=== PATIENT | female | born 1935 | race Caucasian/White ===

== ENCOUNTER → 2018-02-25 17:12 | Outpatient (CLI) | payer MEDICARE, OTHER, SELFPAY ==
--- NOTE | 2018-02-25 17:15 | RAD_ITS ---
STUDY: X-RAY CHEST REASON FOR EXAM: Female, 82 years old. Cough TECHNIQUE: Frontal and lateral views of the chest COMPARISON: 08/03/2016 FINDINGS: The lungs are clear. There are no pleural effusions. There is no pneumothorax. The heart is normal in size. The visualized osseous structures are within normal limits. RAD/Chest PA and Lateral IMPRESSION: No acute thoracic pathology. Electronically Signed: Harinder Osborne, at 23:49 EDT Tel , Service support ,
== END ==
PROVIDERS: Family Provider Family Medicine Geriatric Medicine; PCP Family Medicine Geriatric Medicine; Visit Provider Family Medicine Geriatric Medicine
DX: R05 Cough (principal); J32.9 Chronic sinusitis, unspecified
CPT/HCPCS: 71046; 87633

== ENCOUNTER 2018-05-27 16:37 | Emergency (ER) | payer MEDICARE, OTHER, MEDICAID, SELFPAY ==
[2018-05-27 16:38] VITALS: BP 166/102; PULSE 87; RESP 16; TEMP 36.4; O2SAT 96; BMI 42.4
--- NOTE | 2018-05-27 16:45 | RAD_ITS ---
STUDY: X-RAY - RIGHT KNEE REASON FOR EXAM: Female, 82 years old. Injury and pain TECHNIQUE: Four view(s) of the knee were obtained. COMPARISON: August 01, 2016 FINDINGS: There is a prosthesis in the distal femur. There is a prosthesis in the tibial plateau. Normal medial femorotibial compartment. Normal lateral femorotibial compartment. There are surgical changes in the patella. There is no fullness above the patella. Vascular calcifications are present. RAD/Knee 4 or More Views IMPRESSION: No acute abnormalities are seen in the right knee. Hardware is again seen in the right knee and appears intact. An old fracture is again seen in the distal femur, described on the femur study. Electronically Signed: Orquidea Birch MD at 17:53 EDT Tel Direct: [phone], Service support ,
--- NOTE | 2018-05-27 16:51 | ED.VISSUMM ---
- ER Visit Summary Date of Service: 05/27/18 Chief Complaint: Right leg injury History of Present Illness: The patient is a 82 F presents to the emergency department with right leg injury. The patient was in her normal state of health. She was being pushed in a wheelchair. She ended up getting her right foot caught behind her in the wheelchair Going. She ended up twisting her knee. She did have prior knee replacement with periprosthetic fracture and is worried she may have injured the hardware. She did not fall. She has not tried to bear weight on it since. Physical Examination: Vital signs reviewed General: Well-nourished, well-developed Head: Normocephalic, atraumatic Eyes: Pupils equal and reactive, extraocular muscles intact Neck, supple, no lymphadenopathy Heart: Regular rate and rhythm Respiratory: No distress, clear bilaterally Abdomen: Soft, nontender, nondistended, no peritoneal signs Back: Nontender Extremities: Mild tenderness over the distal femur without diffuse edema. Extension is preserved. No crepitus. No skin disruption. Normal pulses. Skin: Normal color no rash Neuro: Alert and oriented, no focal or lateralizing deficits Test Results: [] Emergency Department Course and Treatment: [The patient's extension is preserved. I did obtain plain films of her femur and knee. The hardware is intact. There is old fracture with callus formation. There is no evidence of new injury. This time, due to the patient is safe for outpatient therapy. She will continue Tylenol and ice. She will be discharged home. Treatment Plan: [] Disposition: [] Impression: 1. Right knee sprain This note was generated with [employer] dictation software. It may contain incorrect words, spelling, and punctuation that were not noted in review of the chart prior to signing ED Disposition - Plan for ED Patient: Disposition: Home or Assisted Living Chief Complaint: Lower Extremity Injury Instructions: ED Sprain Knee Referrals: Jeffrey Zhou Chi, MD [Primary Care Provider] -
--- NOTE | 2018-05-27 17:00 | RAD_ITS ---
STUDY: X-RAY - RIGHT FEMUR REASON FOR STUDY: Female, 82 years old. Injury and pain TECHNIQUE: Frontal and lateral views of the femur were obtained. COMPARISON: August 03, 2016 FINDINGS: Bones: There are no acute osseous abnormalities. There is an old fracture in the distal shaft of the right femur. An intramedullary tara extends through the right femur. Joints: Arthroplasty changes are again seen in the right knee. Soft tissues: Vascular calcifications are present. RAD/Femur Min 2 Views IMPRESSION: No acute abnormalities are seen in the right upper leg. Electronically Signed: Orquidea Birch MD at 17:55 EDT Tel Direct: [phone], Service support ,
[2018-05-27] MEDS: HYDROcodone Bitartrate/Apap 5/325 Tablet PO (17:21)
[2018-05-27 18:35] VITALS: BP 138/64; PULSE 51; RESP 18
== END 2018-05-27 18:35 | disposition home or self-care (01) ==
PROVIDERS: Emergency Provider Emergency Medicine; Family Provider Family Medicine Geriatric Medicine; PCP Family Medicine Geriatric Medicine
DX: S83.91XA Sprain of unspecified site of right knee, initial encounter (principal); E66.9 Obesity, unspecified; K21.9 Gastro-esophageal reflux disease without esophagitis; I10 Essential (primary) hypertension; E78.00 Pure hypercholesterolemia, unspecified; Z79.02 Long term (current) use of antithrombotics/antiplatelets; Z79.899 Other long term (current) drug therapy; X50.1XXA Overexertion from prolonged static or awkward postures, initial encounter; Y93.I9 Activity, other involving external motion; Y92.89 Other specified places as the place of occurrence of the external cause; Y99.8 Other external cause status
CPT/HCPCS: 73552; 73564; 99284

== ENCOUNTER → 2018-06-28 10:04 | Outpatient (CLI) | payer MEDICARE, OTHER, MEDICAID, SELFPAY ==
[2018-06-28 16:27] LABS: Absolute Lymphocyte Count 3.73 X10^3/ul (0.83-4.51); Absolute Neutrophil Count 4.2 X10^3/uL (2.0-7.7); Basophil# 0.03 X10^3/uL; Basophil% 0.3 % (0-1); Eosinophil# 0.27 X10^3/uL; Eosinophils% 2.9 % (0-5); Hematocrit 42.4 % (37-47); Hemoglobin 13.7 g/dl (12.0-15.0); Lymphocyte # 3.73 X10^3/ul (4.0); Lymphocyte % 40.6 % (19-41); Mean Corp Hgb Conc 32.3 g/gl (32-36); Mean Corpuscular Hgb 32.4 pg (27.0-32.0); Mean Corpuscular Volume 100.2 fL (81-99); Mean Platelet Vol. 9.7 fl (6.2-12.0); Monocyte# 0.95 X10^3/uL; Monocyte% 10.3 % (0-10); Neutrophil % 45.8 % (47-70); Platelet Count 240 K/mm3 (150-450); RBC Distribution Width CV 12.6 % (11.6-14.6); RBC Distribution Width SD 45.9 fl (35.1-43.9); Red Blood Count 4.23 M/mm3 (4.2-5.4); White Blood Count 9.2 K/mm3 (4.4-11.0)
[2018-06-28 16:35] LABS: POSITIVE COUNT NO; POSITIVE DIFFERENTIAL NO; POSITIVE MORPHOLOGY NO
[2018-06-28 17:08] LABS: ALB/GLOB Ratio 0.7 RATIO (0.9-2.4); AST(SGOT) 19 U/L (15-37); Alanine Aminotransfer ALT/SGPT 15 U/L (13-56); Albumin, Serum 3.2 g/dL (3.2-5.0); Alkaline Phosphatase 79 U/L (45-117); Anion Gap 7 (5-15); BUN 16 mg/dL (7-18); BUN/Creat Ratio 15.5 RATIO (10-20); Calcium,Total 8.9 mg/dL (8.5-10.1); Chloride 106 mmol/L (98-107); Creatinine, Serum 1.03 mg/dL (0.55-1.02); EST Glomerular Filtration Rate 55 mL/min (>60); Est Glom Filt Rate - Afr Amer 66 mL/min (>60); Globulin 4.6 g/dL (2.2-4.2); Glucose 113 mg/dL (74-106); Potassium 4.2 mmol/L (3.5-5.1); Protein, Total 7.8 g/dL (6.4-8.2); Sodium Level 140 mmol/L (136-145); Thyroid Stim Hormone (TSH) 0.71 uIU/mL (0.358-3.74); Uric Acid 2.9 mg/dL (2.6-6.0)
== END ==
PROVIDERS: Family Provider Family Medicine Geriatric Medicine; PCP Family Medicine Geriatric Medicine; Visit Provider Family Medicine Geriatric Medicine
DX: E11.9 Type 2 diabetes mellitus without complications (principal); E55.9 Vitamin D deficiency, unspecified; I10 Essential (primary) hypertension; M10.9 Gout, unspecified
CPT/HCPCS: 36415; 80053; 82306; 84443; 84550; 85025

== ENCOUNTER → 2018-09-06 14:25 | Outpatient (CLI) | payer MEDICARE, OTHER, MEDICAID, SELFPAY ==
--- NOTE | 2018-09-06 14:29 | RAD_ITS ---
STUDY: X-RAY CHEST REASON FOR EXAM: Female, 82 years old. Shortness of breath TECHNIQUE: Frontal and lateral views of the chest. COMPARISON: February 25, 2018 FINDINGS: The lungs are clear and expanded. There is no demonstrated pleural abnormality. Normal size heart. Normal mediastinum and mandeep. Normal visualized pulmonary arteries. Normal visualized aortic arch and descending thoracic aorta. There are diffuse degenerative changes of the visualized thoracic spine. Normal visualized ribs, clavicles, and shoulders. Lumbar vertebroplasty. Cholecystectomy clips. RAD/Chest PA and Lateral IMPRESSION: No acute pulmonary findings. Electronically Signed: Tyrone Ware MD at 5:06 EDT Tel , Service support ,
[2018-09-06 16:31] LABS: Absolute Lymphocyte Count 4.54 X10^3/ul (0.83-4.51); Absolute Neutrophil Count 4.1 X10^3/uL (2.0-7.7); Basophil# 0.04 X10^3/uL; Basophil% 0.4 % (0-1); Eosinophil# 0.18 X10^3/uL; Eosinophils% 1.8 % (0-5); Hematocrit 36.7 % (37-47); Hemoglobin 11.9 g/dl (12.0-15.0); Lymphocyte # 4.54 X10^3/ul (4.0); Lymphocyte % 46.5 % (19-41); Mean Corp Hgb Conc 32.4 g/gl (32-36); Mean Corpuscular Hgb 32.6 pg (27.0-32.0); Mean Corpuscular Volume 100.5 fL (81-99); Mean Platelet Vol. 10.4 fl (6.2-12.0); Monocyte# 0.93 X10^3/uL; Monocyte% 9.5 % (0-10); Neutrophil # 4.06 X10^3/uL (2.7-7.7); Neutrophil % 41.6 % (47-70); Platelet Count 265 K/mm3 (150-450); RBC Distribution Width CV 12.5 % (11.6-14.6); RBC Distribution Width SD 44.4 fl (35.1-43.9); Red Blood Count 3.65 M/mm3 (4.2-5.4); White Blood Count 9.8 K/mm3 (4.4-11.0)
[2018-09-06 16:40] LABS: Anion Gap 9 (5-15); BUN 18 mg/dL (7-18); BUN/Creat Ratio 15.7 RATIO (10-20); Calcium,Total 9.1 mg/dL (8.5-10.1); Chloride 105 mmol/L (98-107); Creatinine, Serum 1.15 mg/dL (0.55-1.02); EST Glomerular Filtration Rate 48 mL/min (>60); Est Glom Filt Rate - Afr Amer 58 mL/min (>60); Glucose 131 mg/dL (74-106); Potassium 3.8 mmol/L (3.5-5.1); Sodium Level 139 mmol/L (136-145)
[2018-09-06 16:47] LABS: BNP,B-Type NATRIURETIC PEPTIDE 273.7 pg/mL (0-100)
[2018-09-06 17:11] LABS: POSITIVE COUNT NO; POSITIVE DIFFERENTIAL NO; POSITIVE MORPHOLOGY NO
== END ==
PROVIDERS: Family Provider Family Medicine Geriatric Medicine; PCP Family Medicine Geriatric Medicine; Referring Provider Family Medicine Geriatric Medicine; Visit Provider Family Medicine Geriatric Medicine
DX: R06.89 Other abnormalities of breathing (principal); R06.09 Other forms of dyspnea; N39.0 Urinary tract infection, site not specified
CPT/HCPCS: 36415; 71046; 80048; 83880; 85025; 87086; 87088

== ENCOUNTER → 2018-09-10 12:39 | Outpatient (CLI) | payer MEDICARE, OTHER, MEDICAID, SELFPAY ==
--- NOTE | 2018-09-10 12:41 | ECHOD_ITS ---
Reason For Study: Acute CHF Procedure This was a 2D Doppler, Color Flow transthoracic echocardiogram. The study was technically difficult. Did not use Definity due to increased PAP. Exam performed in department. Left Ventricle Mildly dilated left ventricle. Based upon the 2D echocardiographic images obtained there appears to be mild left ventricular enlargement with global left ventricular systolic dysfunction. The estimated ejection fraction is 20 %. There is evidence of diastolic dysfunction. Right Ventricle Based upon the 2D echocardiographic images obtained there appears to be grossly normal right ventricular size and systolic function. Atria Normal left atrium. Normal right atrium. No doppler evidence for ASD. Mitral Valve There is no mitral annular calcification. Normal mitral valve. Moderate (2+) mitral valve insufficiency. Tricuspid Valve Normal tricuspid valve. Moderate (2+) tricuspid valve insufficiency. Right ventricular systolic pressure estimated to be 71 mmHg. Aortic Valve Trisinus/trileaflet aortic valve. Mild diffuse aortic valve calcification. Pulmonic Valve The pulmonic valve is not well visualized. Great Vessels Normal sized aortic root. Pericardium/Pleural No pericardial effusion. MMode/2D Measurements & Calculations LVIDd: 5.6 cm IVSd: 0.95 cm Ao root diam: 2.8 cm LVIDs: 4.8 cm LVPWd: 0.78 cm RVDd: 4.2 cm FS: 14.3 % LAV(MOD-bp): 55.7 ml LA A4 area: 18.9 cm2 RA A4 area: 18.9 cm2 LAV(MOD-bp) Indexed: 25.2 ml/m2 LAV(MOD-sp2): 61.0 ml LAV(MOD-sp4): 47.9 ml Doppler Measurements & Calculations MV E max aurelio: 104.2 cm/sec Lat Peak E' Aurelio: 5.0 cm/sec Med Peak E' Aurelio: 4.2 cm/sec MV A max aurelio: 44.9 cm/sec E/E' lat: 21.0 E/E' med: 24.8 MV E/A: 2.3 Ao V2 max: 153.0 cm/sec LV V1 max: 101.2 cm/sec PA V2 max: 84.0 cm/sec Ao max P.4 mmHg LV V1 max P.2 mmHg Ao V2 mean: 108.2 cm/sec Ao mean P.2 mmHg Ao V2 VTI: 28.2 cm TR max aurelio: 397.9 cm/sec TR max P.4 mmHg Interpretation Summary The study was technically difficult. Based upon the 2D echocardiographic images obtained there appears to be mild left ventricular enlargement with global left ventricular systolic dysfunction. The estimated ejection fraction is 20 %. Based upon the 2D echocardiographic images obtained there appears to be grossly normal right ventricular size and systolic function. Moderate (2+) mitral valve insufficiency. Moderate (2+) tricuspid valve insufficiency. Mild diffuse aortic valve calcification. Right ventricular systolic pressure estimated to be 71 mmHg. There is evidence of diastolic dysfunction. Ordering Physician: Jeffrey Zhou Chi Referring Physician: Jeffrey Zhou Chi Performed By: Hortencia Alvarado, ROMIE, RVT
== END ==
PROVIDERS: Family Provider Family Medicine Geriatric Medicine; PCP Family Medicine Geriatric Medicine; Referring Provider Family Medicine Geriatric Medicine; Visit Provider Family Medicine Geriatric Medicine
DX: R06.02 Shortness of breath (principal); I50.9 Heart failure, unspecified
CPT/HCPCS: 93306

== ENCOUNTER → 2018-09-13 16:56 | Outpatient (CLI) | payer MEDICARE, OTHER, MEDICAID, SELFPAY ==
[2018-09-13 18:30] LABS: Anion Gap 8 (5-15); BUN 15 mg/dL (7-18); BUN/Creat Ratio 14.6 RATIO (10-20); Calcium,Total 9.4 mg/dL (8.5-10.1); Chloride 101 mmol/L (98-107); Creatinine, Serum 1.03 mg/dL (0.55-1.02); EST Glomerular Filtration Rate 55 mL/min (>60); Est Glom Filt Rate - Afr Amer 66 mL/min (>60); Glucose 112 mg/dL (74-106); Potassium 3.8 mmol/L (3.5-5.1); Sodium Level 138 mmol/L (136-145)
== END ==
PROVIDERS: Family Provider Family Medicine Geriatric Medicine; PCP Family Medicine Geriatric Medicine; Referring Provider Family Medicine Geriatric Medicine; Visit Provider Family Medicine Geriatric Medicine
DX: I10 Essential (primary) hypertension (principal)
CPT/HCPCS: 36415; 80048

== ENCOUNTER → 2018-09-27 16:47 | Outpatient (CLI) | payer MEDICARE, OTHER, MEDICAID, SELFPAY ==
[2018-09-27 17:34] LABS: Anion Gap 9 (5-15); BUN 22 mg/dL (7-18); BUN/Creat Ratio 19.8 RATIO (10-20); Calcium,Total 9.1 mg/dL (8.5-10.1); Chloride 103 mmol/L (98-107); Creatinine, Serum 1.11 mg/dL (0.55-1.02); EST Glomerular Filtration Rate 50 mL/min (>60); Est Glom Filt Rate - Afr Amer 61 mL/min (>60); Glucose 112 mg/dL (74-106); Potassium 4.2 mmol/L (3.5-5.1); Sodium Level 135 mmol/L (136-145)
[2018-09-27 17:40] LABS: Absolute Lymphocyte Count 2.03 X10^3/ul (0.83-4.51); Absolute Neutrophil Count 1.9 X10^3/uL (2.0-7.7); Basophil# 0.02 X10^3/uL; Basophil% 0.4 % (0-1); Differential Indicated SCAN CRITERIA MET; Eosinophil# 0.11 X10^3/uL; Eosinophils% 2.3 % (0-5); Hematocrit 40.8 % (37-47); Hemoglobin 13.1 g/dl (12.0-15.0); Lymphocyte # 2.03 X10^3/ul (4.0); Lymphocyte % 42.6 % (19-41); Mean Corp Hgb Conc 32.1 g/gl (32-36); Mean Corpuscular Hgb 32.3 pg (27.0-32.0); Mean Corpuscular Volume 100.5 fL (81-99); Mean Platelet Vol. 9.8 fl (6.2-12.0); Monocyte# 0.67 X10^3/uL; Monocyte% 14.1 % (0-10); Neutrophil # 1.92 X10^3/uL (2.7-7.7); Neutrophil % 40.4 % (47-70); POSITIVE COUNT NO; POSITIVE DIFFERENTIAL NO; POSITIVE MORPHOLOGY YES; Platelet Count 204 K/mm3 (150-450); RBC Distribution Width CV 13.1 % (11.6-14.6); RBC Distribution Width SD 47.8 fl (35.1-43.9); Red Blood Count 4.06 M/mm3 (4.2-5.4); White Blood Count 4.8 K/mm3 (4.4-11.0)
== END ==
PROVIDERS: Family Provider Family Medicine Geriatric Medicine; PCP Family Medicine Geriatric Medicine; Visit Provider Family Medicine Geriatric Medicine
DX: I50.9 Heart failure, unspecified (principal)
CPT/HCPCS: 36415; 80048; 85025

== ENCOUNTER → 2018-10-11 16:19 | Outpatient (CLI) | payer MEDICARE, OTHER, MEDICAID, SELFPAY ==
[2018-10-11 17:36] LABS: Anion Gap 7 (5-15); BUN 15 mg/dL (7-18); BUN/Creat Ratio 16.4 RATIO (10-20); Chloride 108 mmol/L (98-107); Creatinine, Serum 0.92 mg/dL (0.55-1.02); EST Glomerular Filtration Rate 63 mL/min (>60); Est Glom Filt Rate - Afr Amer 76 mL/min (>60); Glucose 119 mg/dL (74-106); Potassium 4.3 mmol/L (3.5-5.1); Sodium Level 138 mmol/L (136-145)
[2018-10-11 18:36] LABS: Absolute Lymphocyte Count 3.41 X10^3/ul (0.83-4.51); Absolute Neutrophil Count 3.5 X10^3/uL (2.0-7.7); Basophil# 0.06 X10^3/uL; Basophil% 0.8 % (0-1); Eosinophil# 0.16 X10^3/uL; Hematocrit 41.4 % (37-47); Hemoglobin 13.5 g/dl (12.0-15.0); Lymphocyte # 3.41 X10^3/ul (4.0); Lymphocyte % 43.1 % (19-41); Mean Corp Hgb Conc 32.6 g/gl (32-36); Mean Corpuscular Hgb 32.2 pg (27.0-32.0); Mean Corpuscular Volume 98.8 fL (81-99); Mean Platelet Vol. 11.1 fl (6.2-12.0); Monocyte# 0.78 X10^3/uL; Monocyte% 9.8 % (0-10); Neutrophil % 44.2 % (47-70); Platelet Count 202 K/mm3 (150-450); RBC Distribution Width CV 13.2 % (11.6-14.6); RBC Distribution Width SD 47.9 fl (35.1-43.9); Red Blood Count 4.19 M/mm3 (4.2-5.4); White Blood Count 7.9 K/mm3 (4.4-11.0)
[2018-10-11 18:40] LABS: Differential Indicated SCAN CRITERIA MET; POSITIVE COUNT NO; POSITIVE DIFFERENTIAL NO; POSITIVE MORPHOLOGY YES
[2018-10-11 22:14] LABS: Differential Comment SCANNED
== END ==
PROVIDERS: Family Provider Family Medicine Geriatric Medicine; PCP Family Medicine Geriatric Medicine; Visit Provider Family Medicine Geriatric Medicine
DX: I50.9 Heart failure, unspecified (principal)
CPT/HCPCS: 36415; 80048; 85025

== ENCOUNTER → 2018-12-27 14:56 | Outpatient (CLI) | payer MEDICARE, OTHER, MEDICAID, SELFPAY ==
[2018-12-27 16:22] LABS: Vitamin D,25 Hydroxy 26.5 ng/mL (29.95-100.01)
[2018-12-27 16:26] LABS: ALB/GLOB Ratio 0.7 RATIO (0.9-2.4); AST(SGOT) 15 U/L (15-37); Alanine Aminotransfer ALT/SGPT 20 U/L (13-56); Albumin, Serum 3.2 g/dL (3.2-5.0); Alkaline Phosphatase 77 U/L (45-117); Anion Gap 10 (5-15); BUN 25 mg/dL (7-18); BUN/Creat Ratio 22.1 RATIO (10-20); Calcium,Total 9.2 mg/dL (8.5-10.1); Chloride 108 mmol/L (98-107); Creatinine, Serum 1.13 mg/dL (0.55-1.02); EST Glomerular Filtration Rate 49 mL/min (>60); Est Glom Filt Rate - Afr Amer 59 mL/min (>60); Globulin 4.3 g/dL (2.2-4.2); Glucose 129 mg/dL (74-106); Potassium 3.9 mmol/L (3.5-5.1); Protein, Total 7.5 g/dL (6.4-8.2); Sodium Level 143 mmol/L (136-145); Thyroid Stim Hormone (TSH) 0.87 uIU/mL (0.358-3.74); Uric Acid 3.2 mg/dL (2.6-6.0)
[2018-12-27 16:32] LABS: Absolute Lymphocyte Count 3.41 X10^3/ul (0.83-4.51); Absolute Neutrophil Count 2.4 X10^3/uL (2.0-7.7); Basophil# 0.03 X10^3/uL; Basophil% 0.5 % (0-1); Eosinophil# 0.18 X10^3/uL; Eosinophils% 2.8 % (0-5); Hemoglobin 13.6 g/dl (12.0-15.0); Lymphocyte # 3.41 X10^3/ul (4.0); Lymphocyte % 52.8 % (19-41); Mean Corp Hgb Conc 31.6 g/gl (32-36); Mean Corpuscular Hgb 31.3 pg (27.0-32.0); Mean Corpuscular Volume 99.1 fL (81-99); Mean Platelet Vol. 10.3 fl (6.2-12.0); Monocyte# 0.47 X10^3/uL; Monocyte% 7.3 % (0-10); Neutrophil # 2.36 X10^3/uL (2.7-7.7); Neutrophil % 36.4 % (47-70); Platelet Count 248 K/mm3 (150-450); RBC Distribution Width CV 13.7 % (11.6-14.6); RBC Distribution Width SD 49.3 fl (35.1-43.9); Red Blood Count 4.34 M/mm3 (4.2-5.4); White Blood Count 6.5 K/mm3 (4.4-11.0)
[2018-12-27 16:33] LABS: POSITIVE COUNT NO; POSITIVE DIFFERENTIAL NO; POSITIVE MORPHOLOGY NO
== END ==
PROVIDERS: Family Provider Family Medicine Geriatric Medicine; PCP Family Medicine Geriatric Medicine; Visit Provider Family Medicine Geriatric Medicine
DX: E11.9 Type 2 diabetes mellitus without complications (principal); E55.9 Vitamin D deficiency, unspecified; I10 Essential (primary) hypertension; M10.9 Gout, unspecified
CPT/HCPCS: 36415; 80053; 82306; 84443; 84550; 85025

== ENCOUNTER 2019-05-31 16:02 | Emergency (ER) | payer MEDICARE, OTHER, MEDICAID, SELFPAY ==
[2019-05-31 16:03] VITALS: BP 107/67; PULSE 79; RESP 18; TEMP 36.6; O2SAT 96; BMI 45.8
[2019-05-31 16:07] VITALS: O2SAT 96
--- NOTE | 2019-05-31 16:28 | RAD_ITS ---
STUDY: X-RAY - RIGHT SHOULDER REASON FOR EXAM: Female, 83 years old. Pain after fall. TECHNIQUE: 4 view(s) of the shoulder. COMPARISON: None. FINDINGS: There is mild degenerative arthrosis of the glenohumeral articulation. There is degenerative arthrosis of the acromioclavicular joint without inferior osseous spur formation. Normal acromion. There is no acute fracture, dislocation or destructive osseous pathology. There is demineralization of the humerus and visualized osseous structures. The soft tissue structures are unremarkable. Normal visualized pulmonary apex. RAD/Shoulder min 2 Views IMPRESSION: Osteopenia mild degenerative changes right shoulder. There is no acute fracture or dislocation. Electronically Signed: Davian Mendoza DO at 16:50 EDT Tel [phone], Service support ,
--- NOTE | 2019-05-31 16:30 | RAD_ITS ---
STUDY: X-RAY - RIGHT KNEE REASON FOR EXAM: Female, 83 years old. Right knee pain after fall. TECHNIQUE: 4 view(s) of the knee. COMPARISON: Right knee, May 27, 2018. FINDINGS: There is a total knee replacement. The prosthetic components are intact and articulate normally with each other. There is no evidence of loosening from the underlying bone. There is no evidence of acute osseous fracture or destructive osseous pathology. There is slight irregularity of the distal femoral shaft suggesting old healed fracture. This appears stable. There are atherosclerotic calcifications. RAD/Knee 4 or More Views IMPRESSION: Stable right artificial knee without acute abnormality or interval change. Electronically Signed: Davian Mendoza DO at 16:51 EDT Tel [phone], Service support ,
--- NOTE | 2019-05-31 16:32 | ED.VISSUMM ---
- ER Visit Summary Date of Service: 05/31/19 Chief Complaint: Fall History of Present Illness: The patient is a 83 F who presents with right knee pain and right shoulder pain that began after a fall today. Patient states she was walking and then sat down. Patient attempted to stand up and fell to the right. Patient hit her right shoulder on a wall and then fell to the ground and hit her right knee. Patient has had a right total knee replacement and a fracture of her distal femur in the past. Patient and family are concerned over possible fracture of her knee or distal femur. Patient denies any head injury or loss of consciousness. Patient denies any paresthesias or weakness. Patient states her pain is worse with any movement. Patient denies any other injuries. Physical Examination: Vital signs are stable. Patient is afebrile. Patient is in no acute distress. [place]ucosa is pink and moist. Neck is supple. Trachea is midline. There is no JVD noted. Heart was regular rate and rhythm. Lungs are clear and equal bilaterally. Abdomen is soft. Bowel sounds are normal. There is no tenderness. There is no guarding noted. Musculoskeletal exam reveals tenderness over the right shoulder and right knee. Range of motion was limited in all motions of the right shoulder and right knee. There is no obvious deformity noted. Sensation was intact to light touch bilaterally in the upper and lower extremities. Strength is 5/5 bilaterally upper and lower extremities. Radial and pedal pulses are equal bilaterally. Test Results: X-rays of the right shoulder were obtained. There is no acute fracture or dislocation. X-rays of the right knee were obtained. There is no acute fracture. The prosthesis and screws are intact. Emergency Department Course and Treatment: Patient was given 2 doses of [place] here. Patient was able to ambulate here in the emergency department with a walker. Patient will be discharged home. Patient was given a prescription for a short course of [place]. Patient was instructed to follow-up with her primary care physician in 5 to 7 days. Patient understood and was agreeable with the plan. All questions were answered. Disposition: Discharge home Impression: 1. Right knee contusion 2. Right shoulder contusion This note was generated with [employer] software. It may contain incorrect words, spelling, and punctuation that were not noted in review of the chart prior to signing ED Disposition - Plan for ED Patient: Disposition: Home or Assisted Living Diagnosis: Contusion of right knee, initial encounter, Contusion of right shoulder, initial encounter Instructions: FALL, Mechanical, CONTUSION, Soft Tissue Prescriptions: Hydrocodone Bitart/Apap 5-325 [[place] 5MG-325MG] 1 tab PO Q6H PRN PRN 3 Days #10 tab PRN Reason: Pain Prescription Printed Referrals: Jeffrey Zhou Chi, MD [Primary Care Provider] - 5-7 Days
[2019-05-31] MEDS: HYDROcodone Bitartrate/Apap 5/325 Tablet PO ×2 (16:49→19:18)
[2019-05-31 18:11] VITALS: BP 128/73; PULSE 67; O2SAT 97
--- NOTE | 2019-05-31 18:50 | ED.RN ---
RN CALLED FOR EKG, PULLED OLD EKGS FOR
[2019-05-31 19:27] VITALS: BP 116/78; PULSE 76; RESP 16; O2SAT 97
== END 2019-05-31 19:27 | disposition home or self-care (01) ==
PROVIDERS: Emergency Provider Emergency Medicine; Family Provider Family Medicine Geriatric Medicine; PCP Family Medicine Geriatric Medicine
DX: S80.01XA Contusion of right knee, initial encounter (principal); S40.011A Contusion of right shoulder, initial encounter; E66.9 Obesity, unspecified; I50.9 Heart failure, unspecified; Z96.651 Presence of right artificial knee joint; Z79.899 Other long term (current) drug therapy; W18.30XA Fall on same level, unspecified, initial encounter; Y93.89 Activity, other specified; Y92.009 Unspecified place in unspecified non-institutional (private) residence as the place of occurrence of the external cause; Y99.8 Other external cause status
CPT/HCPCS: 73030; 73564; 99285

== ENCOUNTER → 2019-06-30 13:45 | Outpatient (CLI) | payer MEDICARE, OTHER, MEDICAID, SELFPAY ==
[2019-05-31 16:03] VITALS: BMI 45.8
[2019-06-30 17:00] LABS: Absolute Lymphocyte Count 3.65 X10^3/uL (0.83-4.51); Absolute Neutrophil Count 3.9 X10^3/uL (2.0-7.7); Basophil# 0.05 X10^3/uL; Basophil% 0.6 % (0-1); Eosinophil# 0.22 X10^3/uL; Eosinophils% 2.6 % (0-5); Hematocrit 39.6 % (37-47); Hemoglobin 12.3 g/dL (12.0-15.0); Lymphocyte # 3.65 X10^3/ul (4.0); Lymphocyte % 42.7 % (19-41); Mean Corp Hgb Conc 31.1 g/dL (32-36); Mean Corpuscular Hgb 31.1 pg (27.0-32.0); Mean Corpuscular Volume 100.3 fL (81-99); Mean Platelet Vol. 11.1 fl (6.2-12.0); Monocyte# 0.72 X10^3/uL; Monocyte% 8.4 % (0-10); NRBC Flagged by Analyzer 0 % (0-5); Neutrophil # 3.89 X10^3/uL (2.7-7.7); Neutrophil % 45.5 % (47-70); Platelet Count 244 K/mm3 (150-450); RBC Distribution Width CV 12.4 % (11.6-14.6); RBC Distribution Width SD 45.9 fl (35.1-43.9); Red Blood Count 3.95 M/mm3 (4.2-5.4); White Blood Count 8.6 K/mm3 (4.4-11.0)
[2019-06-30 17:52] LABS: Vitamin D,25 Hydroxy 20.6 ng/mL (29.95-100.01)
[2019-06-30 17:58] LABS: ALB/GLOB Ratio 0.7 RATIO (0.9-2.4); AST(SGOT) 20 U/L (15-37); Alanine Aminotransfer ALT/SGPT 19 U/L (13-56); Albumin, Serum 3.2 g/dL (3.2-5.0); Alkaline Phosphatase 93 U/L (45-117); Anion Gap 8 (5-15); BUN 18 mg/dL (7-18); BUN/Creat Ratio 15.8 RATIO (10-20); Chloride 108 mmol/L (98-107); Creatinine, Serum 1.14 mg/dL (0.55-1.02); EST Glomerular Filtration Rate 49 mL/min (>60); Est Glom Filt Rate - Afr Amer 59 mL/min (>60); Globulin 4.3 g/dL (2.2-4.2); Glucose 129 mg/dL (74-106); Potassium 3.9 mmol/L (3.5-5.1); Protein, Total 7.5 g/dL (6.4-8.2); Sodium Level 142 mmol/L (136-145); Thyroid Stim Hormone (TSH) 0.79 uIU/mL (0.358-3.74); Uric Acid 3.3 mg/dL (2.6-6.0)
== END ==
PROVIDERS: Family Provider Family Medicine Geriatric Medicine; PCP Family Medicine Geriatric Medicine; Visit Provider Family Medicine Geriatric Medicine
DX: E11.9 Type 2 diabetes mellitus without complications (principal); M10.9 Gout, unspecified; E55.9 Vitamin D deficiency, unspecified
CPT/HCPCS: 36415; 80053; 82306; 84443; 84550; 85025

== ENCOUNTER → 2019-12-28 15:05 | Outpatient (CLI) | payer MEDICARE, OTHER, MEDICAID, SELFPAY ==
[2019-12-28 17:28] LABS: Absolute Lymphocyte Count 3.03 X10^3/uL (0.83-4.51); Absolute Neutrophil Count 2.2 X10^3/uL (2.0-7.7); Basophil# 0.04 X10^3/uL; Basophil% 0.7 % (0-1); Eosinophil# 0.24 X10^3/uL; Eosinophils% 3.9 % (0-5); Hematocrit 37.6 % (37-47); Hemoglobin 11.9 g/dL (12.0-15.0); Lymphocyte # 3.03 X10^3/ul (4.0); Lymphocyte % 49.8 % (19-41); Mean Corp Hgb Conc 31.6 g/dL (32-36); Mean Corpuscular Volume 97.9 fL (81-99); Mean Platelet Vol. 10.4 fl (6.2-12.0); Monocyte# 0.53 X10^3/uL; Monocyte% 8.7 % (0-10); NRBC Flagged by Analyzer 0 % (0-5); Neutrophil # 2.24 X10^3/uL (2.7-7.7); Neutrophil % 36.7 % (47-70); Platelet Count 239 K/mm3 (150-450); RBC Distribution Width SD 46.4 fl (35.1-43.9); Red Blood Count 3.84 M/mm3 (4.2-5.4); White Blood Count 6.1 K/mm3 (4.4-11.0)
[2019-12-28 18:05] LABS: ALB/GLOB Ratio 0.8 RATIO (0.9-2.4); AST(SGOT) 14 U/L (15-37); Alanine Aminotransfer ALT/SGPT 16 U/L (13-56); Albumin, Serum 3.3 g/dL (3.2-5.0); Alkaline Phosphatase 79 U/L (45-117); Anion Gap 5 (5-15); BUN 30 mg/dL (7-18); Chloride 107 mmol/L (98-107); EST Glomerular Filtration Rate 46 mL/min (>60); Est Glom Filt Rate - Afr Amer 55 mL/min (>60); Globulin 3.9 g/dL (2.2-4.2); Glucose 132 mg/dL (74-106); Potassium 3.9 mmol/L (3.5-5.1); Protein, Total 7.2 g/dL (6.4-8.2); Sodium Level 138 mmol/L (136-145); Thyroid Stim Hormone (TSH) 0.84 uIU/mL (0.358-3.74); Uric Acid 2.6 mg/dL (2.6-6.0)
[2019-12-28 18:13] LABS: Vitamin D,25 Hydroxy 24.2 ng/mL (29.95-100.01)
== END ==
PROVIDERS: PCP Family Medicine Geriatric Medicine; Visit Provider Family Medicine Geriatric Medicine
DX: E55.9 Vitamin D deficiency, unspecified (principal); I10 Essential (primary) hypertension; M10.9 Gout, unspecified
CPT/HCPCS: 36415; 80053; 82306; 84443; 84550; 85025

== ENCOUNTER → 2021-01-02 13:07 | Outpatient (CLI) | payer MEDICARE, OTHER, MEDICAID, SELFPAY ==
--- NOTE | 2021-01-02 14:24 | RAD_ITS ---
STUDY: X-RAY - RIGHT ANKLE REASON FOR EXAM: Female, 85 years old. RIGHT FOOT AND ANKLE PAIN. NO KNOWN RECENT INJURY. TECHNIQUE: 3 view(s) of the ankle. COMPARISON: None. FINDINGS: Normal visualized distal tibia and fibula. Normal medial and lateral malleoli. Normal tibiotalar articulation and ankle mortise. Plantar spur. The visualized subtalar, talonavicular, calcaneocuboid and tarsal articulations are normal. Vascular calcification. RAD/Ankle min 3 Views IMPRESSION: Plantar spur. Electronically Signed: Tomas Marquez MD at 15:20 EST , Service support ,
--- NOTE | 2021-01-02 14:40 | RAD_ITS ---
STUDY: X-RAY - RIGHT FOOT CLINICAL: Female, 85 years old. RIGHT FOOT AND ANKLE PAIN. NO KNOWN RECENT INJURY. TECHNIQUE: 3 view(s) of the foot. COMPARISON: None. FINDINGS: There is a plantar calcaneal spur. Normal visualized subtalar, talonavicular, calcaneocuboid, tarsal and tarsometatarsal articulations. Normal metatarsi. There is degenerative arthrosis of the metatarsophalangeal joint of the hallux . Normal tibial and fibular sesamoid bones. Normal interphalangeal joint of the great toe. Normal phalanges of the great toe. Normal second through fifth metatarsophalangeal joints. Normal interphalangeal joints and phalanges of the lesser toes. Vascular calcification. RAD/Foot min 3 Views IMPRESSION: Plantar spur. Atherosclerotic calcification. Electronically Signed: Tomas Marquez MD at 15:21 EST , Service support ,
[2021-01-02 17:22] LABS: Absolute Lymphocyte Count 3.02 X10^3/uL (0.83-4.51); Absolute Neutrophil Count 2.4 X10^3/uL (2.0-7.7); Basophil# 0.04 X10^3/uL; Basophil% 0.6 % (0-1); Eosinophil# 0.27 X10^3/uL; Eosinophils% 4.4 % (0-5); Hematocrit 39.4 % (37-47); Hemoglobin 11.9 g/dL (12.0-15.0); Lymphocyte # 3.02 X10^3/ul (4.0); Lymphocyte % 48.7 % (19-41); Mean Corp Hgb Conc 30.2 g/dL (32-36); Mean Corpuscular Hgb 30.3 pg (27.0-32.0); Mean Corpuscular Volume 100.3 fL (81-99); Mean Platelet Vol. 10.2 fl (6.2-12.0); Monocyte# 0.48 X10^3/uL; Monocyte% 7.7 % (0-10); NRBC Flagged by Analyzer 0 % (0-5); Neutrophil # 2.37 X10^3/uL (2.7-7.7); Neutrophil % 38.3 % (47-70); Platelet Count 267 K/mm3 (150-450); RBC Distribution Width CV 12.7 % (11.6-14.6); RBC Distribution Width SD 46.8 fl (35.1-43.9); Red Blood Count 3.93 M/mm3 (4.2-5.4); White Blood Count 6.2 K/mm3 (4.4-11.0)
[2021-01-02 17:33] LABS: Vitamin D,25 Hydroxy 31.5 ng/mL
[2021-01-02 17:54] LABS: ALB/GLOB Ratio 0.7 RATIO (0.9-2.4); AST(SGOT) 15 U/L (15-37); Alanine Aminotransfer ALT/SGPT 14 U/L (13-56); Alkaline Phosphatase 80 U/L (45-117); Anion Gap 9 (5-15); BUN 27 mg/dL (7-18); BUN/Creat Ratio 22.9 RATIO (10-20); Calcium,Total 9.1 mg/dL (8.5-10.1); Chloride 106 mmol/L (98-107); Creatinine, Serum 1.18 mg/dL (0.55-1.02); EST Glomerular Filtration Rate 47 mL/min (>60); Est Glom Filt Rate - Afr Amer 56 mL/min (>60); Globulin 4.6 g/dL (2.2-4.2); Glucose 155 mg/dL (74-106); Potassium 3.6 mmol/L (3.5-5.1); Protein, Total 7.6 g/dL (6.4-8.2); Sodium Level 140 mmol/L (136-145); Thyroid Stim Hormone (TSH) 1.27 uIU/mL (0.358-3.74); Uric Acid 2.6 mg/dL (2.6-6.0)
== END ==
PROVIDERS: PCP Family Medicine Geriatric Medicine; Referring Provider Family Medicine Geriatric Medicine; Visit Provider Family Medicine Geriatric Medicine
DX: E11.9 Type 2 diabetes mellitus without complications (principal); E55.9 Vitamin D deficiency, unspecified; I10 Essential (primary) hypertension; M10.9 Gout, unspecified; M79.673 Pain in unspecified foot
CPT/HCPCS: 36415; 73610; 73630; 80053; 82306; 84443; 84550; 85025

== ENCOUNTER → 2021-03-13 16:49 | Outpatient (CLI) | payer MEDICARE, OTHER, MEDICAID, SELFPAY ==
[2021-03-13 17:19] LABS: Absolute Lymphocyte Count 3.37 X10^3/uL (0.83-4.51); Absolute Neutrophil Count 3.9 X10^3/uL (2.0-7.7); Basophil# 0.06 X10^3/uL; Basophil% 0.7 % (0-1); Eosinophil# 0.25 X10^3/uL; Hematocrit 42.2 % (37-47); Hemoglobin 13.6 g/dL (12.0-15.0); Lymphocyte # 3.37 X10^3/ul (0.83-4.51); Lymphocyte % 40.3 % (19-41); Mean Corp Hgb Conc 32.2 g/dL (32-36); Mean Corpuscular Hgb 31.9 pg (27.0-32.0); Mean Corpuscular Volume 98.8 fL (81-99); Mean Platelet Vol. 9.5 fl (6.2-12.0); Monocyte% 9.6 % (0-10); NRBC Flagged by Analyzer 0 % (0-5); Neutrophil # 3.87 X10^3/uL (2.7-7.7); Neutrophil % 46.2 % (47-70); Platelet Count 259 K/mm3 (150-450); RBC Distribution Width CV 13.4 % (11.6-14.6); RBC Distribution Width SD 48.5 fl (35.1-43.9); Red Blood Count 4.27 M/mm3 (4.2-5.4); White Blood Count 8.4 K/mm3 (4.4-11.0)
[2021-03-13 18:18] LABS: ALB/GLOB Ratio 0.6 RATIO (0.9-2.4); AST(SGOT) 41 U/L (15-37); Alanine Aminotransfer ALT/SGPT 15 U/L (13-56); Alkaline Phosphatase 79 U/L (45-117); Anion Gap 4 (5-15); BUN 23 mg/dL (7-18); BUN/Creat Ratio 18.7 RATIO (10-20); Chloride 105 mmol/L (98-107); Creatinine, Serum 1.23 mg/dL (0.55-1.02); EST Glomerular Filtration Rate 44 mL/min (>60); Est Glom Filt Rate - Afr Amer 54 mL/min (>60); Globulin 5.1 g/dL (2.2-4.2); Glucose 114 mg/dL (74-106); Potassium 4.3 mmol/L (3.5-5.1); Protein, Total 8.1 g/dL (6.4-8.2); Sodium Level 139 mmol/L (136-145); Thyroid Stim Hormone (TSH) 0.93 uIU/mL (0.358-3.74)
== END ==
PROVIDERS: PCP Family Medicine Geriatric Medicine; Visit Provider Family Medicine Geriatric Medicine
DX: N39.0 Urinary tract infection, site not specified (principal); R53.83 Other fatigue
CPT/HCPCS: 36415; 80053; 84443; 85025; 87086; 87088

== ENCOUNTER 2021-05-13 15:00 | Outpatient (RCR) | payer MEDICARE, OTHER, MEDICAID, SELFPAY ==
--- NOTE | 2021-04-17 16:03 | HP.PTEVAL ---
Patient's Visit Information RAFA BARRON is a 85 year old F referred to Physical Therapy by Dr. Jeffrey Zhou MD with a diagnosis of Bilateral Lower Extremity Weakness. Date of Evaluation: 04/12/21 Physical Therapist: Gokul Novoa DPT - Visit Plan Frequency: 2x /Week Duration: 4-6 Weeks Plan: The pt. is currently independent with trying to walk more each day, as well as doing marches in sitting. Have the pt. increase her B LE strength and increase her walking endurance while at the clinic. Start the pt. on a recumbent bike to increase her LE ROM and endurance. Have the pt. fill out a LEFS at the 2nd visit. - Subjective The pt. comes to PT today for concerns of weakness in both lower extremities. The pt. reports that when she stands up and walks, occasionally her R knee will buckle and give out on her. She states that her R leg feels weaker than the L and could be due to a femur fracture about four years ago on her R side. The pt. states that she was immobile for a year after her fracture and resided at [facility] for a year and her lower extremity strength has been progressively decreasing since then. She is currently living with her daughter and son-in-law and has been living there for 11 years now and who help her around the house when they can. She goes to [place] every Thursday and from 8AM-2PM to get bathed and spend the day with other people. The pt. is unable to bathe herself while at home because the shower is too small for her. At home, she is sleeping in her bed and can transfer herself, but uses a bed rail to help her get in/out of bed. Her upper extremity is strong enough for her to push off the bed rail and off of her chair to get up she states. She has a ramp that leads up to her mobile home, so she does not have to ascend/descend stairs. She can also transfer herself into a van, but needs help moving her legs into the van. To get around the house, the pt. ambulates with a standard walker and uses a rollator/wheelchair to ambulate within the community. She reports she gets up about 5-6 times a day, but this is the only exercise or physical activity she does on the daily. The pt. likes to read books, watch TV, and do crossword puzzles. The pt. denies any pain, N/T, SOB, chest tightness, frequent headaches, changes in mentation, changes in vision/hearing, and incontinence. - Objective Posture: forward head, rounded shoulders, minimal increase in thoracic kyphosis in both sitting and standing. MMT: Hip flexion bilat 3/5, knee extension bilat 3/5, knee flexion R 3+/5, L 4/5, dorsiflexion bilat 3/5, eversion bilat 3+/5, inversion bilat 3+/5, elbow extension bilat 5/5, elbow flexion bilat 4+/5. Gait: decreased hip flexion in swing phase, decreased knee flexion in loading response, decreased step length. Pt. was able to ambulate about 50 feet before needing to sit down and reported SOB. The pt. was able to transfer from her wheelchair to the plinth with no assistance, but took about 4-5 tries to come to standing, using both upper extremities. She was a max assist for her legs when transferring from sitting to lying down. The pt. was a moderate assist when coming up from the plinth to sitting. The pt. also relies on her bilateral upper extremity strength to push up from the bed into sitting. While ambulating the patient was a contact guard assist with a wheelchair following in case she lost her balance or became SOB. - Goals Goal 1:: LTG: The pt. will be compliant and independent with her HEP. Goal Time Frame: 4-6 Weeks Goal 2:: LTG: The pt. will report having a decrease in the number of occurrences that her R leg gives out on her on a daily basis. Goal Time Frame: 4-6 Weeks Goal 3:: LTG: The pts. B knee and B hip strength will improve to a 4/5 so the pt. does not feel weakness with ambulation and while standing up from her chair. Goal 4:: LTG: The pts. B single leg stance time will increase 3-5 seconds to improve her gait stability. - Rehabilitation Potential Physical Therapy Diagnosis: The pt. is an 85 yo female who presents to the clinic in a wheelchair with bilateral lower extremity weakness. The pt. presents with decreased lower extremity strength, decreased endurance, impaired balance, and decreased lower extremity ROM. She is needing physical therapy to address her limitations and impairments, so the patient can tolerate transfers and physical activity easier. Rehabilitation Potential: Good - Anticipated Interventions Patient/Client Instruction: Educate patient on: Condition, Plan of Care For the Purpose of:: To decrease pain, To increase ROM, To improve muscle performance and motor function, To improve ability to perform ADL's, To increase tolerance to activity/condition/position, To improve performance and independence with ADL's, To decrease level of supervision to perform tasks, To improve ability of physical actions for home/community/work/leisure, To improve gait and locomotor functions, To decrease soft tissue restriction, To increase flexibility/ROM, To improve endurance, To improve balance, To improve safety with gait, To assume or resume ADL's, To improve health and function, To foster healthy habits, To improve self management, To improve tolerance to ADL's Therapeutic Exercise to Include: Strength training, Endurance training, Balance training, Coordination, Postural training, Flexibilty training, Gait and locomotor training, Passive ROM, Active ROM For the Purpose of:: To decrease pain, To increase ROM, To improve muscle performance and motor function, To improve ability to perform ADL's, To increase tolerance to activity/condition/position, To improve performance and independence with ADL's, To decrease level of supervision to perform tasks, To improve ability of physical actions for home/community/work/leisure, To improve gait and locomotor functions, To increase flexibility/ROM, To improve endurance, To improve balance, To improve safety with gait, To reduce risk of recurrence, To improve health and function, To improve tolerance to ADL's Manual Therapy Techniques to Include: Mobilization, Passive ROM, Soft tissue mobilization For the Purpose of:: To decrease pain, To increase ROM, To improve nutrient delivery to tissue, To increase oxygenation perfusion, To improve muscle performance and motor function, To improve ability to perform ADL's, To increase tolerance to activity/condition/position, To improve performance and independence with ADL's, To increase flexibility/ROM, To improve tolerance to ADL's TENS: Yes Cryotherapy (ice pack, ice massage): Yes Thermo therapy (hot pack): Yes Ultrasound (thermal/non thermal): Yes For the Purpose of:: To decrease pain, To decrease swelling/inflammation, To increase ROM, To improve muscle performance and motor function, To increase tolerance to activity/condition/position, To increase flexibility/ROM Thank you for the opportunity to evaluate your patient. For Medicare and Medicare HMO plans, please review the plan of care and approve it. It will need to be FAXED BACK to us at [phone] for Medicare purposes. For Medicare only, by signing this I certify the plan of care. Please let me know if there are questions or concerns regarding this plan of care. Physician Signature: Date:
== END 2021-05-13 19:00 | disposition home or self-care (01) ==
LOC: PT 15:00
PROVIDERS: PCP Family Medicine Geriatric Medicine; Referring Provider Family Medicine Geriatric Medicine; Visit Provider Family Medicine Geriatric Medicine
DX: R53.1 Weakness (principal)
CPT/HCPCS: 97110; 97161

== ENCOUNTER → 2021-05-16 | Outpatient (CLI) | payer MEDICARE, OTHER, MEDICAID, SELFPAY | END | disposition home or self-care (01) | LOC: LABSPEC 14:41 | PROVIDERS: PCP Family Medicine Geriatric Medicine; Visit Provider Family Medicine Geriatric Medicine | DX: N39.0 Urinary tract infection, site not specified (principal) | CPT/HCPCS: 87077; 87086; 87088; 87186 ==

== ENCOUNTER → 2021-07-10 13:15 | Outpatient (CLI) | payer MEDICARE, OTHER, MEDICAID, SELFPAY ==
[2021-07-10 17:18] LABS: Absolute Lymphocyte Count 3.22 X10^3/uL (0.83-4.51); Absolute Neutrophil Count 2.8 X10^3/uL (2.0-7.7); Basophil# 0.06 X10^3/uL; Basophil% 0.9 % (0-1); Eosinophil# 0.26 X10^3/uL; Eosinophils% 3.8 % (0-5); Hematocrit 42.2 % (37-47); Hemoglobin 13.2 g/dL (12.0-15.0); Lymphocyte # 3.22 X10^3/ul (0.83-4.51); Lymphocyte % 46.5 % (19-41); Mean Corp Hgb Conc 31.3 g/dL (32-36); Mean Corpuscular Hgb 31.7 pg (27.0-32.0); Mean Corpuscular Volume 101.2 fL (81-99); Mean Platelet Vol. 11.1 fl (6.2-12.0); Monocyte# 0.61 X10^3/uL; Monocyte% 8.8 % (0-10); NRBC Flagged by Analyzer 0 % (0-5); Neutrophil # 2.76 X10^3/uL (2.7-7.7); Neutrophil % 39.7 % (47-70); Platelet Count 244 K/mm3 (150-450); RBC Distribution Width CV 12.3 % (11.6-14.6); RBC Distribution Width SD 45.9 fl (35.1-43.9); Red Blood Count 4.17 M/mm3 (4.2-5.4); White Blood Count 6.9 K/mm3 (4.4-11.0)
[2021-07-10 17:32] LABS: Vitamin D,25 Hydroxy 30.3 ng/mL
[2021-07-10 17:38] LABS: ALB/GLOB Ratio 0.7 RATIO (0.9-2.4); AST(SGOT) 22 U/L (15-37); Alanine Aminotransfer ALT/SGPT 20 U/L (13-56); Albumin, Serum 3.3 g/dL (3.2-5.0); Alkaline Phosphatase 78 U/L (45-117); Anion Gap 7 (5-15); BUN 25 mg/dL (7-18); BUN/Creat Ratio 18.1 RATIO (10-20); Calcium,Total 9.1 mg/dL (8.5-10.1); Chloride 104 mmol/L (98-107); Creatinine, Serum 1.38 mg/dL (0.55-1.02); EST Glomerular Filtration Rate 39 mL/min (>60); Est Glom Filt Rate - Afr Amer 47 mL/min (>60); Globulin 4.8 g/dL (2.2-4.2); Glucose 156 mg/dL (74-106); Protein, Total 8.1 g/dL (6.4-8.2); Sodium Level 138 mmol/L (136-145); Thyroid Stim Hormone (TSH) 1.15 uIU/mL (0.358-3.74); Uric Acid 3.2 mg/dL (2.6-6.0)
== END ==
PROVIDERS: PCP Family Medicine Geriatric Medicine; Visit Provider Family Medicine Geriatric Medicine
DX: E11.9 Type 2 diabetes mellitus without complications (principal); E55.9 Vitamin D deficiency, unspecified; I10 Essential (primary) hypertension; M10.9 Gout, unspecified
CPT/HCPCS: 36415; 80053; 82306; 84443; 84550; 85025

== ENCOUNTER → 2021-07-17 15:23 | Outpatient (CLI) | payer MEDICARE, OTHER, MEDICAID, SELFPAY ==
--- NOTE | 2021-07-17 15:35 | RAD_ITS ---
STUDY: X-RAY - LUMBAR SPINE REASON FOR EXAM: Female, 85 years old. LOW BCK PAIN TECHNIQUE: 3 view(s) of the lumbar spine were obtained. COMPARISON: None FINDINGS: Normal lumbar lordosis. There is no substantial scoliosis. There is a normal alignment of the vertebrae. Chronic mild wedge compression fracture of L1 treated with vertebroplasty. Focal disc space narrowing and osteophyte formation at L5/S1 consistent with degenerative disc disease. Facet hypertrophy consistent with degenerative disc disease. The soft tissue structures are unremarkable. RAD/Lumbar Spine 2 or 3 Views IMPRESSION: 1. Chronic mild wedge compression fracture of L1 treated with vertebroplasty. 2. Mild degenerative disc disease as described above. Electronically Signed: Gab Ruelas MD at 16:01 EDT Tel , Service support ,
== END ==
PROVIDERS: PCP Family Medicine Geriatric Medicine; Referring Provider Family Medicine Geriatric Medicine; Visit Provider Family Medicine Geriatric Medicine
DX: N39.0 Urinary tract infection, site not specified (principal); M54.5 Low back pain
CPT/HCPCS: 72100; 87086; 87088

== ENCOUNTER → 2021-08-22 | Outpatient (CLI) | payer MEDICARE, OTHER, MEDICAID, SELFPAY | END | disposition home or self-care (01) | LOC: LABSPEC 15:37 | PROVIDERS: PCP Family Medicine Geriatric Medicine; Visit Provider Family Medicine Geriatric Medicine | DX: N39.0 Urinary tract infection, site not specified (principal) | CPT/HCPCS: 87077; 87086; 87088; 87186 ==

== ENCOUNTER → 2021-10-11 14:08 | Outpatient (CLI) | payer MEDICARE, OTHER, MEDICAID, SELFPAY ==
--- NOTE | 2021-10-11 14:14 | US_ITS ---
STUDY: RENAL ULTRASOUND - COMPLETE REASON FOR EXAM: Female, 85 years old. CHRONIC KIDNEY DISEASE TECHNIQUE: Ultrasound evaluation of the kidneys was performed with real-time and static monroe-scale imaging. COMPARISON: None. FINDINGS: RIGHT KIDNEY: Normal location of the right kidney, which is normal in size. The right kidney measures 10.6 x 5.1 cm. There is a normal cortex of the right kidney. The renal cortex measures 1 cm. There is no right renal mass or cyst. There are no right renal calculi. There is no right hydronephrosis. DISTAL RIGHT URETER: There is non-visualization of the distal right ureter. There is no demonstrated right ureterovesical junction calculus. There is no demonstrated right ureteral jet. LEFT KIDNEY: Normal location of the left kidney, which is normal in size. The left kidney measures 10.4 x 5.5 cm. There is a normal cortex of the left kidney. The renal cortex measures 1.2 cm. There is no left renal mass or cyst. There are no left renal calculi. There is no left hydronephrosis. DISTAL LEFT URETER: There is non-visualization of the distal left ureter. There is no demonstrated left ureterovesical junction calculus. There is a visualized left ureteral jet. AORTA: There is obscuration of the abdominal aorta by overlying bowel gas I.V.C.: The IVC is obscured. BLADDER: The IVC is obscured. US/Kidney and Bladder IMPRESSION: Normal ultrasound of the kidneys . Electronically Signed: Silver Izquierdo MD at 17:38 EST , Service support ,
== END ==
PROVIDERS: PCP Family Medicine Geriatric Medicine; Referring Provider Internal Medicine Nephrology; Visit Provider Internal Medicine Nephrology
DX: N18.32 Chronic kidney disease, stage 3b (principal)
CPT/HCPCS: 76770

== ENCOUNTER 2021-12-05 16:49 | Outpatient (CLI) | payer MEDICARE, OTHER, MEDICAID, SELFPAY ==
--- NOTE | 2021-12-05 17:08 | RAD_ITS ---
EXAM: XR Chest, 2 Views CLINICAL INDICATION: 86 years old, Female; SOB TECHNIQUE: Frontal and lateral views of the chest. This report was created using [employer] report generation technology. COMPARISON: Chest x-ray dated 09/06/2018. FINDINGS: Lungs and pleural spaces: Infiltrate or atelectasis in the lung bases. Emphysema. No pneumothorax. No effusion. Heart: Unremarkable. Cardiac silhouette not enlarged. Mediastinum: Central airways and mediastinal contour are unremarkable. Bones/joints: Unremarkable. Soft tissues: Unremarkable. Vasculature: Calcified aorta. RAD/Chest PA and Lateral IMPRESSION: 1. Infiltrate or atelectasis in the lung bases. 2. Emphysema. Electronically Signed: Yoan Childers MD at 23:48 EST Tel , Service support ,
== END 2021-12-05 23:59 | disposition short-term general hospital (02) ==
LOC: RAD 16:53
PROVIDERS: PCP Family Medicine Geriatric Medicine; Visit Provider Family Medicine Geriatric Medicine
DX: R06.02 Shortness of breath (principal)
CPT/HCPCS: 71046

== ENCOUNTER 2021-12-24 14:25 | Outpatient (CLI) | payer MEDICARE, OTHER, MEDICAID, SELFPAY ==
[2021-12-24 15:06] LABS: Hematocrit 40.9 % (37-47); Hemoglobin 13.3 g/dL (12.0-15.0); Mean Corp Hgb Conc 32.5 g/dL (32-36); Mean Corpuscular Hgb 32.5 pg (27.0-32.0); Mean Platelet Vol. 10.3 fl (6.2-12.0); Platelet Count 231 K/mm3 (150-450); RBC Distribution Width CV 12.9 % (11.6-14.6); RBC Distribution Width SD 47.4 fl (35.1-43.9); Red Blood Count 4.09 M/mm3 (4.2-5.4); White Blood Count 10.4 K/mm3 (4.4-11.0)
[2021-12-24 15:35] LABS: BUN 32 mg/dL (7-18); Calcium,Total 9.3 mg/dL (8.5-10.1); Chloride 106 mmol/L (98-107); Creatinine, Serum 1.23 mg/dL (0.55-1.02); EST Glomerular Filtration Rate 44 mL/min (>60); Est Glom Filt Rate - Afr Amer 54 mL/min (>60); Glucose 149 mg/dL (74-106); Potassium 4.4 mmol/L (3.5-5.1); Sodium Level 137 mmol/L (136-145)
== END 2021-12-24 23:59 | disposition home or self-care (01) ==
LOC: LAB 14:28
PROVIDERS: PCP Family Medicine Geriatric Medicine; Visit Provider Internal Medicine Nephrology
DX: N18.32 Chronic kidney disease, stage 3b (principal)
CPT/HCPCS: 36415; 80069; 85027

== ENCOUNTER 2022-02-12 15:40 | Outpatient (CLI) | payer MEDICARE, OTHER, MEDICAID, SELFPAY | END 2022-02-12 23:59 | disposition home or self-care (01) | LOC: LABSPEC 15:43 | PROVIDERS: PCP Family Medicine Geriatric Medicine; Visit Provider Family Medicine Geriatric Medicine | DX: N39.0 Urinary tract infection, site not specified (principal) | CPT/HCPCS: 87086; 87088; 87186 ==

== ENCOUNTER 2022-03-11 14:18 | Observation (INO) | payer MEDICARE, OTHER, MEDICAID, SELFPAY ==
[2022-03-11 14:18] VITALS: BP 138/99; PULSE 87; RESP 18; TEMP 36.7; O2SAT 98; BMI 47.7
--- NOTE | 2022-03-11 14:30 | RAD_ITS ---
EXAM: XR LEFT KNEE, 1 OR 2 VIEWS CLINICAL INDICATION: Fall injury. TECHNIQUE: Frontal and/or lateral views of the left knee. This report was created using [employer] report generation technology. COMPARISON: 12/25/2015. FINDINGS: BONES/JOINTS: Intact metallic knee arthroplasty. Postop deformity of the patella. No acute fracture. No subluxation. Normal alignment. No sclerotic or destructive changes observed. SOFT TISSUES: Unremarkable. No soft tissue swelling or gas. No radiopaque foreign body. VASCULATURE: Vascular calcifications along the distal SFA, popliteal artery and left popliteal bifurcation. RAD/Knee 1 or 2 Views IMPRESSION: 1. No acute fracture or dislocation of the left knee and the left metallic knee arthroplasty. 2. No significant interval change when compared to 12/25/2015. Electronically Signed: Raymon Lopez MD at 15:42 EDT ,
--- NOTE | 2022-03-11 14:30 | EDS_ITS ---
HPI HPI - Fall History of Present Illness Chief Complaint: Fall Detail of Chief Complaint: Fall with injury to both knees Informant: patient Narrative Narrative: Patient presents to the emergency department after sustaining a fall at approximately 1:50 PM. Patient states that she was getting into a van when her knees gave out and she fell backwards onto her bottom with the knees twisting underneath of her. Patient was unable to bear weight afterwards. Patient states that the aide that was helping her into the van had to help ease her onto her buttocks as she was falling. Patient did not strike her head. Patient denies any neck pain. She denies any chest pain or abdominal pain. She denies recent illness. Patient is on Xarelto for history of PE and DVT. Patient also has had bilateral knee replacements in 2001. [facility] Medical History (Updated 03/11/22 @ 15:[address] Jeevan Han, ) CHF (congestive heart failure) Depression High cholesterol HTN (hypertension) Hx of deep venous thrombosis Hx of pulmonary embolus Hypothyroid Home Medications escitalopram oxalate 20 mg PO DAILY 10/06/17 [History Last Taken Unknown] febuxostat [Uloric] 40 mg PO DAILY 10/06/17 [History Last Taken Unknown] furosemide 20 mg PO DAILY 10/06/17 [History Last Taken Unknown] isosorbide mononitrate 50 mg PO DAILY 10/06/17 [History Last Taken Unknown] levothyroxine 75 mcg PO DAILY 10/06/17 [History Last Taken Unknown] metoprolol succinate 50 mg PO DAILY 10/06/17 [History Last Taken Unknown] rivaroxaban [Xarelto] 20 mg PO DAILY 10/06/17 [History Last Taken Unknown] rosuvastatin 10 mg PO DAILY 10/06/17 [History Last Taken Unknown] trazodone 150 mg PO QHS 10/06/17 [History Last Taken Unknown] Allergy/AdvReac Type Severity Reaction Status Date / Time celecoxib [From Celebrex] Allergy Hives Verified 03/11/22 14:20 NSAIDS (Non-Steroidal Allergy Rash Verified 03/11/22 14:20 Anti-Inflamma strawberry [[place]] Allergy Hives Verified 03/11/22 14:20 Sulfa (Sulfonamide Allergy Hives Verified 03/11/22 14:20 Antibiotics) tomato [Tomato] Allergy Hives Verified 03/11/22 14:20 Social History Smoking Status: Never smoker ROS ROS ED Constitutional Constitutional ED: Reports systems reviewed and no addt'l complaints, except as documented; Denies body ache(s), change in weight or chills Eyes Eyes: Denies acute decrease in peripheral vision, change in vision, double vision or loss of vision ENT ENT ED: Reports none; Denies ear pain, lip swelling, loss taste/smell, neck pain, otalgia or sore throat Cardiovascular Cardiovascular: Reports none; Denies abdominal pain, chest pain with activity, leg edema, lightheadedness, palpitations, rapid heart rate or syncope Respiratory/Chest Respiratory/Chest: Reports none; Denies change in mental status, dry cough, dyspnea, hemoptysis, shortness of breath at rest or shortness of breath with exertion Gastrointestinal Gastrointestinal: Reports none; Denies abdominal pain, change in stool character, diarrhea, hematemesis, hematochezia, melena, rectal bleeding or vomiting Genitourinary Genitourinary ED: Reports none; Denies abdominal discomfort, anuria, dysuria, genital pain or polyuria Musculoskeletal Musculoskeletal: Reports none and other Details: Bilateral knee pain/injury ; Denies arthralgias, back pain, difficulty walking, extremity pain, muscle weakness or myalgias Integumentary Reports none; Denies abscess or rash Neurologic Neurologic: Reports none; Denies abnormal gait, confusion, focal weakness, frequent falls, headache(s), loss of vision, numbness, paresthesias, radicular pain, vertigo or weakness Psychiatric Psychiatric: Reports systems reviewed and no addt'l complaints, except as documented and none; Denies behavioral changes, confusion, difficulty concentrating, hallucinations, suicidal ideation, tactile hallucinations or visual hallucinations Endocrine Endocrinology: Denies none, cold intolerance, excessive sweating, fatigue or heat intolerance Hematologic/Lymphatic Hematologic/Lymphatic: Reports none; Denies anemia, easy bleeding or easy bruising Allergic/Immunologic Allergic/Immunologic ED: Denies as per HPI, none, lip swelling, mouth swelling, throat swelling, tongue swelling or hives EXAM Physical Exam Const Vital Signs: 03/11/22 14:18 03/11/22 15:52 Temperature 98.1 F Temperature Source Oral Pulse Rate 87 Respiratory Rate 18 Respiratory Effort Normal Non-Labored Respiratory Depth Normal Respiratory Pattern Normal Blood Pressure 138/99 H Blood Pressure Mean 112 Pulse Ox 98 Oxygen Delivery Method Room Air Room Air Positive well nourished and well developed General Appearance ED: well developed and NAD HEENT Reports TM's clear and moist mucous membranes normocephalic and atraumatic; Negative for trauma or tenderness Tympanic Membrane ED: Yes TM's clear Eyes PERRL and EOMs intact bilaterally General Eye ED: Negative for pale conjunctiva or scleral icterus Neck no lymphadenopathy, supple and no JVD General: Negative for tenderness Chest Wall inspection of chest normal and palpation of chest normal Chest: Negative for tenderness Resp normal respiratory effort and clear to auscultation bilaterally Effort and Inspection: Negative for respiratory distress or pain with movement Auscultation: Negative for rhonchi, wheezes or diminished lung sounds Cardio regular rate, regular rhythm, S1 normal heart sound, S2 normal heart sound and no murmurs Peripheral Pulses: pulses 2+ throughout GI normal to inspection, nondistended, normoactive bowel sounds, soft to palpation, non-tender, non-distended and no masses Back/Spine no CVA tenderness and no thoracic nor lumbar tenderness Extremity Extremity Narrative: Patient noted to be status post bilateral total knee replacements with well-healed scars. Patient has pain with flexion extension of the knees bilaterally. I do not appreciate any significant ecchymosis or bruising. She is neurovascular intact distally. Ligamentous exam difficult secondary to patient's body habitus and she does not tolerate well. General Extremety ED: Negative for edema General Extremity: Negative for edema Neuro oriented x3, CN's II-XII intact bilaterally, no sensory deficits noted and gait normal Sensorium / Orientation: awake, alert, oriented to person, oriented to place and oriented to time Motor Exam: strength 5/5 throughout and strength abnormal Psych mental status grossly normal Skin no rashes or lesions noted and no wounds MDM MDM MDM Narrative Medical decision making narrative: Patient had basic labs which were unremarkable. Patient required significant assistance to even move her legs due to pain in her legs and normally she walks with a walker. She not can be able to ambulate or go home at this time. Case was discussed with hospitalist will evaluate patient for possible placement. I suspect likely knee strains or sprains. I cannot rule out internal derangement. Lab Data Attestation: I reviewed the patient's lab results. Labs: Laboratory Results - last 24 hr 03/11/22 03/11/22 15:40 15:40 WBC 9.0 RBC 3.94 L Hgb 12.8 Hct 39.6 MCV 100.5 H MCH 32.5 H MCHC 32.3 RDW Std Deviation 46.3 H RDW Coeff of Mey 12.4 Plt Count 284 MPV 9.4 Immature Gran % (Auto) 0.300 Neut % (Auto) 49.1 Lymph % (Auto) 37.8 [place] % (Auto) 9.7 Eos % (Auto) 2.4 Baso % (Auto) 0.7 Absolute Neuts (auto) 4.4 Absolute Lymphs (auto) 3.40 Nucleated RBC % 0 Sodium 136 Potassium 4.4 Chloride 103 Carbon Dioxide 29.0 Anion Gap 4 L BUN 19 H Creatinine 1.19 H Estim Creat Clear Calc 30.39 Est GFR (MDRD) Af Amer 56 L Est GFR (MDRD) Non-Af 46 L BUN/Creatinine Ratio 16.0 Glucose 133 H Calcium 9.3 Radiography Diagnostic Testing: Clinical Impression(s) from Imaging Studies Knee X-Ray 03/11/22 14:30 IMPRESSION: 1. No acute fracture or dislocation of the left knee and the left metallic knee arthroplasty. 2. No significant interval change when compared to 12/25/2015. Electronically Signed: Raymon Lopez MD at 15:42 EDT , Knee X-Ray 03/11/22 14:50 IMPRESSION: 1. No acute fracture or dislocation of the right knee, the right metallic knee arthroplasty, the intramedullary tara with transfixing screws in the old fracture of the distal femur. 2. No interval change when compared to 05/31/2019. Electronically Signed: Raymon Lopez MD at 15:41 EDT , 2 view x-rays of right and left knees obtained interpreted by myself as no acute fractures or dislocations. No periprosthetic fractures noted. Radiology in agreement. Discharge Plan Triage Chief Complaint: Fall ED Provider: Jeevan Han Dx/Rx/DC Orders Clinical Impression: Knee sprain, bilateral, Inability to walk Prescriptions: No Action metoprolol succinate 50 MG Tab.Er.24h 50 mg PO DAILY RF: 0 levothyroxine 75 MCG tablet 75 mcg PO DAILY RF: 0 isosorbide mononitrate 60 MG tablet 50 mg PO DAILY RF: 0 trazodone 150 MG tablet 150 mg PO QHS RF: 0 furosemide 20 MG tablet 20 mg PO DAILY RF: 0 escitalopram oxalate 20 MG tablet 20 mg PO DAILY RF: 0 rosuvastatin 10 MG tablet 10 mg PO DAILY RF: 0 febuxostat [Uloric] 40 MG tablet 40 mg PO DAILY RF: 0 rivaroxaban [Xarelto] 20 MG tablet 20 mg PO DAILY RF: 0 Primary Care Provider: Jeffrey Zhou Chi Referrals: Jeffrey Zhou Chi, MD [Primary Care Provider] - Disposition Disposition: Acute Care Hospital [facility] [facility]
--- NOTE | 2022-03-11 14:50 | RAD_ITS ---
EXAM: XR RIGHT KNEE, 1 OR 2 VIEWS CLINICAL INDICATION: FALL TECHNIQUE: Frontal and/or lateral views of the right knee. This report was created using [employer] report generation technology. COMPARISON: 05/31/2019. FINDINGS: BONES/JOINTS: Right metallic knee arthroplasty is intact. Old fracture deformity of the distal femoral shaft with an intramedullary tara are unchanged. No sclerotic or destructive changes observed. SOFT TISSUES: Unremarkable. No soft tissue swelling or gas. No radiopaque foreign body. VASCULATURE: Vascular calcifications along the distal SFA and right distal popliteal artery are unchanged. RAD/Knee 1 or 2 Views IMPRESSION: 1. No acute fracture or dislocation of the right knee, the right metallic knee arthroplasty, the intramedullary tara with transfixing screws in the old fracture of the distal femur. 2. No interval change when compared to 05/31/2019. Electronically Signed: Raymon Lopez MD at 15:41 EDT ,
[2022-03-11 15:45] LABS: Absolute Neutrophil Count 4.4 X10^3/uL (2.0-7.7); Basophil# 0.06 X10^3/uL; Basophil% 0.7 % (0-1); Eosinophil# 0.22 X10^3/uL; Eosinophils% 2.4 % (0-5); Hematocrit 39.6 % (37-47); Hemoglobin 12.8 g/dL (12.0-15.0); Lymphocyte % 37.8 % (19-41); Mean Corp Hgb Conc 32.3 g/dL (32-36); Mean Corpuscular Hgb 32.5 pg (27.0-32.0); Mean Corpuscular Volume 100.5 fL (81-99); Mean Platelet Vol. 9.4 fl (6.2-12.0); Monocyte# 0.87 X10^3/uL; Monocyte% 9.7 % (0-10); NRBC Flagged by Analyzer 0 % (0-5); Neutrophil # 4.42 X10^3/uL (2.7-7.7); Neutrophil % 49.1 % (47-70); Platelet Count 284 K/mm3 (150-450); RBC Distribution Width CV 12.4 % (11.6-14.6); RBC Distribution Width SD 46.3 fl (35.1-43.9); Red Blood Count 3.94 M/mm3 (4.2-5.4)
[2022-03-11 15:57] LABS: Anion Gap 4 (5-15); BUN 19 mg/dL (7-18); Calcium,Total 9.3 mg/dL (8.5-10.1); Chloride 103 mmol/L (98-107); Creatinine, Serum 1.19 mg/dL (0.55-1.02); EST Glomerular Filtration Rate 46 mL/min (>60); Est Glom Filt Rate - Afr Amer 56 mL/min (>60); Estimated Creatinine Clearance 30.39 ml/min; Glucose 133 mg/dL (74-106); Potassium 4.4 mmol/L (3.5-5.1); Sodium Level 136 mmol/L (136-145)
--- NOTE | 2022-03-11 16:01 | ED.RN ---
NO IV REQUIRED PER HOSPITALIST, PT DIFFICULT IV START.
--- NOTE | 2022-03-11 16:28 | PCM.HP.STD ---
HPI - General General Date of Admission: 03/11/22 Date of Service: 03/11/22 Chief Complaint: Debility HPI Narrative RAFA BARRON, is a 86 F who presents to the emergency room at [facility] after she was lowered to the ground when her leg did not hold her weight. Patient was getting into a bus to go home from adult daycare when the incident happened. Patient lives with her daughter and son-in-law. Work-up in the emergency room included knee x-rays which showed no evidence of acute fracture, patient has prosthesis in both knees-she states she had the surgery done over 10 years ago. Patient's labs were remarkable for creatinine of 1.19-patient states she sees a [employer] administrator on an ongoing basis for chronic kidney disease. Patient's glucose was 133. Patient will be placed in observation status on MedSurg 3, she has agreed to go into an extended care facility for short-term rehab services if needed, she will be seen by PT and OT tomorrow. Patient would prefer to try to go to transitional care unit-I inquired and there is a bed open in the unit. [facility] Medical History (Updated 03/11/22 @ 15:[address] Jeevan Han, ) CHF (congestive heart failure) Depression High cholesterol HTN (hypertension) Hx of deep venous thrombosis Hx of pulmonary embolus Hypothyroid Home Medications febuxostat [Uloric] 40 mg PO DAILY 10/06/17 [History Last Taken 03/10/22] isosorbide mononitrate 60 mg PO DAILY 10/06/17 [History Last Taken 03/11/22] levothyroxine 75 mcg PO DAILY 10/06/17 [History Last Taken 03/11/22] metoprolol succinate 50 mg PO DAILY 10/06/17 [History Last Taken 03/11/22] rivaroxaban [Xarelto] 20 mg PO DAILY 10/06/17 [History Last Taken 03/10/22] rosuvastatin 10 mg PO DAILY 10/06/17 [History Last Taken 03/10/22] doxepin 25 mg PO DAILY 03/11/22 [History Last Taken 03/11/22] ipratropium bromide 1 spray INTRANASAL BID 03/11/22 [History Last Taken 03/11/22] levocetirizine 5 mg PO DAILY 03/11/22 [History Last Taken 03/11/22] mirtazapine 15 mg PO QHS 03/11/22 [History Last Taken 03/10/22] sacubitril-valsartan [Entresto] 1 tab PO BID 03/11/22 [History Last Taken 03/11/22] Allergy/AdvReac Type Severity Reaction Status Date / Time celecoxib [From Celebrex] Allergy Hives Verified 03/11/22 14:20 NSAIDS (Non-Steroidal Allergy Rash Verified 03/11/22 14:20 Anti-Inflamma strawberry [[place]] Allergy Hives Verified 03/11/22 14:20 Sulfa (Sulfonamide Allergy Hives Verified 03/11/22 14:20 Antibiotics) tomato [Tomato] Allergy Hives Verified 03/11/22 14:20 Social History Smoking Status: Never smoker ROS Constitutional Constitutional: Denies anorexia, change in weight, chills, fatigue, fever(s), night sweats or weakness Eyes Eyes: Denies blurry vision, change in vision, discharge from eye(s) or eye pain Cardiovascular Cardiovascular: Denies chest pain, claudication, dyspnea on exertion, edema, lightheadedness or palpitations Respiratory/Chest Respiratory/Chest: Reports other Details: Patient has a history of obstructive sleep apnea but does not use BiPAP. ; Denies cough, hemoptysis, shortness of breath at rest or shortness of breath with exertion Gastrointestinal Gastrointestinal: Denies abdominal pain, constipation, diarrhea, hematemesis, hematochezia, melena, nausea or vomiting Genitourinary Genitourinary: Denies dysuria, hematuria, urinary frequency, urinary hesitancy, urinary incontinence or urinary urgency Musculoskeletal Musculoskeletal: Denies back pain, joint pain, joint stiffness, joint swelling, myalgias or neck pain Neurologic Neurologic: Denies abnormal gait, abnormal speech, dizziness, focal weakness, headache(s), loss of vision, numbness, other visual disturbances, paresthesias, syncope or tingling Psychiatric Psychiatric: Denies anxiety, cognitive impairment, depression, irritability, mood swings or suicidal ideation Endocrine Endocrinology: Denies change in body appearance, cold intolerance, excessive sweating, heat intolerance, polydipsia or polyuria Hematologic/Lymphatic Hematologic/Lymphatic: Denies none, anemia, easy bleeding, easy bruising or lymphadenopathy Allergic/Immunologic Allergic/Immunologic: Denies rhinitis, urticaria, eczemia or asthma Vital Signs Vital Signs Vital Signs: 03/11/22 14:18 03/11/22 15:52 Temperature 98.1 F Temperature Source Oral Pulse Rate 87 Respiratory Rate 18 Respiratory Effort Normal Non-Labored Respiratory Depth Normal Respiratory Pattern Normal Blood Pressure 138/99 H Blood Pressure Mean 112 Pulse Ox 98 Oxygen Delivery Method Room Air Room Air Weight Weight: 126.1 kg Body Mass Index (BMI) 47.7 Physical Exam Const alert, oriented x3 and no apparent distress Constitutional Narrative: Patient appears her stated age Patient is morbidly obese General Appearance: cooperative, well kempt and well developed Orientation / Consciousness: awake, oriented to person, oriented to place and oriented to time HEENT normocephalic, head/scalp atraumatic, hearing grossly normal bilaterally and moist oral mucous membranes Eyes PERRL, EOMs intact bilaterally and conjunctivae normal Neck nuchal rigidity, supple, no JVD, thyroid normal and no carotid bruits General: trachea midline Resp normal respiratory effort, no retractions, no use of accessory muscles and clear to auscultation bilaterally Auscultation: Negative for rales, rhonchi or wheezes Cardio regular rate, regular rhythm, S1 normal heart sound, S2 normal heart sound, no murmurs, no rub and no gallops GI normal to inspection, nondistended, normoactive bowel sounds, soft to palpation, non-tender and non-distended GI Narrative: Patient is morbidly obese Extremity normal to inspection and no clubbing, cyanosis or edema Skin no rashes or lesions noted General Skin Exam: no breakdown Neuro oriented x3, CN's II-XII intact bilaterally, no focal motor deficits and no sensory deficits noted Sensorium / Orientation: awake and alert Speech: speech normal Psych affect normal Results Lab / Micro Data Result Diagrams: 03/11/22 15:40 03/11/22 15:40 Labs: Laboratory Results - last 24 hr 03/11/22 15:40: WBC 9.0, RBC 3.94 L, Hgb 12.8, Hct 39.6, MCV 100.5 H, MCH 32.5 H, MCHC 32.3, RDW Std Deviation 46.3 H, RDW Coeff of Mey 12.4, Plt Count 284, MPV 9.4, Immature Gran % (Auto) 0.300, Neut % (Auto) 49.1, Lymph % (Auto) 37.8, [place] % (Auto) 9.7, Eos % (Auto) 2.4, Baso % (Auto) 0.7, Absolute Neuts (auto) 4.4, Absolute Lymphs (auto) 3.40, Nucleated RBC % 0 03/11/22 15:40: Sodium 136, Potassium 4.4, Chloride 103, Carbon Dioxide 29.0, Anion Gap 4 L, BUN 19 H, Creatinine 1.19 H, Estim Creat Clear Calc 30.39, Est GFR (MDRD) Af Amer 56 L, Est GFR (MDRD) Non-Af 46 L, BUN/Creatinine Ratio 16.0, Glucose 133 H, Calcium 9.3 Radiology Impression Knee X-Ray 03/11/22 14:30 IMPRESSION: 1. No acute fracture or dislocation of the left knee and the left metallic knee arthroplasty. 2. No significant interval change when compared to 12/25/2015. Electronically Signed: Raymon Lopez MD at 15:42 EDT , Knee X-Ray 03/11/22 14:50 IMPRESSION: 1. No acute fracture or dislocation of the right knee, the right metallic knee arthroplasty, the intramedullary tara with transfixing screws in the old fracture of the distal femur. 2. No interval change when compared to 05/31/2019. Electronically Signed: Raymon Lopez MD at 15:41 EDT , Assessment & Plan Assessment/Plan (1) HTN (hypertension): QUALIFIERS: Hypertension type: essential hypertension Qualified Code(s): I10 - Essential (primary) hypertension PLAN: 1. Generalized debility-secondary to advanced age and multiple medical problems including chronic systolic congestive heart failure, morbid obesity, and stage IIIa chronic kidney disease-patient will be placed in observation status on MedSur 3, she will be seen by PT and OT, she will need short-term placement in a retirement facility-again the patient prefers TCU if possible. Patient has been to [facility] many times, that would be a secondary choice. #2 stage III a chronic kidney disease-etiology unclear, patient follows up with nephrology as an outpatient #3 chronic systolic congestive heart failure-this appears stable at this time, patient's last echocardiogram in 2018 and this medical record here at the hospital shows an EF of 20%. Patient does not follow-up with a ophthalmic dispenser, she sees Dr. Zhou has a primary care doctor. Patient will remain on her current medications. #4 pulmonary hypertension-again patient will currently remain on her home medications #5 morbid obesity-complicates care, recovery, and prognosis #6 chronic use of anticoagulant-patient is chronically on Xarelto, she has had several VTE's in the past, Xarelto will be continued #7 essential hypertension-patient will remain on her home medications #8 hyperlipidemia-patient is currently on a statin #9 hypothyroidism-patient is on Synthroid currently Charges/Coding Visit Charges OBSV E&M: 77609 Initial observation care L3
[2022-03-11 17:15] VITALS: BP 138/99; PULSE 87; RESP 18; TEMP 36.7; O2SAT 98
[2022-03-11 17:28] VITALS: BMI 46.4
[2022-03-11 17:30] VITALS: BP 119/63; PULSE 86; RESP 16; TEMP 36.4; O2SAT 100
[2022-03-11] MEDS: HYDROcodone Bitartrate/Apap 5/325 Tablet PO (18:31)
[2022-03-11 22:08] VITALS: BP 125/57; PULSE 83; RESP 18; TEMP 36.7; O2SAT 95
[2022-03-11] MEDS: SACUBITRIL/VALSARTAN 97-103 MG TABLET 1 EACH PO (22:38)
[2022-03-11] MEDS: Doxepin Hcl 25 MG Capsule PO (22:38)
[2022-03-11] MEDS: Mirtazapine 15 MG Tablet PO (22:38)
[2022-03-11] MEDS: Temazepam 15 MG Capsule PO (22:41)
[2022-03-11] MEDS: Nystatin Powder 15gm Bottle 1 APPLIC TOPICAL (22:41)
[2022-03-12 05:18] VITALS: BP 104/47; PULSE 89; RESP 16; TEMP 36.4; O2SAT 94
[2022-03-12] MEDS: Acetaminophen 325 MG Tablet 650 MG PO (05:23)
[2022-03-12] MEDS: Levothyroxine 75 MCG Tablet PO (05:24)
--- NOTE | 2022-03-12 07:26 | PN.HOSP_ITS ---
Objective Data Objective Data Vital Signs: Vital Signs Temp Pulse Resp BP Pulse Ox 97.5 F L 89 16 104/47 L 94 03/12/22 05:18 03/12/22 05:18 03/12/22 05:18 03/12/22 05:18 03/12/22 05:18 Oxygen Delivery Method Room Air Weight: 122.787 kg Body Mass Index (BMI) 46.4 Intake & Output: Intake and Output for Last 24 Hours 03/10/22 03/11/22 03/12/22 23:59 23:59 23:59 Intake Total 300 / 300 Output Total 400 / 400 400 / 400 Balance -100 / -100 -400 / -400 Lab / Micro Data Result Diagrams: 03/11/22 15:40 03/11/22 15:40 Labs: Laboratory Results - last 24 hr 03/11/22 15:40: WBC 9.0, RBC 3.94 L, Hgb 12.8, Hct 39.6, MCV 100.5 H, MCH 32.5 H , MCHC 32.3, RDW Std Deviation 46.3 H, RDW Coeff of Mey 12.4, Plt Count 284, MPV 9.4, Immature Gran % (Auto) 0.300, Neut % (Auto) 49.1, Lymph % (Auto) 37.8, [place] % (Auto) 9.7, Eos % (Auto) 2.4, Baso % (Auto) 0.7, Absolute Neuts (auto) 4.4, Absolute Lymphs (auto) 3.40, Nucleated RBC % 0 03/11/22 15:40: Sodium 136, Potassium 4.4, Chloride 103, Carbon Dioxide 29.0, Anion Gap 4 L, BUN 19 H, Creatinine 1.19 H, Estim Creat Clear Calc 30.39, Est GFR (MDRD) Af Amer 56 L, Est GFR (MDRD) Non-Af 46 L, BUN/Creatinine Ratio 16.0, Glucose 133 H, Calcium 9.3 Radiography Diagnostic Testing: Radiology Impression Knee X-Ray 03/11/22 14:30 IMPRESSION: 1. No acute fracture or dislocation of the left knee and the left metallic knee arthroplasty. 2. No significant interval change when compared to 12/25/2015. Electronically Signed: Raymon Lopez MD at 15:42 EDT , Knee X-Ray 03/11/22 14:50 IMPRESSION: 1. No acute fracture or dislocation of the right knee, the right metallic knee arthroplasty, the intramedullary tara with transfixing screws in the old fracture of the distal femur. 2. No interval change when compared to 05/31/2019. Electronically Signed: Raymon Lopez MD at 15:41 EDT , Assessment & Plan Assessment/Plan (1) HTN (hypertension): QUALIFIERS: Hypertension type: essential hypertension Qualified Code(s): I10 - Essential (primary) hypertension PLAN: 1. Generalized debility-secondary to advanced age and multiple medical problems including chronic systolic congestive heart failure, morbid obesity, and stage IIIa chronic kidney disease-patient will be placed in observation status on [facility] 3, she will be seen by PT and OT, she will need short-term placement in a senior living facility-again the patient prefers TCU if possible. [facility], that would be a secondary choice. #2 stage III a chronic kidney disease-etiology unclear, patient follows up with nephrology as an outpatient #3 chronic systolic congestive heart failure-this appears stable at this time, patient's last echocardiogram in 2018 and this medical record here at the hospital shows an EF of 20%. Patient does not follow-up with a funeral location manager, she sees Dr. Zhou has a primary care doctor. Patient will remain on her current medications. #4 pulmonary hypertension-again patient will currently remain on her home medications #5 morbid obesity-complicates care, recovery, and prognosis #6 chronic use of anticoagulant-patient is chronically on Xarelto, she has had several VTE's in the past, Xarelto will be continued #7 essential hypertension-patient will remain on her home medications #8 hyperlipidemia-patient is currently on a statin #9 hypothyroidism-patient is on Synthroid currently
--- NOTE | 2022-03-12 07:26 | PCM.PN.HOSP ---
Subjective Subjective Patient is an 86-year-old lady who was brought to the ED after she fell getting senior van resulting in bilateral knee pain imaging studies obtained on admission was unremarkable admitted to regular nursing floor with consultation placed to case management to assist with disposition Objective Data Objective Data Vital Signs: Vital Signs Temp Pulse Resp BP Pulse Ox 97.5 F L 89 16 104/47 L 94 03/12/22 05:18 03/12/22 05:18 03/12/22 05:18 03/12/22 05:18 03/12/22 05:18 Oxygen Delivery Method Room Air Weight: 122.787 kg Body Mass Index (BMI) 46.4 Intake & Output: Intake and Output for Last 24 Hours 03/10/22 03/11/22 03/12/22 23:59 23:59 23:59 Intake Total 300 / 300 Output Total 400 / 400 400 / 400 Balance -100 / -100 -400 / -400 Lab / Micro Data Result Diagrams: 03/11/22 15:40 03/11/22 15:40 Labs: Laboratory Results - last 24 hr 03/11/22 15:40: WBC 9.0, RBC 3.94 L, Hgb 12.8, Hct 39.6, MCV 100.5 H, MCH 32.5 H, MCHC 32.3, RDW Std Deviation 46.3 H, RDW Coeff of Mey 12.4, Plt Count 284, MPV 9.4, Immature Gran % (Auto) 0.300, Neut % (Auto) 49.1, Lymph % (Auto) 37.8, [place] % (Auto) 9.7, Eos % (Auto) 2.4, Baso % (Auto) 0.7, Absolute Neuts (auto) 4.4, Absolute Lymphs (auto) 3.40, Nucleated RBC % 0 03/11/22 15:40: Sodium 136, Potassium 4.4, Chloride 103, Carbon Dioxide 29.0, Anion Gap 4 L, BUN 19 H, Creatinine 1.19 H, Estim Creat Clear Calc 30.39, Est GFR (MDRD) Af Amer 56 L, Est GFR (MDRD) Non-Af 46 L, BUN/Creatinine Ratio 16.0, Glucose 133 H, Calcium 9.3 Radiography Diagnostic Testing: Radiology Impression Knee X-Ray 03/11/22 14:30 IMPRESSION: 1. No acute fracture or dislocation of the left knee and the left metallic knee arthroplasty. 2. No significant interval change when compared to 12/25/2015. Electronically Signed: Raymon Lopez MD at 15:42 EDT , Knee X-Ray 03/11/22 14:50 IMPRESSION: 1. No acute fracture or dislocation of the right knee, the right metallic knee arthroplasty, the intramedullary tara with transfixing screws in the old fracture of the distal femur. 2. No interval change when compared to 05/31/2019. Electronically Signed: Raymon Lopez MD at 15:41 EDT , Physical Exam Narrative GENERAL: cooperative HEENT: Atraumatic; EYES; Anicteric, Normal Conjunctiva NECK; supple, normal thyroid, RESPIRATORY: Diminished to auscultation CARDIOVASCULAR: Regular S1 S2, GI: soft, normoactive bowel sounds, : No Renal angle tenderness; EXTREMITIES: Trace bipedal edema, no clubbing, MUSCULOSKELETAL: no muscle wasting NEURO: Awake; no lateralizing signs. SKIN: No Rash PSYCH; Flat affect Assessment & Plan Assessment/Plan (1) HTN (hypertension): QUALIFIERS: Hypertension type: essential hypertension Qualified Code(s): I10 - Essential (primary) hypertension PLAN: Patient is an 86-year-old lady who was brought to the ED after she fell getting senior van resulting in bilateral knee pain imaging studies obtained on admission was unremarkable admitted to regular nursing floor with consultation placed to case management to assist with disposition 1. Physical deconditioning - Requested for PT OT eval and social welfare research worker to assist with discharge planning 2. Chronic kidney disease stage IIIa ? Kidney function at baseline we will continue with monitoring of electrolyte 3. 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 Echo obtained on 09/10/2018 demonstrated EF of 20% patient currently compensated. Patient is on Entresto beta-blockers did continue 4. Pulmonary hypertension ? Plan is to treat symptomatically 5. Class III obesity with BMI of 46.5 ? Weight loss advised 6. Previous history of pulmonary embolism ? Patient remains on systemic anticoagulation with Xarelto 7. Hypothyroidism - Patient is on levothyroxine home dose continued 8. Dyslipidemia -Patient is on statin therapy, continued at home dose 9. Hypertension - Blood pressure controlled, home medications continued with dose adjustment as needed 10. Gout ? Patient is on febuxostat did continue 11. DVT prophylaxis ? On Xarelto 12. Degenerative joint disease ? With history of bilateral knee replacement Charges/Coding Visit Charges OBSV E&M: 96159 Subsequent observation care L2
[2022-03-12 08:20] VITALS: BP 118/74; PULSE 82; RESP 16; TEMP 36.6; O2SAT 96
[2022-03-12] MEDS: SACUBITRIL/VALSARTAN 97-103 MG TABLET 1 EACH PO (10:13)
[2022-03-12] MEDS: Nystatin Powder 15gm Bottle 1 APPLIC TOPICAL (10:13)
[2022-03-12 10:14] VITALS: PULSE 77
[2022-03-12] MEDS: Atorvastatin Calcium 20 MG Tablet PO (10:14)
[2022-03-12] MEDS: Metoprolol(XL)Succ 50 MG Tablet PO (10:14)
[2022-03-12] MEDS: Isosorbide Mononitrate 60 MG Tablet PO (10:14)
[2022-03-12] MEDS: Febuxostat 40 MG TABLET PO (10:14)
--- NOTE | 2022-03-12 10:23 | CASEMGMT ---
Social Work Assessment Referral Date: 03/12/2022 Date of Assessment: 03/12/2022 Reason for consult: SNF placement Informant: MD TEAGUE reviewed chart. Pt is interested in TCU. HO placed a call to Cherri with TCU, TCU is able to accept pt today. Personal Status: SW met with pt to complete initial assessment. Pt is alert and orientated, engages in conversation appropriately. Living Arrangements: Pt states that she lives with her daughter Sierra and MAYCO in a mobile home. Pt states she has a ramp to enter the home. PCP: Dr. Zhou Pharmacy: [facility] ADLs: Pt states she is able to walk with a walker but requires assistance with all other ADLs. Pt states she goes to [facility] every Thursday and and while she is there they wash her hair and give her a bath. HHC: None SNF: [facility] Substance Abuse Hx: Pt denied Mental Health Hx: Pt states she has depression and takes medication for it prescribed through Dr. Zhou. Pt denied any Mental Health Treatment. Pt denied any history of suicidal/homicidal thoughts/plans/ideations. Pt denied any current suicidal/homicidal thoughts/plans/ideations. HO spoke with pt regarding discharge plans and that this worker read that she was interested in [facility] TCU. Pt confirms this. SW informed pt that TCU is able to accept pt. Pt gave this worker permission to call Sierra to update. HO updated physician. Plan: TCU Alexia Johnson ASSEMBLER [employer], REVENUE INVESTIGATOR
--- NOTE | 2022-03-12 10:25 | PCM.TXEXTCAR ---
Diet 03/11/22 17:28 Diet: Regular - General Food consistency:: Regular Liquid Consistency:: Regular/Thin Routine Orders/Code Status Code Status: Full Code Therapies Occupational Therapy: Eval and Treat Speech Therapy: Eval and Treat Problem/Diagnosis (1) HTN (hypertension): Status: Chronic Allergies/Procedures Done in Hospital Allergies celecoxib [From Celebrex] Allergy (Verified 03/11/22 14:20) Hives NSAIDS (Non-Steroidal Anti-Inflamma Allergy (Verified 03/11/22 14:20) Rash strawberry [[place]] Allergy (Verified 03/11/22 14:20) Hives Sulfa (Sulfonamide Antibiotics) Allergy (Verified 03/11/22 14:20) Hives tomato [Tomato] Allergy (Verified 03/11/22 14:20) Hives Type of Care/Length of Stay Estimated LOS: Convalescent Care Less Than 30 days Type of Care Needed: Skilled Rehab Potential: Good Prognosis: Good Additional Orders/Day of Discharge Day of Discharge: 03/12/22 Discharge Plan Admission Admit Date/Time: 03/11/22 16:19 Attending Provider: Gurinder Venegas Primary Care Provider: Jeffrey Zhou Chi Discharge Orders/Prescriptions Prescriptions: New acetaminophen [Tylenol] 325 mg Tablet 650 mg PO Q6H PRN PRN (Reason: Pain Score 1-10/Temp > 100.7 F) Qty: 0 RF: 0 nystatin [Nyamyc] 100,000 unit/gram Powder 1 applic topical BID Qty: 0 RF: 0 Continued metoprolol succinate 50 MG tablet extended release 24 hr 50 mg PO DAILY RF: 0 levothyroxine 75 MCG tablet 75 mcg PO DAILY RF: 0 isosorbide mononitrate 60 MG tablet 60 mg PO DAILY RF: 0 rosuvastatin 10 MG tablet 10 mg PO DAILY RF: 0 febuxostat [Uloric] 40 MG tablet 40 mg PO DAILY RF: 0 Xarelto 20 MG tablet 20 mg PO DAILY RF: 0 doxepin 25 mg capsule 25 mg PO DAILY RF: 0 mirtazapine 15 mg tablet 15 mg PO QHS RF: 0 ipratropium bromide 42 mcg (0.06 %) spray,non-aerosol 1 spray INTRANASAL BID RF: 0 levocetirizine 5 mg tablet 5 mg PO DAILY RF: 0 Entresto 97-103 mg tablet 1 tab PO BID RF: 0 Referrals / Follow Up: Jeffrey Zhou Chi, MD [Primary Care Provider] - Disposition Disposition (needs filled in before D/C Order can be placed): Senior Living Facility
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
--- NOTE | 2022-03-12 11:27 | CASEMGMT ---
Social Work Note SW placed a call to pt's daughter Sierra and introduced self and role at [facility]. SW updated Sierra that pt has been accepted to [facility] TCU and will discharge to TCU today. Sierra states understanding. Plan: TCU today Alexia Johnson SAWMILL TALLY CLERK, LICENSING SERVICES CLERK
--- NOTE | 2022-03-12 12:04 | CHAPLAIN ---
Type of Pastoral Visit _x__ Initial Visit ___ Follow-up Visit ___ On-call Visit ___ General Patient Visit ___ Spiritual Assessment ___ Family Conference ___ Bereavement ___ Rapid Response ___ Code Blue ___ Other (describe below) Pastoral Care Referral From _x__ Patient ___ Family ___ Nurse ___ Physician ___ Radiologist Physician ___ Ferry Terminal Agent ___ Other (describe below) Sacrament/Intervention _x__ Active listening ___ Anointing ___ Nondenominational ___ Bereavement ___ Communion ___ Viktoria exploration ___ _x__ Life review _x__ Prayer ___ Reconciliation ___ Sacrament of Sick _x__ Supportive presence ___ Wedding ___ Other (describe below) Pastoral Comments patient gives report on her fall, home situation, assistance from family, routine of [facility]; pt states she is going to [facility] for a few days and is accepting of that plan; no other concerns; pt does welcome prayer and presence
[2022-03-12 13:00] VITALS: BP 117/57; PULSE 92; RESP 16; TEMP 36.6; O2SAT 95
[2022-03-12 13:09] VITALS: BP 117/57; PULSE 92; RESP 16; TEMP 36.6; O2SAT 95
== END 2022-03-12 13:54 | disposition skilled nursing facility (03) ==
LOC: ED 16:30 → MS3 16:57
PROVIDERS: Admitting Provider Internal Medicine; Emergency Provider Emergency Medicine; PCP Family Medicine Geriatric Medicine; Visit Provider Internal Medicine
DX: R53.81 Other malaise (principal); I13.0 Hypertensive heart and chronic kidney disease with heart failure and stage 1 through stage 4 chronic kidney disease, or unspecified chronic kidney disease; I50.22 Chronic systolic (congestive) heart failure; I27.20 Pulmonary hypertension, unspecified; E66.01 Morbid (severe) obesity due to excess calories; Z68.42 Body mass index [BMI] 45.0-49.9, adult; N18.31 Chronic kidney disease, stage 3a; S83.92XA Sprain of unspecified site of left knee, initial encounter; S83.91XA Sprain of unspecified site of right knee, initial encounter; E03.9 Hypothyroidism, unspecified; Z79.01 Long term (current) use of anticoagulants; M10.9 Gout, unspecified; M19.90 Unspecified osteoarthritis, unspecified site; V58.4XXA Person boarding or alighting a pick-up truck or van injured in noncollision transport accident, initial encounter; E78.5 Hyperlipidemia, unspecified; R26.2 Difficulty in walking, not elsewhere classified; Y93.89 Activity, other specified; Y99.9 Unspecified external cause status; Y92.810 Car as the place of occurrence of the external cause; Z79.899 Other long term (current) drug therapy; Z79.890 Hormone replacement therapy; Z86.711 Personal history of pulmonary embolism; Z86.718 Personal history of other venous thrombosis and embolism; F32.A Depression, unspecified
CPT/HCPCS: 73560; 80048; 85025; 87426; 97162; 97166; 99218; 99285; A4216; G0378

== ENCOUNTER 2022-03-12 14:11 | Inpatient (IN) | payer MEDICARE, OTHER, MEDICAID, SELFPAY ==
[2022-03-12 14:18] VITALS: BP 127/59; PULSE 87; RESP 18; TEMP 36.4; O2SAT 98; BMI 46.7
--- NOTE | 2022-03-12 15:38 | CHAPLAIN ---
Type of Pastoral Visit ___ Initial Visit ___ Follow-up Visit ___ On-call Visit ___ General Patient Visit ___ Spiritual Assessment ___ Family Conference ___ Bereavement ___ Rapid Response ___ Code Blue ___ Other (describe below) Pastoral Care Referral From ___ Patient ___ Family ___ Nurse ___ Physician ___ Rn Research ___ Electrician [employer] ___ Other (describe below) Sacrament/Intervention ___ Active listening ___ Anointing ___ Rastafari ___ Bereavement ___ Communion ___ Viktoria exploration ___ ___ Life review ___ Prayer ___ Reconciliation ___ Sacrament of Sick ___ Supportive presence ___ Wedding ___ Other (describe below) Pastoral Comments this patient was seen today in [facility]; refer to documentation there
[2022-03-12] MEDS: Rivaroxaban 20 MG Tablet PO (17:15)
[2022-03-12] MEDS: Ipratropium Bromide 0.06% NASAL SPRAY 1 SPRAY NASAL (17:16)
[2022-03-12] MEDS: SACUBITRIL/VALSARTAN 97-103 MG TABLET 1 EACH PO (17:17)
[2022-03-12] MEDS: Nystatin Powder 15gm Bottle 1 APPLIC TOPICAL (17:17)
--- NOTE | 2022-03-12 20:59 | HP.PCM_ITS ---
HPI - General General Date of Admission: 03/12/22 HPI Narrative 03/11/2022 RAFA BARRON, is a 86 Female who presents to [facility] Emergency Department with fall. Fell on bottom, twisted bilateral knees, unable to bear weight. X-rays of bilateral knees negative for fracture, dislocation. On Xarelto for DVT/PE. Unable to walk with walker, not safe to go home. 03/11/2022 Admit to Hospital. PT/OT for [facility] facility. 03/12/2022 PT/OT for TCU. Kidney function baseline. 03/12/2022 Admit to TCU with debility, here for rehabilitation, strengthening, prior to discharge home with family. [facility] Medical History (Updated 03/12/22 @ 21:[address] Jeffrey Zhou MD) CHF (congestive heart failure) Depression High cholesterol HTN (hypertension) Hx of deep venous thrombosis Hx of pulmonary embolus Hypothyroid Kidney disease Home Medications Xarelto 20 mg PO DAILY 10/06/17 [History Last Taken 03/10/22] febuxostat [Uloric] 40 mg PO DAILY 10/06/17 [History Last Taken 03/10/22] isosorbide mononitrate 60 mg PO DAILY 10/06/17 [History Last Taken 03/11/22] levothyroxine 75 mcg PO DAILY 10/06/17 [History Last Taken 03/11/22] metoprolol succinate 50 mg PO DAILY 10/06/17 [History Last Taken 03/11/22] rosuvastatin 10 mg PO DAILY 10/06/17 [History Last Taken 03/10/22] Entresto 1 tab PO BID 03/11/22 [History Last Taken 03/11/22] doxepin 25 mg PO DAILY 03/11/22 [History Last Taken 03/11/22] ipratropium bromide 1 spray INTRANASAL BID 03/11/22 [History Last Taken 03/11/22] levocetirizine 5 mg PO DAILY 03/11/22 [History Last Taken 03/11/22] mirtazapine 15 mg PO QHS 03/11/22 [History Last Taken 03/10/22] acetaminophen [Tylenol] 650 mg PO Q6H PRN PRN #0 tab 03/12/22 [Rx Last Taken Unknown] nystatin [Nyamyc] 1 applic TOPICAL BID 03/12/22 [History Last Taken Unknown] Allergy/AdvReac Type Severity Reaction Status Date / Time celecoxib [From Celebrex] Allergy Hives Verified 03/11/22 14:20 NSAIDS (Non-Steroidal Allergy Rash Verified 03/11/22 14:20 Anti-Inflamma strawberry [[place]] Allergy Hives Verified 03/11/22 14:20 Sulfa (Sulfonamide Allergy Hives Verified 03/11/22 14:20 Antibiotics) tomato [Tomato] Allergy Hives Verified 03/11/22 14:20 Family History (Updated 03/12/22 @ 21:[address] Jeffery Zhou MD) Father Congestive heart failure Mother Diabetes Congestive heart failure Brother Diabetes Surgical History (Updated 03/12/22 @ 21:[address] Jeffrey Zhou MD) History of cholecystectomy History of total bilateral knee replacement Social History (Updated 03/12/22 @ 21:[address] Jeffrey Zhou MD) household members: family Smoking Status: Never smoker alcohol intake: never substance use type: does not use ROS Constitutional Constitutional: Reports weakness; Denies chills, fever(s) or weight gain ENT HEENT: Denies headache(s), nasal congestion or nasal discharge Cardiovascular Cardiovascular: Denies chest pain or palpitations Respiratory/Chest Respiratory/Chest: Denies cough, excessive phlegm production or shortness of breath with exertion Gastrointestinal Gastrointestinal: Denies abdominal pain, nausea or vomiting Genitourinary Genitourinary: Denies dysuria Musculoskeletal Musculoskeletal: Denies joint pain or joint swelling Integumentary Integumentary: Denies rash or wounds Neurologic Neurologic: Denies focal weakness, numbness or tingling Psychiatric Psychiatric: Denies anxiety, auditory hallucinations, depression, homicidal ideation or suicidal ideation Vital Signs Vital Signs Vital Signs: 03/12/22 14:18 Temperature 97.5 F L Temperature Source Temporal Pulse Rate 87 Pulse Rhythm Regular Pulse Strength Normal (2+) Respiratory Rate 18 Respiratory Effort Normal Non-Labored Respiratory Depth Normal Respiratory Pattern Normal Blood Pressure 127/59 H Blood Pressure Mean 81 Blood Pressure Source Monitor Blood Pressure Position Sitting Blood Pressure Location Left Arm Pulse Ox 98 Oxygen Delivery Method Room Air Weight Weight: 123.6 kg Body Mass Index (BMI) 46.7 Physical Exam Const alert General Appearance: cooperative HEENT normocephalic Eyes PERRL and EOMs intact bilaterally Neck supple, no JVD and no carotid bruits Resp normal respiratory effort, normal air movement and clear to auscultation bilaterally Cardio regular rate and regular rhythm GI normal to inspection, nondistended, normoactive bowel sounds, non-tender and non-distended Extremity normal capillary refill General Extremity: Negative for edema Skin no rashes or lesions noted General Skin Exam: no breakdown Psych affect normal Appearance: appropriate Assessment & Plan Assessment/Plan (1) Debility: (2) Bilateral knee pain: (3) Fall: (4) Depression: (5) Gout: (6) Chronic systolic congestive heart failure: (7) Hypothyroidism: (8) Hyperlipidemia: (9) Insomnia: (10) Pulmonary embolism: (11) Appetite loss: PLAN: 86 year old female with below past medical history hospitalized for fall, knee pain, admitted to TCU with debility, here for rehabilitation, strengthening, prior to discharge home with family. * Debility - PT/OT. * Pain - Tylenol 1000mg q6h prn pain (1-10). * Bowel - Senna/colace 1 tablet bid, Dulcolax 10mg daily prn. * Adult immunization - Administer pneumonia vaccine, flu vaccine, covid19 vaccine as appropriate. * DVT prophylaxis - on Xarelto. * Hyperlipidemia - Atorvastatin 20mg qhs. * Gout - Uloric 40mg daily. * Allergic rhinitis - Loratadine 10mg daily, Atrovent nasal spray 1 spray nasal bid. * Chronic systolic congestive heart failure - Metoprolol succinate 50mg daily, Isosorbide [place] 60mg daily, Entresto 97/103mg bid, consider farxiga, aldactone, verquvo. * Hypothyroidism - Levothyroxine 75mcg daily. 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 * Tinea Corporis - Nystatin powder topical bid. * Insomnia - Trazodone 150mg qhs, stable chronic penitentiary use, GDR not recommended. * Recurrent DVT/PE - Xarelto 10mg daily. *
[2022-03-12] MEDS: traZODone 100 MG Tablet 150 MG PO (21:35)
[2022-03-12] MEDS: Mirtazapine 15 MG Tablet PO (21:37)
[2022-03-13 05:00] VITALS: BP 128/55; PULSE 80; RESP 18; TEMP 36.6
[2022-03-13 05:31] LABS: Absolute Lymphocyte Count 2.72 X10^3/uL (0.83-4.51); Absolute Neutrophil Count 3.5 X10^3/uL (2.0-7.7); Basophil# 0.04 X10^3/uL; Basophil% 0.5 % (0-1); Eosinophil# 0.36 X10^3/uL; Eosinophils% 4.8 % (0-5); Hematocrit 32.8 % (37-47); Hemoglobin 10.3 g/dL (12.0-15.0); Lymphocyte # 2.72 X10^3/ul (0.83-4.51); Lymphocyte % 36.4 % (19-41); Mean Corp Hgb Conc 31.4 g/dL (32-36); Mean Corpuscular Hgb 32.1 pg (27.0-32.0); Mean Corpuscular Volume 102.2 fL (81-99); Mean Platelet Vol. 9.6 fl (6.2-12.0); Monocyte# 0.82 X10^3/uL; NRBC Flagged by Analyzer 0 % (0-5); Neutrophil # 3.51 X10^3/uL (2.7-7.7); Platelet Count 246 K/mm3 (150-450); RBC Distribution Width CV 12.4 % (11.6-14.6); RBC Distribution Width SD 46.5 fl (35.1-43.9); Red Blood Count 3.21 M/mm3 (4.2-5.4); White Blood Count 7.5 K/mm3 (4.4-11.0)
[2022-03-13 06:10] LABS: Anion Gap 5 (5-15); BUN 23 mg/dL (7-18); BUN/Creat Ratio 21.1 RATIO (10-20); Calcium,Total 8.4 mg/dL (8.5-10.1); Chloride 105 mmol/L (98-107); Creatinine, Serum 1.09 mg/dL (0.55-1.02); EST Glomerular Filtration Rate 51 mL/min (>60); Est Glom Filt Rate - Afr Amer 62 mL/min (>60); Estimated Creatinine Clearance 33.18 ml/min; Glucose 146 mg/dL (74-106); Potassium 4.2 mmol/L (3.5-5.1); Sodium Level 137 mmol/L (136-145)
[2022-03-13] MEDS: Loratadine 10 MG Tablet PO (06:30)
[2022-03-13] MEDS: Febuxostat 40 MG TABLET PO (06:30)
[2022-03-13] MEDS: Levothyroxine 75 MCG Tablet PO (06:30)
[2022-03-13] MEDS: SACUBITRIL/VALSARTAN 97-103 MG TABLET 1 EACH PO ×2 (06:30→17:45)
[2022-03-13] MEDS: Nystatin Powder 15gm Bottle 1 APPLIC TOPICAL ×2 (06:30→17:45)
[2022-03-13] MEDS: Ipratropium Bromide 0.06% NASAL SPRAY 1 SPRAY NASAL ×2 (06:30→20:49)
[2022-03-13] MEDS: Isosorbide Mononitrate 60 MG Tablet PO (06:30)
[2022-03-13 06:31] VITALS: BP 128/55; PULSE 80
[2022-03-13] MEDS: Metoprolol(XL)Succ 50 MG Tablet PO (06:31)
[2022-03-13] MEDS: Senna/Docusate Sodium 1 Tablet PO ×2 (06:33→17:45)
[2022-03-13] MEDS: Tuberculin,Purif.prot.deriv. 50 TU/ML Vial 0.1 ML ID (09:37)
[2022-03-13 09:38] VITALS: PULSE 70; RESP 18
--- NOTE | 2022-03-13 10:25 | MDS.RN ---
Explained POC meeting to be scheduled with resident, resident states do not call my daughter about it, she is not well
[2022-03-13 14:38] VITALS: BP 131/72; PULSE 81; RESP 18; TEMP 36.4; O2SAT 94
--- NOTE | 2022-03-13 16:55 | CASEMGMT ---
Social Work Met with patient for initial assessment. Introduced self and role. Discussed code status and MOLST. Pt confirmed full code. MOLST communicated to , placed in chart. Pt wishes to have dtr as primary contact, but denies wanting to complete advanced directives because I can think for myself. Explained Medicare benefit. encouraged to contact secondary insurance to ensure copay coverage. Pt states she has BRUCE, but informed her TCU does not accept BRUCE, so if [employer] does not cover, pt will have to pay copays out of pocket. Pt expressed understanding. The goal is for pt to return home living with dtr and [facility] in their mobile home with a ramp to enter. Pt states she can toilet and dress on her own but her socks and shoes. Pt attends [employer] 2x/wk and gets showers there. Pt has [employer] services - CM is [place], but unknown of last name or phone number. SW to continue to follow for DC planning. Rona Jones, MARIBEL AMBRIZW
[2022-03-13] MEDS: Rivaroxaban 10 MG Tablet PO (17:44)
--- NOTE | 2022-03-13 18:17 | NURSING ---
Time changed on nasal spray to 2200 per pt request stating she always takes it before bed.
[2022-03-13] MEDS: traZODone 100 MG Tablet 150 MG PO (20:50)
[2022-03-13] MEDS: Atorvastatin Calcium 20 MG Tablet PO (20:51)
[2022-03-13] MEDS: Mirtazapine 15 MG Tablet PO (20:51)
[2022-03-14] VITALS (8 sets, daily range): BP systolic 84–111; BP diastolic 50–64; PULSE 69–94; RESP 16–24; TEMP 35.9–36.9; O2SAT 88–99
[2022-03-14] MEDS: Ipratropium Bromide 0.06% NASAL SPRAY 1 SPRAY NASAL ×2 (06:03→21:04)
[2022-03-14] MEDS: Loratadine 10 MG Tablet PO (06:04)
[2022-03-14] MEDS: Levothyroxine 75 MCG Tablet PO (06:04)
[2022-03-14] MEDS: Isosorbide Mononitrate 60 MG Tablet PO (06:04)
[2022-03-14] MEDS: Febuxostat 40 MG TABLET PO (06:04)
[2022-03-14] MEDS: SACUBITRIL/VALSARTAN 97-103 MG TABLET 1 EACH PO ×2 (06:04→17:40)
[2022-03-14] MEDS: Senna/Docusate Sodium 1 Tablet PO ×2 (06:04→17:38)
[2022-03-14] MEDS: Nystatin Powder 15gm Bottle 1 APPLIC TOPICAL ×2 (06:05→17:37)
[2022-03-14] MEDS: Metoprolol(XL)Succ 50 MG Tablet PO (06:08)
--- NOTE | 2022-03-14 07:48 | PHA.CONS1_ITS ---
Progress Note - Pharmacy Subjective: TCU ADMISSION Objective: Allergies celecoxib [From Celebrex] Allergy (Verified 03/11/22 14:20) Hives NSAIDS (Non-Steroidal Anti-Inflamma Allergy (Verified 03/11/22 14:20) Rash strawberry [[place]] Allergy (Verified 03/11/22 14:20) Hives Sulfa (Sulfonamide Antibiotics) Allergy (Verified 03/11/22 14:20) Hives tomato [Tomato] Allergy (Verified 03/11/22 14:20) Hives Current Medications Generic Name Dose Route Start Last Admin Trade Name Freq PRN Reason Stop Dose Admin Acetaminophen 1,000 mg 03/12/22 21:20 Acetaminophen 500 Mg Tablet PO Q6H PRN PRN Pain Score 1-10 Atorvastatin Calcium 20 mg 03/13/22 22:00 03/13/22 20:51 Atorvastatin Calcium 20 Mg Tablet PO 20 mg QHS SHIKHA Administration Bisacodyl 10 mg 03/12/22 21:19 Bisacodyl 5 Mg Tablet PO DAILY PRN PRN Constipation Febuxostat 40 mg 03/13/22 06:00 03/14/22 06:04 Febuxostat 40 Mg Tablet PO 40 mg DAILY SHIKHA Administration Ipratropium [place] 1 spray 03/13/22 22:00 03/14/22 06:03 Ipratropium [place] 0.06% Nasal [place] NASAL 1 spray 0600,2200 SHIKHA Administration Isosorbide Mononitrate 60 mg 03/13/22 06:00 03/14/22 06:04 Isosorbide Mononitrate 60 Mg Tablet PO 60 mg DAILY SHIKHA Administration Levothyroxine Sodium 75 mcg 03/13/22 06:00 03/14/22 06:04 Levothyroxine 75 Mcg Tablet PO 75 mcg DAILY SHIKHA Administration Loratadine 10 mg 03/13/22 06:00 03/14/22 06:04 Loratadine 10 Mg Tablet PO 10 mg DAILY SHIKHA Administration Metoprolol Succinate 50 mg 03/13/22 06:00 03/14/22 06:08 Metoprolol(Xl)Succ 50 Mg Tablet PO 50 mg DAILY SHIKHA Administration Mirtazapine 15 mg 03/12/22 22:00 03/13/22 20:51 Mirtazapine 15 Mg Tablet PO 15 mg QHS SHIKHA Administration Nystatin 1 applic 03/12/22 18:00 03/14/22 06:05 Nystatin Powder 15gm Bottle TOPICAL 1 applic BID SHIKHA Administration Protocol Rivaroxaban 10 mg 03/13/22 17:00 03/13/22 17:44 Rivaroxaban 10 Mg Tablet PO 10 mg DINNER SHIKHA Administration Sacubitril/Valsartan 1 each 03/12/22 18:00 03/14/22 06:04 Sacubitril/Valsartan 97-103 Mg Tablet PO 1 each BID SHIKHA Administration Senna/Docusate Sodium 1 tablet 03/13/22 06:00 03/14/22 06:04 Senna/Docusate Sodium 1 Tablet PO 1 tablet BID SHIKHA Administration Trazodone HCl 150 mg 03/12/22 22:00 03/13/22 20:50 Trazodone 100 Mg Tablet PO 150 mg QHS SHIKHA Administration Tuberculin PPD 0.1 ml 03/20/22 10:00 Tuberculin,Purif.Prot.Deriv. 50 Tu/Ml Vial ID 03/20/22 10:01 X1 ONE Problem List (Last Reviewed 03/12/22 @ 21:[address] Jeffrey Zhou MD) Appetite loss (Acute) Pulmonary embolism (Acute) Insomnia (Acute) Hyperlipidemia (Acute) Hypothyroidism (Acute) Chronic systolic congestive heart failure (Chronic) Gout (Acute) Depression (Acute) Fall (Acute) Bilateral knee pain (Acute) Debility (Acute) Vital Signs Temp Pulse Resp BP Pulse Ox 97.2 F L 85 19 H 107/57 L 92 03/14/22 05:00 03/14/22 06:08 03/14/22 05:00 03/14/22 06:08 03/14/22 05:00 Oxygen Delivery Method Room Air Weight: 123.6 kg Body Mass Index (BMI) 46.7 Sodium 137 mmol/L (136-145) 03/13/22 05:14 Potassium 4.2 mmol/L (3.5-5.1) 03/13/22 05:14 Chloride 105 mmol/L (98-107) 03/13/22 05:14 Carbon Dioxide 27.0 mmol/L (21.0-32.0) 03/13/22 05:14 Anion Gap 5 (5-15) 03/13/22 05:14 BUN 23 mg/dL (7-18) H 03/13/22 05:14 Creatinine 1.09 mg/dL (0.55-1.02) H 03/13/22 05:14 Est GFR (MDRD) Af Amer 62 mL/min (>60) 03/13/22 05:14 Est GFR (MDRD) Non-Af 51 mL/min (>60) L 03/13/22 05:14 BUN/Creatinine Ratio 21.1 RATIO (10-20) H 03/13/22 05:14 Glucose 146 mg/dL (74-106) H 03/13/22 05:14 Assessment/Plan: 1. Pain: acetaminophen 1000mg PO Q6H PRN pain 1-10. Please continue to monitor for S/S of increased pain and PRN usage. 2. CHF: metoprolol succinate 50mg PO daily, isosorbide mononitrate 60mg PO daily and sacubitril/valsartan 97mg/103mg 1T PO BID. Please continue to monitor BP (last 107/57), HR (last 85), headache and renal function. *3. Hyperlipidemia: atorvastatin 20mg PO QHS. Please consider ordering a lipid panel (last 05/2017) if clinically appropriate. 4. Recurrent DVT/PE: rivaroxaban 10mg PO DINNER. Please continue to monitor for S/S of bleeding and hemoglobin (last 10.3g/dL). 5. Hypothyroidism: levothyroxine 75mcg PO daily. Please continue to monitor TSH (last 07/10/21 - within normal limits) and for S/S of hypo/hyperthyroidism. 6. Gout: feboxustat 40mg PO daily. Please continue to monitor for S/S of gout. 7. Allergic rhinitis: loratadine 10mg PO daily and ipratropium 0.06% nasal spray 1spray nasally BID. Please continue to monitor for S/S of allergic rhinitis. Psychotropic Medications: 1. Appetite loss: mirtazapine 15mg PO QHS. Please see physician note regarding GDR. Thanks. 2. Insomnia: trazodone 150mg PO QHS. Please see physician note regarding GDR. Thanks. Unnecessary Medications: None Bowel Regimen: senna/docusate 1T PO BID and bisacodyl 10mg PO daily PRN constipation. Please continue to monitor for constipation and PRN usage. Date of Note:: 03/14/22
[2022-03-14] MEDS: Bisacodyl 5 MG Tablet 10 MG PO (08:00)
--- NOTE | 2022-03-14 09:00 | NURSING ---
Pt c/o of nausea and productive cough with yellow sputum Bp 111/51 Temp 98.5 temporal Pulse 88 Spo2 98% [address] Zhou updated on pt status new order for Zofran 8mg q8hr for nausea Albuterol Aerosols 2.5mg q2hr for Wheezes and cough, KUB, Chest X-ray, Urinalysis, and sputum culture. Will continue to monitor call light within reach.
--- NOTE | 2022-03-14 09:18 | NURSING ---
AT 8:30 LIQUOR ESTABLISHMENT MANAGER ASKED THIS NURSE TO COME TO ROOM. PT SITTING ON TOILET,PT STATED SHE WAS NOT FEELING WELL AND FELT SOB. MANUAL VITALS DONE. HAD JENIFFER/ANIMAL PATHOLOGY TEACHER HELP THIS NURSE GET PT IN RECLINER AND BACK TO BED. PT OXYGEN DROPPED TO 88%,O2 AT 2L APPLIED NOW 98%. ASKED PT IF SHE EVER WORE OXYGEN PT STATED YES SOME TIMES SHE DID. VITALS RECHECKED,COULD HEAR WHEEZING,WITH MOIST COUGH. PT DID BRING UP YELLOW/WHITE THICK SPUTUM AND STATED SHE WAS ALSO NAUSEATED. CALLED RN TO ROOM
--- NOTE | 2022-03-14 09:20 | RAD_ITS ---
STUDY: X-RAY - ABDOMEN/PELVIS REASON FOR EXAM: Female, 86 years old. Nausea TECHNIQUE: Single AP view of the abdomen / pelvis. COMPARISON: None. FINDINGS: Status post cholecystectomy. There is an unremarkable bowel gas pattern. The visualized liver, spleen and kidneys are grossly normal in size and morphology. Normal soft tissue structures. Status post vertebroplasty of L1. RAD/Abdomen Single View (Portable) IMPRESSION: Normal x-ray examination of the abdomen and pelvis. Electronically Signed: Gab Ruelas MD at 9:56 EDT ,
--- NOTE | 2022-03-14 09:20 | RAD_ITS ---
STUDY: X-RAY CHEST REASON FOR EXAM: Female, 86 years old. Moist Productive cough TECHNIQUE: PA and lateral views of the chest. COMPARISON: 12/05/2019 FINDINGS: The lungs are clear and expanded. There is no demonstrated pleural abnormality. There is moderate cardiac enlargement. Normal mediastinum and mandeep. Normal visualized pulmonary arteries. Normal visualized aortic arch and descending thoracic aorta. Normal visualized thoracic spine. Normal visualized ribs, clavicles, and shoulders. There is no demonstrated abnormality of the visualized soft tissue structures of the upper abdomen. RAD/Chest PA and Lateral IMPRESSION: No active disease. Electronically Signed: Gab Ruelas MD at 9:55 EDT ,
[2022-03-14 10:21] LABS: Bacteria 0 SEEN /hpf (None Seen); Mucous, Urine 0 SEEN /hpf (<or=2+); Red Blood Cells-Urine 0 SEEN /hpf (0-5); White Blood Cells 0 SEEN /hpf (0-5)
[2022-03-14 10:22] LABS: Color, Urine Yellow (Yellow); Glucose, Dipstick Normal (Normal); Ketone-Dipstick Negative (Negative); Leukocyte Esterase-Dipstick Negative /ul (Negative); Nitrite-Dipstick Negative (Negative); Occult Blood-Urine Negative /ul (Negative); Protein-Dipstick Negative (Negative); Specific Gravity, Urine 1.015 (1.002-1.030); Urine Bilirubin Dipstick Negative (Negative); Urine Clarity Sl. Cloudy (Clear); Urine Urobilinogen Normal (Normal)
[2022-03-14 10:28] LABS: Squamous Epithelial Cells - UA 0-5 SEEN /hpf (5-10)
--- NOTE | 2022-03-14 11:05 | NURSING ---
PRN DULCOLAX GIVEN AT 8AM WITH POSITIVE RESULTS.
[2022-03-14] MEDS: Albuterol 2.5 MG/3 ML VIAL.NEB. INHALATION (11:14)
--- NOTE | 2022-03-14 14:25 | NURSING ---
CALLED JOHNATHON PT DAUGHTER AND UPDATED HER ON HER MOM. JOHNATHON STATED THAT THE PT DOES HAVE DAYS SHE WILL FEEL BAD FOR A COUPLE DAYS THEN WILL BE OK FOR A COUPLE DAYS. JOHNATHON ALSO STATED THAT YOU SOME TIMES HAVE TO PUSH HER TO EAT AND DRINK CAUSE SHE WONT IF NOT. JOHNATHON STATED SHE WONDERS IF IT WAS BECAUSE SHE WAS AT A NURSING FACILITY AND HER MOM WAS TOLD SHE WAS TO BIG AND HARD TO MOVE BY STAFF MEMBER. PT WAS ALSO ON OXYGEN OFF AND ON THERE. DAUGHTER FEELS HER MOM DID NOT RECUPERATE FULLY FROM PNEUMONIA SHE HAD IN NOVEMBER. DAUGHTER DID ASK NOT TO PUT A RAMSEY IN HER MOM UNLESS NECESSARY CAUSE THAT MAKES HER NOT WANT TO GET UP AND MOVE AND WILL JUST LAY AROUND IN BED. DAUGHTER THANKED THIS NURSE FOR THE UPDATE.
--- NOTE | 2022-03-14 15:15 | NS ---
RN asked for Ensure Clear to be ordered. Per family, res not consistently eating well at meals. Does not like regular Ensure. Ensure Clear TID w/ meals ordered. To Leo MS, RDN, LD.
--- NOTE | 2022-03-14 15:40 | CHAPLAIN ---
Type of Pastoral Visit _x__ Initial Visit ___ Follow-up Visit ___ On-call Visit ___ General Patient Visit ___ Spiritual Assessment ___ Family Conference ___ Bereavement ___ Rapid Response ___ Code Blue ___ Other (describe below) Pastoral Care Referral From _x__ Patient ___ Family ___ Nurse ___ Physician ___ Roll Repairer ___ Electrical Parts Reconditioner ___ Other (describe below) Sacrament/Intervention _x__ Active listening ___ Anointing ___ Confucianism ___ Bereavement ___ Communion ___ Viktoria exploration ___ ___ Life review _x__ Prayer ___ Reconciliation ___ Sacrament of Sick _x__ Supportive presence ___ Wedding ___ Other (describe below) Pastoral Comments patient lying down in bed, alert but quiet; pt states that she has had a bad day with blood pressure and oxygen levels but sure would like a prayer; offer of presence and time to talk given but pt says a prayer would be enough right now
[2022-03-14] MEDS: Ensure Clear 120 ML Liquid PO (17:36)
[2022-03-14] MEDS: Rivaroxaban 10 MG Tablet PO (17:40)
[2022-03-14] MEDS: traZODone 100 MG Tablet 150 MG PO (21:05)
[2022-03-14] MEDS: Atorvastatin Calcium 20 MG Tablet PO (21:10)
[2022-03-14] MEDS: Mirtazapine 15 MG Tablet PO (21:10)
[2022-03-15 05:00] VITALS: BP 109/75; PULSE 76; RESP 14; TEMP 36.4; O2SAT 94
[2022-03-15] MEDS: Ipratropium Bromide 0.06% NASAL SPRAY 1 SPRAY NASAL ×2 (05:55→20:55)
[2022-03-15 05:56] VITALS: BP 109/60; PULSE 91
[2022-03-15] MEDS: Febuxostat 40 MG TABLET PO (05:56)
[2022-03-15] MEDS: Metoprolol(XL)Succ 50 MG Tablet PO (05:56)
[2022-03-15] MEDS: Senna/Docusate Sodium 1 Tablet PO (05:56)
[2022-03-15] MEDS: Nystatin Powder 15gm Bottle 1 APPLIC TOPICAL (05:57)
[2022-03-15] MEDS: Levothyroxine 75 MCG Tablet PO (05:57)
[2022-03-15] MEDS: Isosorbide Mononitrate 60 MG Tablet PO (05:57)
[2022-03-15] MEDS: Loratadine 10 MG Tablet PO (05:57)
[2022-03-15] MEDS: SACUBITRIL/VALSARTAN 97-103 MG TABLET 1 EACH PO ×2 (05:57→16:17)
[2022-03-15] MEDS: Ensure Clear 120 ML Liquid PO ×3 (05:59→16:16)
[2022-03-15 06:37] VITALS: PULSE 74; RESP 20; O2SAT 97
[2022-03-15 14:38] VITALS: BP 103/57; PULSE 65; RESP 16; TEMP 36.6; O2SAT 100
[2022-03-15] MEDS: Rivaroxaban 10 MG Tablet PO (16:16)
--- NOTE | 2022-03-15 18:36 | PCA ---
FOOD TECHNOLOGY TEACHER offered to help patient with HS care and get washed up for the evening. Patient stated they washed me up really good this morning. I don't feel like i need to get cleaned again. I will wait until morning FOOD TECHNOLOGY TEACHER asked if they needed help with anything else, and patient said they were fine. Call light within reach
[2022-03-15] MEDS: Atorvastatin Calcium 20 MG Tablet PO (20:56)
[2022-03-15] MEDS: traZODone 100 MG Tablet 150 MG PO (20:56)
[2022-03-15] MEDS: Mirtazapine 15 MG Tablet PO (20:57)
[2022-03-16 05:15] VITALS: PULSE 88
[2022-03-16] MEDS: Metoprolol(XL)Succ 50 MG Tablet PO (05:15)
[2022-03-16] MEDS: Loratadine 10 MG Tablet PO (05:15)
[2022-03-16] MEDS: Senna/Docusate Sodium 1 Tablet PO ×2 (05:15→16:57)
[2022-03-16] MEDS: Levothyroxine 75 MCG Tablet PO (05:15)
[2022-03-16] MEDS: Febuxostat 40 MG TABLET PO (05:15)
[2022-03-16] MEDS: Ensure Clear 120 ML Liquid PO (05:18)
[2022-03-16] MEDS: Isosorbide Mononitrate 60 MG Tablet PO (05:19)
[2022-03-16] MEDS: SACUBITRIL/VALSARTAN 97-103 MG TABLET 1 EACH PO ×2 (05:19→16:57)
[2022-03-16] MEDS: Ipratropium Bromide 0.06% NASAL SPRAY 1 SPRAY NASAL ×2 (05:19→20:56)
[2022-03-16 10:00] VITALS: BP 126/56; PULSE 65; RESP 16; TEMP 36.4; O2SAT 98
[2022-03-16] MEDS: Albuterol 2.5 MG/3 ML VIAL.NEB. INHALATION (14:43)
[2022-03-16 14:44] VITALS: PULSE 51; RESP 16; O2SAT 97
[2022-03-16] MEDS: Rivaroxaban 10 MG Tablet PO (16:55)
[2022-03-16] MEDS: Nystatin Powder 15gm Bottle 1 APPLIC TOPICAL (16:57)
[2022-03-16] MEDS: Acetaminophen 500 MG Tablet 1000 MG PO (19:44)
[2022-03-16] MEDS: traZODone 100 MG Tablet 150 MG PO (20:56)
[2022-03-16] MEDS: Mirtazapine 15 MG Tablet PO (20:58)
[2022-03-16] MEDS: Atorvastatin Calcium 20 MG Tablet PO (20:58)
[2022-03-16 21:57] VITALS: RESP 18; O2SAT 95
[2022-03-17] MEDS: Ipratropium Bromide 0.06% NASAL SPRAY 1 SPRAY NASAL ×2 (05:46→20:35)
[2022-03-17] MEDS: Loratadine 10 MG Tablet PO (05:52)
[2022-03-17] MEDS: SACUBITRIL/VALSARTAN 97-103 MG TABLET 1 EACH PO (05:52)
[2022-03-17] MEDS: Senna/Docusate Sodium 1 Tablet PO (05:53)
[2022-03-17] MEDS: Isosorbide Mononitrate 60 MG Tablet PO (05:53)
[2022-03-17] MEDS: Nystatin Powder 15gm Bottle 1 APPLIC TOPICAL ×2 (05:53→17:06)
[2022-03-17] MEDS: Levothyroxine 75 MCG Tablet PO (05:53)
[2022-03-17 05:54] VITALS: BP 103/55; PULSE 66
[2022-03-17] MEDS: Metoprolol(XL)Succ 50 MG Tablet PO (05:54)
[2022-03-17] MEDS: Febuxostat 40 MG TABLET PO (05:54)
[2022-03-17] MEDS: Ensure Clear 120 ML Liquid PO ×2 (05:57→17:04)
[2022-03-17 09:08] VITALS: O2SAT 96
[2022-03-17 09:56] VITALS: O2SAT 94
[2022-03-17 10:00] VITALS: BP 107/52; PULSE 63; RESP 18; TEMP 36.2; O2SAT 98
[2022-03-17] MEDS: Acetaminophen 500 MG Tablet 1000 MG PO ×2 (11:17→20:33)
[2022-03-17] MEDS: Rivaroxaban 10 MG Tablet PO (17:02)
[2022-03-17 17:09] VITALS: BP 99/58; PULSE 56
[2022-03-17] MEDS: traZODone 100 MG Tablet 150 MG PO (20:35)
[2022-03-17] MEDS: Mirtazapine 15 MG Tablet PO (20:37)
[2022-03-17] MEDS: Atorvastatin Calcium 20 MG Tablet PO (20:37)
[2022-03-18] MEDS: Acetaminophen 500 MG Tablet 1000 MG PO ×2 (06:10→13:51)
[2022-03-18] MEDS: Ipratropium Bromide 0.06% NASAL SPRAY 1 SPRAY NASAL ×2 (06:12→21:22)
[2022-03-18] MEDS: Loratadine 10 MG Tablet PO (06:12)
[2022-03-18] MEDS: Nystatin Powder 15gm Bottle 1 APPLIC TOPICAL ×2 (06:14→17:47)
[2022-03-18] MEDS: Levothyroxine 75 MCG Tablet PO (06:15)
[2022-03-18 06:36] VITALS: O2SAT 96
[2022-03-18] MEDS: Febuxostat 40 MG TABLET PO (06:52)
[2022-03-18] MEDS: Ensure Clear 120 ML Liquid PO ×2 (11:00→17:46)
--- NOTE | 2022-03-18 13:26 | MDS.RN ---
Completed pain interview for BRE 03/18/22.
[2022-03-18 15:40] VITALS: BP 105/41; PULSE 62; RESP 18; TEMP 35.8; O2SAT 99
--- NOTE | 2022-03-18 15:58 | CASEMGMT ---
Social Work BIMS and PHQ-9 completed for MDS assessment. Rona Jones, SECURITY CONSULTANT SHOWER DOORS AND PANELS FABRICATOR
[2022-03-18] MEDS: Rivaroxaban 10 MG Tablet PO (17:47)
[2022-03-18] MEDS: Senna/Docusate Sodium 1 Tablet PO (17:48)
[2022-03-18 17:51] VITALS: BP 114/49; PULSE 65
[2022-03-18 21:10] VITALS: BP 96/63; PULSE 67; RESP 18; TEMP 36.8; O2SAT 96
[2022-03-18] MEDS: traZODone 100 MG Tablet 150 MG PO (21:23)
[2022-03-18] MEDS: Mirtazapine 15 MG Tablet PO (21:24)
[2022-03-18] MEDS: Atorvastatin Calcium 20 MG Tablet PO (21:24)
[2022-03-19] VITALS (7 sets, daily range): BP systolic 99–122; BP diastolic 42–58; PULSE 68–83; RESP 16–18; TEMP 36.4–36.6; O2SAT 93–97
[2022-03-19] MEDS: Ipratropium Bromide 0.06% NASAL SPRAY 1 SPRAY NASAL ×2 (05:24→19:59)
[2022-03-19] MEDS: Menthol/Lanolin/Calamine/Znox 113 GM Tube 1 APPLIC TOPICAL ×2 (05:24→17:32)
[2022-03-19] MEDS: Loratadine 10 MG Tablet PO (05:25)
[2022-03-19] MEDS: Senna/Docusate Sodium 1 Tablet PO ×2 (05:26→17:34)
[2022-03-19] MEDS: Nystatin Powder 15gm Bottle 1 APPLIC TOPICAL ×2 (05:26→17:33)
[2022-03-19] MEDS: Levothyroxine 75 MCG Tablet PO (05:27)
[2022-03-19] MEDS: Febuxostat 40 MG TABLET PO (05:27)
[2022-03-19] MEDS: Ensure Clear 120 ML Liquid PO (07:47)
[2022-03-19] MEDS: SACUBITRIL/VALSARTAN 97-103 MG TABLET 1 EACH PO ×2 (08:30→17:37)
[2022-03-19] MEDS: Isosorbide Mononitrate 30 MG Tablet PO (08:31)
[2022-03-19] MEDS: Metoprolol(XL)Succ 25 MG Tablet PO (08:31)
--- NOTE | 2022-03-19 09:05 | CASEMGMT ---
Social Work IDT met with patient for care plan meeting. Discussed patient's progress in PT/OT and nursing. Pt making progress. Explained Medicare benefit. Encouraged to contact secondary insurance to ensure copay coverage. Pt has BRUCE as as third insurance and informed pt TCU does not accept BRUCE. Pt does have [employer] as secondary insurance. Pt expressed understanding but did express concern about copay coverage. Encouraged to have dtr contact [employer] to inquire about coverage. The goal is for pt to return home with dtr. Pt attends [employer] 2x/wk and can use w/c transport to no longer use the steps to get into the bus. Pt agreed. Pt has a ramp to enter. Pt is new on O2. Pt needs max assist for toileting. Pt states dtr and [facility] can assist with toileting. They are home all day with pt. SW to order HHC and DME needed at DC. SW to continue to follow. Rona Jones, CHEMICAL ENGINEERING TEACHER LACEMAKER
[2022-03-19] MEDS: Rivaroxaban 10 MG Tablet PO (17:34)
[2022-03-19] MEDS: traZODone 100 MG Tablet 150 MG PO (20:00)
[2022-03-19] MEDS: Atorvastatin Calcium 20 MG Tablet PO (20:01)
[2022-03-19] MEDS: Mirtazapine 15 MG Tablet PO (20:01)
[2022-03-20 05:24] LABS: Absolute Lymphocyte Count 2.19 X10^3/uL (0.83-4.51); Absolute Neutrophil Count 2.6 X10^3/uL (2.0-7.7); Basophil# 0.04 X10^3/uL; Basophil% 0.7 % (0-1); Eosinophil# 0.31 X10^3/uL; Eosinophils% 5.3 % (0-5); Hematocrit 32.7 % (37-47); Hemoglobin 10.5 g/dL (12.0-15.0); Lymphocyte # 2.19 X10^3/ul (0.83-4.51); Lymphocyte % 37.2 % (19-41); Mean Corp Hgb Conc 32.1 g/dL (32-36); Mean Corpuscular Hgb 32.4 pg (27.0-32.0); Mean Corpuscular Volume 100.9 fL (81-99); Mean Platelet Vol. 9.5 fl (6.2-12.0); Monocyte# 0.72 X10^3/uL; Monocyte% 12.2 % (0-10); NRBC Flagged by Analyzer 0 % (0-5); Neutrophil % 44.1 % (47-70); Platelet Count 267 K/mm3 (150-450); RBC Distribution Width SD 44.9 fl (35.1-43.9); Red Blood Count 3.24 M/mm3 (4.2-5.4); White Blood Count 5.9 K/mm3 (4.4-11.0)
[2022-03-20] MEDS: Isosorbide Mononitrate 30 MG Tablet PO (05:31)
[2022-03-20] MEDS: Febuxostat 40 MG TABLET PO (05:31)
[2022-03-20] MEDS: Senna/Docusate Sodium 1 Tablet PO (05:31)
[2022-03-20] MEDS: Levothyroxine 75 MCG Tablet PO (05:31)
[2022-03-20] MEDS: Loratadine 10 MG Tablet PO (05:32)
[2022-03-20] MEDS: SACUBITRIL/VALSARTAN 97-103 MG TABLET 1 EACH PO ×2 (05:32→17:04)
[2022-03-20 05:33] VITALS: BP 115/72; PULSE 79
[2022-03-20] MEDS: Metoprolol(XL)Succ 25 MG Tablet PO (05:33)
[2022-03-20] MEDS: Ipratropium Bromide 0.06% NASAL SPRAY 1 SPRAY NASAL ×2 (05:34→20:02)
[2022-03-20] MEDS: Menthol/Lanolin/Calamine/Znox 113 GM Tube 1 APPLIC TOPICAL ×2 (05:34→17:05)
[2022-03-20] MEDS: Nystatin Powder 15gm Bottle 1 APPLIC TOPICAL ×2 (05:37→17:05)
[2022-03-20 05:48] LABS: Anion Gap 3 (5-15); BUN 35 mg/dL (7-18); BUN/Creat Ratio 25.9 RATIO (10-20); Calcium,Total 9.1 mg/dL (8.5-10.1); Chloride 103 mmol/L (98-107); Creatinine, Serum 1.35 mg/dL (0.55-1.02); EST Glomerular Filtration Rate 40 mL/min (>60); Est Glom Filt Rate - Afr Amer 48 mL/min (>60); Estimated Creatinine Clearance 26.79 ml/min; Glucose 106 mg/dL (74-106); Potassium 4.8 mmol/L (3.5-5.1); Sodium Level 134 mmol/L (136-145)
--- NOTE | 2022-03-20 10:27 | NURSING ---
Shear Grinder Operator Note: Interview completed and MDS section F entered on 03/19/22 for BRE of 03/19/22.
[2022-03-20] MEDS: Tuberculin,Purif.prot.deriv. 50 TU/ML Vial 0.1 ML ID (11:12)
--- NOTE | 2022-03-20 12:09 | NURSING ---
Pt still has not had sputum culture collected, per pt she is no longer coughing anything up
[2022-03-20 13:44] VITALS: BP 120/52; PULSE 65; RESP 16; TEMP 36.3; O2SAT 94
[2022-03-20] MEDS: Rivaroxaban 10 MG Tablet PO (17:03)
[2022-03-20] MEDS: traZODone 100 MG Tablet 150 MG PO (20:02)
[2022-03-20] MEDS: Atorvastatin Calcium 20 MG Tablet PO (20:02)
[2022-03-20] MEDS: Mirtazapine 15 MG Tablet PO (20:03)
[2022-03-21] MEDS: Ipratropium Bromide 0.06% NASAL SPRAY 1 SPRAY NASAL ×2 (04:49→20:20)
[2022-03-21] MEDS: Senna/Docusate Sodium 1 Tablet PO (04:50)
[2022-03-21 04:51] VITALS: BP 119/52; PULSE 75
[2022-03-21] MEDS: Levothyroxine 75 MCG Tablet PO (04:51)
[2022-03-21] MEDS: Isosorbide Mononitrate 30 MG Tablet PO (04:51)
[2022-03-21] MEDS: SACUBITRIL/VALSARTAN 97-103 MG TABLET 1 EACH PO ×2 (04:51→17:43)
[2022-03-21] MEDS: Metoprolol(XL)Succ 25 MG Tablet PO (04:51)
[2022-03-21] MEDS: Febuxostat 40 MG TABLET PO (04:51)
[2022-03-21] MEDS: Loratadine 10 MG Tablet PO (04:51)
[2022-03-21] MEDS: Menthol/Lanolin/Calamine/Znox 113 GM Tube 1 APPLIC TOPICAL ×2 (04:53→17:41)
[2022-03-21] MEDS: Nystatin Powder 15gm Bottle 1 APPLIC TOPICAL ×2 (04:54→17:42)
[2022-03-21 08:50] VITALS: PULSE 58; RESP 18; O2SAT 93
[2022-03-21 14:05] VITALS: BP 112/52; PULSE 71; RESP 16; TEMP 36.2; O2SAT 92
[2022-03-21] MEDS: Acetaminophen 500 MG Tablet 1000 MG PO (15:01)
[2022-03-21] MEDS: Rivaroxaban 10 MG Tablet PO (17:43)
[2022-03-21] MEDS: Atorvastatin Calcium 20 MG Tablet PO (20:19)
[2022-03-21] MEDS: traZODone 100 MG Tablet 150 MG PO (20:19)
[2022-03-21] MEDS: Mirtazapine 15 MG Tablet PO (20:20)
[2022-03-22] MEDS: Menthol/Lanolin/Calamine/Znox 113 GM Tube 1 APPLIC TOPICAL ×2 (06:25→17:30)
[2022-03-22] MEDS: Ipratropium Bromide 0.06% NASAL SPRAY 1 SPRAY NASAL ×2 (06:25→21:32)
[2022-03-22 06:26] VITALS: BP 121/52; PULSE 65
[2022-03-22] MEDS: Metoprolol(XL)Succ 25 MG Tablet PO (06:26)
[2022-03-22] MEDS: Senna/Docusate Sodium 1 Tablet PO (06:26)
[2022-03-22] MEDS: Febuxostat 40 MG TABLET PO (06:26)
[2022-03-22] MEDS: Levothyroxine 75 MCG Tablet PO (06:26)
[2022-03-22] MEDS: Loratadine 10 MG Tablet PO (06:26)
[2022-03-22] MEDS: SACUBITRIL/VALSARTAN 97-103 MG TABLET 1 EACH PO ×2 (06:27→17:29)
[2022-03-22] MEDS: Nystatin Powder 15gm Bottle 1 APPLIC TOPICAL ×2 (06:27→17:31)
[2022-03-22] MEDS: Isosorbide Mononitrate 30 MG Tablet PO (06:27)
[2022-03-22 10:00] VITALS: RESP 18; O2SAT 90
--- NOTE | 2022-03-22 14:16 | NURSING ---
PT COMPLAINED OF HER BUTT HURTING,COCCYX RED AND SMALL SHEARING AREA. MEPILEX PLACED ON COCCYX,03/22/22. PT ALSO PLACED ON A TURNING SCHEDULE DUE TO HARD FOR PT TO MOVE WITH OUT HELP. RN AWARE
[2022-03-22 16:00] VITALS: BP 113/70; PULSE 52; RESP 14; TEMP 36.7; O2SAT 98
[2022-03-22] MEDS: Rivaroxaban 10 MG Tablet PO (17:28)
[2022-03-22] MEDS: traZODone 100 MG Tablet 150 MG PO (21:33)
[2022-03-22] MEDS: Mirtazapine 15 MG Tablet PO (21:34)
[2022-03-22] MEDS: Atorvastatin Calcium 20 MG Tablet PO (21:34)
[2022-03-23] MEDS: Acetaminophen 500 MG Tablet 1000 MG PO ×3 (03:15→20:50)
[2022-03-23] MEDS: Ipratropium Bromide 0.06% NASAL SPRAY 1 SPRAY NASAL ×2 (06:18→20:52)
[2022-03-23] MEDS: Loratadine 10 MG Tablet PO (06:19)
[2022-03-23] MEDS: Menthol/Lanolin/Calamine/Znox 113 GM Tube 1 APPLIC TOPICAL ×2 (06:19→17:49)
[2022-03-23 06:20] VITALS: BP 107/57; PULSE 62
[2022-03-23] MEDS: Febuxostat 40 MG TABLET PO (06:20)
[2022-03-23] MEDS: Isosorbide Mononitrate 30 MG Tablet PO (06:20)
[2022-03-23] MEDS: Metoprolol(XL)Succ 25 MG Tablet PO (06:20)
[2022-03-23] MEDS: SACUBITRIL/VALSARTAN 97-103 MG TABLET 1 EACH PO ×2 (06:20→17:49)
[2022-03-23] MEDS: Levothyroxine 75 MCG Tablet PO (06:21)
[2022-03-23] MEDS: Senna/Docusate Sodium 1 Tablet PO (06:21)
[2022-03-23] MEDS: Nystatin Powder 15gm Bottle 1 APPLIC TOPICAL ×2 (06:22→17:50)
[2022-03-23 08:50] VITALS: PULSE 63; RESP 18; O2SAT 96
[2022-03-23 16:00] VITALS: BP 110/49; PULSE 61; RESP 19; TEMP 36; O2SAT 98
[2022-03-23] MEDS: Rivaroxaban 10 MG Tablet PO (17:48)
[2022-03-23] MEDS: traZODone 100 MG Tablet 150 MG PO (20:52)
[2022-03-23] MEDS: Atorvastatin Calcium 20 MG Tablet PO (20:53)
[2022-03-23] MEDS: Mirtazapine 15 MG Tablet PO (20:54)
[2022-03-24] MEDS: Acetaminophen 500 MG Tablet 1000 MG PO ×3 (04:30→20:37)
[2022-03-24] MEDS: Ipratropium Bromide 0.06% NASAL SPRAY 1 SPRAY NASAL ×2 (04:31→20:33)
[2022-03-24] MEDS: Menthol/Lanolin/Calamine/Znox 113 GM Tube 1 APPLIC TOPICAL ×2 (04:32→17:53)
[2022-03-24] MEDS: Loratadine 10 MG Tablet PO (04:32)
[2022-03-24] MEDS: SACUBITRIL/VALSARTAN 97-103 MG TABLET 1 EACH PO ×2 (04:32→17:54)
[2022-03-24 04:33] VITALS: BP 103/62; PULSE 78
[2022-03-24] MEDS: Isosorbide Mononitrate 30 MG Tablet PO (04:33)
[2022-03-24] MEDS: Metoprolol(XL)Succ 25 MG Tablet PO (04:33)
[2022-03-24] MEDS: Febuxostat 40 MG TABLET PO (04:34)
[2022-03-24] MEDS: Levothyroxine 75 MCG Tablet PO ×2 (04:34)
[2022-03-24] MEDS: Senna/Docusate Sodium 1 Tablet PO (04:34)
[2022-03-24] MEDS: Nystatin Powder 15gm Bottle 1 APPLIC TOPICAL ×2 (04:36→17:54)
[2022-03-24 15:49] VITALS: BP 122/47; PULSE 56; RESP 16; TEMP 36.2; O2SAT 94
[2022-03-24] MEDS: Rivaroxaban 10 MG Tablet PO (17:53)
[2022-03-24 17:55] VITALS: BP 116/67; PULSE 70
[2022-03-24] MEDS: Atorvastatin Calcium 20 MG Tablet PO (20:33)
[2022-03-24] MEDS: Mirtazapine 15 MG Tablet PO (20:34)
[2022-03-24] MEDS: traZODone 100 MG Tablet 150 MG PO (20:34)
[2022-03-24 22:42] VITALS: PULSE 68; RESP 18; O2SAT 96
[2022-03-25 05:10] VITALS: BP 123/61; PULSE 67
[2022-03-25] MEDS: Ipratropium Bromide 0.06% NASAL SPRAY 1 SPRAY NASAL ×2 (05:10→20:03)
[2022-03-25] MEDS: Febuxostat 40 MG TABLET PO (05:10)
[2022-03-25] MEDS: Metoprolol(XL)Succ 25 MG Tablet PO (05:10)
[2022-03-25] MEDS: Isosorbide Mononitrate 30 MG Tablet PO (05:10)
[2022-03-25] MEDS: Loratadine 10 MG Tablet PO (05:10)
[2022-03-25] MEDS: Senna/Docusate Sodium 1 Tablet PO (05:10)
[2022-03-25] MEDS: SACUBITRIL/VALSARTAN 97-103 MG TABLET 1 EACH PO ×2 (05:10→17:52)
[2022-03-25] MEDS: Nystatin Powder 15gm Bottle 1 APPLIC TOPICAL ×2 (05:16→17:52)
[2022-03-25] MEDS: Menthol/Lanolin/Calamine/Znox 113 GM Tube 1 APPLIC TOPICAL ×2 (05:16→17:53)
[2022-03-25 09:30] VITALS: PULSE 70; RESP 18; O2SAT 93
[2022-03-25] MEDS: Acetaminophen 500 MG Tablet 1000 MG PO (09:33)
--- NOTE | 2022-03-25 09:46 | CASEMGMT ---
Social Work Spoke with pt about IDT setting DC date 03/28. Pt agreeable. Offered to contact dtr for DC plans. Pt stated that she was not awake yet and she would call dtr later. [facility] would be able to transport pt home. Pt denied wanting any HHC or OP therapy services or DME needs. Pt will resume [facility] services. Plan: DC home with dtr and [facility] 03/28, no needs MARIBEL BakerW
--- NOTE | 2022-03-25 10:40 | MDS.RN ---
Information for the mds was obtained from review of the clinical record, interview of resident, staff, and direct observation of resident's care.
[2022-03-25 13:58] VITALS: BP 108/54; PULSE 58; RESP 16; TEMP 36.2; O2SAT 96
[2022-03-25] MEDS: Rivaroxaban 10 MG Tablet PO (17:51)
--- NOTE | 2022-03-25 19:24 | PCM.DC.SUM ---
Providers Date of Admission: 03/12/22 Primary Care Physician: Dr. Jeffrey Zhou MD Reason For Visit: DEBILITY Diagnosis Discharge Diagnosis (1) Debility: Status: Acute Code(s): R53.81 - Other malaise (2) Bilateral knee pain: Status: Acute Code(s): M25.561 - Pain in right knee; M25.562 - Pain in left knee (3) Fall: Status: Acute Code(s): W19.XXXA - Unspecified fall, initial encounter (4) Depression: Status: Acute Code(s): F32.A - Depression, unspecified (5) Gout: Status: Acute Code(s): M10.9 - Gout, unspecified (6) Chronic systolic congestive heart failure: Status: Chronic Code(s): I50.22 - Chronic systolic (congestive) heart failure (7) Hypothyroidism: Status: Acute Code(s): E03.9 - Hypothyroidism, unspecified (8) Hyperlipidemia: Status: Acute Code(s): E78.5 - Hyperlipidemia, unspecified (9) Insomnia: Status: Acute Code(s): G47.00 - Insomnia, unspecified (10) Pulmonary embolism: Status: Acute Code(s): I26.99 - Other pulmonary embolism without acute cor pulmonale (11) Appetite loss: Status: Acute Code(s): R63.0 - Anorexia Medications at Discharge Home Medications febuxostat [Uloric] 40 mg PO DAILY 10/06/17 levothyroxine 75 mcg PO DAILY 10/06/17 rosuvastatin 10 mg PO DAILY 10/06/17 Entresto 1 tab PO BID 03/11/22 ipratropium bromide 1 spray INTRANASAL BID 03/11/22 levocetirizine 5 mg PO DAILY 03/11/22 mirtazapine 15 mg PO QHS 03/11/22 acetaminophen 1,000 mg PO Q6H PRN PRN #0 tab 03/25/22 isosorbide mononitrate 30 mg PO DAILY 30 Days #30 tab 03/25/22 metoprolol succinate 25 mg PO DAILY 30 Days #30 tab 03/25/22 rivaroxaban [Xarelto] 10 mg PO DINNER 30 Days #30 tab 03/25/22 trazodone 150 mg PO QHS 30 Days #45 tab 03/25/22 Hospital Course Operations None Procedures None Summary of Care Provided Minutes Spent on Discharge: 35 Hospital Course: 86 year old female with below past medical history hospitalized for fall, knee pain, admitted to TCU with debility, here for rehabilitation, strengthening, prior to discharge home with family. Discharge home with daughter, son-in-law 03/28/2022, No needs. Physical Exam Const alert General Appearance: cooperative HEENT normocephalic Eyes PERRL and EOMs intact bilaterally Neck supple, no JVD and no carotid bruits Resp normal respiratory effort, normal air movement and clear to auscultation bilaterally Cardio regular rate and regular rhythm GI normal to inspection, nondistended, normoactive bowel sounds, non-tender and non-distended Extremity normal capillary refill General Extremity: Negative for edema Skin no rashes or lesions noted General Skin Exam: no breakdown Psych affect normal Appearance: appropriate Weight / BMI Weight Weight: 128.231 kg Body Mass Index (BMI) 46.7 ABG / Lab / Microbiology Data Result Diagrams: 03/20/22 05:11 03/20/22 05:11 Microbiology: Microbiology 03/19/22 06:50 Nasal Secretion SARS-CoV-2 Antigen (Rapid) - Final 03/14/22 10:05 Urine Catheter - Catheter Urine Culture - Final Enterococcus faecalis D/C Instructions Discharge Diet: No restrictions Discharge Activity: Return to Normal Activity, May Shower and Use Walker Weight Bearing Status: Weight bearing as tolerated Call your doctor if you observe: Fever of 101 or Higher, Inability to urinate, Inability to have a bowel movement, Shortness of breath, Dizziness, Fainting spells, Swelling in the ankles, Chest pain and Uncontrolled pain Additional Instructions: Discharge home with daughter, son-in-law 03/28/2022, No needs. Meaningful Use Info Meaningful Use Diagnoses (Choose all that apply): None applicable Discharge Plan Admission Admit Date/Time: 03/12/22 14:11 Primary Reason for Your Visit: Debility. Attending Provider: Jeffrey Zhou Chi Primary Care Provider: Jeffrey Zhou Chi Instructions Additional Instructions / Restrictions: Discharge home with daughter, son-in-law 03/28/2022, No needs. Discharge Orders/Prescriptions Prescriptions: New isosorbide mononitrate 30 mg Tablet Extended Release 24 Hr 30 mg PO DAILY 30 Days Qty: 30 RF: 0 acetaminophen 500 mg Tablet 1,000 mg PO Q6H PRN PRN (Reason: Pain Score 1-10) Qty: 0 RF: 0 trazodone 100 mg Tablet 150 mg PO QHS 30 Days Qty: 45 RF: 0 metoprolol succinate 25 mg Tablet Extended Release 24 Hr 25 mg PO DAILY 30 Days Qty: 30 RF: 0 Xarelto 10 mg Tablet 10 mg PO DINNER 30 Days Qty: 30 RF: 0 Continued levothyroxine 75 MCG tablet 75 mcg PO DAILY RF: 0 rosuvastatin 10 MG tablet 10 mg PO DAILY RF: 0 febuxostat [Uloric] 40 MG tablet 40 mg PO DAILY RF: 0 mirtazapine 15 mg tablet 15 mg PO QHS RF: 0 ipratropium bromide 42 mcg (0.06 %) spray,non-aerosol 1 spray INTRANASAL BID RF: 0 levocetirizine 5 mg tablet 5 mg PO DAILY RF: 0 Entresto 97-103 mg tablet 1 tab PO BID RF: 0 Discontinued metoprolol succinate 50 MG tablet extended release 24 hr 50 mg PO DAILY RF: 0 isosorbide mononitrate 60 MG tablet 60 mg PO DAILY RF: 0 Xarelto 20 MG tablet 20 mg PO DAILY RF: 0 doxepin 25 mg capsule 25 mg PO DAILY RF: 0 acetaminophen [Tylenol] 325 mg Tablet 650 mg PO Q6H PRN PRN (Reason: Pain Score 1-10/Temp > 100.7 F) Qty: 0 RF: 0 nystatin [Nyamyc] 100,000 unit/gram powder 1 applic topical BID RF: 0 Referrals / Follow Up: Jeffrey Zhou Chi, MD [Primary Care Provider] - Within 1 Week Disposition Disposition (needs filled in before D/C Order can be placed): Home, Self Care
[2022-03-25] MEDS: traZODone 100 MG Tablet 150 MG PO (20:03)
[2022-03-25] MEDS: Atorvastatin Calcium 20 MG Tablet PO (20:04)
[2022-03-25] MEDS: Mirtazapine 15 MG Tablet PO (20:05)
[2022-03-26] MEDS: Ipratropium Bromide 0.06% NASAL SPRAY 1 SPRAY NASAL ×2 (05:30→20:17)
[2022-03-26] MEDS: Levothyroxine 75 MCG Tablet PO (05:31)
[2022-03-26] MEDS: Loratadine 10 MG Tablet PO (05:31)
[2022-03-26] MEDS: Febuxostat 40 MG TABLET PO (05:32)
[2022-03-26] MEDS: Senna/Docusate Sodium 1 Tablet PO (05:32)
[2022-03-26] MEDS: Menthol/Lanolin/Calamine/Znox 113 GM Tube 1 APPLIC TOPICAL ×2 (05:34→17:34)
[2022-03-26] MEDS: Nystatin Powder 15gm Bottle 1 APPLIC TOPICAL ×2 (05:34→17:34)
[2022-03-26 07:55] VITALS: O2SAT 95
[2022-03-26 08:04] VITALS: BP 148/73; PULSE 62
[2022-03-26] MEDS: SACUBITRIL/VALSARTAN 97-103 MG TABLET 1 EACH PO (08:04)
[2022-03-26] MEDS: Isosorbide Mononitrate 30 MG Tablet PO (08:04)
[2022-03-26] MEDS: Metoprolol(XL)Succ 25 MG Tablet PO (08:04)
[2022-03-26] MEDS: Acetaminophen 500 MG Tablet 1000 MG PO ×2 (09:08→20:22)
[2022-03-26 15:42] VITALS: BP 114/51; PULSE 71; RESP 14; TEMP 36.7; O2SAT 96
[2022-03-26] MEDS: Rivaroxaban 10 MG Tablet PO (17:37)
[2022-03-26 17:38] VITALS: BP 125/42; PULSE 67
[2022-03-26] MEDS: traZODone 100 MG Tablet 150 MG PO (20:18)
[2022-03-26] MEDS: Mirtazapine 15 MG Tablet PO (20:18)
[2022-03-26] MEDS: Atorvastatin Calcium 20 MG Tablet PO (20:18)
[2022-03-26 20:38] VITALS: PULSE 70
[2022-03-27 05:26] LABS: Absolute Lymphocyte Count 2.49 X10^3/uL (0.83-4.51); Absolute Neutrophil Count 3.8 X10^3/uL (2.0-7.7); Basophil# 0.04 X10^3/uL; Basophil% 0.5 % (0-1); Eosinophil# 0.25 X10^3/uL; Eosinophils% 3.4 % (0-5); Hematocrit 30.7 % (37-47); Hemoglobin 9.5 g/dL (12.0-15.0); Lymphocyte # 2.49 X10^3/ul (0.83-4.51); Lymphocyte % 33.8 % (19-41); Mean Corp Hgb Conc 30.9 g/dL (32-36); Mean Corpuscular Hgb 31.6 pg (27.0-32.0); Mean Platelet Vol. 9.3 fl (6.2-12.0); Monocyte# 0.73 X10^3/uL; Monocyte% 9.9 % (0-10); NRBC Flagged by Analyzer 0 % (0-5); Neutrophil # 3.84 X10^3/uL (2.7-7.7); Neutrophil % 52.1 % (47-70); Platelet Count 238 K/mm3 (150-450); RBC Distribution Width CV 12.4 % (11.6-14.6); RBC Distribution Width SD 46.1 fl (35.1-43.9); Red Blood Count 3.01 M/mm3 (4.2-5.4); White Blood Count 7.4 K/mm3 (4.4-11.0)
[2022-03-27] MEDS: Ipratropium Bromide 0.06% NASAL SPRAY 1 SPRAY NASAL ×2 (05:44→20:42)
[2022-03-27] MEDS: Menthol/Lanolin/Calamine/Znox 113 GM Tube 1 APPLIC TOPICAL ×2 (05:45→18:02)
[2022-03-27] MEDS: Febuxostat 40 MG TABLET PO (05:45)
[2022-03-27] MEDS: Nystatin Powder 15gm Bottle 1 APPLIC TOPICAL ×2 (05:45→18:01)
[2022-03-27] MEDS: Loratadine 10 MG Tablet PO (05:45)
[2022-03-27] MEDS: Isosorbide Mononitrate 30 MG Tablet PO (05:45)
[2022-03-27] MEDS: Senna/Docusate Sodium 1 Tablet PO (05:45)
[2022-03-27] MEDS: Levothyroxine 75 MCG Tablet PO (05:45)
[2022-03-27 05:46] VITALS: PULSE 62
[2022-03-27] MEDS: Metoprolol(XL)Succ 25 MG Tablet PO (05:46)
[2022-03-27] MEDS: SACUBITRIL/VALSARTAN 97-103 MG TABLET 1 EACH PO ×2 (05:46→18:03)
[2022-03-27 05:59] LABS: Anion Gap 4 (5-15); BUN 27 mg/dL (7-18); BUN/Creat Ratio 22.1 RATIO (10-20); Calcium,Total 8.5 mg/dL (8.5-10.1); Chloride 106 mmol/L (98-107); Creatinine, Serum 1.22 mg/dL (0.55-1.02); EST Glomerular Filtration Rate 45 mL/min (>60); Est Glom Filt Rate - Afr Amer 54 mL/min (>60); Estimated Creatinine Clearance 29.64 ml/min; Glucose 104 mg/dL (74-106); Potassium 4.3 mmol/L (3.5-5.1); Sodium Level 137 mmol/L (136-145)
--- NOTE | 2022-03-27 07:10 | NURSING ---
Mepilex due to be changed. Offered to change for patient this AM, patient stated no. She states she will take it off next time she goes to the bathroom and does not need another one since she is going home. Education provided, patient still declined.
[2022-03-27 09:00] VITALS: PULSE 76; RESP 18; O2SAT 92
--- NOTE | 2022-03-27 09:58 | NURSING ---
PT DISCHARGING 03/28/22 AT 9:30AM AND GOING TO APPOINTMENT AT AT 10:00AM. APPOINTMENT WAS OK'D BY DAUGHTER. RN AWARE
--- NOTE | 2022-03-27 10:08 | CASEMGMT ---
Social Work BIMS and PHQ-9 completed for MDS assessment. Rona Jones, [employer]
[2022-03-27 14:10] VITALS: BP 123/67; PULSE 80; RESP 16; TEMP 35.9; O2SAT 96
[2022-03-27] MEDS: Acetaminophen 500 MG Tablet 1000 MG PO (15:01)
[2022-03-27] MEDS: Rivaroxaban 10 MG Tablet PO (18:03)
[2022-03-27] MEDS: Mirtazapine 15 MG Tablet PO (20:40)
[2022-03-27] MEDS: Atorvastatin Calcium 20 MG Tablet PO (20:40)
[2022-03-27] MEDS: traZODone 100 MG Tablet 150 MG PO (20:40)
[2022-03-28 05:21] VITALS: BP 113/59; PULSE 83
[2022-03-28 05:22] VITALS: BP 113/59; PULSE 83
[2022-03-28] MEDS: Ipratropium Bromide 0.06% NASAL SPRAY 1 SPRAY NASAL (05:22)
[2022-03-28] MEDS: Febuxostat 40 MG TABLET PO (05:22)
[2022-03-28] MEDS: Metoprolol(XL)Succ 25 MG Tablet PO (05:22)
[2022-03-28] MEDS: Isosorbide Mononitrate 30 MG Tablet PO (05:23)
[2022-03-28] MEDS: SACUBITRIL/VALSARTAN 97-103 MG TABLET 1 EACH PO (05:23)
[2022-03-28] MEDS: Nystatin Powder 15gm Bottle 1 APPLIC TOPICAL (05:23)
[2022-03-28] MEDS: Loratadine 10 MG Tablet PO (05:23)
[2022-03-28] MEDS: Levothyroxine 75 MCG Tablet PO (05:23)
[2022-03-28] MEDS: Menthol/Lanolin/Calamine/Znox 113 GM Tube 1 APPLIC TOPICAL (05:24)
[2022-03-28 08:16] VITALS: PULSE 94; RESP 16; O2SAT 97
[2022-03-28 08:19] VITALS: BP 99/67; PULSE 97; RESP 16; TEMP 36.5
== END 2022-03-28 09:36 | disposition home or self-care (01) | DRG 949 ==
PROVIDERS: Admitting Provider Family Medicine Geriatric Medicine; PCP Family Medicine Geriatric Medicine; Visit Provider Family Medicine Geriatric Medicine
DX: S89.91XD Unspecified injury of right lower leg, subsequent encounter (principal); I50.22 Chronic systolic (congestive) heart failure; I11.0 Hypertensive heart disease with heart failure; B35.4 Tinea corporis; E03.9 Hypothyroidism, unspecified; E78.5 Hyperlipidemia, unspecified; M10.9 Gout, unspecified; W19.XXXD Unspecified fall, subsequent encounter; Z79.01 Long term (current) use of anticoagulants; S89.92XD Unspecified injury of left lower leg, subsequent encounter; Z86.711 Personal history of pulmonary embolism; Z79.890 Hormone replacement therapy; Z79.899 Other long term (current) drug therapy; Z86.718 Personal history of other venous thrombosis and embolism; Z23 Encounter for immunization
CPT/HCPCS: 0064A; 36415; 71046; 74018; 80048; 81001; 85025; 87086; 87088; 87186; 87426; 91306; 94640; 97110; 97162; 97166; 97530; 97535; 97802

== ENCOUNTER 2022-04-23 11:07 | Observation (INO) | payer MEDICARE, OTHER, MEDICAID, SELFPAY ==
[2022-04-23 11:09] VITALS: BP 114/57; PULSE 64; RESP 16; TEMP 36.3; O2SAT 96; BMI 46.5
[2022-04-23 11:58] LABS: Absolute Lymphocyte Count 2.25 X10^3/uL (0.83-4.51); Absolute Neutrophil Count 2.7 X10^3/uL (2.0-7.7); Basophil# 0.04 X10^3/uL; Basophil% 0.7 % (0-1); Eosinophil# 0.17 X10^3/uL; Eosinophils% 2.9 % (0-5); Hematocrit 31.8 % (37-47); Hemoglobin 10.1 g/dL (12.0-15.0); Lymphocyte # 2.25 X10^3/ul (0.83-4.51); Lymphocyte % 38.8 % (19-41); Mean Corp Hgb Conc 31.8 g/dL (32-36); Mean Corpuscular Volume 100.6 fL (81-99); Mean Platelet Vol. 9.4 fl (6.2-12.0); Monocyte# 0.63 X10^3/uL; Monocyte% 10.9 % (0-10); NRBC Flagged by Analyzer 0 % (0-5); Neutrophil # 2.66 X10^3/uL (2.7-7.7); Neutrophil % 45.8 % (47-70); Platelet Count 271 K/mm3 (150-450); RBC Distribution Width CV 12.2 % (11.6-14.6); Red Blood Count 3.16 M/mm3 (4.2-5.4); White Blood Count 5.8 K/mm3 (4.4-11.0)
[2022-04-23 12:16] LABS: ALB/GLOB Ratio 0.7 RATIO (0.9-2.4); AST(SGOT) 12 U/L (15-37); Alanine Aminotransfer ALT/SGPT 11 U/L (13-56); Albumin, Serum 2.9 g/dL (3.2-5.0); Alkaline Phosphatase 50 U/L (45-117); Anion Gap 6 (5-15); BUN 26 mg/dL (7-18); BUN/Creat Ratio 14.9 RATIO (10-20); Calcium,Total 9.2 mg/dL (8.5-10.1); Chloride 105 mmol/L (98-107); Creatinine, Serum 1.75 mg/dL (0.55-1.02); EST Glomerular Filtration Rate 29 mL/min (>60); Est Glom Filt Rate - Afr Amer 36 mL/min (>60); Estimated Creatinine Clearance 20.66 ml/min; Globulin 4.2 g/dL (2.2-4.2); Glucose 146 mg/dL (74-106); Potassium 4.3 mmol/L (3.5-5.1); Protein, Total 7.1 g/dL (6.4-8.2); Sodium Level 138 mmol/L (136-145)
[2022-04-23 12:46] LABS: Mucous, Urine 0 SEEN /hpf (<or=2+); Red Blood Cells-Urine 0 SEEN /hpf (0-5); Squamous Epithelial Cells - UA 0 SEEN /hpf (5-10)
[2022-04-23 12:54] LABS: Color, Urine Yellow (Yellow); Glucose, Dipstick Normal (Normal); Ketone-Dipstick Negative (Negative); Leukocyte Esterase-Dipstick 500 /ul (Negative); Nitrite-Dipstick Negative (Negative); Occult Blood-Urine 50 /ul (Negative); Protein-Dipstick 30 mg/dl (Negative); Specific Gravity, Urine 1.015 (1.002-1.030); Urine Bilirubin Dipstick Negative (Negative); Urine Clarity Cloudy (Clear); Urine Urobilinogen Normal (Normal)
[2022-04-23 13:05] LABS: Bacteria 2+ /hpf (None Seen); White Blood Cells 50-100 SEEN /hpf (0-5)
--- NOTE | 2022-04-23 13:45 | EKG12_ITS ---
Test Reason : WEAKNESS Blood Pressure : / mmHG Vent. Rate : 068 BPM Atrial Rate : 059 BPM P-R Int : 000 ms QRS Dur : 174 ms QT Int : 486 ms P-R-T Axes : 000 -87 053 degrees QTc Int : 516 ms Atrial fibrillation Left axis deviation Non-specific intra-ventricular conduction block Abnormal ECG Confirmed by KADIE VAUGHN, INDY ([id number]), telegraph editor RICHARD GODOY ([id number]) on 04/25/2022 1:47:49 PM Referred By: DAMIAN Confirmed By:KEYANA ENGLE MD
[2022-04-23 14:24] VITALS: BP 121/50; PULSE 56; RESP 12; O2SAT 98
--- NOTE | 2022-04-23 14:51 | EDS_ITS ---
HPI History of Present Illness Chief Complaint: Weakness Detail of Chief Complaint: Patient presents because of generalized weakness. She is a poor informant. Informant: patient and family Onset/Context/Timing Onset: Days Context: Gradual Onset Timing: Continuous Quality: Patient states she is unable to get up and walk to the restroom. Location: Generalized weakness Current Severity: Moderate Maximum Severity: Severe Worsened by: Nothing Relieved by: Nothing Associated Symptoms Associated Symptoms: Difficulty moving, urinary frequency and lack of appetite Narrative Narrative: Patient is a morbidly obese 86-year-old who has a significant past medical history. She was recently admitted to the TCU. She was discharged in the TCU first part of March. She has not done well. According to son-in-law she is been eating poorly the past week or 2. She complains of subjective fever. There is been no documented fever. She denies night sweats or weight loss. She denies ocular, visual or auditory symptoms. She denies sore throat. She denies change in voice or trouble swallowing. She denies cardiopulmonary symptoms. She does report nausea and lack of appetite. She does endorse frequency denies hematuria or dysuria. She denies black or maroon-colored stool. She denies rash. She states she has no energy and cannot care for herself. Prior similar symptoms: No Recent Illness/Hospitalization: Yes [facility] Medical History CHF (congestive heart failure) Depression High cholesterol HTN (hypertension) Hx of deep venous thrombosis Hx of pulmonary embolus Hypothyroid Kidney disease Home Medications febuxostat [Uloric] 40 mg PO DAILY 10/06/17 [History Last Taken 03/10/22] levothyroxine 75 mcg PO DAILY 10/06/17 [History Last Taken 03/11/22] rosuvastatin 10 mg PO DAILY 10/06/17 [History Last Taken 03/10/22] Entresto 1 tab PO BID 03/11/22 [History Last Taken 03/11/22] ipratropium bromide 1 spray INTRANASAL BID 03/11/22 [History Last Taken 03/11/22] levocetirizine 5 mg PO DAILY 03/11/22 [History Last Taken 03/11/22] mirtazapine 15 mg PO QHS 03/11/22 [History Last Taken 03/10/22] acetaminophen 1,000 mg PO Q6H PRN PRN #0 tab 03/25/22 [Rx Last Taken Unknown] isosorbide mononitrate 30 mg PO DAILY 30 Days #30 tab 03/25/22 [Rx Last Taken Unknown] metoprolol succinate 25 mg PO DAILY 30 Days #30 tab 03/25/22 [Rx Last Taken Unknown] rivaroxaban [Xarelto] 10 mg PO DINNER 30 Days #30 tab 03/25/22 [Rx Last Taken Unknown] trazodone 150 mg PO QHS 30 Days #45 tab 03/25/22 [Rx Last Taken Unknown] doxepin 25 mg PO QHS 04/23/22 [History Last Taken Unknown] Allergy/AdvReac Type Severity Reaction Status Date / Time celecoxib [From Celebrex] Allergy Hives Verified 04/23/22 11:17 NSAIDS (Non-Steroidal Allergy Rash Verified 04/23/22 11:17 Anti-Inflamma strawberry [[place]] Allergy Hives Verified 04/23/22 11:17 Sulfa (Sulfonamide Allergy Hives Verified 04/23/22 11:17 Antibiotics) tomato [Tomato] Allergy Hives Verified 04/23/22 11:17 Family History Father Congestive heart failure Mother Diabetes Congestive heart failure Brother Diabetes Surgical History History of cholecystectomy History of total bilateral knee replacement Social History household members: family Smoking Status: Never smoker alcohol intake: never substance use type: does not use ROS ROS ED Constitutional Constitutional ED: Reports chills; Denies fever(s), subjective, sweats or weight loss Eyes Eyes: Denies blurry vision, change in vision or diplopia ENT ENT ED: Denies ear pain, rhinorrhea or sore throat Cardiovascular Cardiovascular: Denies chest pain, orthopnea, palpitations or paroxysmal nocturnal dyspnea Respiratory/Chest Respiratory/Chest: Reports dyspnea on exertion; Denies cough, dyspnea, orthopnea or paroxysmal nocturnal dyspnea Gastrointestinal Gastrointestinal: Reports nausea; Denies abdominal pain, constipation, diarrhea, melena or vomiting Genitourinary Genitourinary ED: Reports urinary frequency; Denies dysuria or hematuria Musculoskeletal Musculoskeletal: Denies arthralgias, myalgias or neck pain Integumentary Denies Abrasions or rash Neurologic Neurologic: Reports weakness; Denies headache(s) or paresthesias Psychiatric Psychiatric: Reports depression; Denies suicidal thoughts Endocrine Endocrinology: Denies polydipsia, polyphagia or polyuria EXAM Physical Exam Const Vital Signs: 04/23/22 11:09 04/23/22 11:20 04/23/22 14:24 Temperature 97.4 F L Temperature Source Temporal Pulse Rate 64 56 L Respiratory Rate 16 12 Respiratory Effort Normal Non-Labored Respiratory Pattern Normal Blood Pressure 114/57 L 121/50 H Blood Pressure Mean 76 73 Pulse Ox 96 98 Oxygen Delivery Method Room Air Room Air Positive well nourished, well developed and obese General Appearance ED: well developed, pallor and other Patient does not appear well. She appears pale. She has a depressed affect. ; Negative for cyanotic, diaphoretic or NAD Nutritional Appearance: obese HEENT Reports TM's clear and dry mucous membranes HEENT Narrative: Nares patent. Posterior pharynx out erythema or exudate. Negative for trauma or tenderness Tympanic Membrane ED: Yes TM's clear Mouth ED: Yes dry mucous membranes Mouth: dry mucous membranes Eyes PERRL and EOMs intact bilaterally General Eye ED: Negative for pale conjunctiva or scleral icterus Neck no lymphadenopathy, supple and no JVD Chest Wall inspection of chest normal Resp normal respiratory effort and clear to auscultation bilaterally Cardio regular rate, regular rhythm, S1 normal heart sound, S2 normal heart sound and no murmurs GI normal to inspection, nondistended, normoactive bowel sounds and non-tender Palpation: soft Back/Spine no CVA tenderness Cervical Spine: Negative for cervical spine tenderness Thoracic Spine / Upper Back: Negative for thoracic spinal tenderness or paraspinal muscle tenderness Extremity normal to inspection General Extremety ED: Yes edema; Negative for tenderness General Extremity: edema Neuro oriented x3 and CN's II-XII intact bilaterally Neuro Narrative: Patella and ankle reflex are 1+. DP and PT pulse are palpable. Patient does have strength in the lower extremities. Suspect she has generalized weakness. Motor Exam: strength 5/5 throughout Psych Mood & Affect: depressed Skin no rashes or lesions noted, no wounds and No skin turgor normal General Skin Exam: pallor; Negative for jaundice MDM MDM MDM Narrative Medical decision making narrative: Patient presents with generalized weakness and urinary frequency. Will obtain UA to rule out urinary tract infection. CBC and electrolytes to assess white count, rule out anemia and assess renal function. Also to assess glucose as cause of her frequency. Patient does have evidence of urinary tract infection. Urine culture was sent. She was treated with Rocephin. This may explain her generalized weakness. Since he is unable to care for herself hospitalist was been paged for admission. Lab Data Attestation: I reviewed the patient's lab results. Labs: Laboratory Results - last 24 hr 04/23/22 04/23/22 04/23/22 11:43 11:43 12:30 WBC 5.8 RBC 3.16 L Hgb 10.1 L Hct 31.8 L MCV 100.6 H MCH 32.0 MCHC 31.8 L RDW Std Deviation 45.0 H RDW Coeff of Mye 12.2 Plt Count 271 MPV 9.4 Immature Gran % (Auto) 0.900 Neut % (Auto) 45.8 L Lymph % (Auto) 38.8 [place] % (Auto) 10.9 H Eos % (Auto) 2.9 Baso % (Auto) 0.7 Absolute Neuts (auto) 2.7 Absolute Lymphs (auto) 2.25 Nucleated RBC % 0 Sodium 138 Potassium 4.3 Chloride 105 Carbon Dioxide 27.0 Anion Gap 6 BUN 26 H Creatinine 1.75 H Estim Creat Clear Calc 20.66 Est GFR (MDRD) Af Amer 36 L Est GFR (MDRD) Non-Af 29 L BUN/Creatinine Ratio 14.9 Glucose 146 H Calcium 9.2 Total Bilirubin 0.40 AST 12 L ALT 11 L Alkaline Phosphatase 50 Total Protein 7.1 Albumin 2.9 L Globulin 4.2 Albumin/Globulin Ratio 0.7 L Urine Color Yellow Urine Clarity Cloudy Urine pH 5.0 Ur Specific [place] 1.015 Urine Protein 30 H Urine Glucose (UA) Normal Urine Ketones Negative Urine Occult Blood 50 H Urine Nitrite Negative Urine Bilirubin Negative Urine Urobilinogen Normal Ur Leukocyte Esterase 500 H Urine RBC 0 SEEN Urine WBC 50-100 SEEN Ur Squamous Epith Cells 0 SEEN Urine Bacteria 2+ Urine Mucus 0 SEEN Discharge Plan Dx/Rx/DC Orders Clinical Impression: Urinary tract infection, Morbid obesity with BMI of 45.0-49.9, adult, Depression, Generalized muscle weakness, Anemia, unspecified, Acute on chronic renal insufficiency Disposition Disposition: Acute Care Hospital [facility]
--- NOTE | 2022-04-23 15:11 | NURSING ---
MED SURG OBS TERELETSKY UTI, FAILURE TO THRIVE
--- NOTE | 2022-04-23 15:35 | ECHOD_ITS ---
Reason For Study: CMP Procedure This was a 2D Doppler, Color Flow transthoracic echocardiogram. The study was technically difficult. Patient scanned supine due to inablility to roll. Exam performed portable in patient room. Left Ventricle Normal LV size. Severe global left ventricular systolic dysfunction. The estimated ejection fraction is 15 %. There is severe global hypokinesis of the left ventricle. Right Ventricle Normal RV size. Normal systolic function. Atria The left atrium is mildly enlarged. The right atrium is mildly enlarged. Mitral Valve Normal mitral valve. Mild (1+) mitral valve insufficiency. Tricuspid Valve Normal tricuspid valve. Moderate (2+) tricuspid valve insufficiency. Pulmonary artery systolic pressure is 63 mmHg. Moderate pulmonary hypertension. Aortic Valve Trisinus/trileaflet aortic valve. Mild focal aortic valve calcification. Pulmonic Valve Normal pulmonic valve. Great Vessels Normal aortic root. The pulmonary artery is normal size. The inferior vena cava is dilated. Pericardium/Pleural No pericardial effusion. Medication Deferred Definity due to RVSP. MMode/2D Measurements & Calculations LVIDd: 5.1 cm IVSd: 0.75 cm Ao root diam: 3.0 cm LVIDs: 3.9 cm LVPWd: 0.86 cm RVDd: 3.6 cm FS: 23.6 % LAV(MOD-bp): 69.2 ml LA A4 area: 22.0 cm2 LA dimension(2D): 3.6 cm LAV(MOD-bp) Indexed: 31.0 ml/m2 LAV(MOD-sp2): 58.6 ml LAV(MOD-sp4): 68.8 ml RA A4 area: 19.4 cm2 Doppler Measurements & Calculations MV E max ysabel: 119.5 cm/sec Ao V2 max: 171.4 cm/sec LV V1 max: 123.2 cm/sec Ao max P.8 mmHg LV V1 max P.1 mmHg PA V2 max: 117.3 cm/sec TR max ysabel: 377.4 cm/sec TR max P.1 mmHg ECHO/Echo Complete Interpretation Summary Normal LV size. Severe global left ventricular systolic dysfunction. The estimated ejection fraction is 15 %. There is severe global hypokinesis of the left ventricle. Pulmonary artery systolic pressure is 63 mmHg. Moderate pulmonary hypertension. Normal RV size. Normal systolic function. Ordering Physician: Maverick Oliveira Referring Physician: Jeffrey Zhou Chi Performed By: Melissa Mills RDCS
[2022-04-23 16:00] VITALS: BP 120/41; PULSE 69; RESP 18; TEMP 36.7; O2SAT 96
[2022-04-23] MEDS: Ceftriaxone 1 GM/50 ML BAG IV (16:01)
[2022-04-23 16:38] VITALS: BMI 47.1
[2022-04-23 16:44] LABS: Lactic Acid 1.6 mmol/L (0.4-1.9)
[2022-04-23 16:45] VITALS: BP 121/57; PULSE 77; RESP 18; TEMP 36.2; O2SAT 97
[2022-04-23] MEDS: Rivaroxaban 10 MG Tablet PO (17:31)
[2022-04-23] MEDS: 0.9% Normal Saline 1,000 ML 75 ML IV (17:31)
[2022-04-23 20:22] VITALS: BP 104/74; PULSE 68; RESP 16; TEMP 36.6; O2SAT 97
--- NOTE | 2022-04-23 20:32 | PCM.HP.STD ---
HPI - General General Date of Admission: 04/23/22 Date of Service: 04/23/22 Chief Complaint: Generalized weakness HPI Narrative RAFA BARRON, is a 86 F who presents to the emergency room at [facility] after being brought in by squad due to severe weakness at home. Patient states she has been weak for the last couple of days and she complains of having a hard time walking due to lower extremity weakness and pain in her right foot which is chronic. Patient was hospitalized in February of this year and was discharged on 03/12/2022 to TCU for short-term inpatient rehab, she was there until 03/28/2022 and was discharged home. Patient lives by herself, there is no one home to help her. Patient denied any fevers or chills, she denied any dysuria to this examiner. Work-up in the emergency room included lab which showed a normal white blood cell count, patient's hemoglobin was 10.1, creatinine was 1.75, BUN was 26, and glucose was 146. Urinalysis showed 5200 white blood cells and +2 bacteria. Patient's pulse ox was 97% on room air and she was afebrile. Patient will be placed in observation status on MedSurg 3 for acute debility, mild dehydration, and acute cystitis. She will need to be placed at least short-term in a skilled care facility, approved for this could be obtained as early as tomorrow due to the patient's insurance coverage I feel. [facility] Medical History CHF (congestive heart failure) Depression High cholesterol HTN (hypertension) Hx of deep venous thrombosis Hx of pulmonary embolus Hypothyroid Kidney disease Home Medications febuxostat [Uloric] 40 mg PO DAILY 10/06/17 [History Last Taken 04/22/22] levothyroxine 75 mcg PO DAILY 10/06/17 [History Last Taken 04/22/22] rosuvastatin 10 mg PO DAILY 10/06/17 [History Last Taken 04/22/22] Entresto 1 tab PO BID 03/11/22 [History Last Taken 04/23/22] ipratropium bromide 1 spray INTRANASAL BID 03/11/22 [History Last Taken 04/22/22] levocetirizine 5 mg PO DAILY 03/11/22 [History Last Taken 04/22/22] mirtazapine 15 mg PO QHS 03/11/22 [History Last Taken 04/22/22] acetaminophen 1,000 mg PO Q6H PRN PRN #0 tab 03/25/22 [Rx Last Taken 04/22/22] isosorbide mononitrate 30 mg PO DAILY 30 Days #30 tab 03/25/22 [Rx Last Taken 04/22/22] metoprolol succinate 25 mg PO DAILY 30 Days #30 tab 03/25/22 [Rx Last Taken 04/22/22] rivaroxaban [Xarelto] 10 mg PO DINNER 30 Days #30 tab 03/25/22 [Rx Last Taken 04/22/22] trazodone 150 mg PO QHS 30 Days #45 tab 03/25/22 [Rx Last Taken 04/22/22] doxepin 25 mg PO QHS 04/23/22 [History Last Taken 04/22/22] Allergy/AdvReac Type Severity Reaction Status Date / Time celecoxib [From Celebrex] Allergy Hives Verified 04/23/22 11:17 NSAIDS (Non-Steroidal Allergy Rash Verified 04/23/22 11:17 Anti-Inflamma strawberry [[place]] Allergy Hives Verified 04/23/22 11:17 Sulfa (Sulfonamide Allergy Hives Verified 04/23/22 11:17 Antibiotics) tomato [Tomato] Allergy Hives Verified 04/23/22 11:17 Family History Father Congestive heart failure Mother Diabetes Congestive heart failure Brother Diabetes Surgical History History of cholecystectomy History of total bilateral knee replacement Social History household members: family Smoking Status: Never smoker alcohol intake: never substance use type: does not use ROS Constitutional Constitutional: Reports fatigue and weakness; Denies anorexia, change in weight, fever(s) or night sweats Eyes Eyes: Denies blurry vision, change in vision, discharge from eye(s) or eye pain Cardiovascular Cardiovascular: Denies chest pain, claudication, dyspnea on exertion, edema, lightheadedness or palpitations Respiratory/Chest Respiratory/Chest: Denies cough, dyspnea, hemoptysis, productive cough, shortness of breath at rest or shortness of breath with exertion Gastrointestinal Gastrointestinal: Denies abdominal pain, constipation, diarrhea, hematemesis, hematochezia, melena, nausea or vomiting Genitourinary Genitourinary: Denies dysuria, hematuria, nocturia, urinary frequency, urinary hesitancy, urinary incontinence or urinary urgency Musculoskeletal Musculoskeletal: Reports other Details: Patient complains of chronic right heel pain and right midfoot pain ; Denies back pain, joint pain, joint stiffness, joint swelling, myalgias or neck pain Neurologic Neurologic: Denies abnormal gait, abnormal speech, dizziness, focal weakness, headache(s), loss of vision, numbness, other visual disturbances, paresthesias, syncope or tingling Psychiatric Psychiatric: Denies anxiety, cognitive impairment, depression, irritability, mood swings or suicidal ideation Endocrine Endocrinology: Denies change in body appearance, cold intolerance, excessive sweating, heat intolerance, polydipsia or polyuria Hematologic/Lymphatic Hematologic/Lymphatic: Denies none, anemia, easy bleeding, easy bruising or lymphadenopathy Allergic/Immunologic Allergic/Immunologic: Denies rhinitis, urticaria, eczemia or asthma Vital Signs Vital Signs Vital Signs: 04/23/22 11:09 04/23/22 11:20 04/23/22 14:24 Temperature 97.4 F L Temperature Source Temporal Pulse Rate 64 56 L Respiratory Rate 16 12 Respiratory Effort Normal Non-Labored Respiratory Pattern Normal Blood Pressure 114/57 L 121/50 H Blood Pressure Mean 76 73 Blood Pressure Source Blood Pressure Position Blood Pressure Location Pulse Ox 96 98 Oxygen Delivery Method Room Air Room Air 04/23/22 16:00 04/23/22 16:45 04/23/22 20:22 Temperature 98.0 F 97.2 F L 97.8 F Temperature Source Temporal Temporal Temporal Pulse Rate 69 77 68 Respiratory Rate 18 18 16 Respiratory Effort Respiratory Pattern Blood Pressure 120/41 L 121/57 H 104/74 Blood Pressure Mean 67 78 84 Blood Pressure Source Monitor Monitor Blood Pressure Position Semi-Fowlers Semi-Fowlers Blood Pressure Location Left Forearm Left Arm Pulse Ox 96 97 97 Oxygen Delivery Method Room Air Room Air Room Air Weight Weight: 124.6 kg Body Mass Index (BMI) 47.1 Physical Exam Const alert, oriented x3 and no apparent distress Constitutional Narrative: Patient appears her stated age, she is morbidly obese General Appearance: cooperative, well kempt and well developed Orientation / Consciousness: awake, oriented to person, oriented to place and oriented to time HEENT normocephalic, head/scalp atraumatic, hearing grossly normal bilaterally and moist oral mucous membranes Eyes PERRL, EOMs intact bilaterally and conjunctivae normal Neck nuchal rigidity, supple, no JVD, thyroid normal and no carotid bruits General: trachea midline Resp normal respiratory effort, no retractions, no use of accessory muscles and clear to auscultation bilaterally Auscultation: Negative for rales, rhonchi or wheezes Cardio regular rate, regular rhythm, S1 normal heart sound, S2 normal heart sound, no murmurs, no rub and no gallops GI normal to inspection, nondistended, normoactive bowel sounds, soft to palpation, non-tender and non-distended GI Narrative: Patient is morbidly obese Extremity no clubbing, cyanosis or edema Extremity Narrative: Patient has pain to palpation over her right calcaneus and arch, there is no visible swelling of the foot and no deformity of the foot noted. Skin no rashes or lesions noted, no wounds and skin turgor normal General Skin Exam: no breakdown Neuro oriented x3, CN's II-XII intact bilaterally, no focal motor deficits and no sensory deficits noted Sensorium / Orientation: awake and alert Speech: speech normal Psych affect normal Results Lab / Micro Data Result Diagrams: 04/23/22 11:43 04/23/22 11:43 Labs: Laboratory Results - last 24 hr 04/23/22 11:43: WBC 5.8, RBC 3.16 L, Hgb 10.1 L, Hct 31.8 L, MCV 100.6 H, MCH 32.0, MCHC 31.8 L, RDW Std Deviation 45.0 H, RDW Coeff of Mey 12.2, Plt Count 271, MPV 9.4, Immature Gran % (Auto) 0.900, Neut % (Auto) 45.8 L, Lymph % (Auto) 38.8, [place] % (Auto) 10.9 H, Eos % (Auto) 2.9, Baso % (Auto) 0.7, Absolute Neuts (auto) 2.7, Absolute Lymphs (auto) 2.25, Nucleated RBC % 0 04/23/22 11:43: Sodium 138, Potassium 4.3, Chloride 105, Carbon Dioxide 27.0, Anion Gap 6, BUN 26 H, Creatinine 1.75 H, Estim Creat Clear Calc 20.66, Est GFR (MDRD) Af Amer 36 L, Est GFR (MDRD) Non-Af 29 L, BUN/Creatinine Ratio 14.9, Glucose 146 H, Calcium 9.2, Total Bilirubin 0.40, AST 12 L, ALT 11 L, Alkaline Phosphatase 50, Total Protein 7.1, Albumin 2.9 L, Globulin 4.2, Albumin/Globulin Ratio 0.7 L 04/23/22 12:30: Urine Color Yellow, Urine Clarity Cloudy, Urine pH 5.0, Ur Specific [place] 1.015, Urine Protein 30 H, Urine Glucose (UA) Normal, Urine Ketones Negative, Urine Occult Blood 50 H, Urine Nitrite Negative, Urine Bilirubin Negative, Urine Urobilinogen Normal, Ur Leukocyte Esterase 500 H, Urine RBC 0 SEEN, Urine WBC 50-100 SEEN, Ur Squamous Epith Cells 0 SEEN, Urine Bacteria 2+, Urine Mucus 0 SEEN 04/23/22 15:45: Lactic Acid 1.6 Assessment & Plan Assessment/Plan (1) Urinary tract infection: PLAN: 1. Acute debility-secondary to acute cystitis with mild dehydration, multiple medical problems, and advanced age-patient will be placed in observation status on [facility] 3, she will be seen by director of social media marketing and arrangements will be made for the patient to be placed in a shelter facility for early short-term rehab services-patient prefers [facility]. Patient will be placed on IV antibiotics for cystitis and some IV fluids at a low rate, patient has some peripheral edema probably secondary to pulmonary hypertension (patient has a history of sleep apnea but is noncompliant with BiPAP at home, she also has a history of pulmonary emboli). Patient has some evidence of chronic kidney disease on her previous labs. #2 acute cystitis-patient will be placed on IV Rocephin, she has no symptoms however of urgency, frequency, or dysuria. #3 chronic use of anticoagulation-patient is chronically anticoagulated due to recurrent pulmonary emboli #4 obstructive sleep apnea-noncompliant with outpatient BiPAP-I placed patient on her BiPAP settings that were listed in her chart from before. #5 morbid obesity-complicates care, recovery, prognosis, and medical course #6 history of chronic systolic congestive heart failure-currently not in heart failure, patient has not had an echocardiogram in many years, I have elected to have an echocardiogram performed on the patient, it will also evaluate her for pulmonary hypertension. Patient is currently on Entresto. I am not going to hold this medication due to her mild rise in her creatinine, labs will be rechecked tomorrow #7 hyperlipidemia-patient is on a statin #8 hypothyroidism-patient is on Synthroid #9 right foot pain-etiology unclear at this point, probably secondary to osteoarthritis, I talked with podiatry tonight-Dr. Aparicio-their group is agreed to see the patient tomorrow in consultation, I will obtain 3 view right foot x-rays on the patient. #10 chronic anemia-etiology unclear, I will obtain serum iron, ferritin, and TIBC tomorrow morning #11 chronic kidney disease stage IIIb-I believe the patient has some mild dehydration at this time, I will administer IV fluids at 75 cc an hour and she will be reevaluated tomorrow. Patient states she prefers to go to [facility] as a shelter facility at the time of discharge from the hospital. She does not wish to return to TCU at this time. Charges/Coding Visit Charges OBSV E&M: 90562 Initial observation care L3
--- NOTE | 2022-04-23 21:15 | RAD_ITS ---
INDICATION: right foot pain EXAMINATION/TECHNIQUE: X-RAY - RIGHT XR Foot Min 3 Views 3 VIEWS COMPARISON: None. FINDINGS: SOFT TISSUES: No soft tissue swelling or gas. No radiopaque foreign body. Peripheral vascular calcifications are visible. There is also a curvilinear calcification projecting over the plantar midfoot professional soft tissues, only visible on the lateral view. BONES/JOINTS: No acute fracture or malalignment. Significant diffuse decreased bone mineral density evidenced by cortical thinning. This can decrease sensitivity for nondisplaced fracture. There is mild inferior calcaneal spurring. No significant degenerative joint disease. No sclerotic or destructive changes observed. RAD/Foot min 3 Views IMPRESSION: Decreased bone mineral density which can decrease the sensitivity for nondisplaced fracture. Peripheral atherosclerosis. Inferior calcaneal spurring. Subcentimeter, thin curvilinear calcific density projecting over the plantar midfoot of unlikely clinical significance. Electronically Signed: Eloy Tiwari DO at 23:51 EDT ,
[2022-04-23] MEDS: Nystatin Powder 15gm Bottle 1 APPLIC TOPICAL (21:29)
[2022-04-23] MEDS: traZODone 50 MG Tablet 150 MG PO (21:30)
[2022-04-23] MEDS: Doxepin Hcl 25 MG Capsule PO (21:30)
[2022-04-23] MEDS: Acetaminophen 500 MG Tablet 1000 MG PO (21:30)
[2022-04-23] MEDS: Atorvastatin Calcium 20 MG Tablet PO (21:30)
[2022-04-23] MEDS: SACUBITRIL/VALSARTAN 97-103 MG TABLET 1 EACH PO (21:30)
--- NOTE | 2022-04-23 23:13 | CPS ---
Attempted to apply BIPAP to pt. and Pt was unable to tolerate mask or pressures. She stated that she was feeling suffocated and began to Panic.
[2022-04-24 02:20] VITALS: BP 118/72; PULSE 83; RESP 16; TEMP 36.6; O2SAT 95
[2022-04-24] MEDS: Levothyroxine 75 MCG Tablet PO (05:19)
[2022-04-24] MEDS: 0.9% Normal Saline 1,000 ML 75 ML IV ×2 (05:20→19:57)
[2022-04-24 06:43] LABS: Anion Gap 7 (5-15); BUN 24 mg/dL (7-18); BUN/Creat Ratio 17.5 RATIO (10-20); Chloride 108 mmol/L (98-107); Creatinine, Serum 1.37 mg/dL (0.55-1.02); EST Glomerular Filtration Rate 39 mL/min (>60); Est Glom Filt Rate - Afr Amer 47 mL/min (>60); Glucose 130 mg/dL (74-106); Iron 28 ug/dL (50-170); Iron Binding Capacity,Total 283 ug/dL (250-450); PERCENT IRON SATURATION 9.9 % (15.0-55.0); Potassium 4.3 mmol/L (3.5-5.1); Sodium Level 138 mmol/L (136-145)
[2022-04-24 07:07] LABS: Ferritin 122 ng/mL (8-252)
--- NOTE | 2022-04-24 08:35 | PCM.PN.HOSP ---
Subjective Subjective Patient is an 86-year-old lady who was recently discharged to a intermediate facility following a fall with significant debility was sent to the ED with generalized weakness. Patient was found to have acute cystitis admitted to regular nursing floor for further management Objective Data Objective Data Vital Signs: Vital Signs Temp Pulse Resp BP Pulse Ox 97.8 F 83 16 118/72 95 04/24/22 02:20 04/24/22 02:20 04/24/22 02:20 04/24/22 02:20 04/24/22 02:20 Oxygen Delivery Method Room Air Weight: 124.6 kg Body Mass Index (BMI) 47.1 Intake & Output: Intake and Output for Last 24 Hours 04/22/22 04/23/22 04/24/22 23:59 23:59 23:59 Intake Total 550 / 550 886.25 / 886.25 Output Total 350 / 350 Balance 550 / 450 536.25 / 536.25 Lab / Micro Data Result Diagrams: 04/23/22 11:43 04/24/22 05:45 Labs: Laboratory Results - last 24 hr 04/23/22 11:43: WBC 5.8, RBC 3.16 L, Hgb 10.1 L, Hct 31.8 L, MCV 100.6 H, MCH 32.0, MCHC 31.8 L, RDW Std Deviation 45.0 H, RDW Coeff of Mey 12.2, Plt Count 271, MPV 9.4, Immature Gran % (Auto) 0.900, Neut % (Auto) 45.8 L, Lymph % (Auto) 38.8, [place] % (Auto) 10.9 H, Eos % (Auto) 2.9, Baso % (Auto) 0.7, Absolute Neuts (auto) 2.7, Absolute Lymphs (auto) 2.25, Nucleated RBC % 0 04/23/22 11:43: Sodium 138, Potassium 4.3, Chloride 105, Carbon Dioxide 27.0, Anion Gap 6, BUN 26 H, Creatinine 1.75 H, Estim Creat Clear Calc 20.66, Est GFR (MDRD) Af Amer 36 L, Est GFR (MDRD) Non-Af 29 L, BUN/Creatinine Ratio 14.9, Glucose 146 H, Calcium 9.2, Total Bilirubin 0.40, AST 12 L, ALT 11 L, Alkaline Phosphatase 50, Total Protein 7.1, Albumin 2.9 L, Globulin 4.2, Albumin/Globulin Ratio 0.7 L 04/23/22 12:30: Urine Color Yellow, Urine Clarity Cloudy, Urine pH 5.0, Ur Specific [place] 1.015, Urine Protein 30 H, Urine Glucose (UA) Normal, Urine Ketones Negative, Urine Occult Blood 50 H, Urine Nitrite Negative, Urine Bilirubin Negative, Urine Urobilinogen Normal, Ur Leukocyte Esterase 500 H, Urine RBC 0 SEEN, Urine WBC 50-100 SEEN, Ur Squamous Epith Cells 0 SEEN, Urine Bacteria 2+, Urine Mucus 0 SEEN 04/23/22 15:45: Lactic Acid 1.6 04/24/22 05:45: Sodium 138, Potassium 4.3, Chloride 108 H, Carbon Dioxide 23.0, Anion Gap 7, BUN 24 H, Creatinine 1.37 H, Estim Creat Clear Calc 26.40, Est GFR (MDRD) Af Amer 47 L, Est GFR (MDRD) Non-Af 39 L, BUN/Creatinine Ratio 17.5, Glucose 130 H, Calcium 9.0, Iron 28 L, TIBC 283, Iron Saturation 9.9 L, Ferritin 122 Radiography Diagnostic Testing: Radiology Impression Foot X-Ray 04/23/22 21:15 IMPRESSION: Decreased bone mineral density which can decrease the sensitivity for nondisplaced fracture. Peripheral atherosclerosis. Inferior calcaneal spurring. Subcentimeter, thin curvilinear calcific density projecting over the plantar midfoot of unlikely clinical significance. Electronically Signed: Eloy Tiwari DO at 23:51 EDT , Physical Exam Narrative GENERAL: cooperative HEENT: Atraumatic; EYES; Anicteric, Normal Conjunctiva NECK; supple, normal thyroid, RESPIRATORY: Diminished to auscultation CARDIOVASCULAR: Regular S1 S2, GI: soft, normoactive bowel sounds, : No Renal angle tenderness; EXTREMITIES: Trace bipedal edema, no clubbing, MUSCULOSKELETAL: no muscle wasting NEURO: Awake; no lateralizing signs. SKIN: No Rash PSYCH; Flat affect Assessment & Plan Assessment/Plan (1) Urinary tract infection: PLAN: Patient is an 86-year-old lady who was recently discharged to a intermediate facility following a fall with significant debility was sent to the ED with generalized weakness. Patient was found to have acute cystitis admitted to regular nursing floor for further management 1. Acute cystitis ? Patient started on Rocephin blood and urine culture sent. Patient previous urine cultures came back positive for Enterococcus 2. Physical deconditioning - Requested for PT OT eval and social media marketing analyst to assist with discharge planning 3. 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 Echo obtained on 09/10/2018 demonstrated EF of 20% patient currently compensated. Patient is on Entresto beta-blockers did continue 4. Pulmonary hypertension ? Plan is to treat symptomatically 5. Class III obesity with BMI of 46.5 ? Weight loss advised 6. Previous history of pulmonary embolism ? Patient remains on systemic anticoagulation with Xarelto 7. Hypothyroidism - Patient is on levothyroxine home dose continued 8. Dyslipidemia -Patient is on statin therapy, continued at home dose 9. Hypertension - Blood pressure controlled, home medications continued with dose adjustment as needed 10. Gout ? Patient is on febuxostat did continue 11. DVT prophylaxis ? On Xarelto 12. Degenerative joint disease ? With history of bilateral knee replacement 13. Chronic kidney disease stage IIIa ? Kidney function at baseline we will continue with monitoring of electrolyte Advance planning; did discuss with the patient regarding advanced directives as well as CODE STATUS. Did explain the various scenarios involved ( FULL CODE, DNR CCA, DNR CCA with no intubation, and DNR CC and what each meant) patient elected to be DNR CCA no intubation. Order was placed. Time spent on discussion 18 minutes. Charges/Coding Visit Charges Inpatient E&M: 29509 Subs Hosp L2 Procedures Hospitalists Procedures: 12250 Advncd Care Plan 30 Min
[2022-04-24] MEDS: Ceftriaxone 1 GM/50 ML BAG IV (09:22)
[2022-04-24 09:23] VITALS: PULSE 60
[2022-04-24] MEDS: Metoprolol(XL)Succ 25 MG Tablet PO (09:23)
[2022-04-24] MEDS: SACUBITRIL/VALSARTAN 97-103 MG TABLET 1 EACH PO ×2 (09:23→21:50)
--- NOTE | 2022-04-24 09:23 | PCM.CONS.GEN ---
Assessment & Plan Assessment/Plan (1) Heel pain, chronic: QUALIFIERS: Laterality: right Qualified Code(s): M79.671 - Pain in right foot; G89.29 - Other chronic pain PLAN: Patient examined evaluated, all findings discussed with patient in detail. Radiographs reviewed discussed with the patient in detail. Radiographs are negative for any acute fracture or significant osteoarthritis that may be contributing to the patient's symptoms. Patient's symptoms are vague and unrelated to any acute injury such as a fall or trauma. Patient's symptoms appear to be positional as they are worsened when the heel is resting in specific positions and alleviated by the patient moving the foot. At this time I recommend evaluation with physical therapy to determine patient's ambulatory status. I recommend offloading the heels with heel protectors to prevent or limit any irritation that may be caused by prolonged pressure injury; however, there are no signs of skin breakdown at this time. Continue Tylenol every 6 hours as needed. We will avoid any NSAIDs due to elevated BUN/creatinine and patient's advanced age. I will order topical diclofenac to be applied to the heels as needed. Pending physical therapy evaluation, the patient may benefit from cam boot immobilization for transfer purposes if she is unable to bear weight on the right lower extremity. At this time there is no evidence of a acute or chronic musculoskeletal injury that may be contributing the patient's symptoms. I recommend offloading the heels via floating or use of eggcrate protectors to prevent any pressure injury which may alleviate some of her symptoms. HPI Consult Data Date of Consult: 04/24/22 HPI Narrative HPI Narrative: RAFA BARRON, is a 86 F who presents with generalized weakness and in setting of acute cystitis and dehydration. Patient was seen in the ED overnight and admitted as the patient had not been thriving on her own. Patient notes that she has had heel pain to her right heel for the past 3 weeks. She notes she has had pain to this area previously 1 year prior which spontaneously resolved. Patient notes that the pain is aching in nature sort of like a toothache. Pain comes and goes and is frequently present when the patient is lying in the supine position. Patient notes that she sleeps on her left side typically but will occasionally wake up with her heels on the bed and have to move them to a new position. Patient does state that she ambulates on a daily basis; however, this ambulation is limited to transfer to her bathroom. Patient notes that she does not ambulate very much due to bilateral knee replacements and a tara in her left leg. Patient denies any recent falls or hitting her heel on anything. Patient denies any activity that might suggest overuse. Patient does note that she gets increased pain when her heel sits in the same position for prolonged periods of time. [facility] Medical History CHF (congestive heart failure) Depression High cholesterol HTN (hypertension) Hx of deep venous thrombosis Hx of pulmonary embolus Hypothyroid Kidney disease Home Medications febuxostat [Uloric] 40 mg PO DAILY 10/06/17 [History Last Taken 04/22/22] levothyroxine 75 mcg PO DAILY 10/06/17 [History Last Taken 04/22/22] rosuvastatin 10 mg PO DAILY 10/06/17 [History Last Taken 04/22/22] Entresto 1 tab PO BID 03/11/22 [History Last Taken 04/23/22] ipratropium bromide 1 spray INTRANASAL BID 03/11/22 [History Last Taken 04/22/22] levocetirizine 5 mg PO DAILY 03/11/22 [History Last Taken 04/22/22] mirtazapine 15 mg PO QHS 03/11/22 [History Last Taken 04/22/22] acetaminophen 1,000 mg PO Q6H PRN PRN #0 tab 03/25/22 [Rx Last Taken 04/22/22] isosorbide mononitrate 30 mg PO DAILY 30 Days #30 tab 03/25/22 [Rx Last Taken 04/22/22] metoprolol succinate 25 mg PO DAILY 30 Days #30 tab 03/25/22 [Rx Last Taken 04/22/22] rivaroxaban [Xarelto] 10 mg PO DINNER 30 Days #30 tab 03/25/22 [Rx Last Taken 04/22/22] trazodone 150 mg PO QHS 30 Days #45 tab 03/25/22 [Rx Last Taken 04/22/22] doxepin 25 mg PO QHS 04/23/22 [History Last Taken 04/22/22] Allergy/AdvReac Type Severity Reaction Status Date / Time celecoxib [From Celebrex] Allergy Hives Verified 04/23/22 11:17 NSAIDS (Non-Steroidal Allergy Rash Verified 04/23/22 11:17 Anti-Inflamma strawberry [[place]] Allergy Hives Verified 04/23/22 11:17 Sulfa (Sulfonamide Allergy Hives Verified 04/23/22 11:17 Antibiotics) tomato [Tomato] Allergy Hives Verified 04/23/22 11:17 Family History Father Congestive heart failure Mother Diabetes Congestive heart failure Brother Diabetes Surgical History History of cholecystectomy History of total bilateral knee replacement Social History household members: family Smoking Status: Never smoker alcohol intake: never substance use type: does not use ROS Constitutional Constitutional: Reports daytime sleepiness and fever(s); Denies chills Eyes Eyes: Denies blurry vision, halo effect or nystagmus ENT HEENT: Denies change in voice, dental pain or halitosis Cardiovascular Cardiovascular: Reports edema; Denies chest pain or chest pain at rest Respiratory/Chest Respiratory/Chest: Denies chest congestion, chest tightness or dyspnea on exertion Physical Exam Narrative Patient seen bedside. Patient nonambulatory. Patient alert oriented to person place time at this time. Vascular: Dorsalis pedis and posterior tibial pulses palpable 2 out of 4 to bilateral lower extremity. +1 pitting edema is noted to bilateral lower extremity. No pain with calf squeeze or palpation of the popliteal fossa or the inguinal canal. Negative Ana negative Lopez test bilaterally. Neurologic: Light touch protective sensation intact to bilateral lower extremity. Achilles deep tendon reflexes intact. Dermatologic: Skin is well hydrated intact bilateral lower extremity. No signs of skin breakdown or wound formation at this time. Musculoskeletal: There is focal pain limited to the posterior calcaneus. No pain to the Achilles tendon at the level of the insertion no pain to the plantar fascial band. No pain to peroneal tendons or the posterior tibial tendons. No pain to medial lateral anterior posterior ankle. No pain to sinus tarsi. Patient has no pain with active dorsiflexion plantarflexion eversion or inversion of the foot. Patient has diminished muscular strength 4-5 to bilateral lower extremity compartments. 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 There is noted to be a mild plantar calcaneal heel spur at the level of the origin of the plantar fascia. No evidence of acute fracture or stress fracture. Lab / Micro Data Result Diagrams: 04/23/22 11:43 04/24/22 05:45 Labs: Laboratory Results - last 24 hr 04/23/22 11:43: WBC 5.8, RBC 3.16 L, Hgb 10.1 L, Hct 31.8 L, MCV 100.6 H, MCH 32.0, MCHC 31.8 L, RDW Std Deviation 45.0 H, RDW Coeff of Mey 12.2, Plt Count 271, MPV 9.4, Immature Gran % (Auto) 0.900, Neut % (Auto) 45.8 L, Lymph % (Auto) 38.8, [place] % (Auto) 10.9 H, Eos % (Auto) 2.9, Baso % (Auto) 0.7, Absolute Neuts (auto) 2.7, Absolute Lymphs (auto) 2.25, Nucleated RBC % 0 04/23/22 11:43: Sodium 138, Potassium 4.3, Chloride 105, Carbon Dioxide 27.0, Anion Gap 6, BUN 26 H, Creatinine 1.75 H, Estim Creat Clear Calc 20.66, Est GFR (MDRD) Af Amer 36 L, Est GFR (MDRD) Non-Af 29 L, BUN/Creatinine Ratio 14.9, Glucose 146 H, Calcium 9.2, Total Bilirubin 0.40, AST 12 L, ALT 11 L, Alkaline Phosphatase 50, Total Protein 7.1, Albumin 2.9 L, Globulin 4.2, Albumin/Globulin Ratio 0.7 L 04/23/22 12:30: Urine Color Yellow, Urine Clarity Cloudy, Urine pH 5.0, Ur Specific [place] 1.015, Urine Protein 30 H, Urine Glucose (UA) Normal, Urine Ketones Negative, Urine Occult Blood 50 H, Urine Nitrite Negative, Urine Bilirubin Negative, Urine Urobilinogen Normal, Ur Leukocyte Esterase 500 H, Urine RBC 0 SEEN, Urine WBC 50-100 SEEN, Ur Squamous Epith Cells 0 SEEN, Urine Bacteria 2+, Urine Mucus 0 SEEN 04/23/22 15:45: Lactic Acid 1.6 04/24/22 05:45: Sodium 138, Potassium 4.3, Chloride 108 H, Carbon Dioxide 23.0, Anion Gap 7, BUN 24 H, Creatinine 1.37 H, Estim Creat Clear Calc 26.40, Est GFR (MDRD) Af Amer 47 L, Est GFR (MDRD) Non-Af 39 L, BUN/Creatinine Ratio 17.5, Glucose 130 H, Calcium 9.0, Iron 28 L, TIBC 283, Iron Saturation 9.9 L, Ferritin 122 Radiology Impression Foot X-Ray 04/23/22 21:15 IMPRESSION: Decreased bone mineral density which can decrease the sensitivity for nondisplaced fracture. Peripheral atherosclerosis. Inferior calcaneal spurring. Subcentimeter, thin curvilinear calcific density projecting over the plantar midfoot of unlikely clinical significance. Electronically Signed: Eloy Tiwari DO at 23:51 EDT ,
[2022-04-24] MEDS: Isosorbide Mononitrate 30 MG Tablet PO (09:24)
[2022-04-24] MEDS: Febuxostat 40 MG TABLET PO (09:24)
[2022-04-24] MEDS: Nystatin Powder 15gm Bottle 1 APPLIC TOPICAL ×2 (09:24→21:50)
[2022-04-24 09:49] VITALS: BP 129/68; PULSE 86; RESP 18; TEMP 36.8; O2SAT 98
--- NOTE | 2022-04-24 10:48 | CASEMGMT ---
Addendum entered by Val Fang 04/24/22 13:42: Social Work VM left with Maite at [facility] requesting update on ability to accept pt. Will await return call. AMBAR Woodruff Original Note: Social Work SW met with pt and introduced self and role of SW. Pt states she lives with her daughter and son in law in a mobile home. Pt had been going to [facility] and had been doing well until February. Pt admitted to TCU 03/12-03/28 and then return home. Pt states she has not done well functionally since her return home from TCU. Pt reporting she needs to go to SNF at this time but does plan to eventually return home. HO provided pt with list of SNF providers including quality and resource use data and consistent with the patient's preferred geographic region, medical needs and insurance network. Pt first choice is [facility] and second choice is [facility]. Phone call to Maite at [facility] and they do have rooms available. Referral faxed. HO will await determination of acceptance. Plan: [facility], pending acceptance AMBAR Woodruff
[2022-04-24 10:49] VITALS: O2SAT 98
--- NOTE | 2022-04-24 12:55 | CHAPLAIN ---
Type of Pastoral Visit _x__ Initial Visit ___ Follow-up Visit ___ On-call Visit ___ General Patient Visit ___ Spiritual Assessment ___ Family Conference ___ Bereavement ___ Rapid Response ___ Code Blue ___ Other (describe below) Pastoral Care Referral From _x__ Patient ___ Family ___ Nurse ___ Physician ___ Draft Roller Picker ___ Director Of Direct Marketing ___ Other (describe below) Sacrament/Intervention _x__ Active listening ___ Anointing ___ Amish ___ Bereavement ___ Communion ___ Viktoria exploration ___ ___ Life review _x__ Prayer ___ Reconciliation ___ Sacrament of Sick ___ Supportive presence ___ Wedding ___ Other (describe below) Pastoral Comments patient was sleeping in her chair but awoke easily to voice; pt states she did not sleep much last night and just hopes for more rest; pt requests prayer for her support; brief and casual conversation; no other needs
--- NOTE | 2022-04-24 15:26 | CASEMGMT ---
Social Work Return call from Haines at [facility] and they are able to accept pt when medically ready. Physician updated. met with pt and family and notified of acceptance by [facility]. Plan: [facility], when medically ready AMBAR Woodruff
--- NOTE | 2022-04-24 15:26 | CASEMGMT ---
ISIAH SUAREZ in to discuss BOSWELL form with patient. RN DANIELA explained BOSWELL form, patient voiced understanding. Pt signed form and filed in chart. Pt provided with a copy of signed BOSWELL form. Patient with two family members in room during explanation. Patient had no further questions or concerns at this time.
[2022-04-24] MEDS: Rivaroxaban 10 MG Tablet PO (16:01)
[2022-04-24 16:02] VITALS: BP 106/38; PULSE 75; RESP 18; TEMP 37.2; O2SAT 98
[2022-04-24 21:48] VITALS: BP 118/65; PULSE 80; RESP 18; TEMP 36.6; O2SAT 100
[2022-04-24] MEDS: traZODone 50 MG Tablet 150 MG PO (21:50)
[2022-04-24] MEDS: Atorvastatin Calcium 20 MG Tablet PO (21:50)
[2022-04-24] MEDS: Doxepin Hcl 25 MG Capsule PO (21:50)
[2022-04-25 04:00] VITALS: BP 106/42; PULSE 83; RESP 18; TEMP 36.7; O2SAT 94
[2022-04-25] MEDS: Levothyroxine 75 MCG Tablet PO (06:04)
[2022-04-25 07:20] VITALS: O2SAT 93
--- NOTE | 2022-04-25 07:44 | PCM.PN.HOSP ---
Subjective Subjective Patient urine cultures came back positive for Klebsiella Pneumoniae, patient will be discharged on cefazolin patient will be discharged Objective Data Objective Data Vital Signs: Vital Signs Temp Pulse Resp BP Pulse Ox 98.0 F 83 18 106/42 L 94 04/25/22 04:00 04/25/22 04:00 04/25/22 04:00 04/25/22 04:00 04/25/22 04:00 Oxygen Delivery Method Room Air Weight: 124.6 kg Body Mass Index (BMI) 47.1 Intake & Output: Intake and Output for Last 24 Hours 04/23/22 04/24/22 04/25/22 23:59 23:59 23:59 Intake Total 550 / 550 3586.25 / 3586.25 120 / 120 Output Total 1150 / 1450 450 / 450 Balance 550 / 450 2436.25 / 2136.25 -330 / -330 Lab / Micro Data Result Diagrams: 04/23/22 11:43 04/24/22 05:45 Micro: Microbiology 04/23/22 12:30 Urine, Catheterized Urine Culture - Preliminary GNR lactose balancing machine operator Radiography Diagnostic Testing: Radiology Impression Echocardiogram 04/23/22 15:35 Interpretation Summary Normal LV size. Severe global left ventricular systolic dysfunction. The estimated ejection fraction is 15 %. There is severe global hypokinesis of the left ventricle. Pulmonary artery systolic pressure is 63 mmHg. Moderate pulmonary hypertension. Normal RV size. Normal systolic function. Ordering Physician: Maverick Oliveira Referring Physician: Jeffrey Zhou Chi Performed By: Melissa Mills RDCS Physical Exam Narrative GENERAL: cooperative HEENT: Atraumatic; EYES; Anicteric, Normal Conjunctiva NECK; supple, normal thyroid, RESPIRATORY: Diminished to auscultation CARDIOVASCULAR: Regular S1 S2, GI: soft, normoactive bowel sounds, : No Renal angle tenderness; EXTREMITIES: Trace bipedal edema, no clubbing, MUSCULOSKELETAL: no muscle wasting NEURO: Awake; no lateralizing signs. SKIN: No Rash PSYCH; Flat affect Assessment & Plan Assessment/Plan (1) Urinary tract infection: PLAN: Patient is an 86-year-old lady who was recently discharged to a alf facility following a fall with significant debility was sent to the ED with generalized weakness. Patient was found to have acute cystitis admitted to regular nursing floor for further management 1. Acute cystitis ? Patient started on Rocephin blood and urine culture sent. Patient previous urine cultures came back positive for Enterococcus ? 04/25/2022 urine cultures are back positive for Klebsiella. Patient will be discharged on cefazolin 2. Physical deconditioning - Requested for PT OT eval and licensed master social worker to assist with discharge planning 3. 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 Echo obtained on 09/10/2018 demonstrated EF of 20% patient currently compensated. Patient is on Entresto beta-blockers did continue -Repeat echo on 04/23/2022 demonstrated EF of 15% 4. Pulmonary hypertension ? Plan is to treat symptomatically 5. Class III obesity with BMI of 46.5 ? Weight loss advised 6. Previous history of pulmonary embolism ? Patient remains on systemic anticoagulation with Xarelto 7. Hypothyroidism - Patient is on levothyroxine home dose continued 8. Dyslipidemia -Patient is on statin therapy, continued at home dose 9. Hypertension - Blood pressure controlled, home medications continued with dose adjustment as needed 10. Gout ? Patient is on febuxostat did continue 11. DVT prophylaxis ? On Xarelto 12. Degenerative joint disease ? With history of bilateral knee replacement 13. Chronic kidney disease stage IIIa ? Kidney function at baseline we will continue with monitoring of electrolyte Charges/Coding Visit Charges OBSV E&M: 02593 Subsequent observation care L2
[2022-04-25 09:05] VITALS: PULSE 93
[2022-04-25] MEDS: Isosorbide Mononitrate 30 MG Tablet PO (09:05)
[2022-04-25] MEDS: SACUBITRIL/VALSARTAN 97-103 MG TABLET 1 EACH PO (09:05)
[2022-04-25] MEDS: Metoprolol(XL)Succ 25 MG Tablet PO (09:05)
[2022-04-25] MEDS: Febuxostat 40 MG TABLET PO (09:05)
[2022-04-25] MEDS: Acetaminophen 500 MG Tablet 1000 MG PO (09:05)
[2022-04-25] MEDS: Nystatin Powder 15gm Bottle 1 APPLIC TOPICAL (09:07)
[2022-04-25] MEDS: 0.9% Normal Saline 1,000 ML 75 ML IV (09:07)
[2022-04-25] MEDS: Ceftriaxone 1 GM/50 ML BAG IV (09:09)
[2022-04-25 09:32] VITALS: BP 120/50; PULSE 93; RESP 16; TEMP 37.4; O2SAT 95
--- NOTE | 2022-04-25 10:50 | PCM.TXEXTCAR ---
Diet 04/23/22 16:41 Diet: Cardiac - Heart Healthy Food consistency:: Regular Liquid Consistency:: Regular/Thin Routine Orders/Code Status Code Status: DNRCC-A Therapies Physical Therapy: Eval and Treat Occupational Therapy: Eval and Treat Problem/Diagnosis (1) Urinary tract infection: Status: Acute Allergies/Procedures Done in Hospital Allergies celecoxib [From Celebrex] Allergy (Verified 04/23/22 11:17) Hives NSAIDS (Non-Steroidal Anti-Inflamma Allergy (Verified 04/23/22 11:17) Rash strawberry [[place]] Allergy (Verified 04/23/22 11:17) Hives Sulfa (Sulfonamide Antibiotics) Allergy (Verified 04/23/22 11:17) Hives tomato [Tomato] Allergy (Verified 04/23/22 11:17) Hives Procedures: 2-D Echocardiogram Type of Care/Length of Stay Estimated LOS: Convalescent Care Less Than 30 days Type of Care Needed: Skilled Rehab Potential: Good Prognosis: Good Additional Orders/Day of Discharge Day of Discharge: 04/25/22 Discharge Plan Admission Admit Date/Time: 04/23/22 15:09 Attending Provider: Gurinder Venegas Primary Care Provider: Jeffrey Zhou Chi Consulting Providers: Duane Small ; Maverick Oliveira Discharge Orders/Prescriptions Prescriptions: New nystatin [Nyamyc] 100,000 unit/gram Powder 1 applic topical BID Qty: 0 RF: 0 cefdinir 300 mg capsule 300 mg PO BID Qty: 10 RF: 0 Continued levothyroxine 75 MCG tablet 75 mcg PO DAILY RF: 0 rosuvastatin 10 MG tablet 10 mg PO DAILY RF: 0 febuxostat [Uloric] 40 MG tablet 40 mg PO DAILY RF: 0 mirtazapine 15 mg tablet 15 mg PO QHS RF: 0 ipratropium bromide 42 mcg (0.06 %) spray,non-aerosol 1 spray INTRANASAL BID RF: 0 levocetirizine 5 mg tablet 5 mg PO DAILY RF: 0 Entresto 97-103 mg tablet 1 tab PO BID RF: 0 isosorbide mononitrate 30 mg Tablet Extended Release 24 Hr 30 mg PO DAILY 30 Days Qty: 30 RF: 0 acetaminophen 500 mg Tablet 1,000 mg PO Q6H PRN PRN (Reason: Pain Score 1-10) Qty: 0 RF: 0 trazodone 100 mg Tablet 150 mg PO QHS 30 Days Qty: 45 RF: 0 metoprolol succinate 25 mg Tablet Extended Release 24 Hr 25 mg PO DAILY 30 Days Qty: 30 RF: 0 Xarelto 10 mg Tablet 10 mg PO DINNER 30 Days Qty: 30 RF: 0 doxepin 25 mg capsule 25 mg PO QHS RF: 0 Referrals / Follow Up: Jeffrey Zhou Chi, MD [Primary Care Provider] - Within 2 Weeks Disposition Disposition (needs filled in before D/C Order can be placed): Alf Facility
--- NOTE | 2022-04-25 10:57 | DS.PCM_ITS ---
Providers Date of Admission: 04/23/22 Primary Care Physician: Dr. Jeffrey Zhou MD Consultations 04/23/22 21:05 Consult: Podiatry Routine Consulting Provider: Duane Small Reason for Consult: right heel/foot pain EMERGENT Consult: No MD Notified: Yes Date Notified: 04/23/22 Time Notified: 21:05 Method of Notification: Verbal Reason For Visit: CYSTITIS / DEBILITY / DEHYDRATION Diagnosis Discharge Diagnosis (1) Urinary tract infection: Status: Acute Code(s): N39.0 - Urinary tract infection, site not specified Medications at Discharge Home Medications febuxostat [Uloric] 40 mg PO DAILY 10/06/17 levothyroxine 75 mcg PO DAILY 10/06/17 rosuvastatin 10 mg PO DAILY 10/06/17 Entresto 1 tab PO BID 03/11/22 ipratropium bromide 1 spray INTRANASAL BID 03/11/22 levocetirizine 5 mg PO DAILY 03/11/22 mirtazapine 15 mg PO QHS 03/11/22 Xarelto 10 mg PO DINNER 30 Days #30 tab 03/25/22 acetaminophen 1,000 mg PO Q6H PRN PRN #0 tab 03/25/22 isosorbide mononitrate 30 mg PO DAILY 30 Days #30 tab 03/25/22 metoprolol succinate 25 mg PO DAILY 30 Days #30 tab 03/25/22 trazodone 150 mg PO QHS 30 Days #45 tab 03/25/22 doxepin 25 mg PO QHS 04/23/22 cefdinir 300 mg PO BID #10 cap 04/25/22 nystatin [Nyamyc] 1 applic TOPICAL BID #0 g 04/25/22 Hospital Course Procedures 2-D Echocardiogram Summary of Care Provided Minutes Spent on Discharge: 35 Hospital Course: Patient is an 86-year-old lady who was recently [facility] a detention facility following a fall with significant debility was sent to the ED with generalized weakness. Patient was found to have acute cystitis admitted to regular nursing floor for further management 1. Acute cystitis ? Patient started on Rocephin blood and urine culture sent. Patient previous urine cultures came back positive for Enterococcus ? 04/25/2022 urine cultures are back positive for Klebsiella. Patient will be discharged on cefazolin 2. Physical deconditioning - Requested for PT OT eval and social security benefits interviewer to assist with discharge planning 3. 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 Echo obtained on 09/10/2018 demonstrated EF of 20% patient currently compensated. Patient is on Entresto beta-blockers did continue -Repeat echo on 04/23/2022 demonstrated EF of 15% 4. Pulmonary hypertension ? Plan is to treat symptomatically 5. Class III obesity with BMI of 46.5 ? Weight loss advised 6. Previous history of pulmonary embolism ? Patient remains on systemic anticoagulation with Xarelto 7. Hypothyroidism - Patient is on levothyroxine home dose continued 8. Dyslipidemia -Patient is on statin therapy, continued at home dose 9. Hypertension - Blood pressure controlled, home medications continued with dose adjustment as needed 10. Gout ? Patient is on febuxostat did continue 11. DVT prophylaxis ? On Xarelto 12. Degenerative joint disease ? With history of bilateral knee replacement 13. Chronic kidney disease stage IIIa ? Kidney function at baseline we will continue with monitoring of electrolyte Physical Exam Narrative GENERAL: cooperative HEENT: Atraumatic; EYES; Anicteric, Normal Conjunctiva NECK; supple, normal thyroid, RESPIRATORY: Diminished to auscultation CARDIOVASCULAR: Regular S1 S2, GI: soft, normoactive bowel sounds, : No Renal angle tenderness; EXTREMITIES: Trace bipedal edema, no clubbing, MUSCULOSKELETAL: no muscle wasting NEURO: Awake; no lateralizing signs. SKIN: No Rash PSYCH; Flat affect Weight / BMI Weight Weight: 124.6 kg Body Mass Index (BMI) 47.1 ABG / Lab / Microbiology Data Result Diagrams: 04/23/22 11:43 04/24/22 05:45 Microbiology: Microbiology 04/23/22 12:30 Urine, Catheterized Urine Culture - Final Klebsiella pneumoniae sp pneum Radiography Diagnostic Testing: Radiology Impression Echocardiogram 04/23/22 15:35 Interpretation Summary Normal LV size. Severe global left ventricular systolic dysfunction. The estimated ejection fraction is 15 %. There is severe global hypokinesis of the left ventricle. Pulmonary artery systolic pressure is 63 mmHg. Moderate pulmonary hypertension. Normal RV size. Normal systolic function. Ordering Physician: Maverick Oliveira Referring Physician: Jeffrey Zhou Chi Performed By: Melissa Mills RDCS D/C Instructions Discharge Diet: 2000 mg Sodium Diet Meaningful Use Info Meaningful Use Diagnoses (Choose all that apply): CHF CHF SILVERIO/ARB ordered at discharge?: Yes Documented LVEF (%): 15 Discharge Plan Admission Admit Date/Time: 04/23/22 15:09 Attending Provider: Gurinder Venegas Primary Care Provider: Jeffrey Zhou Chi Consulting Providers: Duane Small ; Maverick Oliveira Discharge Orders/Prescriptions Prescriptions: New nystatin [Nyamyc] 100,000 unit/gram Powder 1 applic topical BID Qty: 0 RF: 0 cefdinir 300 mg capsule 300 mg PO BID Qty: 10 RF: 0 Continued levothyroxine 75 MCG tablet 75 mcg PO DAILY RF: 0 rosuvastatin 10 MG tablet 10 mg PO DAILY RF: 0 febuxostat [Uloric] 40 MG tablet 40 mg PO DAILY RF: 0 mirtazapine 15 mg tablet 15 mg PO QHS RF: 0 ipratropium bromide 42 mcg (0.06 %) spray,non-aerosol 1 spray INTRANASAL BID RF: 0 levocetirizine 5 mg tablet 5 mg PO DAILY RF: 0 Entresto 97-103 mg tablet 1 tab PO BID RF: 0 isosorbide mononitrate 30 mg Tablet Extended Release 24 Hr 30 mg PO DAILY 30 Days Qty: 30 RF: 0 acetaminophen 500 mg Tablet 1,000 mg PO Q6H PRN PRN (Reason: Pain Score 1-10) Qty: 0 RF: 0 trazodone 100 mg Tablet 150 mg PO QHS 30 Days Qty: 45 RF: 0 metoprolol succinate 25 mg Tablet Extended Release 24 Hr 25 mg PO DAILY 30 Days Qty: 30 RF: 0 Xarelto 10 mg Tablet 10 mg PO DINNER 30 Days Qty: 30 RF: 0 doxepin 25 mg capsule 25 mg PO QHS RF: 0 Referrals / Follow Up: Jeffrey Zhou Chi, MD [Primary Care Provider] - Within 2 Weeks Disposition Disposition (needs filled in before D/C Order can be placed): Snf Facility Charges/Coding Visit Charges OBSV E&M: 12091 Observation care discharge
[2022-04-25 12:20] VITALS: BP 115/58; PULSE 87; RESP 16; TEMP 36.8; O2SAT 95
--- NOTE | 2022-04-25 12:44 | CASEMGMT ---
Addendum entered by Alexia Johnson 04/25/22 14:16: HO spoke with OT who confirms Cam Boots are not at [facility]. Pt was able to pivot to chair and back, was able to bare weight, and tolerate Pivoting. Pt is going to [facility] so pt can continue to get PT/OT while at [facility] and if they recommend pt get Cam Boot then pt can follow up as an outpatient as pt will need to go through [facility]. HO updated physician, agreeable to plan. HO placed a call to pt's daughter Sierra and updated her that Cam Boots are not done at [facility] and that pt will need to go through [facility] as an outpatient. HO informed Sierra that once pt is at [facility], PT/OT can continue to work with pt and make recommendations. Sierra states understanding. Plan: [facility] Skilled today under PAS/RR level with Physicians transporting pt via cot. Alexia Johnson BILLIARD PLAYER, CORE STICKER Original Note: Social Work Note Pt to discharge to [facility] today. HO placed a call to thatcher at [facility] and updated her. HO completed PAS/RR. HO faxed completed discharge paperwork to [facility] including transfer to extended care facility, signed medication list, any scripts, COVID test/tool, PAS/RR and PAS/RR results. Original in SNF folder and copy on pt's chart. HO spoke with RN. Pt to transport via cot. SW accessed trip assist and arranged transportation via cot for 2:00pm. Transportation form completed and placed on SNF folder and copy on pt's chart. HO placed a call to Anderson at [facility] and left message updating her on transportation time. SW in to speak with pt. SW updated pt on transportation time and discharge to [facility]. Pt gave this worker permission to call her daughter to update. HO placed a call to pt's daughter Sierra and updated her on transportation time and discharge to [facility]. Sierra states that she was told the other day that pt needs to get a boot for her heel. HO reviewed notes. It appears the physician wanted physical therapies recommendation on if pt needs a Cam Boot or not. HO placed a call to PT and spoke with Deonna. Deonna states she will check with [facility]. HO spoke with RN, and updated RN on transportation time and asked about Cam boot. RN states she is not aware pt needed a Cam boot, thought that those have to be ordered through [facility]. HO updated Sierra that this worker is checking with PT on recommendations and then will call her back. Sierra states understanding. HO waiting for call back from PT. HO spoke with barrel filler. If PT recommends Cam Boot, pt will need to go through [facility] to get boot. Alexia Johnson BILLIARD PLAYER, CORE STICKER
--- NOTE | 2022-04-25 14:00 | NURSING ---
attempted to call report to [facility], nurse unable to take report at this time and well call back when able.pt sent to care home via ambulance.
== END 2022-04-25 14:20 | disposition skilled nursing facility (03) ==
LOC: ED 15:16 → MS3 15:39
PROVIDERS: Admitting Provider Internal Medicine; Emergency Provider Emergency Medicine; PCP Family Medicine Geriatric Medicine; Visit Provider Internal Medicine
DX: N30.00 Acute cystitis without hematuria (principal); I13.0 Hypertensive heart and chronic kidney disease with heart failure and stage 1 through stage 4 chronic kidney disease, or unspecified chronic kidney disease; I27.20 Pulmonary hypertension, unspecified; I50.22 Chronic systolic (congestive) heart failure; I48.91 Unspecified atrial fibrillation; E66.01 Morbid (severe) obesity due to excess calories; Z68.42 Body mass index [BMI] 45.0-49.9, adult; N18.32 Chronic kidney disease, stage 3b; F32.A Depression, unspecified; Z79.01 Long term (current) use of anticoagulants; E03.9 Hypothyroidism, unspecified; M19.90 Unspecified osteoarthritis, unspecified site; M10.9 Gout, unspecified; G89.29 Other chronic pain; E78.5 Hyperlipidemia, unspecified; E86.0 Dehydration; M79.671 Pain in right foot; B96.1 Klebsiella pneumoniae [K. pneumoniae] as the cause of diseases classified elsewhere; Z79.899 Other long term (current) drug therapy; Z79.890 Hormone replacement therapy; Z86.718 Personal history of other venous thrombosis and embolism; Z86.711 Personal history of pulmonary embolism; D64.9 Anemia, unspecified; G47.33 Obstructive sleep apnea (adult) (pediatric)
CPT/HCPCS: 36415; 73630; 80048; 80053; 81001; 82728; 83540; 83550; 83605; 85025; 87040; 87077; 87086; 87088; 87186; 87426; 93005; 93306; 96361; 96365; 96366; 97110; 97162; 97166; 97530; 99218; 99285; J7030; J7050; P9612; A4216; G0378

== ENCOUNTER → 2022-05-05 | Outpatient (REF) | payer SELFPAY ==
[2022-05-05 08:36] LABS: Hematocrit 30.4 % (37-47); Hemoglobin 9.5 g/dL (12.0-15.0); Mean Corp Hgb Conc 31.3 g/dL (32-36); Mean Corpuscular Hgb 31.5 pg (27.0-32.0); Mean Corpuscular Volume 100.7 fL (81-99); Mean Platelet Vol. 9.8 fl (6.2-12.0); Platelet Count 309 K/mm3 (150-450); RBC Distribution Width CV 12.6 % (11.6-14.6); RBC Distribution Width SD 46.5 fl (35.1-43.9); Red Blood Count 3.02 M/mm3 (4.2-5.4); White Blood Count 5.6 K/mm3 (4.4-11.0)
[2022-05-05 08:54] LABS: Anion Gap 4 (5-15); BUN 10 mg/dL (7-18); BUN/Creat Ratio 10.6 RATIO (10-20); Calcium,Total 8.8 mg/dL (8.5-10.1); Chloride 105 mmol/L (98-107); Creatinine, Serum 0.94 mg/dL (0.55-1.02); EST Glomerular Filtration Rate 60 mL/min (>60); Est Glom Filt Rate - Afr Amer 73 mL/min (>60); Glucose 125 mg/dL (74-106); Potassium 3.9 mmol/L (3.5-5.1); Sodium Level 137 mmol/L (136-145)
== END | disposition home or self-care (01) ==
LOC: OLS.WHLTCC 05:00
PROVIDERS: PCP Family Medicine Geriatric Medicine; Visit Provider Family Medicine
DX: M77.31 Calcaneal spur, right foot (principal); N30.00 Acute cystitis without hematuria; M79.671 Pain in right foot; R54 Age-related physical debility; R26.2 Difficulty in walking, not elsewhere classified; M62.81 Muscle weakness (generalized)
CPT/HCPCS: 36415; 80048; 85027

== ENCOUNTER → 2022-05-19 | Outpatient (REF) | payer SELFPAY ==
[2022-05-19 08:44] LABS: Hematocrit 31.6 % (37-47); Mean Corp Hgb Conc 31.6 g/dL (32-36); Mean Corpuscular Hgb 31.1 pg (27.0-32.0); Mean Corpuscular Volume 98.1 fL (81-99); Mean Platelet Vol. 10.2 fl (6.2-12.0); Platelet Count 255 K/mm3 (150-450); RBC Distribution Width CV 13.1 % (11.6-14.6); RBC Distribution Width SD 46.7 fl (35.1-43.9); Red Blood Count 3.22 M/mm3 (4.2-5.4)
[2022-05-19 08:51] LABS: Anion Gap 6 (5-15); BUN 20 mg/dL (7-18); BUN/Creat Ratio 17.4 RATIO (10-20); Calcium,Total 8.8 mg/dL (8.5-10.1); Chloride 101 mmol/L (98-107); Creatinine, Serum 1.15 mg/dL (0.55-1.02); EST Glomerular Filtration Rate 48 mL/min (>60); Est Glom Filt Rate - Afr Amer 58 mL/min (>60); Glucose 116 mg/dL (74-106); Potassium 3.3 mmol/L (3.5-5.1); Sodium Level 139 mmol/L (136-145)
== END | disposition home or self-care (01) ==
LOC: OLS.WHLTCC 05:00
PROVIDERS: PCP Family Medicine Geriatric Medicine; Visit Provider Family Medicine
DX: M79.671 Pain in right foot (principal); N30.00 Acute cystitis without hematuria; M77.31 Calcaneal spur, right foot; M62.81 Muscle weakness (generalized); R54 Age-related physical debility; R26.2 Difficulty in walking, not elsewhere classified
CPT/HCPCS: 36415; 80048; 85027

== ENCOUNTER → 2022-06-02 | Outpatient (REF) | payer SELFPAY ==
[2022-06-02 07:41] LABS: Hematocrit 35.7 % (37-47); Hemoglobin 11.1 g/dL (12.0-15.0); Mean Corp Hgb Conc 31.1 g/dL (32-36); Mean Corpuscular Hgb 31.2 pg (27.0-32.0); Mean Corpuscular Volume 100.3 fL (81-99); Platelet Count 295 K/mm3 (150-450); RBC Distribution Width SD 48.5 fl (35.1-43.9); Red Blood Count 3.56 M/mm3 (4.2-5.4); White Blood Count 6.5 K/mm3 (4.4-11.0)
[2022-06-02 07:49] LABS: Anion Gap 7 (5-15); BUN 20 mg/dL (7-18); BUN/Creat Ratio 17.1 RATIO (10-20); Calcium,Total 9.2 mg/dL (8.5-10.1); Chloride 102 mmol/L (98-107); Creatinine, Serum 1.17 mg/dL (0.55-1.02); EST Glomerular Filtration Rate 47 mL/min (>60); Est Glom Filt Rate - Afr Amer 57 mL/min (>60); Glucose 114 mg/dL (74-106); Potassium 3.6 mmol/L (3.5-5.1); Sodium Level 139 mmol/L (136-145)
== END | disposition home or self-care (01) ==
LOC: OLS.WHLTCC 05:00
PROVIDERS: PCP Family Medicine Geriatric Medicine; Visit Provider Family Medicine
DX: M77.31 Calcaneal spur, right foot (principal); N30.00 Acute cystitis without hematuria; M79.671 Pain in right foot; M62.81 Muscle weakness (generalized); R26.2 Difficulty in walking, not elsewhere classified
CPT/HCPCS: 36415; 80048; 85027

== ENCOUNTER 2022-06-10 15:41 | Observation (INO) | payer MEDICARE, OTHER, MEDICAID, SELFPAY ==
[2022-06-10 15:42] VITALS: BP 96/59; PULSE 73; RESP 18; TEMP 36.2; O2SAT 93; BMI 47.5
--- NOTE | 2022-06-10 15:59 | CT_ITS ---
STUDY: CT BRAIN WITHOUT CONTRAST REASON FOR EXAM: Female, 86 years old. Technologist Notes FELL TODAY HITTING HEAD, NO LOC, C/O HEAD AND BACK PAIN, RECENT DISCHARGE FROM REHAB, HTN, KIDNEY DZ, CHF, COPD headache TECHNIQUE: Transaxial CT imaging of the brain was performed without administration of intravenous contrast material. Individualized dose optimization techniques were used for this CT. COMPARISON: 10.06.17 FINDINGS: Normal calvarium. Normal soft tissues. There is mild cerebral atrophy with widening of the extra-axial spaces and ventricular dilatation. Normal white matter tracts of the cerebral hemispheres. Normal basal ganglia and thalami. Normal brainstem. Normal cerebellum. There is no intracranial hemorrhage. There are no findings of an acute ischemic infarction. Normal visualized paranasal sinuses. ASPECTS 10 CT/Brain/Head without Contrast IMPRESSION: There are no acute intracranial findings. Electronically Signed: Silver Izquierdo MD at 16:55 EDT ,
--- NOTE | 2022-06-10 15:59 | CT_ITS ---
EXAM: CT SPINE - CERVICAL WITHOUT IV REASON FOR EXAM: Female, 86 years old. NECK PAIN fallTechnologist Notes FELL TODAY HITTING HEAD, NO LOC, C/O HEAD AND BACK PAIN, RECENT DISCHARGE FROM REHAB, HTN, KIDNEY DZ, CHF, COPD HISTORY: NECK PAIN fall Individualized dose optimization techniques were used for this CT. TECHNIQUE: Multiplanar images were obtained of the cervical spine. IV contrast was not utilized. COMPARISON: 10.06.17 FINDINGS: The vertebral bodies do maintain their height. The odontoid process is intact. There is no anterolisthesis or fracture. No pre-vertebral soft tissue swelling is seen. The intravertebral disc height is lost. There are scattered lymph nodes in the neck. There are degenerative changes of the osseous structures. There is bilateral facet arthropathy. There are scattered levels of foraminal stenosis. There are vascular calcifications. There is mild straightening of the normal cervical lordosis. This can suggest neck strain. Partially visualized disc herniation at C6-7. CT/Spine Cervical without Contras IMPRESSION: Degenerative changes of the cervical spine. There is mild straightening of the normal cervical lordosis. This can suggest neck strain. Partially visualized disc herniation at C6-7. MRI can better evaluate. Electronically Signed: Silver Izquierdo MD at 16:57 EDT ,
--- NOTE | 2022-06-10 16:00 | EKG12_ITS ---
Test Reason : Fall Blood Pressure : / mmHG Vent. Rate : 062 BPM Atrial Rate : 000 BPM P-R Int : 000 ms QRS Dur : 176 ms QT Int : 484 ms P-R-T Axes : 000 -83 069 degrees QTc Int : 491 ms Atrial fibrillation with a competing junctional pacemaker Left axis deviation Non-specific intra-ventricular conduction block Abnormal ECG Confirmed by JAZMYNE VAUGHN, TU ([id number]), online editor JEET CUNHA ([id number]) on 06/12/2022 2:09:57 PM Referred By: Christ Confirmed By:TU SAMANO MD
--- NOTE | 2022-06-10 16:02 | CT_ITS ---
EXAM: CT CHEST, ABDOMEN AND PELVIS WITHOUT INTRAVENOUS CONTRAST CLINICAL INDICATION: fall Technologist Notes FELL TODAY HITTING HEAD, NO LOC, C/O HEAD AND BACK PAIN, RECENT DISCHARGE FROM REHAB, HTN, KIDNEY DZ, CHF, COPD TECHNIQUE: Helically acquired images were obtained of the chest, abdomen and pelvis without intravenous contrast. This CT exam was performed using one or more of the following dose reduction techniques: automated exposure control, adjustment of the mA and/or kV according to patient size, and/or use of iterative reconstruction technique. This report was created using [employer] report [employer] technology. RADIATION DOSE: CTDIvol = 27.49 mGy, DLP = 2166.57 mGy-cm COMPARISON: 8.5.14 FINDINGS: CHEST: LUNGS AND PLEURAL SPACES: Unremarkable. No mass. No consolidation or edema. No pleural effusion or thickening. No pneumothorax. HEART: There are calcifications of the coronary arteries. Heart size is normal. No pericardial effusion. MEDIASTINUM: Unremarkable. No mediastinal or hilar adenopathy. Esophagus is unremarkable. No hiatal hernia. THYROID: Unremarkable. No thyroid lesions. ABDOMEN: LIVER: Unremarkable. Homogeneous. GALLBLADDER AND BILE DUCTS: There are surgical clips in the gallbladder fossa consistent with a prior cholecystectomy. No intra- or extrahepatic biliary ductal dilation. PANCREAS: There is diffuse atrophy of the pancreas. No focal cystic mass. SPLEEN: Unremarkable. Normal size without focal cystic or solid mass. ADRENALS: Unremarkable. No nodules. KIDNEYS AND URETERS: Unremarkable. Normal renal size and position. No hydronephrosis. STOMACH AND BOWEL: Unremarkable. No stomach or bowel distention. No focal inflammatory change. PELVIS: APPENDIX: See below. BLADDER: Unremarkable. REPRODUCTIVE: There is atrophy of the uterus. CHEST, ABDOMEN and PELVIS: INTRAPERITONEAL SPACE: Unremarkable. No ascites or other fluid collection. No free air. BONES/JOINTS: There are degenerative changes of the shoulders. There are multi-level degenerative changes of the thoracic spine. Kyphoplasty changes at L1. There is non-visualization of the appendix. There are diffuse degenerative changes of the visualized lumbar spine. No suspicious lytic or blastic abnormality. SOFT TISSUES: Unremarkable. No discrete abdominal or pelvic wall hernia. VASCULATURE: There is atherosclerotic calcification of the aortic arch with tortuosity and elongation of the aortic arch and descending thoracic aorta. An IVC filter is in place. There are calcifications of the abdominal aorta. This is consistent for atherosclerotic disease. There is no abdominal aortic aneurysm. LYMPH NODES: Unremarkable. No enlarged lymph nodes. CT/CT Chest, Abd, Pelvis WO Cont IMPRESSION: No acute findings in the chest, abdomen or pelvis. Electronically Signed: Silver Izquierdo MD at 17:04 EDT ,
--- NOTE | 2022-06-10 16:13 | ED.VIS.FALL ---
HPI HPI - Fall History of Present Illness Chief Complaint: Fall Narrative Narrative: This is an 86-year-old female presenting with headache, diffuse back pain. She states it hurts all over her back. She states that her legs became weak while she was walking at home today and she fell backwards onto her back. She hit her head and she states her head bounced a second time. No LOC. 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 Patient states she just returned home from residential after several weeks of being there for weakness. She states she is not sure if there was a diagnosis of why she was weak. She states at home she has been able to eat and drink. She has been ambulatory before today. She complains of generalized weakness. She does complain of a headache but does not complain of neck pain. No paresthesias. She denies hip or pelvis pain. She is not having abdominal pain. She is a superficial abrasion overlying her elbow but states her elbow does not hurt. PFSH [facility] Medical History CHF (congestive heart failure) Depression High cholesterol HTN (hypertension) Hx of deep venous thrombosis Hx of pulmonary embolus Hypothyroid Kidney disease Home Medications febuxostat 40 mg tablet (Uloric) 40 mg PO DAILY Gout 10/06/17 [History Last Taken 04/22/22] levothyroxine 75 mcg tablet 75 mcg PO DAILY Thyroid 10/06/17 [History Last Taken 04/22/22] rosuvastatin 10 mg tablet 10 mg PO DAILY Cholesterol 10/06/17 [History Last Taken 04/22/22] ipratropium bromide 42 mcg (0.06 %) nasal spray 1 spray intranasal BID SINUS 03/11/22 [History Last Taken 04/22/22] levocetirizine 5 mg tablet 5 mg PO DAILY ALLERGIES 03/11/22 [History Last Taken 04/22/22] mirtazapine 15 mg tablet 15 mg PO QHS SLEEP 03/11/22 [History Last Taken 04/22/22] sacubitril 97 mg-valsartan 103 mg tablet (Entresto) 1 tab PO BID HEART 03/11/22 [History Last Taken 04/23/22] acetaminophen 500 mg tablet 1,000 mg PO Q6H PRN PRN Pain Score 1-10 #0 tabs 03/25/22 [Rx Last Taken 04/22/22] isosorbide mononitrate 30 mg tablet,extended release 24 hr 30 mg PO DAILY 30 days #30 tabs 03/25/22 [Rx Last Taken 04/22/22] metoprolol succinate 25 mg tablet,extended release 24 hr 25 mg PO DAILY 30 days #30 tabs 03/25/22 [Rx Last Taken 04/22/22] rivaroxaban 10 mg tablet (Xarelto) 10 mg PO DINNER 30 days #30 tabs 03/25/22 [Rx Last Taken 04/22/22] trazodone 100 mg tablet 150 mg PO QHS 30 days #45 tabs 03/25/22 [Rx Last Taken 04/22/22] doxepin 25 mg capsule 25 mg PO QHS sleep 04/23/22 [History Last Taken 04/22/22] nystatin 100,000 unit/gram topical powder (Nyamyc) 1 applic topical BID #0 grams 04/25/22 [Rx Last Taken Unknown] Allergy/AdvReac Type Severity Reaction Status Date / Time celecoxib [From Celebrex] Allergy Hives Verified 06/10/22 15:45 NSAIDS (Non-Steroidal Allergy Rash Verified 06/10/22 15:45 Anti-Inflamma strawberry [[place]] Allergy Hives Verified 06/10/22 15:45 Sulfa (Sulfonamide Allergy Hives Verified 06/10/22 15:45 Antibiotics) tomato [Tomato] Allergy Hives Verified 06/10/22 15:45 Family History Father Congestive heart failure Mother Diabetes Congestive heart failure Brother Diabetes Surgical History History of cholecystectomy History of total bilateral knee replacement Social History household members: family Smoking Status: Never smoker alcohol intake: never substance use type: does not use ROS ROS ED Constitutional Constitutional ED: Denies chills or fever(s) Eyes Eyes: Denies change in vision ENT ENT ED: Denies rhinorrhea or sore throat Cardiovascular Cardiovascular: Denies chest pain or palpitations Respiratory/Chest Respiratory/Chest: Denies cough or dyspnea Genitourinary Genitourinary ED: Denies dysuria or hematuria Musculoskeletal Musculoskeletal: Reports back pain; Denies neck pain Integumentary Denies abscess or Abrasions Neurologic Neurologic: Reports headache(s); Denies paresthesias or weakness EXAM Physical Exam Const Vital Signs: 06/10/22 15:42 06/10/22 15:47 06/10/22 17:10 Temperature 97.1 F L Temperature Source Oral Pulse Rate 73 61 Respiratory Rate 18 14 Respiratory Effort Normal Non-Labored Blood Pressure 96/59 L 126/62 H Blood Pressure Mean 71 83 Pulse Ox 93 95 Oxygen Delivery Method Room Air Room Air MDM MDM MDM Narrative Medical decision making narrative: Patient presenting after fall and generalized weakness. She is just discharged from the nursing facility where she rehab 5 days ago. She feels the same as she did before she went. She states her legs just come out from under her and she cannot walk. She fell hurting her entire back and she complains of headache after hitting her head. She is on Xarelto. EKG shows atrial fibrillation with controlled ventricular response at 62 bpm without sign of ischemic change. Patient has history of atrial fibrillation. Chest x-ray on my interpretation shows no acute cardiopulmonary process and the radiologist agree. CBC shows no leukocytosis as appointments count is 8.3. Hemoglobin stable at 11.9. Platelets normal at 284. Creatinine is elevated at 2.3 and on 05/23/2022 this was 1.17. Patient was given a liter of IV fluids. Urinalysis obtained and shows no UTI. High-sensitivity opponent is 17. CT of the brain, cervical spine, chest abdomen pelvis are all negative for acute findings. Patient still unable to ambulate and request to go back to residential. We did attempt to get her directly to the detention but they cannot accommodate her. Patient discussed with hospitalist for admission. Impression: 1. Generalized weakness 2. Back contusion 3. Closed head injury 4. Inability to ambulate 5. Acute kidney injury Lab Data Attestation: I reviewed the patient's lab results. Labs: Laboratory Results - last 24 hr 06/10/22 06/10/22 06/10/22 16:50 16:50 17:10 WBC 8.3 RBC 3.85 L Hgb 11.9 L Hct 38.6 MCV 100.3 H MCH 30.9 MCHC 30.8 L RDW Std Deviation 47.8 H RDW Coeff of Mey 13.0 Plt Count 284 MPV 9.9 Immature Gran % (Auto) 0.200 Neut % (Auto) 58.8 Lymph % (Auto) 27.8 [place] % (Auto) 8.9 Eos % (Auto) 3.7 Baso % (Auto) 0.6 Absolute Neuts (auto) 4.9 Absolute Lymphs (auto) 2.31 Nucleated RBC % 0 Sodium 133 L Potassium 4.0 Chloride 97 L Carbon Dioxide 29.0 Anion Gap 7 BUN 31 H Creatinine 2.30 H Estim Creat Clear Calc 15.72 Est GFR (MDRD) Af Amer 26 L Est GFR (MDRD) Non-Af 21 L BUN/Creatinine Ratio 13.5 Glucose 126 H Calcium 9.4 Total Bilirubin 0.40 AST 13 L ALT 12 L Alkaline Phosphatase 57 Troponin I High Sens 17 Total Protein 8.2 Albumin 3.4 Globulin 4.8 H Albumin/Globulin Ratio 0.7 L Urine Color Yellow Urine Clarity Clear Urine pH 5.0 Ur Specific [place] 1.020 Urine Protein Negative Urine Glucose (UA) Normal Urine Ketones Negative Urine Occult Blood Negative Urine Nitrite Negative Urine Bilirubin Negative Urine Urobilinogen Normal Ur Leukocyte Esterase Negative Urine RBC 0 SEEN Urine WBC 0-5 SEEN Ur Squamous Epith Cells 0 SEEN Urine Bacteria RARE Urine Mucus 0 SEEN Radiography Diagnostic Testing: Clinical Impression(s) from Imaging Studies Brain CT 06/10/22 15:59 IMPRESSION: There are no acute intracranial findings. Electronically Signed: Silver Izquierdo MD at 16:55 EDT , Cervical Spine CT 06/10/22 15:59 IMPRESSION: Degenerative changes of the cervical spine. There is mild straightening of the normal cervical lordosis. This can suggest neck strain. Partially visualized disc herniation at C6-7. MRI can better evaluate. Electronically Signed: Silver Izquierdo MD at 16:57 EDT , Chest/Abdomen/Pelvis CT 06/10/22 16:02 IMPRESSION: No acute findings in the chest, abdomen or pelvis. Electronically Signed: Silver Izquierdo MD at 17:04 EDT , Chest X-Ray 06/10/22 16:36 IMPRESSION: There are no acute findings. Electronically Signed: Silver Izquierdo MD at 16:55 EDT , Discharge Plan Triage Chief Complaint: Fall ED Provider: Dameon Polo Dx/Rx/DC Orders Prescriptions: No Action levothyroxine 75 MCG tablet 75 mcg PO DAILY rosuvastatin 10 MG tablet 10 mg PO DAILY febuxostat [Uloric] 40 MG tablet 40 mg PO DAILY mirtazapine 15 mg tablet 15 mg PO QHS ipratropium bromide 42 mcg (0.06 %) spray,non-aerosol 1 spray INTRANASAL BID levocetirizine 5 mg tablet 5 mg PO DAILY Entresto 97-103 mg tablet 1 tab PO BID isosorbide mononitrate 30 mg Tablet Extended Release 24 Hr 30 mg PO DAILY 30 Days Qty: 30 0RF acetaminophen 500 mg Tablet 1,000 mg PO Q6H PRN PRN (Reason: Pain Score 1-10) Qty: 0 0RF trazodone 100 mg Tablet 150 mg PO QHS 30 Days Qty: 45 0RF metoprolol succinate 25 mg Tablet Extended Release 24 Hr 25 mg PO DAILY 30 Days Qty: 30 0RF Xarelto 10 mg Tablet 10 mg PO DINNER 30 Days Qty: 30 0RF doxepin 25 mg capsule 25 mg PO QHS nystatin [Nyamyc] 100,000 unit/gram Powder 1 applic topical BID Qty: 0 0RF Protocol: *Topical Application Instructions APPLICATION INSTRUCTIONS: wash abdominal folds dry and then apply. Primary Care Provider: Jeffrey Zhou Chi Referrals: Jeffrey Zhou Chi, MD [Primary Care Provider] -
--- NOTE | 2022-06-10 16:36 | RAD_ITS ---
STUDY: X-RAY CHEST REASON FOR EXAM: Female, 86 years old. weakness TECHNIQUE: XR Chest 1 View COMPARISON: 03.14.22 FINDINGS: There is no demonstrated pleural abnormality. Normal size heart. Normal mediastinum and mandeep. Normal visualized pulmonary arteries. There is atherosclerotic calcification of the aortic arch with tortuosity. There are diffuse degenerative changes of the visualized thoracic spine. There is degenerative osteoarthritis of the bilateral shoulders. There is no demonstrated abnormality of the visualized soft tissue structures of the upper abdomen. RAD/Chest 1 View (Portable) IMPRESSION: There are no acute findings. Electronically Signed: Silver Izquierdo MD at 16:55 EDT ,
[2022-06-10 17:10] VITALS: BP 126/62; PULSE 61; RESP 14; O2SAT 95
[2022-06-10 17:13] LABS: Absolute Lymphocyte Count 2.31 X10^3/uL (0.83-4.51); Absolute Neutrophil Count 4.9 X10^3/uL (2.0-7.7); Basophil# 0.05 X10^3/uL; Basophil% 0.6 % (0-1); Eosinophil# 0.31 X10^3/uL; Eosinophils% 3.7 % (0-5); Hematocrit 38.6 % (37-47); Hemoglobin 11.9 g/dL (12.0-15.0); Lymphocyte # 2.31 X10^3/ul (0.83-4.51); Lymphocyte % 27.8 % (19-41); Mean Corp Hgb Conc 30.8 g/dL (32-36); Mean Corpuscular Hgb 30.9 pg (27.0-32.0); Mean Corpuscular Volume 100.3 fL (81-99); Mean Platelet Vol. 9.9 fl (6.2-12.0); Monocyte# 0.74 X10^3/uL; Monocyte% 8.9 % (0-10); NRBC Flagged by Analyzer 0 % (0-5); Neutrophil # 4.89 X10^3/uL (2.7-7.7); Neutrophil % 58.8 % (47-70); Platelet Count 284 K/mm3 (150-450); RBC Distribution Width SD 47.8 fl (35.1-43.9); Red Blood Count 3.85 M/mm3 (4.2-5.4); White Blood Count 8.3 K/mm3 (4.4-11.0)
[2022-06-10 17:20] LABS: Mucous, Urine 0 SEEN /hpf (<or=2+); Red Blood Cells-Urine 0 SEEN /hpf (0-5); Squamous Epithelial Cells - UA 0 SEEN /hpf (5-10)
[2022-06-10 17:25] LABS: Color, Urine Yellow (Yellow); Glucose, Dipstick Normal (Normal); Ketone-Dipstick Negative (Negative); Leukocyte Esterase-Dipstick Negative /ul (Negative); Nitrite-Dipstick Negative (Negative); Occult Blood-Urine Negative /ul (Negative); Protein-Dipstick Negative (Negative); Urine Bilirubin Dipstick Negative (Negative); Urine Clarity Clear (Clear); Urine Urobilinogen Normal (Normal)
[2022-06-10] MEDS: 0.9% Normal Saline 1,000 ML 999 ML IV ×2 (17:32→18:37)
[2022-06-10] MEDS: fentaNYL 100 MCG/2 ML Ampul 25 MCG IV (17:32)
[2022-06-10 17:36] LABS: ALB/GLOB Ratio 0.7 RATIO (0.9-2.4); AST(SGOT) 13 U/L (15-37); Alanine Aminotransfer ALT/SGPT 12 U/L (13-56); Albumin, Serum 3.4 g/dL (3.2-5.0); Alkaline Phosphatase 57 U/L (45-117); Anion Gap 7 (5-15); BUN 31 mg/dL (7-18); BUN/Creat Ratio 13.5 RATIO (10-20); Calcium,Total 9.4 mg/dL (8.5-10.1); Chloride 97 mmol/L (98-107); EST Glomerular Filtration Rate 21 mL/min (>60); Est Glom Filt Rate - Afr Amer 26 mL/min (>60); Estimated Creatinine Clearance 15.72 ml/min; Globulin 4.8 g/dL (2.2-4.2); Glucose 126 mg/dL (74-106); Protein, Total 8.2 g/dL (6.4-8.2); Sodium Level 133 mmol/L (136-145); Troponin-I HS 17 pg/mL (3.0-54.0)
[2022-06-10 17:47] LABS: Bacteria RARE /hpf (None Seen); White Blood Cells 0-5 SEEN /hpf (0-5)
--- NOTE | 2022-06-10 18:01 | CM.ED ---
Addendum entered by Alexia Johnson 06/10/22 18:16: HO faxed initial referral to [facility]. Original Note: Social Work Note Reason for Referral: SNF placement SW received all from RN stating pt was recently discharged from [facility] recently, pt had a fall, and family is requesting pt return to [facility]. Family has called [facility] and was informed that they should be able to take pt back within 30 days. HO placed a call to Maite at [facility]. [place] states they will not be able to accept pt tonight but they could look at accepting pt tomorrow. HO updated RN. Plan: Admit. Referral to be faxed to [facility]. Alexia Johnson TRUCK SUPERVISOR, IMMIGRATION ATTORNEY
--- NOTE | 2022-06-10 18:10 | PCM.HP.STD ---
Documented by User: Linette Aguirre NP, MEDICAL SPECIALIST-C 06/10/22 18:24 HPI - General General Date of Admission: 06/10/22 Date of Service: 06/10/22 Chief Complaint: Weakness, fall. HPI Narrative RAFA BARRON, is a 86 F who presents to the emergency room due to weakness with fall at home. Patient states she was discharged from [facility] last Thursday. She states since returning home she has become increasingly more weak and had a fall today and was unable to get herself up. She states she is sore all over. Denies loss of consciousness. Does states she hit her head during fall. Patient requesting to return to SNF as she is not able to care for herself at home. Patient lives by herself. She reports intermittent nonproductive cough. Denies shortness of breath. Denies fever, chills. Denies urinary symptoms. Denies GI complaints. Her main complaint is generalized weakness and discomfort from fall. Her imaging was without acute process. She has a past medical history of chronic heart failure with reduced ejection fraction, hypertension, hyperlipidemia, BAILEY, pulmonary hypertension, obesity, history of PE/DVT, hypothyroidism, gout. [facility] Medical History CHF (congestive heart failure) Depression High cholesterol HTN (hypertension) Hx of deep venous thrombosis Hx of pulmonary embolus Hypothyroid Kidney disease Home Medications febuxostat 40 mg tablet (Uloric) 40 mg PO DAILY Gout 10/06/17 [History Last Taken 06/09/22] levothyroxine 75 mcg tablet 75 mcg PO DAILY Thyroid 10/06/17 [History Last Taken 06/09/22] rosuvastatin 10 mg tablet 10 mg PO DAILY Cholesterol 10/06/17 [History Last Taken 06/09/22] ipratropium bromide 42 mcg (0.06 %) nasal spray 1 spray intranasal BID SINUS 03/11/22 [History Last Taken 06/09/22] levocetirizine 5 mg tablet 5 mg PO DAILY ALLERGIES 03/11/22 [History Last Taken 06/09/22] mirtazapine 15 mg tablet 15 mg PO QHS SLEEP 03/11/22 [History Last Taken 06/09/22] sacubitril 97 mg-valsartan 103 mg tablet (Entresto) 1 tab PO BID HEART 03/11/22 [History Last Taken 06/10/22] acetaminophen 500 mg tablet 1,000 mg PO Q6H PRN PRN Pain Score 1-10 #0 tabs 03/25/22 [Rx Last Taken 1 Week Ago ~06/03/22] isosorbide mononitrate 30 mg tablet,extended release 24 hr 30 mg PO DAILY 30 days #30 tabs 03/25/22 [Rx Last Taken 06/09/22] metoprolol succinate 25 mg tablet,extended release 24 hr 25 mg PO DAILY 30 days #30 tabs 03/25/22 [Rx Last Taken 06/09/22] rivaroxaban 10 mg tablet (Xarelto) 10 mg PO DINNER 30 days #30 tabs 03/25/22 [Rx Last Taken 06/09/22] trazodone 100 mg tablet 150 mg PO QHS 30 days #45 tabs 03/25/22 [Rx Last Taken 06/09/22] doxepin 25 mg capsule 25 mg PO QHS sleep 04/23/22 [History Last Taken 06/09/22] furosemide 40 mg tablet 40 mg PO DAILY fluid 06/10/22 [History Last Taken 06/09/22] gabapentin 100 mg capsule 100 mg PO QHS nerve pain 06/10/22 [History Last Taken 06/09/22] Allergy/AdvReac Type Severity Reaction Status Date / Time celecoxib [From Celebrex] Allergy Hives Verified 06/10/22 15:45 NSAIDS (Non-Steroidal Allergy Rash Verified 06/10/22 15:45 Anti-Inflamma strawberry [[place]] Allergy Hives Verified 06/10/22 15:45 Sulfa (Sulfonamide Allergy Hives Verified 06/10/22 15:45 Antibiotics) tomato [Tomato] Allergy Hives Verified 06/10/22 15:45 Family History Father Congestive heart failure Mother Diabetes Congestive heart failure Brother Diabetes Surgical History History of cholecystectomy History of total bilateral knee replacement Social History household members: none Smoking Status: Never smoker alcohol intake: never substance use type: does not use ROS Constitutional Constitutional: Reports fatigue, weakness and other Details: Fall ; Denies change in weight, chills or fever(s) Cardiovascular Cardiovascular: Denies chest pain, edema, lightheadedness, palpitations or syncope Respiratory/Chest Respiratory/Chest: Reports cough; Denies dyspnea, productive cough, shortness of breath at rest, shortness of breath with exertion or wheezing Gastrointestinal Gastrointestinal: Denies abdominal pain, constipation, diarrhea, nausea or vomiting Genitourinary Genitourinary: Denies burning urination, difficulty urinating, dysuria, hematuria, urinary frequency, urinary incontinence or urinary urgency Musculoskeletal Musculoskeletal: Reports other Details: Generalized aching/soreness. ; Denies back pain, joint pain or muscle weakness Integumentary Integumentary: Denies erythema, lesions, rash or wounds Neurologic Neurologic: Denies abnormal speech, confusion, dizziness, focal weakness, numbness, paresthesias, seizure-like activity or syncope Psychiatric Psychiatric: Denies anxiety or depression Hematologic/Lymphatic Hematologic/Lymphatic: Denies anemia, easy bleeding or easy bruising Allergic/Immunologic Allergic/Immunologic: Denies hives or asthma Vital Signs Vital Signs Vital Signs: 06/10/22 15:42 06/10/22 15:47 06/10/22 17:10 Temperature 97.1 F L Temperature Source Oral Pulse Rate 73 61 Respiratory Rate 18 14 Respiratory Effort Normal Non-Labored Blood Pressure 96/59 L 126/62 H Blood Pressure Mean 71 83 Pulse Ox 93 95 Oxygen Delivery Method Room Air Room Air Weight Weight: 276 lb 14.409 oz Body Mass Index (BMI) 47.5 Physical Exam Const alert and oriented x3 Constitutional Narrative: Fatigued appearing. Orientation / Consciousness: awake, oriented to person, oriented to place and oriented to time Nutritional Appearance: morbidly obese HEENT normocephalic Mouth: dry mucous membranes Eyes PERRL, EOMs intact bilaterally and conjunctivae normal Neck no lymphadenopathy Resp clear to auscultation bilaterally Auscultation: diminished lung sounds Cardio regular rate, regular rhythm and no murmurs Peripheral Pulses: pulses 2+ throughout GI normal to inspection, nondistended, normoactive bowel sounds, non-tender and non-distended Extremity normal to inspection Skin no rashes or lesions noted Lesions: no lesions Rashes: no rashes Trauma: no lacerations or abrasions Neuro CN's II-XII intact bilaterally, no focal motor deficits, no sensory deficits noted and deep tendon reflexes 2+ bilaterally Psych Mood & Affect: flat affect Results Lab / Micro Data Result Diagrams: 06/10/22 16:50 06/10/22 16:50 Labs: Laboratory Results - last 24 hr 06/10/22 16:50: WBC 8.3, RBC 3.85 L, Hgb 11.9 L, Hct 38.6, MCV 100.3 H, MCH 30.9, MCHC 30.8 L, RDW Std Deviation 47.8 H, RDW Coeff of Mey 13.0, Plt Count 284, MPV 9.9, Immature Gran % (Auto) 0.200, Neut % (Auto) 58.8, Lymph % (Auto) 27.8, Oliver % (Auto) 8.9, Eos % (Auto) 3.7, Baso % (Auto) 0.6, Absolute Neuts (auto) 4.9, Absolute Lymphs (auto) 2.31, Nucleated RBC % 0 06/10/22 16:50: Sodium 133 L, Potassium 4.0, Chloride 97 L, Carbon Dioxide 29.0, Anion Gap 7, BUN 31 H, Creatinine 2.30 H, Estim Creat Clear Calc 15.72, Est GFR (MDRD) Af Amer 26 L, Est GFR (MDRD) Non-Af 21 L, BUN/Creatinine Ratio 13.5, Glucose 126 H, Calcium 9.4, Total Bilirubin 0.40, AST 13 L, ALT 12 L, Alkaline Phosphatase 57, Troponin I High Sens 17, Total Protein 8.2, Albumin 3.4, Globulin 4.8 H, Albumin/Globulin Ratio 0.7 L 06/10/22 17:10: Urine Color Yellow, Urine Clarity Clear, Urine pH 5.0, Ur Specific [place] 1.020, Urine Protein Negative, Urine Glucose (UA) Normal, Urine Ketones Negative, Urine Occult Blood Negative, Urine Nitrite Negative, Urine Bilirubin Negative, Urine Urobilinogen Normal, Ur Leukocyte Esterase Negative, Urine RBC 0 SEEN, Urine WBC 0-5 SEEN, Ur Squamous Epith Cells 0 SEEN, Urine Bacteria RARE, Urine Mucus 0 SEEN Radiology Impression Brain CT 06/10/22 15:59 IMPRESSION: There are no acute intracranial findings. Electronically Signed: Silver Izquierdo MD at 16:55 EDT , Cervical Spine CT 06/10/22 15:59 IMPRESSION: Degenerative changes of the cervical spine. There is mild straightening of the normal cervical lordosis. This can suggest neck strain. Partially visualized disc herniation at C6-7. MRI can better evaluate. Electronically Signed: Silver Izquierdo MD at 16:57 EDT , Chest/Abdomen/Pelvis CT 06/10/22 16:02 IMPRESSION: No acute findings in the chest, abdomen or pelvis. Electronically Signed: Silver Izquierdo MD at 17:04 EDT Reading Location ID and State: [facility] / [place] , Service support , Chest X-Ray 06/10/22 16:36 IMPRESSION: There are no acute findings. Electronically Signed: Silver Izquierdo MD at 16:55 EDT , Assessment & Plan Assessment/Plan (1) Generalized muscle weakness: (2) TANA (acute kidney injury): PLAN: Plan 1. Debility, failure to thrive with fall-brain CT, cervical spine CT, chest abdomen pelvis CT and chest x-ray without acute process. Recently discharged from SNF. Social work/case management consult. PT/OT. As needed pain regimen. Plan for return to SNF pending acceptance. 2. Acute kidney injury on chronic kidney disease stage IIIa-gentle IV fluids. Hold diuretic regimen. Trend BMP. 3. Chronic heart failure with reduced ejection fraction-Echo with EF 20%. RVSP estimated to be 71 mmHg. 4. Hypertension-stable, continue home regimen. 5. Hyperlipidemia-continue statin. 6. BAILEY/pulmonary hypertension-continue PAP regimen. 7. Morbid obesity-weight loss encouraged. 8. 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 9. Hypothyroidism-continue Synthroid regimen. Check TSH. DVT prophylaxis- xarelto This patient was seen by SILVANO Edwards under the supervision of Dr. Levin. Documented by User: Dr. Joanna Levin DO 06/10/22 19:09 HPI - General General Date of Admission: 06/10/22 HPI Narrative RAFA BARRON, is a 86 F who presented to the emergency department [facility] on 06/10/2022 with weakness and after sustaining a fall from home. The patient had a recent admission at which time she was discharged to [facility]. She was discharged from there last Thursday and since returning home she has had increasing weakness and suffered a fall today and was unable to get herself up. She reports being sore all over. She denies any loss of consciousness or any other specific injuries. She reported she did hit her head during the fall and had a CAT scan of the cervical spine and brain in the emergency department which were negative for any acute fractures. The patient currently lives with her son and [id number]. Her son is present during my evaluation and he indicates its been progressively getting hard for them to take care of her. She has had 2 admissions to detention facilities for rehab since February of this past year. She was willing to return to detention facility for continued rehab but she is very resistant to permanent residence. The son is pretty adamant with her that he is unable to take care of her at home anymore and that she needs to pursue an ECF situation rather than a skilled facility per situation on discharge. Vital signs on presentation emergency department showed a temperature of 97.1, pulse of 73, blood pressure 96/59 with a repeat of 126/62, respiratory rate of 18, and oxygen saturations were 93 to 95% on room air. CBC is overall unremarkable showing a mild anemia that appears to be stable. Her basic metabolic profile shows mild hyponatremia and hypochloremia with an elevated BUN and creatinine at 31 and 2.30 respectively. This is elevated from her baseline of 1.1-1.2. Her UA was unremarkable. A CT of the abdomen pelvis was done and was unremarkable for any acute findings. [facility] Medical History CHF (congestive heart failure) Depression High cholesterol HTN (hypertension) Hx of deep venous thrombosis Hx of pulmonary embolus Hypothyroid Kidney disease Home Medications febuxostat 40 mg tablet (Uloric) 40 mg PO DAILY Gout 10/06/17 [History Last Taken 06/09/22] levothyroxine 75 mcg tablet 75 mcg PO DAILY Thyroid 10/06/17 [History Last Taken 06/09/22] rosuvastatin 10 mg tablet 10 mg PO DAILY Cholesterol 10/06/17 [History Last Taken 06/09/22] ipratropium bromide 42 mcg (0.06 %) nasal spray 1 spray intranasal BID SINUS 03/11/22 [History Last Taken 06/09/22] levocetirizine 5 mg tablet 5 mg PO DAILY ALLERGIES 03/11/22 [History Last Taken 06/09/22] mirtazapine 15 mg tablet 15 mg PO QHS SLEEP 03/11/22 [History Last Taken 06/09/22] sacubitril 97 mg-valsartan 103 mg tablet (Entresto) 1 tab PO BID HEART 03/11/22 [History Last Taken 06/10/22] acetaminophen 500 mg tablet 1,000 mg PO Q6H PRN PRN Pain Score 1-10 #0 tabs 03/25/22 [Rx Last Taken 1 Week Ago ~06/03/22] isosorbide mononitrate 30 mg tablet,extended release 24 hr 30 mg PO DAILY 30 days #30 tabs 03/25/22 [Rx Last Taken 06/09/22] metoprolol succinate 25 mg tablet,extended release 24 hr 25 mg PO DAILY 30 days #30 tabs 03/25/22 [Rx Last Taken 06/09/22] rivaroxaban 10 mg tablet (Xarelto) 10 mg PO DINNER 30 days #30 tabs 03/25/22 [Rx Last Taken 06/09/22] trazodone 100 mg tablet 150 mg PO QHS 30 days #45 tabs 03/25/22 [Rx Last Taken 06/09/22] doxepin 25 mg capsule 25 mg PO QHS sleep 04/23/22 [History Last Taken 06/09/22] furosemide 40 mg tablet 40 mg PO DAILY fluid 06/10/22 [History Last Taken 06/09/22] gabapentin 100 mg capsule 100 mg PO QHS nerve pain 06/10/22 [History Last Taken 06/09/22] Allergy/AdvReac Type Severity Reaction Status Date / Time celecoxib [From Celebrex] Allergy Hives Verified 06/10/22 15:45 NSAIDS (Non-Steroidal Allergy Rash Verified 06/10/22 15:45 Anti-Inflamma strawberry [[place]] Allergy Hives Verified 06/10/22 15:45 Sulfa (Sulfonamide Allergy Hives Verified 06/10/22 15:45 Antibiotics) tomato [Tomato] Allergy Hives Verified 06/10/22 15:45 Family History Father Congestive heart failure Mother Diabetes Congestive heart failure Brother Diabetes Surgical History History of cholecystectomy History of total bilateral knee replacement Social History household members: none Smoking Status: Never smoker alcohol intake: never substance use type: does not use ROS Constitutional Constitutional: Reports fatigue and weakness; Denies anorexia, change in weight, chills, fever(s), malaise, night sweats or other Eyes Eyes: Denies blurry vision, change in eye color, change in vision, discharge from eye(s), double vision, erythema, eye pain, loss of vision or other ENT HEENT: Denies abnormal hearing, dysphagia, ear pain, epistaxis, headache(s), hearing loss, nasal congestion, nasal discharge, post nasal drip, sinus pressure, sore throat or other Cardiovascular Cardiovascular: Denies chest pain, claudication, dyspnea on exertion, edema, lightheadedness, orthopnea, palpitations, paroxysmal nocturnal dyspnea, rapid heart rate, syncope or other Respiratory/Chest Respiratory/Chest: Reports cough; Denies dyspnea, excessive phlegm production, hemoptysis, productive cough, shortness of breath at rest, shortness of breath with exertion, wheezing or other Gastrointestinal Gastrointestinal: Denies abdominal pain, constipation, diarrhea, nausea or vomiting Genitourinary Genitourinary: Reports other; Denies burning urination, difficulty urinating, dysuria, hematuria, nocturia, urinary frequency, urinary hesitancy, urinary incontinence or urinary urgency Musculoskeletal Musculoskeletal: Reports arthralgias and back pain; Denies joint pain, joint stiffness, joint swelling, myalgias or neck pain Integumentary Integumentary: Denies dry skin, jaundice, lesions, new lesions, pruritus, rash, wounds or other Neurologic Neurologic: Reports other Details: Generalized weakness diffusely ; Denies abnormal gait, abnormal speech, confusion, disequilibrium, dizziness, focal weakness, headache(s), numbness, paresthesias, seizure-like activity, seizures, syncope, tingling or tremor(s) Psychiatric Psychiatric: Denies anxiety, depression, homicidal ideation, suicidal ideation or other Endocrine Endocrinology: Denies change in body appearance, cold intolerance, excessive sweating, heat intolerance, polydipsia, polyuria or other Hematologic/Lymphatic Hematologic/Lymphatic: Reports lymphadenopathy; Denies anemia, easy bleeding, easy bruising or other Allergic/Immunologic Allergic/Immunologic: Denies rhinitis, hives, eczemia, asthma or other Physical Exam Const alert, oriented x3, no apparent distress and well nourished Constitutional Narrative: Morbidly obese white female lying in bed, son at bedside, appears comfortable nontoxic HEENT normocephalic and head/scalp atraumatic HEENT Narrative: Mucous membranes are dry\ Cardio regular rate, regular rhythm, S1 normal heart sound, S2 normal heart sound, no murmurs, no rub, no gallops, no clicks and no JVD GI normal to inspection, nondistended, normoactive bowel sounds, soft to palpation, non-tender, non-distended and hepatosplenomegaly Extremity normal to inspection, full ROM and no clubbing, cyanosis or edema Skin no rashes or lesions noted, no wounds, skin turgor normal, no jaundice, no petechiae and no mottling Neuro oriented x3, CN's II-XII intact bilaterally, moves all extremities and no focal motor deficits Results Lab / Micro Data Result Diagrams: 06/10/22 16:50 06/10/22 16:50 Assessment & Plan Assessment/Plan (1) Generalized muscle weakness: (2) TANA (acute kidney injury): PLAN: Plan Assessment: Debility/to thrive TANA on CKD stage IIIa Chronic heart failure with reduced ejection fraction Hypertension Hyperlipidemia BAILEY Secondary pulmonary hypertension History of DVT/PE Hypothyroidism Morbid obesity Plan: -We will hold Xarelto and Entresto given elevated serum creatinine -Likely be able to restart tomorrow -Patient received 2 L bolus in the emergency department -Hold any more fluids with EF of 20% -Continue all other home medications -PT/OT consultation -Per discussion with social work the patient should be able to return to her previous nursing facility without any issues tomorrow as its been less than 30 days since discharge -Case management to follow Charges/Coding Visit Charges Inpatient E&M: 54033 Init Hosp L2
--- NOTE | 2022-06-10 18:15 | NURSING ---
MED SURG OBS ES CURIEL
[2022-06-10 19:05] VITALS: BP 126/82; PULSE 79; RESP 17; TEMP 36.8; O2SAT 97
[2022-06-10 19:30] VITALS: BMI 47.0
[2022-06-10 19:47] VITALS: BP 99/86; PULSE 69; RESP 18; TEMP 36.4; O2SAT 92
[2022-06-10 20:15] VITALS: RESP 22; O2SAT 87
[2022-06-10] MEDS: Nystatin Powder 15gm Bottle 1 APPLIC TOPICAL (20:28)
[2022-06-10] MEDS: Ipratropium Bromide 0.06% NASAL SPRAY 1 SPRAY NASAL (20:28)
[2022-06-10] MEDS: Doxepin Hcl 25 MG Capsule PO (21:06)
[2022-06-10] MEDS: Atorvastatin Calcium 20 MG Tablet PO (21:06)
[2022-06-10] MEDS: traZODone 50 MG Tablet 150 MG PO (21:06)
[2022-06-10] MEDS: guaiFENesin 600 MG Tablet PO (21:07)
[2022-06-10] MEDS: Senna/Docusate Sodium 1 Tablet 2 TABLET PO (21:09)
[2022-06-11 03:00] VITALS: BP 113/51; PULSE 54; RESP 20; TEMP 36.4; O2SAT 98
[2022-06-11] MEDS: Acetaminophen 500 MG Tablet 1000 MG PO (03:00)
[2022-06-11] MEDS: Levothyroxine 75 MCG Tablet PO (05:57)
[2022-06-11 06:56] LABS: Absolute Lymphocyte Count 1.97 X10^3/uL (0.83-4.51); Absolute Neutrophil Count 2.1 X10^3/uL (2.0-7.7); Basophil# 0.03 X10^3/uL; Basophil% 0.6 % (0-1); Eosinophil# 0.23 X10^3/uL; Eosinophils% 4.8 % (0-5); Hematocrit 28.5 % (37-47); Hemoglobin 8.9 g/dL (12.0-15.0); Lymphocyte # 1.97 X10^3/ul (0.83-4.51); Lymphocyte % 40.9 % (19-41); Mean Corp Hgb Conc 31.2 g/dL (32-36); Mean Corpuscular Hgb 30.9 pg (27.0-32.0); Mean Platelet Vol. 10.2 fl (6.2-12.0); Monocyte% 10.4 % (0-10); NRBC Flagged by Analyzer 0 % (0-5); Neutrophil # 2.07 X10^3/uL (2.7-7.7); Neutrophil % 42.9 % (47-70); Platelet Count 187 K/mm3 (150-450); RBC Distribution Width CV 12.9 % (11.6-14.6); RBC Distribution Width SD 46.6 fl (35.1-43.9); Red Blood Count 2.88 M/mm3 (4.2-5.4); White Blood Count 4.8 K/mm3 (4.4-11.0)
[2022-06-11 07:33] LABS: Phosphorus 3.9 mg/dL (2.5-4.9)
[2022-06-11 07:40] LABS: Anion Gap 6 (5-15); BUN 29 mg/dL (7-18); BUN/Creat Ratio 17.2 RATIO (10-20); Calcium,Total 8.5 mg/dL (8.5-10.1); Chloride 103 mmol/L (98-107); Creatinine, Serum 1.69 mg/dL (0.55-1.02); EST Glomerular Filtration Rate 31 mL/min (>60); Est Glom Filt Rate - Afr Amer 37 mL/min (>60); Glucose 106 mg/dL (74-106); Magnesium 1.8 mg/dL (1.6-2.6); Potassium 4.1 mmol/L (3.5-5.1); Sodium Level 135 mmol/L (136-145); Thyroid Stim Hormone (TSH) 0.94 uIU/mL (0.358-3.74)
--- NOTE | 2022-06-11 08:58 | CASEMGMT ---
Addendum entered by Val Fang 06/11/22 14:16: Social Work [facility] is able to accept pt today. Physician updated and pt is ready for discharge. Phone call with pt dgjennifer Esquivel and updated that pt will d/c to [facility] today and dgt agreeable. SW met with pt and informed of the same and she is agreeable to the discharge plan. PASRR completed in the [facility] and faxed along with orders and negative covid results to [facility]. Transportation arranged with [facility] for 1715 pickup via cot. Pt, Dgt, nursing and [facility] updated on discharge time. Plan: [facility], skilled level of care [facility] Original Note: Social Work Phone call to Maite at [facility]. They have received the referral but have not reviewed yet. HO informed Makinen that pt is ready for discharge today. SW will await determination. Plan: [facility], pending precert [facility]
[2022-06-11 09:00] VITALS: BP 117/51; PULSE 54; RESP 18; TEMP 36.3; O2SAT 100
[2022-06-11] MEDS: Ipratropium Bromide 0.06% NASAL SPRAY 1 SPRAY NASAL (10:33)
[2022-06-11] MEDS: Menthol/Lanolin/Calamine/Znox 113 GM Tube 1 APPLIC TOPICAL (10:33)
[2022-06-11] MEDS: Isosorbide Mononitrate 30 MG Tablet PO (10:34)
[2022-06-11] MEDS: Febuxostat 40 MG TABLET PO (10:34)
[2022-06-11] MEDS: Nystatin Powder 15gm Bottle 1 APPLIC TOPICAL (10:34)
[2022-06-11] MEDS: Loratadine 10 MG Tablet PO (10:34)
[2022-06-11] MEDS: guaiFENesin 600 MG Tablet PO (10:34)
[2022-06-11 10:38] VITALS: PULSE 54
--- NOTE | 2022-06-11 11:20 | PCM.TXEXTCAR ---
Diet Diet Order/Speech Therapy: 06/10/22 19:29 Diet: Cardiac - Heart Healthy Food consistency:: Regular Liquid Consistency:: Regular/Thin Is pt able to select menu?: Yes Routine Orders/Code Status Enema Type: Fleetz Enema Frequency: Daily PRN Suppository Type: Dulcolax 10mg Suppository Frequency: Daily PRN O2 Liters per Minute: 2 O2 Frequency: Continuous Keep PO Greater than or Equal to (%): 90 Routine Lab Work: - (Weekly CBC, BMP) Code Status: DNRCC-A (No intubation) Wound(s) rt elbow': Wound Type: Abrasion Suggestions for Active Care Change Position every (hours): 2 Times a day to sit in chair: 3 Therapies Physical Therapy: Eval and Treat Occupational Therapy: Eval and Treat Problem/Diagnosis (1) Generalized muscle weakness: Status: Acute Code(s): M62.81 - Muscle weakness (generalized) (2) TANA (acute kidney injury): Status: Acute Code(s): N17.9 - Acute kidney failure, unspecified Allergies/Procedures Done in Hospital Allergies celecoxib [From Celebrex] Allergy (Verified 06/10/22 15:45) Hives NSAIDS (Non-Steroidal Anti-Inflamma Allergy (Verified 06/10/22 15:45) Rash strawberry [[place]] Allergy (Verified 06/10/22 15:45) Hives Sulfa (Sulfonamide Antibiotics) Allergy (Verified 06/10/22 15:45) Hives tomato [Tomato] Allergy (Verified 06/10/22 15:45) Hives Procedures: None Type of Care/Length of Stay Estimated LOS: Convalescent Care Less Than 30 days Type of Care Needed: Skilled Rehab Potential: Fair Prognosis: Fair Additional Orders/Day of Discharge H&P will serve as current which was dated: 06/10/22 Day of Discharge: 06/11/22 Discharge Plan Admission Admit Date/Time: 06/10/22 18:03 Primary Reason for Your Visit: Acute kidney injury, debility Attending Provider: Judy Tang Primary Care Provider: Jeffrey Zhou [employer] Providers: Joanna Levin Discharge Orders/Prescriptions Prescriptions: Continued levothyroxine 75 MCG tablet 75 mcg PO DAILY rosuvastatin 10 MG tablet 10 mg PO DAILY febuxostat [Uloric] 40 MG tablet 40 mg PO DAILY mirtazapine 15 mg tablet 15 mg PO QHS ipratropium bromide 42 mcg (0.06 %) spray,non-aerosol 1 spray INTRANASAL BID levocetirizine 5 mg tablet 5 mg PO DAILY Entresto 97-103 mg tablet 1 tab PO BID isosorbide mononitrate 30 mg Tablet Extended Release 24 Hr 30 mg PO DAILY 30 Days Qty: 30 0RF acetaminophen 500 mg Tablet 1,000 mg PO Q6H PRN PRN (Reason: Pain Score 1-10) Qty: 0 0RF trazodone 100 mg Tablet 150 mg PO QHS 30 Days Qty: 45 0RF metoprolol succinate 25 mg Tablet Extended Release 24 Hr 25 mg PO DAILY 30 Days Qty: 30 0RF Xarelto 10 mg Tablet 10 mg PO DINNER 30 Days Qty: 30 0RF doxepin 25 mg capsule 25 mg PO QHS furosemide 40 mg tablet 40 mg PO DAILY gabapentin 100 mg capsule 100 mg PO QHS Referrals / Follow Up: Malia Levin DO [STAFF PHYSICIAN] - Within 2 Weeks Jeffrey Zhou Chi, MD [Primary Care Provider] - In 1 Week Disposition Disposition (needs filled in before D/C Order can be placed): Longterm Facility
--- NOTE | 2022-06-11 11:27 | DS.PCM_ITS ---
Documented by User: Linette Aguirre NP, [employer] AND RE[employer]USTICIZING OPERATOR-C 06/11/22 11:37 Providers Date of Admission: 06/10/22 Date of Discharge: 06/11/22 Primary Care Physician: Dr. Jeffrey Zhou MD Reason For Visit: FALL/DEBILITY Diagnosis Discharge Diagnosis (1) Generalized muscle weakness: Status: Acute Code(s): M62.81 - Muscle weakness (generalized) (2) TANA (acute kidney injury): Status: Acute Code(s): N17.9 - Acute kidney failure, unspecified Medications at Discharge Home Medications febuxostat 40 mg tablet (Uloric) 40 mg PO DAILY Gout 10/06/17 levothyroxine 75 mcg tablet 75 mcg PO DAILY Thyroid 10/06/17 rosuvastatin 10 mg tablet 10 mg PO DAILY Cholesterol 10/06/17 ipratropium bromide 42 mcg (0.06 %) nasal spray 1 spray intranasal BID SINUS 03/11/22 levocetirizine 5 mg tablet 5 mg PO DAILY ALLERGIES 03/11/22 mirtazapine 15 mg tablet 15 mg PO QHS SLEEP 03/11/22 sacubitril 97 mg-valsartan 103 mg tablet (Entresto) 1 tab PO BID HEART 03/11/22 acetaminophen 500 mg tablet 1,000 mg PO Q6H PRN PRN Pain Score 1-10 #0 tabs 03/25/22 isosorbide mononitrate 30 mg tablet,extended release 24 hr 30 mg PO DAILY 30 days #30 tabs 03/25/22 metoprolol succinate 25 mg tablet,extended release 24 hr 25 mg PO DAILY 30 days #30 tabs 03/25/22 rivaroxaban 10 mg tablet (Xarelto) 10 mg PO DINNER 30 days #30 tabs 03/25/22 trazodone 100 mg tablet 150 mg PO QHS 30 days #45 tabs 03/25/22 doxepin 25 mg capsule 25 mg PO QHS sleep 04/23/22 furosemide 40 mg tablet 40 mg PO DAILY fluid 06/10/22 gabapentin 100 mg capsule 100 mg PO QHS nerve pain 06/10/22 Hospital Course Operations None Procedures None Summary of Care Provided Hospital Course: Patient is an 86-year-old female admitted 06/10/2022 due to weakness with fall. 1. Debility, failure to thrive with fall-brain CT, cervical spine CT, chest abdomen pelvis CT and chest x-ray without acute process.? Recently discharged from SNF. Plan for return to SNF for ongoing rehab. 2.? Acute kidney injury on chronic kidney disease stage IIIa-acute kidney injury resolved. Trend BMP at SNF. 3. Chronic heart failure with reduced ejection fraction-Echo with EF 20%.? RVSP estimated to be 71 mmHg. Continue medical management. 4. Hypertension-stable, continue home regimen. 5. Hyperlipidemia-continue statin. 6. BAILEY/pulmonary hypertension-continue PAP regimen. 7. Morbid obesity-weight loss encouraged. 8. 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 9. Hypothyroidism-continue Synthroid regimen.? TSH within normal limits. Physical Exam Const alert and oriented x3 Constitutional Narrative: Fatigued appearing. Orientation / Consciousness: awake, oriented to person, oriented to place and oriented to time Nutritional Appearance: morbidly obese HEENT normocephalic Mouth: dry mucous membranes Eyes PERRL, EOMs intact bilaterally and conjunctivae normal Neck no lymphadenopathy Resp clear to auscultation bilaterally Auscultation: diminished lung sounds Cardio regular rate, regular rhythm and no murmurs Peripheral Pulses: pulses 2+ throughout GI normal to inspection, nondistended, normoactive bowel sounds, non-tender and non-distended Extremity normal to inspection Skin no rashes or lesions noted Lesions: no lesions Rashes: no rashes Trauma: no lacerations or abrasions Neuro CN's II-XII intact bilaterally, no focal motor deficits, no sensory deficits noted and deep tendon reflexes 2+ bilaterally Psych Mood & Affect: flat affect Patient seen and examined prior to discharge. Physical assessment as noted above. Patient is stable for discharge with follow up recommendations as noted above. This patient was seen by SILVANO Edwards under the supervision of Dr. Tang. Time spent examining patient, reviewing data and subsequent management of care: 25 minutes Weight / BMI Weight Weight: 275 lb 2.19 oz Body Mass Index (BMI) 47.0 ABG / Lab / Microbiology Data Result Diagrams: 06/11/22 06:18 06/11/22 06:18 Laboratory: Laboratory Results - last 24 hr 06/10/22 16:50: WBC 8.3, RBC 3.85 L, Hgb 11.9 L, Hct 38.6, MCV 100.3 H, MCH 30.9, MCHC 30.8 L, RDW Std Deviation 47.8 H, RDW Coeff of Mey 13.0, Plt Count 284, MPV 9.9, Immature Gran % (Auto) 0.200, Neut % (Auto) 58.8, Lymph % (Auto) 27.8, [place] % (Auto) 8.9, Eos % (Auto) 3.7, Baso % (Auto) 0.6, Absolute Neuts (auto) 4.9, Absolute Lymphs (auto) 2.31, Nucleated RBC % 0 06/10/22 16:50: Sodium 133 L, Potassium 4.0, Chloride 97 L, Carbon Dioxide 29.0, Anion Gap 7, BUN 31 H, Creatinine 2.30 H, Estim Creat Clear Calc 15.72, Est GFR (MDRD) Af Amer 26 L, Est GFR (MDRD) Non-Af 21 L, BUN/Creatinine Ratio 13.5, Glucose 126 H, Calcium 9.4, Total Bilirubin 0.40, AST 13 L, ALT 12 L, Alkaline Phosphatase 57, Troponin I High Sens 17, Total Protein 8.2, Albumin 3.4, Globulin 4.8 H, Albumin/Globulin Ratio 0.7 L 06/10/22 17:10: Urine Color Yellow, Urine Clarity Clear, Urine pH 5.0, Ur Specific [place] 1.020, Urine Protein Negative, Urine Glucose (UA) Normal, Urine Ketones Negative, Urine Occult Blood Negative, Urine Nitrite Negative, Urine Bilirubin Negative, Urine Urobilinogen Normal, Ur Leukocyte Esterase Negative, Urine RBC 0 SEEN, Urine WBC 0-5 SEEN, Ur Squamous Epith Cells 0 SEEN, Urine Bacteria RARE, Urine Mucus 0 SEEN 06/11/22 06:18: WBC 4.8, RBC 2.88 L, Hgb 8.9 L, Hct 28.5 L, MCV 99.0, MCH 30.9, MCHC 31.2 L, RDW Std Deviation 46.6 H, RDW Coeff of Mey 12.9, Plt Count 187, MPV 10.2, Immature Gran % (Auto) 0.400, Neut % (Auto) 42.9 L, Lymph % (Auto) 40.9, [place] % (Auto) 10.4 H, Eos % (Auto) 4.8, Baso % (Auto) 0.6, Absolute Neuts (auto) 2.1, Absolute Lymphs (auto) 1.97, Nucleated RBC % 0 06/11/22 06:18: Sodium 135 L, Potassium 4.1, Chloride 103, Carbon Dioxide 26.0, Anion Gap 6, BUN 29 H, Creatinine 1.69 H, Estim Creat Clear Calc 21.40, Est GFR (MDRD) Af Amer 37 L, Est GFR (MDRD) Non-Af 31 L, BUN/Creatinine Ratio 17.2, Glucose 106, Calcium 8.5, Magnesium 1.8, TSH 0.94 06/11/22 06:18: Phosphorus 3.9 Radiography Diagnostic Testing: Radiology Impression Brain CT 06/10/22 15:59 IMPRESSION: There are no acute intracranial findings. Electronically Signed: Silver Izquierdo MD at 16:55 EDT , Cervical Spine CT 06/10/22 15:59 IMPRESSION: Degenerative changes of the cervical spine. There is mild straightening of the normal cervical lordosis. This can suggest neck strain. Partially visualized disc herniation at C6-7. MRI can better evaluate. Electronically Signed: Silver Izquierdo MD at 16:57 EDT , Chest/Abdomen/Pelvis CT 06/10/22 16:02 IMPRESSION: No acute findings in the chest, abdomen or pelvis. Electronically Signed: Silver Izquierdo MD at 17:04 EDT , Chest X-Ray 06/10/22 16:36 IMPRESSION: There are no acute findings. Electronically Signed: Silver Izquierdo MD at 16:55 EDT , Meaningful Use Info Meaningful Use Diagnoses (Choose all that apply): None applicable Discharge Plan Admission Admit Date/Time: 06/10/22 18:03 Primary Reason for Your Visit: Acute kidney injury, debility Attending Provider: Judy Tang Primary Care Provider: Jeffrey Zhou [employer] Providers: Joanna Levin Discharge Orders/Prescriptions Prescriptions: Continued levothyroxine 75 MCG tablet 75 mcg PO DAILY rosuvastatin 10 MG tablet 10 mg PO DAILY febuxostat [Uloric] 40 MG tablet 40 mg PO DAILY mirtazapine 15 mg tablet 15 mg PO QHS ipratropium bromide 42 mcg (0.06 %) spray,non-aerosol 1 spray INTRANASAL BID levocetirizine 5 mg tablet 5 mg PO DAILY Entresto 97-103 mg tablet 1 tab PO BID isosorbide mononitrate 30 mg Tablet Extended Release 24 Hr 30 mg PO DAILY 30 Days Qty: 30 0RF acetaminophen 500 mg Tablet 1,000 mg PO Q6H PRN PRN (Reason: Pain Score 1-10) Qty: 0 0RF trazodone 100 mg Tablet 150 mg PO QHS 30 Days Qty: 45 0RF metoprolol succinate 25 mg Tablet Extended Release 24 Hr 25 mg PO DAILY 30 Days Qty: 30 0RF Xarelto 10 mg Tablet 10 mg PO DINNER 30 Days Qty: 30 0RF doxepin 25 mg capsule 25 mg PO QHS furosemide 40 mg tablet 40 mg PO DAILY gabapentin 100 mg capsule 100 mg PO QHS Referrals / Follow Up: Malia Levin DO [STAFF PHYSICIAN] - Within 2 Weeks Jeffrey Zhou Chi, MD [Primary Care Provider] - In 1 Week Disposition Disposition (needs filled in before D/C Order can be placed): [facility] Facility Documented by User: Dr. Judy Tang MD 06/11/22 15:26 Providers Date of Admission: 06/10/22 Reason For Visit: FALL/DEBILITY Diagnosis Discharge Diagnosis (1) Generalized muscle weakness: Status: Acute Code(s): M62.81 - Muscle weakness (generalized) (2) TANA (acute kidney injury): Status: Acute Code(s): N17.9 - Acute kidney failure, unspecified Medications at Discharge Home Medications febuxostat 40 mg tablet (Uloric) 40 mg PO DAILY Gout 10/06/17 levothyroxine 75 mcg tablet 75 mcg PO DAILY Thyroid 10/06/17 rosuvastatin 10 mg tablet 10 mg PO DAILY Cholesterol 10/06/17 ipratropium bromide 42 mcg (0.06 %) nasal spray 1 spray intranasal BID SINUS 03/11/22 levocetirizine 5 mg tablet 5 mg PO DAILY ALLERGIES 03/11/22 mirtazapine 15 mg tablet 15 mg PO QHS SLEEP 03/11/22 sacubitril 97 mg-valsartan 103 mg tablet (Entresto) 1 tab PO BID HEART 03/11/22 acetaminophen 500 mg tablet 1,000 mg PO Q6H PRN PRN Pain Score 1-10 #0 tabs 03/25/22 isosorbide mononitrate 30 mg tablet,extended release 24 hr 30 mg PO DAILY 30 days #30 tabs 03/25/22 metoprolol succinate 25 mg tablet,extended release 24 hr 25 mg PO DAILY 30 days #30 tabs 03/25/22 rivaroxaban 10 mg tablet (Xarelto) 10 mg PO DINNER 30 days #30 tabs 03/25/22 trazodone 100 mg tablet 150 mg PO QHS 30 days #45 tabs 03/25/22 doxepin 25 mg capsule 25 mg PO QHS sleep 04/23/22 furosemide 40 mg tablet 40 mg PO DAILY fluid 06/10/22 gabapentin 100 mg capsule 100 mg PO QHS nerve pain 06/10/22 ABG / Lab / Microbiology Data Result Diagrams: 06/11/22 06:18 06/11/22 06:18 Discharge Plan Admission Admit Date/Time: 06/10/22 18:03 Primary Reason for Your Visit: Acute kidney injury, debility Attending Provider: Judy Tang Primary Care Provider: Jeffrey Zhou [employer] Providers: Joanna Levin Discharge Orders/Prescriptions Prescriptions: Continued levothyroxine 75 MCG tablet 75 mcg PO DAILY rosuvastatin 10 MG tablet 10 mg PO DAILY febuxostat [Uloric] 40 MG tablet 40 mg PO DAILY mirtazapine 15 mg tablet 15 mg PO QHS ipratropium bromide 42 mcg (0.06 %) spray,non-aerosol 1 spray INTRANASAL BID levocetirizine 5 mg tablet 5 mg PO DAILY Entresto 97-103 mg tablet 1 tab PO BID isosorbide mononitrate 30 mg Tablet Extended Release 24 Hr 30 mg PO DAILY 30 Days Qty: 30 0RF acetaminophen 500 mg Tablet 1,000 mg PO Q6H PRN PRN (Reason: Pain Score 1-10) Qty: 0 0RF trazodone 100 mg Tablet 150 mg PO QHS 30 Days Qty: 45 0RF metoprolol succinate 25 mg Tablet Extended Release 24 Hr 25 mg PO DAILY 30 Days Qty: 30 0RF Xarelto 10 mg Tablet 10 mg PO DINNER 30 Days Qty: 30 0RF doxepin 25 mg capsule 25 mg PO QHS furosemide 40 mg tablet 40 mg PO DAILY gabapentin 100 mg capsule 100 mg PO QHS Referrals / Follow Up: Malia Levin DO [STAFF PHYSICIAN] - Within 2 Weeks Jeffrey Zhou Chi, MD [Primary Care Provider] - In 1 Week Disposition Disposition (needs filled in before D/C Order can be placed): [facility] Facility Charges/Coding Addendum Addendum: Patient seen by Linette SCHAEFER under my supervision Patient is an 86 y/o female with a PMH as outlined who was admitted via the ED on 06/10/2022 with a complaint of weakness and mechanical fall. She was recently discharged from a SNF 1 day prior to admission. She went home and couldnt take care of herself, and says she fell at home and hit her head. She therefore called the EMS and was brought in to the ED. She was admitted and managed for debility and failure to thrive. PT/OT was consulted. She had CT of the brain, cervical spine , chest, abdomen and pelvis showed no acute pathology. She also had elevated Cr on admission, which resolved and trended back down to her ba seline. SHe was skilled for SNF and was discharged to SNF on 06/11/2022. SHe is to follow up with her PCP in 1-2 weeks. Patient seen and examined prior to discharge. SHe had no active complaints. REv iew of systems is otherwise negative. Labs and vitals reviewed. Home meds reviewed and reconciled. O/E: Const lethargic but arousable General Appearance: cooperative HEENT normocephalic, head/scalp atraumatic, hearing grossly normal bilaterally and moist oral mucous membranes Eyes PERRL, EOMs intact bilaterally and conjunctivae normal Neck no lymphadenopathy, supple and no JVD Resp normal respiratory effort and clear to auscultation bilaterally Cardio regular rate, regular rhythm, S1 normal heart sound, S2 normal heart sound and no murmurs GI normal to inspection, nondistended, normoactive bowel sounds and soft to palpation Extremity normal to inspection, full ROM and no clubbing, cyanosis or edema Skin no rashes or lesions noted Neuro oriented x3, CN's II-XII intact bilaterally and moves all extremities Sensorium / Orientation: lethargic Psych affect normal Plan is for DC to SNF today Rest as per Linette Aguirre L[employer] K[employer] AND RECAUSTICIZING OPERATOR-C's note, which I have reviewed and endorsed. Visit Charges OBSV E&M: 88861 Observation care discharge
--- NOTE | 2022-06-11 11:47 | CASEMGMT ---
Discharge [facility] Follower [facility] reached out. [facility] accepted patient. Yuliet will send over PT/OT notes when they become available. Plan: [facility]. Yuliet Schumacher Discharge Derrick Follower
[2022-06-11 15:00] VITALS: O2SAT 98
--- NOTE | 2022-06-11 16:21 | NURSING ---
Called [facility], Gave report to agency nurse on said hallway. Patient to be picked up at 1715
[2022-06-11 19:50] VITALS: BP 108/51; PULSE 82; RESP 20; TEMP 36.6; O2SAT 92
== END 2022-06-11 20:05 | disposition skilled nursing facility (03) ==
LOC: ED 18:15 → MS3 18:20
PROVIDERS: Admitting Provider Internal Medicine; Emergency Provider Student in an Organized Health Care Education/Training Program; PCP Family Medicine Geriatric Medicine; Visit Provider Student in an Organized Health Care Education/Training Program
DX: R62.7 Adult failure to thrive (principal); N17.9 Acute kidney failure, unspecified; I13.0 Hypertensive heart and chronic kidney disease with heart failure and stage 1 through stage 4 chronic kidney disease, or unspecified chronic kidney disease; I50.22 Chronic systolic (congestive) heart failure; I27.20 Pulmonary hypertension, unspecified; I48.91 Unspecified atrial fibrillation; E66.01 Morbid (severe) obesity due to excess calories; Z68.42 Body mass index [BMI] 45.0-49.9, adult; N18.31 Chronic kidney disease, stage 3a; G47.33 Obstructive sleep apnea (adult) (pediatric); E87.1 Hypo-osmolality and hyponatremia; M62.81 Muscle weakness (generalized); E87.8 Other disorders of electrolyte and fluid balance, not elsewhere classified; R26.2 Difficulty in walking, not elsewhere classified; R51.9 Headache, unspecified; E78.00 Pure hypercholesterolemia, unspecified; E03.9 Hypothyroidism, unspecified; Y93.01 Activity, walking, marching and hiking; R53.81 Other malaise; D64.9 Anemia, unspecified; Z79.01 Long term (current) use of anticoagulants; S20.229A Contusion of unspecified back wall of thorax, initial encounter; S50.319A Abrasion of unspecified elbow, initial encounter; Z86.711 Personal history of pulmonary embolism; Z86.718 Personal history of other venous thrombosis and embolism; Z79.899 Other long term (current) drug therapy; Z79.890 Hormone replacement therapy; Y99.9 Unspecified external cause status; W19.XXXA Unspecified fall, initial encounter; Y92.009 Unspecified place in unspecified non-institutional (private) residence as the place of occurrence of the external cause
CPT/HCPCS: 36415; 70450; 71045; 71250; 72125; 74176; 80048; 80053; 81001; 83735; 84100; 84443; 84484; 85025; 87426; 93005; 96361; 96374; 97162; 97166; 99218; 99251; 99285; J7030; P9612; A4216; G0378; G0463

== ENCOUNTER → 2022-06-16 | Outpatient (REF) | payer SELFPAY ==
[2022-06-16 08:45] LABS: Hematocrit 29.7 % (37-47); Hemoglobin 9.2 g/dL (12.0-15.0); Mean Corpuscular Hgb 31.5 pg (27.0-32.0); Mean Corpuscular Volume 101.7 fL (81-99); Mean Platelet Vol. 10.3 fl (6.2-12.0); Platelet Count 237 K/mm3 (150-450); RBC Distribution Width CV 13.2 % (11.6-14.6); RBC Distribution Width SD 49.6 fl (35.1-43.9); Red Blood Count 2.92 M/mm3 (4.2-5.4); White Blood Count 5.5 K/mm3 (4.4-11.0)
[2022-06-16 08:52] LABS: Anion Gap 4 (5-15); BUN 21 mg/dL (7-18); BUN/Creat Ratio 18.1 RATIO (10-20); Calcium,Total 8.8 mg/dL (8.5-10.1); Chloride 102 mmol/L (98-107); Creatinine, Serum 1.16 mg/dL (0.55-1.02); EST Glomerular Filtration Rate 47 mL/min (>60); Est Glom Filt Rate - Afr Amer 57 mL/min (>60); Glucose 101 mg/dL (74-106); Potassium 3.9 mmol/L (3.5-5.1); Sodium Level 137 mmol/L (136-145)
== END | disposition home or self-care (01) ==
LOC: OLS.WHLEAS 05:00
PROVIDERS: PCP Family Medicine Geriatric Medicine; Visit Provider Family Medicine
DX: M77.31 Calcaneal spur, right foot (principal); N30.00 Acute cystitis without hematuria; M79.671 Pain in right foot; M62.81 Muscle weakness (generalized); R26.2 Difficulty in walking, not elsewhere classified
CPT/HCPCS: 36415; 80048; 85027

== ENCOUNTER 2022-07-23 12:10 | Inpatient (IN) | payer MEDICARE, OTHER, MEDICAID, SELFPAY ==
[2022-07-23] VITALS (8 sets, daily range): BP systolic 111–168; BP diastolic 55–140; PULSE 71–84; RESP 16–18; TEMP 36.4–36.7; O2SAT 93–99; BMI 45.0
--- NOTE | 2022-07-23 12:47 | CT_ITS ---
STUDY: CT BRAIN WITHOUT CONTRAST REASON FOR EXAM: Female, 86 years old. Fall -- thinners RADIATION DOSAGE (If Supplied By Facility): CTDIvol = ( 44.99 ) mGy, DLP = ( 812.98 ) mGycm TECHNIQUE: Transaxial CT imaging of the brain was performed without administration of intravenous contrast material. Individualized dose optimization techniques were used for this CT. COMPARISON: Comparison is made with prior study dated 06/10/2022. FINDINGS: Normal soft tissue structures. There is hyperostosis frontalis internus. There is mild cerebral atrophy with widening of the extra-axial spaces and ventricular dilatation. There are areas of decreased attenuation within the white matter tracts of the supratentorial brain, consistent with microvascular disease changes. Normal basal ganglia and thalami. Normal brainstem. Normal cerebellum. There is no intracranial hemorrhage. There are no findings of an acute ischemic infarction. Atherosclerotic plaque formation of the vertebral arteries and cavernous portions of the internal carotid arteries bilaterally. Normal visualized paranasal sinuses. CT/Brain/Head without Contrast IMPRESSION: Chronic involutional changes of the brain. Electronically Signed: Tomas Marquez MD at 13:18 EDT ,
--- NOTE | 2022-07-23 12:58 | ED.RN ---
PT'S SON RENA SUGGS LEAVING AT THIS TIME AND REQUESTING TO BE CALLED WITH ANY UPDATES OR IF PATIENT IS TO BE ADMITTED. PHONE NUMBER [phone]
--- NOTE | 2022-07-23 13:26 | RAD_ITS ---
STUDY: X-RAY - RIGHT FEMUR REASON FOR STUDY: Female, 86 years old. Pain following a fall. TECHNIQUE: 4 view(s) of the femur. COMPARISON: Comparison is made with prior study dated 05/27/2018. FINDINGS: The patient is status post intramedullary tara fixation device. Healed distal femoral fracture. This is unchanged. Vascular calcification. RAD/Femur Min 2 Views IMPRESSION: Status post right intramedullary tara fixation device with healed fracture with residual deformity of the distal femoral fracture. Electronically Signed: Tomas Marquez MD at 14:06 EDT ,
--- NOTE | 2022-07-23 13:26 | RAD_ITS ---
STUDY: X-RAY - RIGHT KNEE REASON FOR EXAM: Female, 86 years old. Fall TECHNIQUE: 2 view(s) of the knee. COMPARISON: Comparison is made with prior examination dated 03/11/2022. FINDINGS: The patient is status post total knee replacement. There is good alignment. There has been no change. There is evidence of a healed distal femoral fracture. There now is evidence of a nondisplaced fracture of the proximal fibular neck as well as an avulsion type fracture of the anterior tibial tubercle. Pretibial soft tissue swelling. RAD/Knee 1 or 2 Views IMPRESSION: Avulsion fracture of the anterior tibial tubercle as well as nondisplaced fracture of the proximal neck of the fibula. Prevertebral soft tissue swelling. Status post right total knee replacement. Electronically Signed: Tomas Marquez MD at 14:03 EDT ,
--- NOTE | 2022-07-23 13:27 | RAD_ITS ---
STUDY: X-RAY CHEST REASON FOR EXAM: Female, 86 years old. Cough TECHNIQUE: Single AP portable view of the chest. COMPARISON: Comparison is made with prior study dated 06/10/2022. FINDINGS: Hyperinflation. There is no demonstrated pleural abnormality. There is moderate cardiac enlargement. Normal mediastinum and mandeep. Normal visualized pulmonary arteries. There is atherosclerotic calcification of the aortic arch with tortuosity. There are diffuse degenerative changes of the visualized thoracic spine. Normal visualized ribs, clavicles, and shoulders. There is no demonstrated abnormality of the visualized soft tissue structures of the upper abdomen. RAD/Chest 1 View (Portable) IMPRESSION: Hyperinflation. Moderate cardiomegaly. Electronically Signed: Tomas Marquez MD at 14:01 EDT ,
--- NOTE | 2022-07-23 13:27 | RAD_ITS ---
STUDY: X-RAY - RIGHT TIBIA AND FIBULA REASON FOR EXAM: Female, 86 years old. Pain following a fall. TECHNIQUE: 2 view(s) of the tibia and fibula were obtained. COMPARISON: None. FINDINGS: Nondisplaced avulsion fracture of the anterior tibial tubercle as well as nondisplaced fracture of the proximal fibular neck. Pretibial soft tissue swelling. RAD/Tibia & Fibula 2 Views IMPRESSION: Nondisplaced avulsion fracture of the anterior tibial tubercle as well as nondisplaced fracture of the proximal fibular neck. Pretibial soft tissue swelling. Electronically Signed: Tomas Marquez MD at 14:05 EDT ,
--- NOTE | 2022-07-23 13:30 | ED.VIS.FALL ---
HPI HPI - Fall History of Present Illness Chief Complaint: Fall Informant: patient Occured/Mechanism Occurred: Today and Hours Mechanism/Context: Yes same level fall Usually ambulates: Walker Pain/Injury Pain Location: head and lower extremity Quality of Pain: Sharp and Stabbing Current Severity: Moderate Maximum Severity: Moderate Associated Symptoms Associated Symptoms: Negative for Parasthesias, Weakness, Loss of function, Loss of consciousness or Amnesia Narrative Narrative: -year-old female history of CHF, hypertension, DVT and PE, A. fib, diabetes on Xarelto. She was walking through her house going from her bedroom to the hallway when she lost her balance and fell injuring her right knee and lower leg. Hit her head on the floor. States she landed on the linoleum floor. No LOC. She denies any other complaints. Other than a chronic cough. Patient's recently had admission to [facility] for falls and recent senior care placement. Prior similar symptoms: Yes Recent Illness/Hospitalization: Yes PFSH PFSH Medical History CHF (congestive heart failure) Depression Generalized muscle weakness High cholesterol HTN (hypertension) Hx of deep venous thrombosis Hx of pulmonary embolus Hypothyroid Kidney disease Non-smoker Home Medications febuxostat 40 mg tablet (Uloric) 40 mg PO DAILY Gout 10/06/17 [History Last Taken 07/22/22] levothyroxine 75 mcg tablet 75 mcg PO DAILY Thyroid 10/06/17 [History Last Taken 07/22/22] rosuvastatin 10 mg tablet 10 mg PO DAILY Cholesterol 10/06/17 [History Last Taken 07/22/22] ipratropium bromide 42 mcg (0.06 %) nasal spray 1 spray intranasal BID SINUS 03/11/22 [History Last Taken 07/22/22] levocetirizine 5 mg tablet 5 mg PO DAILY ALLERGIES 03/11/22 [History Last Taken 07/22/22] mirtazapine 15 mg tablet 15 mg PO QHS SLEEP 03/11/22 [History Last Taken 07/22/22] sacubitril 97 mg-valsartan 103 mg tablet (Entresto) 1 tab PO BID HEART 03/11/22 [History Last Taken 07/23/22] acetaminophen 500 mg tablet 1,000 mg PO Q6H PRN PRN Pain Score 1-10 #0 tabs 03/25/22 [Rx Last Taken 07/22/22] doxepin 25 mg capsule 25 mg PO QHS sleep 04/23/22 [History Last Taken 07/22/22] furosemide 40 mg tablet 40 mg PO DAILY fluid 06/10/22 [History Last Taken 07/22/22] gabapentin 100 mg capsule 100 mg PO QHS nerve pain 06/10/22 [History Last Taken 07/22/22] isosorbide mononitrate 30 mg tablet,extended release 24 hr 30 mg PO DAILY heart 07/23/22 [History Last Taken 07/22/22] metoprolol succinate 25 mg tablet,extended release 24 hr 25 mg PO DAILY bp 07/23/22 [History Last Taken 07/23/22] rivaroxaban 10 mg tablet (Xarelto) 10 mg PO DINNER blood thinner 07/23/22 [History Last Taken 07/22/22] trazodone 100 mg tablet 150 mg PO QHS mood 07/23/22 [History Last Taken 07/22/22] Allergy/AdvReac Type Severity Reaction Status Date / Time celecoxib [From Celebrex] Allergy Hives Verified 07/23/22 12:19 NSAIDS (Non-Steroidal Allergy Rash Verified 07/23/22 12:19 Anti-Inflamma strawberry [[place]] Allergy Hives Verified 07/23/22 12:19 Sulfa (Sulfonamide Allergy Hives Verified 07/23/22 12:19 Antibiotics) tomato [Tomato] Allergy Hives Verified 07/23/22 12:19 Family History Father Congestive heart failure Mother Diabetes Congestive heart failure Brother Diabetes Surgical History History of cholecystectomy History of total bilateral knee replacement Social History household members: none Smoking Status: Never smoker alcohol intake: never substance use type: does not use ROS ROS ED ROS Narrative Cough. Head injury. Right lower leg pain due to fall. Review of Systems ROS Unobtainable: Denies due to encephalopathy Constitutional Constitutional ED: Denies chills or fever(s) Eyes Eyes: Denies blurry vision ENT ENT ED: Denies ear pain Cardiovascular Cardiovascular: Denies chest pain Respiratory/Chest Respiratory/Chest: Reports cough; Denies dyspnea Gastrointestinal Gastrointestinal: Denies abdominal pain Genitourinary Genitourinary ED: Denies dysuria or hematuria Musculoskeletal Musculoskeletal: Denies arthralgias or back pain Integumentary Denies abscess Neurologic Neurologic: Denies headache(s) Psychiatric Psychiatric: Denies anxiety Endocrine Endocrinology: Denies polydipsia Hematologic/Lymphatic Hematologic/Lymphatic: Denies easy bleeding Allergic/Immunologic Allergic/Immunologic ED: Denies mouth swelling or tongue swelling EXAM Physical Exam Narrative Exam Narrative: 86-year-old female. No acute distress. Vital signs stable afebrile. Initial blood pressure 143/122. Pulse is 93% on 2 L. She is chronic O2 requirement. H EENT exam no facial trauma. Face nontender. She has a half dollar size hematoma posterior scalp. No laceration or blood. C-spine nontender. Trachea midline. Lungs coarse breath sounds bilaterally. Dry cough. Heart regular rhythm rate about 80 no murmur. Chest were nontender. Abdomen soft nontender. Pelvic girdle intact. Tenderness right knee with swelling. Decreased flexion extension of right knee due to pain. Dorsi plantarflexion intact. Both ankles and left lower extremity is unremarkable. Upper extremities she has a small skin tear and contusion to her right forearm. Nothing needs to be sewn. There is currently no bleeding. Neurologically she is awake and alert. Moving all 4 extremities. Const Vital Signs: 07/23/22 12:10 07/23/22 12:23 07/23/22 13:26 Temperature 97.9 F Temperature Source Temporal Pulse Rate 74 84 Respiratory Rate 18 16 Respiratory Effort Normal Non-Labored Respiratory Depth Normal Respiratory Pattern Normal Blood Pressure 143/122 H 168/140 H Blood Pressure Mean 129 149 Pulse Ox 93 Oxygen Delivery Method Nasal Cannula Oxygen Flow Rate (L/min) 2 07/23/22 13:30 07/23/22 14:00 07/23/22 15:00 Temperature Temperature Source Pulse Rate 74 76 Respiratory Rate 18 16 Respiratory Effort Respiratory Depth Respiratory Pattern Blood Pressure 155/109 H 121/55 H 125/56 H Blood Pressure Mean 124 77 79 Pulse Ox 98 98 96 Oxygen Delivery Method Nasal Cannula Nasal Cannula Oxygen Flow Rate (L/min) 2 Positive well nourished, well developed and obese; Negative for cachectic, contractures or unkempt General Appearance ED: well developed and NAD; Negative for unkempt, cachectic or contractures Nutritional Appearance: obese; Negative for cachectic HEENT Denies normocephalic trauma, contusion and hematoma; Negative for atraumatic Eyes PERRL and EOMs intact bilaterally General Eye ED: Negative for pale conjunctiva Neck full ROM, no lymphadenopathy and supple General: Negative for tenderness Chest Wall inspection of chest normal and palpation of chest normal Chest: Negative for other Resp normal respiratory effort, no retractions and clear to auscultation bilaterally Auscultation: Negative for rales, rhonchi or wheezes Cardio regular rate, regular rhythm, S1 normal heart sound, S2 normal heart sound and no murmurs Rate: Negative for bradycardia Rhythm: Negative for abnormal rhythm Bruits: Negative for other GI non-tender, non-distended and no masses Inspection: Negative for abdominal distention Auscultation: normoactive bowel sounds Palpation: soft; Negative for guarding Back/Spine no CVA tenderness Cervical Spine: Negative for cervical spine tenderness Neuro oriented x3, moves all extremities and no focal motor deficits [place] Coma Scale: document GCS findings Spontaneous Obeys Commands Oriented 15 Sensorium / Orientation: alert, oriented to person, oriented to place and oriented to time; Negative for orientation impaired, confused, lethargic or stuporous Motor Exam: strength 5/5 throughout Psych mental status grossly normal Appearance: Negative for unkempt Attitude: No agitated Mood & Affect: Negative for depressed, anxious or tearful Skin General Skin Exam: Negative for other Lesions: no lesions Rashes: no rashes Trauma: Negative for abrasion MDM MDM MDM Narrative Medical decision making narrative: 86-year-old fell at home hit her head. She is on the blood thinner Xarelto. CAT scan was obtained. She will also need x-rays of her right femur, knee and lower leg. She has some And pain to her right knee. Repeat exam at 3 for the p.m. Patient knee is swollen and tender. Both over the proximal fibula at the knee itself and anterior tibia. Consistent with her fractures. She has a palpable DP pulse. The right foot and ankle are unremarkable with normal touch sensation. She is able to wiggle her toes. I discussed the injuries and x-rays with her and family at bedside. She is unable to ambulate due to the injury I spoke to the hospitalist about admission and the 7th grade social studies teacher is also involved to see if she could be transferred possibly directly back to the recent senior care she was that with the [facility]. Screening labs are being obtained. IV placed. She is being given morphine and Zofran. Our 7th grade social studies teacher talk to [facility]. They are unable to accommodate the patient tonight. She will be admitted to the hospitalist for physical therapy evaluation and her transferred back to the extended care [facility]. Radiography Diagnostic Testing: Clinical Impression(s) from Imaging Studies Brain CT 07/23/22 12:47 IMPRESSION: Chronic involutional changes of the brain. Electronically Signed: Tomas Marquez MD at 13:18 EDT , Femur X-Ray 07/23/22 13:26 IMPRESSION: Status post right intramedullary tara fixation device with healed fracture with residual deformity of the distal femoral fracture. Electronically Signed: Tomas Marquez MD at 14:06 EDT , Knee X-Ray 07/23/22 13:26 IMPRESSION: Avulsion fracture of the anterior tibial tubercle as well as nondisplaced fracture of the proximal neck of the fibula. Prevertebral soft tissue swelling. Status post right total knee replacement. Electronically Signed: Tomas Marquez MD at 14:03 EDT , Chest X-Ray 07/23/22 13:27 IMPRESSION: Hyperinflation. Moderate cardiomegaly. Electronically Signed: Tomas Marquez MD at 14:01 EDT , Tibia/Fibula X-Ray 07/23/22 13:27 IMPRESSION: Nondisplaced avulsion fracture of the anterior tibial tubercle as well as nondisplaced fracture of the proximal fibular neck. Pretibial soft tissue swelling. Electronically Signed: Tomas Marquez MD at 14:05 EDT , Right femur shows no acute abnormality. Intramedullary tara. 2 views interpreted by myself and the radiologist. Right knee x-ray 4 views turbid by myself and the radiologist shows a proximal fibula fracture and a tibial tubercle avulsion fracture. Right lower leg x-ray shows a proximal fibula fracture and a right tibial tubercle fracture. 2 views interpreted by myself and radiologist. Discharge Plan Dx/Rx/DC Orders Clinical Impression: Fall, Unable to ambulate, Fibula fracture, Tibial fracture, Closed head injury, History of diabetes mellitus, Chronic anticoagulation Disposition Disposition: Acute Care Hospital [facility]
--- NOTE | 2022-07-23 16:05 | CM.ED ---
Addendum entered by Stacia Fitch 07/23/22 19:19: Confirmation of fax receipt received. Stacia Fitch Original Note: HO Wilson MD advised this service writer to contact SNF to see if patient could return to SNF from the ED. HO called Maite at [facility]. Maite advised that the patient could not return tonight and would need to be admitted. Maite advised that for a referral she will need face sheet, med list, history and physical and therapy notes. HO offered to start the referral and Maite said we won't look at it until we get the therapy notes. Maite said that she has to research if patient has any skilled days left under her insurance benefits as she was just home for one week and previously had been there before. HO updated MD Merida that patient needs to be admitted. HO faxed ED notes and face sheet to [facility]. Stacia PRATT
--- NOTE | 2022-07-23 16:30 | HP.PCM.HOS_ITS ---
Documented by User: Linette Aguirre NP, [employer] 07/23/22 16:48 HPI - General General Date of Admission: 07/23/22 Date of Service: 07/23/22 Chief Complaint: Fall with right lower extremity pain. HPI Narrative RAFA BARRON, is a 86 F who presents to the emergency room due to fall with right lower extremity pain. Patient states she was discharged from [facility] on Thursday following rehab. She lives with her daughter and son-in-law. She was using her walker and ambulating down the hallway. She states when she went through a doorway and lost her balance and fell. She denies loss of consciousness. Does states she hit her head on the floor. Reports intractable left lower extremity pain. Denies any other symptoms or complaints. She has a past medical history of chronic kidney disease stage IIIa, chronic heart failure with reduced ejection fraction, hypertension, hyperlipidemia, BAILEY/pulmonary hyp ertension, morbid obesity, history of DVT/PE, hypothyroidism. PFSH Medical History CHF (congestive heart failure) Depression Generalized muscle weakness High cholesterol HTN (hypertension) Hx of deep venous thrombosis Hx of pulmonary embolus Hypothyroid Kidney disease Non-smoker Home Medications febuxostat 40 mg tablet (Uloric) 40 mg PO DAILY Gout 10/06/17 [History Last Taken 07/22/22] levothyroxine 75 mcg tablet 75 mcg PO DAILY Thyroid 10/06/17 [History Last Taken 07/22/22] rosuvastatin 10 mg tablet 10 mg PO DAILY Cholesterol 10/06/17 [History Last Taken 07/22/22] ipratropium bromide 42 mcg (0.06 %) nasal spray 1 spray intranasal BID SINUS 03/11/22 [History Last Taken 07/22/22] levocetirizine 5 mg tablet 5 mg PO DAILY ALLERGIES 03/11/22 [History Last Taken 07/22/22] mirtazapine 15 mg tablet 15 mg PO QHS SLEEP 03/11/22 [History Last Taken 07/22/22] sacubitril 97 mg-valsartan 103 mg tablet (Entresto) 1 tab PO BID HEART 03/11/22 [History Last Taken 07/23/22] acetaminophen 500 mg tablet 1,000 mg PO Q6H PRN PRN Pain Score 1-10 #0 tabs 03/25/22 [Rx Last Taken 07/22/22] doxepin 25 mg capsule 25 mg PO QHS sleep 04/23/22 [History Last Taken 07/22/22] furosemide 40 mg tablet 40 mg PO DAILY fluid 06/10/22 [History Last Taken 07/22/22] gabapentin 100 mg capsule 100 mg PO QHS nerve pain 06/10/22 [History Last Taken 07/22/22] isosorbide mononitrate 30 mg tablet,extended release 24 hr 30 mg PO DAILY heart 07/23/22 [History Last Taken 07/22/22] metoprolol succinate 25 mg tablet,extended release 24 hr 25 mg PO DAILY bp 07/23/22 [History Last Taken 07/23/22] rivaroxaban 10 mg tablet (Xarelto) 10 mg PO DINNER blood thinner 07/23/22 [History Last Taken 07/22/22] trazodone 100 mg tablet 150 mg PO QHS mood 07/23/22 [History Last Taken 07/22/22] Allergy/AdvReac Type Severity Reaction Status Date / Time celecoxib [From Celebrex] Allergy Hives Verified 07/23/22 12:19 NSAIDS (Non-Steroidal Allergy Rash Verified 07/23/22 12:19 Anti-Inflamma strawberry [[place]] Allergy Hives Verified 07/23/22 12:19 Sulfa (Sulfonamide Allergy Hives Verified 07/23/22 12:19 Antibiotics) tomato [Tomato] Allergy Hives Verified 07/23/22 12:19 Family History Father Congestive heart failure Mother Diabetes Congestive heart failure Brother Diabetes Surgical History History of cholecystectomy History of total bilateral knee replacement Social History (Updated 07/23/22 @ 16:37 by Linette Aguirre NP, [employer]) household members: family Smoking Status: Never smoker alcohol intake: never substance use type: does not use ROS Constitutional Constitutional: Denies change in weight, chills, fatigue or fever(s) Cardiovascular Cardiovascular: Denies chest pain, edema, lightheadedness, palpitations or syncope Respiratory/Chest Respiratory/Chest: Denies cough, dyspnea, productive cough, shortness of breath at rest, shortness of breath with exertion or wheezing Gastrointestinal Gastrointestinal: Denies abdominal pain, constipation, diarrhea, nausea or vomiting Genitourinary Genitourinary: Denies burning urination, difficulty urinating, dysuria, hematuria, urinary frequency, urinary incontinence or urinary urgency Musculoskeletal Musculoskeletal: Reports other Details: Left lower extremity pain and swelling following fall ; Denies muscle weakness Integumentary Integumentary: Denies erythema, lesions, rash or wounds Neurologic Neurologic: Denies abnormal speech, confusion, dizziness, focal weakness, numbness, paresthesias, seizure-like activity or syncope Psychiatric Psychiatric: Denies anxiety or depression Hematologic/Lymphatic Hematologic/Lymphatic: Denies anemia, easy bleeding or easy bruising Allergic/Immunologic Allergic/Immunologic: Denies hives or asthma Vital Signs Vital Signs Vital Signs: 07/23/22 12:10 07/23/22 12:23 07/23/22 13:26 Temperature 97.9 F Temperature Source Temporal Pulse Rate 74 84 Respiratory Rate 18 16 Respiratory Effort Normal Non-Labored Respiratory Depth Normal Respiratory Pattern Normal Blood Pressure 143/122 H 168/140 H Blood Pressure Mean 129 149 Pulse Ox 93 Oxygen Delivery Method Nasal Cannula Oxygen Flow Rate (L/min) 2 07/23/22 13:30 07/23/22 14:00 07/23/22 15:00 Temperature Temperature Source Pulse Rate 74 76 Respiratory Rate 18 16 Respiratory Effort Respiratory Depth Respiratory Pattern Blood Pressure 155/109 H 121/55 H 125/56 H Blood Pressure Mean 124 77 79 Pulse Ox 98 98 96 Oxygen Delivery Method Nasal Cannula Nasal Cannula Oxygen Flow Rate (L/min) 2 Weight Weight: 263 lb 10.766 oz Body Mass Index (BMI) 45.0 Physical Exam Const alert and oriented x3 Nutritional Appearance: morbidly obese HEENT normocephalic and moist oral mucous membranes Eyes PERRL, EOMs intact bilaterally and conjunctivae normal Neck no lymphadenopathy Resp clear to auscultation bilaterally Auscultation: diminished lung sounds Cardio regular rate, regular rhythm and no murmurs Peripheral Pulses: pulses 2+ throughout GI normal to inspection, nondistended, normoactive bowel sounds, non-tender and no n-distended Extremity normal to inspection Extremity Narrative: Right carlos area swelling and tenderness as well as right knee. Skin no rashes or lesions noted Lesions: no lesions Rashes: no rashes Trauma: no lacerations or abrasions Neuro CN's II-XII intact bilaterally, no focal motor deficits, no sensory deficits noted and deep tendon reflexes 2+ bilaterally Psych mental status grossly normal and affect normal Results Lab / Micro Data Result Diagrams: 07/23/22 17:00 07/23/22 17:[address] 07/23/22 12:47 IMPRESSION: Chronic involutional changes of the brain. Electronically Signed: Tomas Marquez MD at 13:18 EDT , Femur X-Ray 07/23/22 13:26 IMPRESSION: Status post right intramedullary tara fixation device with healed fracture with residual deformity of the distal femoral fracture. Electronically Signed: Tomas Marquez MD at 14:06 EDT , Knee X-Ray 07/23/22 13:26 IMPRESSION: Avulsion fracture of the anterior tibial tubercle as well as nondisplaced fracture of the proximal neck of the fibula. Prevertebral soft tissue swelling. Status post right total knee replacement. Electronically Signed: Tomas Marquez MD at 14:03 EDT , Chest X-Ray 07/23/22 13:27 IMPRESSION: Hyperinflation. Moderate cardiomegaly. Electronically Signed: Tomas Marquez MD at 14:01 EDT , Tibia/Fibula X-Ray 07/23/22 13:27 IMPRESSION: Nondisplaced avulsion fracture of the anterior tibial tubercle as well as nondisplaced fracture of the proximal fibular neck. Pretibial soft tissue swelling. Electronically Signed: Tomas Marquez MD at 14:05 EDT , Assessment & Plan Assessment/Plan (1) Inability to walk: PLAN: Plan 1. Fall, debility with acute traumatic proximal fibular fracture and right tibial tubercle fracture-recent discharge from SNF 07/18/22. Brain CT with chronic changes. PT/OT. Case management/social work consult for discharge planning. As needed pain regimen. 2.? Acute kidney injury on chronic kidney disease stage IIIa-hold lasix and trend BMP. 3. Chronic heart failure with reduced ejection fraction-Echo with EF 20%.? RVSP estimated to be 71 mmHg.? Continue medical management. 4. Hypertension-stable, continue home regimen. 5. Hyperlipidemia-continue statin. 6. BAILEY/pulmonary hypertension-continue PAP regimen. 7. Morbid obesity-weight loss encouraged. 8. 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 9. Hypothyroidism-continue Synthroid regimen.? DVT prophylaxis- xarelto This patient was seen by SILVANO Edwards under the supervision of Dr. Oliveira. Time spent examining patient, reviewing data and subsequent management of care: 24 minutes Documented by User: Dr. Maverick Oliveira, 07/23/22 18:32 HPI - General General Date of Admission: 07/23/22 PFSH Medical History CHF (congestive heart failure) Depression Generalized muscle weakness High cholesterol HTN (hypertension) Hx of deep venous thrombosis Hx of pulmonary embolus Hypothyroid Kidney disease Non-smoker Home Medications febuxostat 40 mg tablet (Uloric) 40 mg PO DAILY Gout 10/06/17 [History Last Taken 07/22/22] levothyroxine 75 mcg tablet 75 mcg PO DAILY Thyroid 10/06/17 [History Last Taken 07/22/22] rosuvastatin 10 mg tablet 10 mg PO DAILY Cholesterol 10/06/17 [History Last Taken 07/22/22] ipratropium bromide 42 mcg (0.06 %) nasal spray 1 spray intranasal BID SINUS 03/11/22 [History Last Taken 07/22/22] levocetirizine 5 mg tablet 5 mg PO DAILY ALLERGIES 03/11/22 [History Last Taken 07/22/22] mirtazapine 15 mg tablet 15 mg PO QHS SLEEP 03/11/22 [History Last Taken 07/22/22] sacubitril 97 mg-valsartan 103 mg tablet (Entresto) 1 tab PO BID HEART 03/11/22 [History Last Taken 07/23/22] acetaminophen 500 mg tablet 1,000 mg PO Q6H PRN PRN Pain Score 1-10 #0 tabs 03/25/22 [Rx Last Taken 07/22/22] doxepin 25 mg capsule 25 mg PO QHS sleep 04/23/22 [History Last Taken 07/22/22] furosemide 40 mg tablet 40 mg PO DAILY fluid 06/10/22 [History Last Taken 07/22] gabapentin 100 mg capsule 100 mg PO QHS nerve pain 06/10/22 [History Last Taken 07/22/22] isosorbide mononitrate 30 mg tablet,extended release 24 hr 30 mg PO DAILY heart 07/23/22 [History Last Taken 07/22/22] metoprolol succinate 25 mg tablet,extended release 24 hr 25 mg PO DAILY bp 07/23/22 [History Last Taken 07/23/22] rivaroxaban 10 mg tablet (Xarelto) 10 mg PO DINNER blood thinner 07/23/22 [History Last Taken 07/22/22] trazodone 100 mg tablet 150 mg PO QHS mood 07/23/22 [History Last Taken 07/22/22] Allergy/AdvReac Type Severity Reaction Status Date / Time celecoxib [From Celebrex] Allergy Hives Verified 07/23/22 12:19 NSAIDS (Non-Steroidal Allergy Rash Verified 07/23/22 12:19 Anti-Inflamma strawberry [[place]] Allergy Hives Verified 07/23/22 12:19 Sulfa (Sulfonamide Allergy Hives Verified 07/23/22 12:19 Antibiotics) tomato [Tomato] Allergy Hives Verified 07/23/22 12:19 Family History Father Congestive heart failure Mother Diabetes Congestive heart failure Brother Diabetes Surgical History History of cholecystectomy History of total bilateral knee replacement Social History (Updated 07/23/22 @ 16:37 by Linette Aguirre NP, [employer]-C) household members: family Smoking Status: Never smoker alcohol intake: never substance use type: does not use Results Lab / Micro Data Result Diagrams: 07/23/22 17:00 07/23/22 17:00 Assessment & Plan Assessment/Plan (1) Inability to walk: Charges/Coding Addendum Addendum: Patient was seen and examined independently of Linette Aguirre today, she s ustained a fall at home today and landed on her right knee, x-rays in the emergency room show a proximal fibular fracture as well as an avulsion fracture of the right tibial plateau. Patient complains of right knee pain, she had been discharged from a skilled care facility approximately 5 days ago and was at home. On examination she does not appear to be in any distress. Patient is morbidly obese. Vital signs as documented. Skin warm and dry and without overt rashes. Neck without JVD, thyroid appears normal, trachea is midline, neck is supple. Lungs clear, normal air movement was noted. Heart exam notable for regular rhythm, normal sounds and absence of murmurs, rubs or gallops. Abdomen unremarkable and without evidence of organomegaly, masses, or abdominal aortic enlargement, bowel sounds are present in all 4 quadrants, no abdominal tenderness was noted. Extremities-right knee is tender to palpation, there is generalized swelling around the right knee noted. Neuro: Cranial nerves II through XII are grossly intact, no focal motor deficits were noted, sensation to light touch and pinprick is intact, motor exam 5/5 throughout. Psych: Patient is alert and oriented x3, she does not appear anxious or depressed, she does not appear agitated. Impression: #1 acute fracture of the right proximal fibula and right tibial plateau avulsion fracture-patient will be placed in observation status on [facility] 3, she will be seen by PT and OT, she will need placement in a senior living facility. #2 morbid obesity-complicates care, management, recovery, and prognosis #3 chronic obstructive pulmonary disease-patient will be placed on albuterol aerosols as needed #4 essential hypertension-patient will remain on her home medications #5 history of pulmonary embolism-patient is on chronic Xarelto, this will be continued here #6 chronic congestive heart failure-type unknown, patient is on Entresto, this will be continued here #7 acute debility-PT and OT will see the patient, she will need placement in a senior living facility #8 hypothyroidism-patient will remain on Synthroid #9 hyperlipidemia-patient is on a statin, this will be continued here #10 chronic kidney disease stage IIIb-labs will be monitored as necessary, complicates care, management, recovery, and prognosis. #11 GERD-patient will be placed on Protonix daily P.O. I have reviewed Linette Aguirre's history and physical including her medical assessment and plan of care and with the above additions endorse it. Total clinical time spent by myself addressing the patient's medical issues, reviewing the data, and collaborating with patient's care team: 45 minutes Visit Charges OBSV E&M: 91589 Initial observation care L3
--- NOTE | 2022-07-23 16:49 | ED.RN ---
FAMILY CALLED AND UPDATED ON ADMISSION AND ROOM NUMBER AT THIS TIME.
[2022-07-23 17:27] LABS: Absolute Lymphocyte Count 2.89 X10^3/uL (0.83-4.51); Absolute Neutrophil Count 8.9 X10^3/uL (2.0-7.7); Basophil# 0.05 X10^3/uL; Basophil% 0.4 % (0-1); Eosinophil# 0.22 X10^3/uL; Eosinophils% 1.7 % (0-5); Hematocrit 32.9 % (37-47); Hemoglobin 10.7 g/dL (12.0-15.0); Lymphocyte # 2.89 X10^3/ul (0.83-4.51); Lymphocyte % 21.9 % (19-41); Mean Corp Hgb Conc 32.5 g/dL (32-36); Mean Corpuscular Hgb 31.4 pg (27.0-32.0); Mean Corpuscular Volume 96.5 fL (81-99); Mean Platelet Vol. 9.9 fl (6.2-12.0); Monocyte% 8.3 % (0-10); NRBC Flagged by Analyzer 0 % (0-5); Neutrophil # 8.89 X10^3/uL (2.7-7.7); Neutrophil % 67.3 % (47-70); Platelet Count 231 K/mm3 (150-450); RBC Distribution Width CV 13.2 % (11.6-14.6); RBC Distribution Width SD 47.5 fl (35.1-43.9); Red Blood Count 3.41 M/mm3 (4.2-5.4); White Blood Count 13.2 K/mm3 (4.4-11.0)
[2022-07-23 18:00] LABS: Anion Gap 10 (5-15); BUN 43 mg/dL (7-18); Calcium,Total 9.1 mg/dL (8.5-10.1); Chloride 101 mmol/L (98-107); Creatinine, Serum 1.72 mg/dL (0.55-1.02); EST Glomerular Filtration Rate 30 mL/min (>60); Est Glom Filt Rate - Afr Amer 36 mL/min (>60); Estimated Creatinine Clearance 21.02 ml/min; Glucose 128 mg/dL (74-106); Potassium 4.6 mmol/L (3.5-5.1); Sodium Level 132 mmol/L (136-145)
[2022-07-23] MEDS: Rivaroxaban 10 MG Tablet PO (18:22)
[2022-07-23] MEDS: 0.9% Saline Lock 10 ML Syringe IV (18:23)
[2022-07-23] MEDS: Morphine 2 MG/ML Syringe IV (18:23)
[2022-07-23] MEDS: Doxepin Hcl 25 MG Capsule PO (20:32)
[2022-07-23] MEDS: Mirtazapine 15 MG Tablet PO (20:33)
[2022-07-23] MEDS: traZODone 50 MG Tablet 150 MG PO (20:33)
[2022-07-23] MEDS: Atorvastatin Calcium 20 MG Tablet PO (20:33)
[2022-07-23] MEDS: Gabapentin 100 MG Capsule PO (20:34)
[2022-07-23] MEDS: SACUBITRIL/VALSARTAN 97-103 MG TABLET 1 EACH PO (20:35)
[2022-07-24 02:33] VITALS: BP 100/51; PULSE 81; RESP 18; TEMP 36.7; O2SAT 97
[2022-07-24] MEDS: Morphine 2 MG/ML Syringe IV (05:21)
[2022-07-24] MEDS: Levothyroxine 75 MCG Tablet PO (05:23)
[2022-07-24] MEDS: 0.9% Saline Lock 10 ML Syringe IV (05:23)
[2022-07-24 06:13] LABS: Absolute Lymphocyte Count 1.43 X10^3/uL (0.83-4.51); Absolute Neutrophil Count 4.1 X10^3/uL (2.0-7.7); Basophil# 0.03 X10^3/uL; Basophil% 0.5 % (0-1); Eosinophil# 0.09 X10^3/uL; Eosinophils% 1.4 % (0-5); Hematocrit 27.1 % (37-47); Lymphocyte # 1.43 X10^3/ul (0.83-4.51); Lymphocyte % 22.7 % (19-41); Mean Corp Hgb Conc 33.2 g/dL (32-36); Mean Corpuscular Hgb 32.3 pg (27.0-32.0); Mean Corpuscular Volume 97.1 fL (81-99); Mean Platelet Vol. 9.8 fl (6.2-12.0); Monocyte# 0.66 X10^3/uL; Monocyte% 10.5 % (0-10); NRBC Flagged by Analyzer 0 % (0-5); Neutrophil # 4.06 X10^3/uL (2.7-7.7); Neutrophil % 64.6 % (47-70); Platelet Count 192 K/mm3 (150-450); RBC Distribution Width CV 13.2 % (11.6-14.6); RBC Distribution Width SD 47.6 fl (35.1-43.9); Red Blood Count 2.79 M/mm3 (4.2-5.4); White Blood Count 6.3 K/mm3 (4.4-11.0)
[2022-07-24 06:48] VITALS: O2SAT 96
[2022-07-24 06:48] LABS: Anion Gap 7 (5-15); BUN 38 mg/dL (7-18); BUN/Creat Ratio 27.5 RATIO (10-20); Calcium,Total 8.5 mg/dL (8.5-10.1); Chloride 102 mmol/L (98-107); Creatinine, Serum 1.38 mg/dL (0.55-1.02); EST Glomerular Filtration Rate 39 mL/min (>60); Est Glom Filt Rate - Afr Amer 47 mL/min (>60); Glucose 114 mg/dL (74-106); Potassium 4.5 mmol/L (3.5-5.1); Sodium Level 135 mmol/L (136-145)
[2022-07-24 08:26] VITALS: BP 94/52; PULSE 77; RESP 18; TEMP 37.4; O2SAT 99
--- NOTE | 2022-07-24 10:08 | PCM.PN.HOSP ---
Subjective Subjective Follow-up on debility/fall/right nondisplaced avulsion fracture of the anterior tibial tubercle and nondisplaced fracture of the neck of the fibula: Patient was seen and examined. She could not work well with therapy. She stated she was in so much pain. She is on 2 L of oxygen. Objective Data Objective Data Vital Signs: Vital Signs Temp Pulse Resp BP Pulse Ox O2 Del Method O2 Flow Rate 99.3 F H 77 18 94/52 L 99 Nasal Cannula 2 07/24/22 08:07/24/22 08:07/24/22 08:07/24/22 08:07/24/22 08:07/24/22 08:07/24/22 08:26 Oxygen Flow Rate (L/min) 2 Oxygen Delivery Method Nasal Cannula Weight: 119.6 kg Body Mass Index (BMI) 45.0 Intake & Output: Intake and Output for Last 24 Hours 07/22/22 07/23/22 07/24/22 23:59 23:59 23:59 Output Total 450 / 450 350 / 350 Balance -450 / -450 -350 / -350 Lab / Micro Data Result Diagrams: 07/24/22 05:40 07/24/22 05:40 Labs: Laboratory Results - last 24 hr 07/23/22 17:00: WBC 13.2 H, RBC 3.41 L, Hgb 10.7 L, Hct 32.9 L, MCV 96.5, MCH 31.4, MCHC 32.5, RDW Std Deviation 47.5 H, RDW Coeff of Mey 13.2, Plt Count 231, MPV 9.9, Immature Gran % (Auto) 0.400, Neut % (Auto) 67.3, Lymph % (Auto) 21.9, [place] % (Auto) 8.3, Eos % (Auto) 1.7, Baso % (Auto) 0.4, Absolute Neuts (auto) 8.9 H, Absolute Lymphs (auto) 2.89, Nucleated RBC % 0 07/23/22 17:00: Sodium 132 L, Potassium 4.6, Chloride 101, Carbon Dioxide 21.0, Anion Gap 10, BUN 43 H, Creatinine 1.72 H, Estim Creat Clear Calc 21.02, Est GFR (MDRD) Af Amer 36 L, Est GFR (MDRD) Non-Af 30 L, BUN/Creatinine Ratio 25.0 H, Glucose 128 H, Calcium 9.1 07/24/22 05:40: WBC 6.3, RBC 2.79 L, Hgb 9.0 L, Hct 27.1 L, MCV 97.1, MCH 32.3 H, MCHC 33.2, RDW Std Deviation 47.6 H, RDW Coeff of Mey 13.2, Plt Count 192, MPV 9.8, Immature Gran % (Auto) 0.300, Neut % (Auto) 64.6, Lymph % (Auto) 22.7, [place] % (Auto) 10.5 H, Eos % (Auto) 1.4, Baso % (Auto) 0.5, Absolute Neuts (auto) 4.1, Absolute Lymphs (auto) 1.43, Nucleated RBC % 0 07/24/22 05:40: Sodium 135 L, Potassium 4.5, Chloride 102, Carbon Dioxide 26.0, Anion Gap 7, BUN 38 H, Creatinine 1.38 H, Estim Creat Clear Calc 26.20, Est GFR (MDRD) Af Amer 47 L, Est GFR (MDRD) Non-Af 39 L, BUN/Creatinine Ratio 27.5 H, Glucose 114 H, Calcium 8.5 Radiography Diagnostic Testing: Radiology Impression Brain CT 07/23/22 12:47 IMPRESSION: Chronic involutional changes of the brain. Electronically Signed: Tomas Marquez MD at 13:18 EDT , Femur X-Ray 07/23/22 13:26 IMPRESSION: Status post right intramedullary tara fixation device with healed fracture with residual deformity of the distal femoral fracture. Electronically Signed: Tomsa Marquez MD at 14:06 EDT , Knee X-Ray 07/23/22 13:26 IMPRESSION: Avulsion fracture of the anterior tibial tubercle as well as nondisplaced fracture of the proximal neck of the fibula. Prevertebral soft tissue swelling. Status post right total knee replacement. Electronically Signed: Tomas Marquez MD at 14:03 EDT , Chest X-Ray 07/23/22 13:27 IMPRESSION: Hyperinflation. Moderate cardiomegaly. Electronically Signed: Tomas Marquez MD at 14:01 EDT , Tibia/Fibula X-Ray 07/23/22 13:27 IMPRESSION: Nondisplaced avulsion fracture of the anterior tibial tubercle as well as nondisplaced fracture of the proximal fibular neck. Pretibial soft tissue swelling. Electronically Signed: Tomas Marquez MD at 14:05 EDT , Physical Exam Narrative Physical exam: General: Alert, Oriented x3, Cooperative, morbidly obese, on 2L oxygen, HEENT: Atraumatic Oral: Moist Mucosa Neck: Supple Lungs:Diminished to auscultation Cardiovascular: HS I+II, regular, no murmurs Abdomen: Bowel Sounds Present, Soft, Non Tender Extremities: No edema Skin: No rashes, No breakdown Neurological: Grossly intact Psych/Mental Status: Appropriate Assessment & Plan Assessment/Plan (1) Closed fibular fracture: PLAN: Plan 1. Acute right nondisplaced avulsion fracture of the anterior tibial tubercle/nondisplaced fracture of the proximal fibular neck Status post fall, traumatic Pain is fairly uncontrolled. Continue on current scheduled Tylenol, oxycodone as needed, morphine as needed Consult orthopedics for recommendations PT and OT to evaluate and treat Discharge planning to senior care facility?social work consult 2. TANA on CKD stage III, improving, admitted creatinine 1.72, creatinine today is 1.3 Baseline creatinine is 1.1-1.4 Continue to hold Lasix, continue on Entresto for now -we will consider holding if renal function worsens Monitor renal function in a.m. 3. Heart failure with reduced EF, EF 20%/severe pulmonary hypertension, chronic, not in exacerbation Continue Entresto, isosorbide, metoprolol Hold Lasix Strict I's and O's, daily weight 4. Hypertension, controlled, continue metoprolol 5. Hyperlipidemia, continue statin 6. BAILEY, continue CPAP 7. History of PE/DVT, continue Xarelto 8. Hypothyroidism, continue Synthroid 9. Morbid obesity, BMI 45, lifestyle modification recommended 10. DVT prophylaxis?on Xarelto Charges/Coding Visit Charges Inpatient E&M: 95531 Subs Hosp L2
--- NOTE | 2022-07-24 10:09 | CASEMGMT ---
Addendum entered by Abigail Arana 07/24/22 11:42: SW into meet pt. Introduced self and role at the hospital. Pt sitting up in bed eating lunch. Pt agreeable to discussing discharge plan. Pt stated from from home but was previously at [facility], has been there 7-8 times. Discussed concerns of pt daughter, who feels pt is not safe at home with repeated falls occuring. Pt agreeable to returning to SNF. ?Ho offered a list of SNF providers including quality and resources use date that is consistent with patient's preferred geographical region, medical needs, and insurances network via the [employer], however pt declined this list. Pt stated [facility] is only option for SNF. Pt refusing any other SNF. HO placed SNF list on table in pt room just incase pt and family change their minds and want to review. HO informed [facility] at [facility] is willing to accept pt back under skilled care and transition to longer term care after her 7 days of skilled is up. Pt requesting a phone call with her daughter, Sierra. HO provided pt with phone number to Sierra. Pt to call her this afternoon to discuss further but at this time confirms return to [facility] is alright. PLAN: Return to [facility], pending PT/OT progress notes sent to [facility] Abigail Arana Addendum entered by Abigail Arana 07/24/22 11:10: HO called pt's Passport Marysol SUAREZ, at [facility] to update on pt admittance to the Hospital. Marysol was aware pt was at [facility]. Discussed possible plan for pt to discharge to [facility] and Marysol agreed this would be best case scenario for pt as she has had repeated falls at home recently. Marysol requested discharge orders when pt is discharged from [facility]. SW to fax orders when pt is discharged. AMBAR Oakley Addendum entered by Abigail Arana 07/24/22 10:44: HO in to check on pt. Pt sleeping and not wanting to wake. HO called pt daughter, Sierra to discuss discharge planning. Sierra reports family has discussed extermination supervisor care at [facility] but would need to look at pt third insurance, Medicaid, for coverage on this. Sierra reported that pt [facility] Lei CM informed Medicaid would pay for 90 days initially and then review for more time. SW informed Sierra that Matie at [facility] willing to accept pt back with her 7 days of skilled available and is hopeful to transition payment to Medicaid after. Sierra voiced understanding and is agreeable to this plan. HO to confirm with pt later this day. HO also to fax PT/OT notes to [facility] once pt has had these services today. PLAN: [facility], when medically ready. AMBAR Oakley Addendum entered by Abigail Arana 07/24/22 10:26: HO received pc from [facility] at [facility]. [facility] stated [facility] can accept pt back. [facility] informed pt has 7 skilled days left with medicare and that [facility] will use those days to aclimate pt back to the facility. [facility] informed pt and pt's family had previous been looking at assisted care for pt at [facility] and this may be the plan now. HO to speak with pt and pt family to determine pt's choice. AMBAR Oakley Original Note: Social Work SW called [facility] ([facility]) following report from ABRAM Pace. HO left message inquiring about if pt can return to [facility] and if pt has covered skilled days left from her insurance. Left contact number and requested [facility] call back when possible. Plan: Possible Return to [facility] AMBAR Oakley
[2022-07-24 12:55] LABS: Iron 18 ug/dL (50-170); Iron Binding Capacity,Total 232 ug/dL (250-450); PERCENT IRON SATURATION 7.8 % (15.0-55.0)
--- NOTE | 2022-07-24 13:20 | CASEMGMT ---
Discharge Operations Lieutenant Yuliet hinojosa/josie placement assistant sent referral to [facility] via [facility]. Will follow up. Plan: [place] [facility], Waiting Acceptance Yuliet Schumacher Discharge Operations Lieutenant
--- NOTE | 2022-07-24 14:21 | CT_ITS ---
STUDY: CT RIGHT KNEE WITHOUT CONTRAST REASON FOR EXAM: Female, 86 years old. Eval for loose total knee. Multiple fracture of the anterior tibial tubercle. RADIATION DOSAGE (If Supplied By Facility): CTDIvol = ( 15.50 ) mGy, DLP = ( 544.59 ) mGycm TECHNIQUE: Transaxial CT imaging of the knee was performed. Coronal and sagittal images were reformatted. Individualized dose optimization techniques were used for this CT. COMPARISON: None. FINDINGS: The patient is status post total knee replacement. There is good alignment. Intramedullary tara fixation device is seen in the femur. Healed fracture with residual deformity in the distal portion of the femur. Nondisplaced fracture of the proximal fibular neck. There is evidence of a nondisplaced avulsion fracture of the anterior tibial tubercle. Pretibial soft tissue swelling. Small joint effusion. Vascular calcification. CT/Extremity Lower without Contra IMPRESSION: Status post total knee replacement and intramedullary tara fixation device of the femur. Healed distal femoral fracture with residual deformity. Nondisplaced avulsion fracture of the anterior tibial tubercle. Nondisplaced fracture of the proximal fibular neck. Joint effusion. Electronically Signed: Tomas Marquez MD at 15:30 EDT ,
--- NOTE | 2022-07-24 15:03 | CON.PCM.OR_ITS ---
HPI Consult Data Date of Consult: 07/24/22 HPI Narrative HPI Narrative: RAFA BARRON, is a 86 F who presents with right knee pain after a fall. Saw the patient in hospital today at the request of the hospitalist. Per the patient, they had a fall down a ramp while using a walked. Was in another facility, and just was discharged home over the weekend. Lives with daughter and son in law. Does not drive or do groceries / cooking. Had bilateral TKAs in [place] 20 years ago, and the surgeon with the bow tie assumedly Dr. Crespo fixed her distal femur fracture 5-6 years ago. PFSH Medical History CHF (congestive heart failure) Closed fracture of right proximal tibia Depression Generalized muscle weakness High cholesterol HTN (hypertension) Hx of deep venous thrombosis Hx of pulmonary embolus Hypothyroid Kidney disease Non-smoker Home Medications febuxostat 40 mg tablet (Uloric) 40 mg PO DAILY Gout 10/06/17 [History Last Taken 07/22/22] levothyroxine 75 mcg tablet 75 mcg PO DAILY Thyroid 10/06/17 [History Last Taken 07/22/22] rosuvastatin 10 mg tablet 10 mg PO DAILY Cholesterol 10/06/17 [History Last Taken 07/22/22] ipratropium bromide 42 mcg (0.06 %) nasal spray 1 spray intranasal BID SINUS 03/11/22 [History Last Taken 07/22/22] levocetirizine 5 mg tablet 5 mg PO DAILY ALLERGIES 03/11/22 [History Last Taken 07/22/22] mirtazapine 15 mg tablet 15 mg PO QHS SLEEP 03/11/22 [History Last Taken 07/22/22] sacubitril 97 mg-valsartan 103 mg tablet (Entresto) 1 tab PO BID HEART 03/11/22 [History Last Taken 07/23/22] acetaminophen 500 mg tablet 1,000 mg PO Q6H PRN PRN Pain Score 1-10 #0 tabs 03/25/22 [Rx Last Taken 07/22/22] doxepin 25 mg capsule 25 mg PO QHS sleep 04/23/22 [History Last Taken 07/22/22] furosemide 40 mg tablet 40 mg PO DAILY fluid 06/10/22 [History Last Taken 07/22/22] gabapentin 100 mg capsule 100 mg PO QHS nerve pain 06/10/22 [History Last Taken 07/22/22] isosorbide mononitrate 30 mg tablet,extended release 24 hr 30 mg PO DAILY heart 07/23/22 [History Last Taken 07/22/22] metoprolol succinate 25 mg tablet,extended release 24 hr 25 mg PO DAILY bp 07/23/22 [History Last Taken 07/23/22] rivaroxaban 10 mg tablet (Xarelto) 10 mg PO DINNER blood thinner 07/23/22 [History Last Taken 07/22/22] trazodone 100 mg tablet 150 mg PO QHS mood 07/23/22 [History Last Taken 07/22/22] Allergy/AdvReac Type Severity Reaction Status Date / Time celecoxib [From Celebrex] Allergy Hives Verified 07/23/22 12:19 NSAIDS (Non-Steroidal Allergy Rash Verified 07/23/22 12:19 Anti-Inflamma strawberry [[place]] Allergy Hives Verified 07/23/22 12:19 Sulfa (Sulfonamide Allergy Hives Verified 07/23/22 12:19 Antibiotics) tomato [Tomato] Allergy Hives Verified 07/23/22 12:19 Family History Father Congestive heart failure Mother Diabetes Congestive heart failure Brother Diabetes Surgical History History of cholecystectomy History of total bilateral knee replacement Social History household members: family Smoking Status: Never smoker alcohol intake: never substance use type: does not use Vital Signs Vital Signs Vital Signs: 07/23/22 16:00 07/23/22 16:17 07/23/22 20:42 Temperature 97.6 F L Temperature Source Temporal Pulse Rate 71 84 Respiratory Rate 18 18 Respiratory Effort Normal Non-Labored Respiratory Pattern Normal Blood Pressure 111/57 L 111/57 L Blood Pressure Mean 75 75 Blood Pressure Source Blood Pressure Position Blood Pressure Location Pulse Ox 99 99 Oxygen Delivery Method Nasal Cannula Nasal Cannula Nasal Cannula Oxygen Flow Rate (L/min) 2 2 2 07/23/22 20:35 07/24/22 02:33 07/24/22 02:30 Temperature 98.0 F 98.0 F Temperature Source Oral Oral Pulse Rate 76 81 Respiratory Rate 18 18 Respiratory Effort Respiratory Pattern Blood Pressure 114/58 L 100/51 L Blood Pressure Mean 76 67 Blood Pressure Source Monitor Monitor Blood Pressure Position Semi-Fowlers Supine Blood Pressure Location Right Arm Right Arm Pulse Ox 98 97 Oxygen Delivery Method Nasal Cannula Nasal Cannula Nasal Cannula Oxygen Flow Rate (L/min) 2 2 2 07/24/22 06:48 07/24/22 08:26 07/24/22 08:26 Temperature 99.3 F H Temperature Source Temporal Pulse Rate 77 Respiratory Rate 18 Respiratory Effort Respiratory Pattern Blood Pressure 94/52 L Blood Pressure Mean 66 Blood Pressure Source Monitor Blood Pressure Position Semi-Fowlers Blood Pressure Location Right Arm Pulse Ox 96 99 Oxygen Delivery Method Nasal Cannula Nasal Cannula Nasal Cannula Oxygen Flow Rate (L/min) 2 2 2 07/24/22 10:10 07/24/22 10:13 Temperature Temperature Source Pulse Rate Respiratory Rate Respiratory Effort Respiratory Pattern Blood Pressure Blood Pressure Mean Blood Pressure Source Blood Pressure Position Blood Pressure Location Pulse Ox Oxygen Delivery Method Oxygen Flow Rate (L/min) 2 2 Weight Weight: 263 lb 10.766 oz Body Mass Index (BMI) 45.0 Physical Exam Const alert, oriented x3 and no apparent distress General Appearance: cooperative Extremity normal capillary refill and no calf tenderness Extremity Narrative: Right knee closed. No threatening or tenting the skin anteriorly, though moderate bruising anteriorly, no effusion. Painful to ROM, a bit of laxity consistent with TKA on medial and lateral side of knee, but no gross instability. Normal sensation in foot dorsum and plantar aspect, strong dorsalis pedis pulse, feet warm well perfused. Difficulty maintaining a straight leg raise. No obvious gap at patellar tendon. Patella is non tender, normal side to side excusion and seems centered in the trochlea. No gap in quads tendon. General Extremity: Negative for atrophy or calf tenderness Lab / Micro Data Result Diagrams: 07/24/22 05:40 07/24/22 05:40 Labs: Laboratory Results - last 24 hr 07/23/22 17:00: WBC 13.2 H, RBC 3.41 L, Hgb 10.7 L, Hct 32.9 L, MCV 96.5, MCH 31.4, MCHC 32.5, RDW Std Deviation 47.5 H, RDW Coeff of Mey 13.2, Plt Count 231, MPV 9.9, Immature Gran % (Auto) 0.400, Neut % (Auto) 67.3, Lymph % (Auto) 21.9, [place] % (Auto) 8.3, Eos % (Auto) 1.7, Baso % (Auto) 0.4, Absolute Neuts (auto) 8.9 H, Absolute Lymphs (auto) 2.89, Nucleated RBC % 0 07/23/22 17:00: Sodium 132 L, Potassium 4.6, Chloride 101, Carbon Dioxide 21.0, Anion Gap 10, BUN 43 H, Creatinine 1.72 H, Estim Creat Clear Calc 21.02, Est GFR (MDRD) Af Amer 36 L, Est GFR (MDRD) Non-Af 30 L, BUN/Creatinine Ratio 25.0 H, Glucose 128 H, Calcium 9.1 07/24/22 05:40: WBC 6.3, RBC 2.79 L, Hgb 9.0 L, Hct 27.1 L, MCV 97.1, MCH 32.3 H , MCHC 33.2, RDW Std Deviation 47.6 H, RDW Coeff of Mey 13.2, Plt Count 192, MPV 9.8, Immature Gran % (Auto) 0.300, Neut % (Auto) 64.6, Lymph % (Auto) 22.7, [place] % (Auto) 10.5 H, Eos % (Auto) 1.4, Baso % (Auto) 0.5, Absolute Neuts (auto) 4.1, Absolute Lymphs (auto) 1.43, Nucleated RBC % 0 07/24/22 05:40: Sodium 135 L, Potassium 4.5, Chloride 102, Carbon Dioxide 26.0, Anion Gap 7, BUN 38 H, Creatinine 1.38 H, Estim Creat Clear Calc 26.20, Est GFR (MDRD) Af Amer 47 L, Est GFR (MDRD) Non-Af 39 L, BUN/Creatinine Ratio 27.5 H, Glucose 114 H, Calcium 8.5 07/24/22 05:40: Iron 18 L, TIBC 232 L, Iron Saturation 7.[address]/Extremity Lower without Contra IMPRESSION: Status post total knee replacement and intramedullary tara fixation device of the femur.? Healed distal femoral fracture with residual deformity. ? Nondisplaced avulsion fracture of the anterior tibial tubercle. Nondisplaced fracture of the proximal fibular neck. ? Joint effusion. ? Electronically Signed: Tomas Marquez MD TKA looks stable. Anterior tibial tubercle avulsion fracture, slightly hinged. Assessment & Plan Assessment/Plan (1) Closed fibular fracture: (2) Closed fracture of right proximal tibia: PLAN: 86 yr old F, extensive PMHX with avulsion fracture of tibial tubercle, well fixed TKA on right side, unable to do SLR. Overall, my impression would be that this injury would be best treated non surgically with extension in knee imm obilizer, and partial weight bearing if able to comply with activity restrictions. 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 If the tibial tubercle were to heal non operatively in the current position, I think she would experience only limited extensor insufficiency. If she were do to poorly, the option for surgical advancement / repair and fixation of the tubercle fracture would still be an option moving forward, which may also need augmentation in setting of TKA and obesity. So therefore, my recommendation would be PWB full extension for 6 week in the knee immobilizer for now to try to avoid displacing the fracture, and repeat x rays in 1 week to examine the fracture. Charges/Coding Procedures Musculoskeletal [id number]: Other Procedure See Report
[2022-07-24 15:16] VITALS: BP 94/40; PULSE 84; RESP 18; TEMP 36.8; O2SAT 94
[2022-07-24 15:18] VITALS: O2SAT 89
--- NOTE | 2022-07-24 15:58 | CASEMGMT ---
Social Work Clau communicated with Maite regarding pt return to [facility]. Maite informed the care team at [facility] is reviewing pt case and therapy notes. Maite stated, will review and get back to this worker. Maite shared pt only has 7 days of skilled left but [facility] possibly open to taking pt Web Services Manager. Clau informed Saline that pt is medically ready and can discharge when a determination is made by [facility]. PLAN: await determination from [facility]. AMBAR Oakley
[2022-07-24] MEDS: Rivaroxaban 10 MG Tablet PO (17:50)
[2022-07-24 20:35] VITALS: BP 98/54; PULSE 81; RESP 16; TEMP 37.2; O2SAT 96
[2022-07-24] MEDS: Gabapentin 100 MG Capsule PO (21:32)
[2022-07-24] MEDS: traZODone 50 MG Tablet 150 MG PO (21:32)
[2022-07-24] MEDS: Atorvastatin Calcium 20 MG Tablet PO (21:32)
[2022-07-24] MEDS: Acetaminophen 500 MG Tablet 1000 MG PO (21:32)
[2022-07-24] MEDS: Mirtazapine 15 MG Tablet PO (21:32)
[2022-07-24] MEDS: Doxepin Hcl 25 MG Capsule PO (21:34)
[2022-07-25] VITALS (8 sets, daily range): BP systolic 83–119; BP diastolic 37–66; PULSE 61–87; RESP 18; TEMP 36.5–37.1; O2SAT 95–98
[2022-07-25] MEDS: Acetaminophen 500 MG Tablet 1000 MG PO ×3 (05:38→21:38)
[2022-07-25] MEDS: Levothyroxine 75 MCG Tablet PO (05:38)
[2022-07-25 06:13] LABS: Absolute Lymphocyte Count 2.79 X10^3/uL (0.83-4.51); Basophil# 0.03 X10^3/uL; Basophil% 0.4 % (0-1); Eosinophil# 0.29 X10^3/uL; Hematocrit 24.1 % (37-47); Hemoglobin 7.6 g/dL (12.0-15.0); Lymphocyte # 2.79 X10^3/ul (0.83-4.51); Lymphocyte % 38.6 % (19-41); Mean Corp Hgb Conc 31.5 g/dL (32-36); Mean Corpuscular Hgb 31.3 pg (27.0-32.0); Mean Corpuscular Volume 99.2 fL (81-99); Mean Platelet Vol. 10.1 fl (6.2-12.0); Monocyte# 1.12 X10^3/uL; Monocyte% 15.5 % (0-10); NRBC Flagged by Analyzer 0 % (0-5); Neutrophil # 2.98 X10^3/uL (2.7-7.7); Neutrophil % 41.2 % (47-70); Platelet Count 173 K/mm3 (150-450); RBC Distribution Width CV 13.7 % (11.6-14.6); RBC Distribution Width SD 50.4 fl (35.1-43.9); Red Blood Count 2.43 M/mm3 (4.2-5.4); White Blood Count 7.2 K/mm3 (4.4-11.0)
[2022-07-25 06:48] LABS: ALB/GLOB Ratio 0.6 RATIO (0.9-2.4); AST(SGOT) 13 U/L (15-37); Alanine Aminotransfer ALT/SGPT 9 U/L (13-56); Albumin, Serum 2.2 g/dL (3.2-5.0); Alkaline Phosphatase 41 U/L (45-117); Anion Gap 4 (5-15); BUN 43 mg/dL (7-18); BUN/Creat Ratio 23.2 RATIO (10-20); Calcium,Total 8.3 mg/dL (8.5-10.1); Chloride 105 mmol/L (98-107); Creatinine, Serum 1.85 mg/dL (0.55-1.02); EST Glomerular Filtration Rate 28 mL/min (>60); Est Glom Filt Rate - Afr Amer 33 mL/min (>60); Estimated Creatinine Clearance 19.55 ml/min; Globulin 3.6 g/dL (2.2-4.2); Glucose 112 mg/dL (74-106); Potassium 4.4 mmol/L (3.5-5.1); Protein, Total 5.8 g/dL (6.4-8.2); Sodium Level 137 mmol/L (136-145)
[2022-07-25] MEDS: Lactated Ringers 1,000 ML 100 ML IV (09:38)
[2022-07-25 11:18] LABS: Ferritin 175 ng/mL (8-252); Iron 17 ug/dL (50-170); Iron Binding Capacity,Total 192 ug/dL (250-450); PERCENT IRON SATURATION 8.9 % (15.0-55.0)
--- NOTE | 2022-07-25 11:19 | CASEMGMT ---
Social Work SW called pt's daughter, Sierra Allen, to confirm Advance Directives. Sierra reported pt revoked HCPOA and LW documents last year and no longer has these documents because she wants to make her own decisions. Abigail Arana, MABAR
--- NOTE | 2022-07-25 11:22 | CASEMGMT ---
Addendum entered by Abigail Arana 07/25/22 13:45: SW seen in [facility] will accept pt back under skilled. HO called Maite at [facility] to update that pt's keeping pt one more night to stabilize blood pressure and ensure pt is eating and drinking. Left message and also entered this information into [facility] communications. AMBAR Oakley Original Note: Social Work SW called pt daughter, Sierra Allen, to discuss option for pt return to [facility]. HO informed that [facility] is working on a determination between using pt's 7 days of skilled care that are left or bringing pt in for terminal worker care. Sierra stated she would call Maite at [facility] to discuss the situation and see if a decision can be made in collaboration with Maite and Sierra together. PLAN: [facility]- long-term vs. 7 skilled days left AMBAR Oakley
--- NOTE | 2022-07-25 12:20 | PN.HOSP_ITS ---
Subjective Subjective Follow-up on debility/fall/right nondisplaced avulsion fracture of the anterior tibial tubercle and nondisplaced fracture of the neck of the fibula: Patient was seen and examined.? She complains of feeling unwell. Remains on 2 L. Blood pressure relatively low. No other acute events overnight. Objective Data Objective Data Vital Signs: Vital Signs Temp Pulse Resp BP Pulse Ox O2 Del Method O2 Flow Rate 98.2 F 67 18 83/37 L 96 Nasal Cannula 2 07/25/22 09:44 07/25/22 11:39 07/25/22 09:44 07/25/22 11:39 07/25/22 09:44 07/25/22 09:44 07/25/22 10:02 Oxygen Flow Rate (L/min) 2 Oxygen Delivery Method Nasal Cannula Weight: 119.6 kg Body Mass Index (BMI) 45.0 Intake & Output: Intake and Output for Last 24 Hours 07/23/22 07/24/22 07/25/22 23:59 23:59 23:59 Intake Total 650 / 650 Output Total 450 / 450 800 / 1000 450 / 450 Balance -450 / -450 -150 / -350 -450 / -450 Lab / Micro Data Result Diagrams: 07/25/22 12:38 07/25/22 05:40 Labs: Laboratory Results - last 24 hr 07/24/22 05:40: Iron 18 L, TIBC 232 L, Iron Saturation 7.8 L 07/25/22 05:40: WBC 7.2, RBC 2.43 L, Hgb 7.6 L, Hct 24.1 L, MCV 99.2 H, MCH 31.3, MCHC 31.5 L D, RDW Std Deviation 50.4 H, RDW Coeff of Mey 13.7, Plt Count 173, MPV 10.1, Immature Gran % (Auto) 0.300, Neut % (Auto) 41.2 L, Lymph % (Auto) 38.6, [place] % (Auto) 15.5 H, Eos % (Auto) 4.0, Baso % (Auto) 0.4, Absolute Neuts (auto) 3.0, Absolute Lymphs (auto) 2.79, Nucleated RBC % 0 07/25/22 05:40: Sodium 137, Potassium 4.4, Chloride 105, Carbon Dioxide 28.0, Anion Gap 4 L, BUN 43 H, Creatinine 1.85 H, Estim Creat Clear Calc 19.55, Est GFR (MDRD) Af Amer 33 L, Est GFR (MDRD) Non-Af 28 L, BUN/Creatinine Ratio 23.2 H , Glucose 112 H, Calcium 8.3 L, Total Bilirubin 0.30, AST 13 L, ALT 9 L, Alkaline Phosphatase 41 L, Total Protein 5.8 L, Albumin 2.2 L, Globulin 3.6, Albumin/Globulin Ratio 0.6 L 07/25/22 05:40: Iron 17 L, TIBC 192 L, Iron Saturation 8.9 L, Ferritin 175 Radiography Diagnostic Testing: Radiology Impression Lower Extremity CT 07/24/22 14:21 IMPRESSION: Status post total knee replacement and intramedullary tara fixation device of the femur. Healed distal femoral fracture with residual deformity. Nondisplaced avulsion fracture of the anterior tibial tubercle. Nondisplaced fracture of the proximal fibular neck. Joint effusion. Electronically Signed: Tomas Marquez MD at 15:30 EDT , Physical Exam Narrative Physical exam: General: Alert, Oriented x3, Cooperative, morbidly obese, on 2L oxygen, HEENT: Atraumatic Oral: Moist Mucosa Neck: Supple Lungs:Diminished to auscultation Cardiovascular: HS I+II, regular, no murmurs Abdomen: Bowel Sounds Present, Soft, Non Tender Extremities: No edema Skin: No rashes, No breakdown Neurological: Grossly intact Psych/Mental Status: Appropriate Assessment & Plan Assessment/Plan (1) Closed fibular fracture: PLAN: Plan 1. Acute right nondisplaced avulsion fracture of the anterior tibial tubercle/nondisplaced fracture of the proximal fibular neck Status post fall, traumatic X-ray of the knee as well as CT of the leg shows the above Continue on current scheduled Tylenol, oxycodone as needed, morphine as needed Appreciate orthopedic consult with recommendation for partial weightbearing Discharge planning to senior living facility?social work following 2. TANA on CKD stage III, improving, admitted creatinine 1.72, creatinine today is 1.85 Baseline creatinine is 1.1-1.4 Continue to hold Lasix and Entresto Monitor renal function in a.m. 3. Heart failure with reduced EF, EF 20%/severe pulmonary hypertension, chronic, not in exacerbation Continue isosorbide, metoprolol Hold Lasix and Entresto Strict I's and O's, daily weight 4. Anemia, drop in hemoglobin from 10.7-7.9, iron deficiency Iron stores show iron deficiency We will check stool for occult blood, IV Venofer 5. Hypotension, relative, holding parameters on medication Gentle IV fluids, monitor vitals 6. Hypertension, controlled, continue metoprolol 7. Hyperlipidemia, continue statin 8. BAILEY, continue CPAP 9. History of PE/DVT, continue Xarelto 10. Hypothyroidism, continue Synthroid 11. Morbid obesity, BMI 45, lifestyle modification recommended 12. DVT prophylaxis?on Xarelto Charges/Coding Visit Charges Inpatient E&M: 44221 Subs Hosp L2
[2022-07-25 12:54] LABS: Hematocrit 24.8 % (37-47); Hemoglobin 7.9 g/dL (12.0-15.0)
[2022-07-25] MEDS: Rivaroxaban 10 MG Tablet PO (17:49)
[2022-07-25] MEDS: Ensure Plus High Protein 120 ML LIQUID PO (17:58)
--- NOTE | 2022-07-25 18:18 | NURSING ---
1615; Iron IV infiltrated into l shoulder. IV stopped and DC'd. Pt denies discomfort. No redness noted. development technologist to start IV for pt.
[2022-07-25] MEDS: traZODone 50 MG Tablet 150 MG PO (21:37)
[2022-07-25] MEDS: Atorvastatin Calcium 20 MG Tablet PO (21:37)
[2022-07-25] MEDS: Mirtazapine 15 MG Tablet PO (21:37)
[2022-07-25] MEDS: Gabapentin 100 MG Capsule PO (21:38)
--- NOTE | 2022-07-25 22:18 | NURSING ---
late entry- basin cleaner was not able to insert midline, states she cannot find a vein. supervisor in charge inserted a peripheral IV for now.
[2022-07-26 02:05] VITALS: BP 102/51; PULSE 74; RESP 18; TEMP 36.9; O2SAT 94
[2022-07-26] MEDS: Levothyroxine 75 MCG Tablet PO (05:13)
[2022-07-26] MEDS: Acetaminophen 500 MG Tablet 1000 MG PO ×2 (05:13→14:24)
[2022-07-26 07:23] LABS: Absolute Lymphocyte Count 1.97 X10^3/uL (0.83-4.51); Basophil# 0.02 X10^3/uL; Basophil% 0.3 % (0-1); Eosinophil# 0.36 X10^3/uL; Hematocrit 25.7 % (37-47); Hemoglobin 8.2 g/dL (12.0-15.0); Lymphocyte # 1.97 X10^3/ul (0.83-4.51); Lymphocyte % 27.4 % (19-41); Mean Corp Hgb Conc 31.9 g/dL (32-36); Mean Corpuscular Volume 100.4 fL (81-99); Mean Platelet Vol. 9.7 fl (6.2-12.0); Monocyte# 0.77 X10^3/uL; Monocyte% 10.7 % (0-10); NRBC Flagged by Analyzer 0 % (0-5); Neutrophil # 4.03 X10^3/uL (2.7-7.7); Neutrophil % 56.2 % (47-70); Platelet Count 179 K/mm3 (150-450); RBC Distribution Width CV 13.2 % (11.6-14.6); RBC Distribution Width SD 48.9 fl (35.1-43.9); Red Blood Count 2.56 M/mm3 (4.2-5.4); White Blood Count 7.2 K/mm3 (4.4-11.0)
[2022-07-26 07:44] VITALS: O2SAT 95
[2022-07-26 07:47] LABS: ALB/GLOB Ratio 0.5 RATIO (0.9-2.4); AST(SGOT) 12 U/L (15-37); Alanine Aminotransfer ALT/SGPT 10 U/L (13-56); Albumin, Serum 2.2 g/dL (3.2-5.0); Alkaline Phosphatase 50 U/L (45-117); Anion Gap 6 (5-15); BUN 44 mg/dL (7-18); BUN/Creat Ratio 25.3 RATIO (10-20); Calcium,Total 8.1 mg/dL (8.5-10.1); Chloride 96 mmol/L (98-107); Creatinine, Serum 1.74 mg/dL (0.55-1.02); EST Glomerular Filtration Rate 30 mL/min (>60); Est Glom Filt Rate - Afr Amer 36 mL/min (>60); Estimated Creatinine Clearance 20.78 ml/min; Globulin 4.1 g/dL (2.2-4.2); Glucose 116 mg/dL (74-106); Potassium 4.5 mmol/L (3.5-5.1); Protein, Total 6.3 g/dL (6.4-8.2); Sodium Level 128 mmol/L (136-145)
[2022-07-26 08:10] VITALS: BP 96/61; PULSE 83; RESP 18; TEMP 36.8; O2SAT 100
--- NOTE | 2022-07-26 09:48 | CASEMGMT ---
Social Work SW completed PAS/RR in the [facility] system. PAS/RR with results placed on chart. LUCILA Hicks
[2022-07-26] MEDS: Febuxostat 40 MG TABLET PO (09:51)
[2022-07-26] MEDS: Ensure Plus High Protein 120 ML LIQUID PO (09:52)
--- NOTE | 2022-07-26 10:20 | NURSING ---
Iron infusion not on the floor. RX notified.
--- NOTE | 2022-07-26 11:11 | PCM.PN.HOSP ---
Subjective Subjective Follow-up on debility/fall/right nondisplaced avulsion fracture of the anterior tibial tubercle and nondisplaced fracture of the neck of the fibula: Patient was seen and examined. She appears still lethargic. Unwilling to participate in care. Has a flat affect. Objective Data Objective Data Vital Signs: Vital Signs Temp Pulse Resp BP Pulse Ox O2 Del Method O2 Flow Rate 98.4 F 74 18 102/51 L 95 Nasal Cannula 2 07/26/22 02:05 07/26/22 02:05 07/26/22 02:05 07/26/22 02:05 07/26/22 07:44 07/26/22 07:44 07/26/22 07:44 Oxygen Flow Rate (L/min) 2 Oxygen Delivery Method Nasal Cannula Weight: 119.6 kg Body Mass Index (BMI) 45.0 Intake & Output: Intake and Output for Last 24 Hours 07/24/22 07/25/22 07/26/22 23:59 23:59 23:59 Intake Total 650 / 650 1211.42 / 1211.42 Output Total 800 / 1000 450 / 650 600 / 600 Balance -150 / -350 761.42 / 561.42 -600 / -600 Lab / Micro Data Result Diagrams: 07/26/22 07:10 07/26/22 07:10 Labs: Laboratory Results - last 24 hr 07/25/22 05:40: Iron 17 L, TIBC 192 L, Iron Saturation 8.9 L, Ferritin 175 07/25/22 12:38: Hgb 7.9 L, Hct 24.8 L 07/26/22 07:10: WBC 7.2, RBC 2.56 L, Hgb 8.2 L, Hct 25.7 L, MCV 100.4 H, MCH 32.0, MCHC 31.9 L, RDW Std Deviation 48.9 H, RDW Coeff of Mey 13.2, Plt Count 179, MPV 9.7, Immature Gran % (Auto) 0.400, Neut % (Auto) 56.2, Lymph % (Auto) 27.4, [place] % (Auto) 10.7 H, Eos % (Auto) 5.0, Baso % (Auto) 0.3, Absolute Neuts (auto) 4.0, Absolute Lymphs (auto) 1.97, Nucleated RBC % 0 07/26/22 07:10: Sodium 128 L, Potassium 4.5, Chloride 96 L, Carbon Dioxide 26.0, Anion Gap 6, BUN 44 H, Creatinine 1.74 H, Estim Creat Clear Calc 20.78, Est GFR (MDRD) Af Amer 36 L, Est GFR (MDRD) Non-Af 30 L, BUN/Creatinine Ratio 25.3 H, Glucose 116 H, Calcium 8.1 L, Total Bilirubin 0.20, AST 12 L, ALT 10 L, Alkaline Phosphatase 50, Total Protein 6.3 L, Albumin 2.2 L, Globulin 4.1, Albumin/Globulin Ratio 0.5 L Physical Exam Narrative Physical exam: General: Alert, Oriented x3, Cooperative, morbidly obese, on 2L oxygen, HEENT: Atraumatic Oral: Moist Mucosa Neck: Supple Lungs:Diminished to auscultation Cardiovascular: HS I+II, regular, no murmurs Abdomen: Bowel Sounds Present, Soft, Non Tender Extremities: Trace edema, right lower extremity in knee immobilizer Skin: No rashes, No breakdown Neurological: Grossly intact Psych/Mental Status: Appropriate Assessment & Plan Assessment/Plan (1) Closed fibular fracture: PLAN: Plan 1. Acute right nondisplaced avulsion fracture of the anterior tibial tubercle/nondisplaced fracture of the proximal fibular neck Status post fall, traumatic X-ray of the knee as well as CT of the leg shows the above Continue on current scheduled Tylenol, oxycodone as needed, morphine as needed Appreciate orthopedic consult with recommendation for partial weightbearing, conservative management and follow-up Discharge planning to long term facility?social work following 2. TANA on CKD stage III, improving, admitted creatinine 1.72, creatinine today is 1.74 Baseline creatinine is 1.1-1.4 Continue to hold Lasix and Entresto Monitor renal function in a.m. 3. Heart failure with reduced EF, EF 20%/severe pulmonary hypertension, chronic, not in exacerbation Continue isosorbide, metoprolol Hold Lasix and Entresto Strict I's and O's, daily weight 4. Anemia,iron deficiency, hemoglobin today is 8.2 Iron stores show iron deficiency Stool for occult blood pending Continue with IV Venofer 5. Hypotension, relative, holding parameters on medication Continue to monitor vitals 6. Hyponatremia, acute on chronic, sodium now is 128 Sodium yesterday was 137, will repeat BMP. 7. Hypertension, controlled, continue metoprolol 8. Hyperlipidemia, continue statin 9. BAILEY, continue CPAP 10. History of PE/DVT, continue Xarelto 11. Hypothyroidism, continue Synthroid 12. Morbid obesity, BMI 45, lifestyle modification recommended 13. DVT prophylaxis?on Xarelto Charges/Coding Visit Charges Inpatient E&M: 31416 Subs Hosp L2
--- NOTE | 2022-07-26 11:22 | TREXTCAR_ITS ---
Diet Diet Order/Speech Therapy: 07/23/22 17:31 Diet: Cardiac - Heart Healthy Food consistency:: Regular Liquid Consistency:: Regular/Thin Routine Orders/Code Status Suppository Type: Dulcolax 10mg Suppository Frequency: Daily PRN O2 Frequency: Continuous Keep PO Greater than or Equal to (%): 2 Routine Lab Work: CBC (within 3 days) and - (CMP within 3 days) Code Status: DNRCC-A Wound(s) R Forearm: Wound Type: Skin Tear Therapies Weight Bearing: Partial weight bearing Physical Therapy: Eval and Treat Occupational Therapy: Eval and Treat Problem/Diagnosis (1) Closed fibular fracture: Status: Acute Code(s): S82.409A - Unspecified fracture of shaft of unspecified fibula, initial encounter for closed fracture Plan 1. Acute right nondisplaced avulsion fracture of the anterior tibial tubercle/nondisplaced fracture of the proximal fibular neck Status post fall, traumatic 2. TANA on CKD stage III 3. Heart failure with reduced EF, EF 20%/severe pulmonary hypertension, chronic 4. Anemia,iron deficiency 5. Hypotension 6. Hyponatremia, acute on chronic 7. Hypertension 8. Hyperlipidemia 9. BAILEY 10. History of PE/DVT 11. Hypothyroidism 12. Morbid obesity 13. Hyponatremia Allergies/Procedures Done in Hospital Allergies celecoxib [From Celebrex] Allergy (Verified 07/23/22 12:19) Hives NSAIDS (Non-Steroidal Anti-Inflamma Allergy (Verified 07/23/22 12:19) Rash strawberry [Magnolia] Allergy (Verified 07/23/22 12:19) Hives Sulfa (Sulfonamide Antibiotics) Allergy (Verified 07/23/22 12:19) Hives tomato [Tomato] Allergy (Verified 07/23/22 12:19) Hives Procedures: None Type of Care/Length of Stay Estimated LOS: More Than 30 Days Type of Care Needed: Skilled Rehab Potential: Fair Prognosis: Fair Additional Orders/Day of Discharge Day of Discharge: 07/26/22 Dietary and Speech Recommendations Dietitian Recommendations/Changes: Continue Cardiac - Heart Healthy diet Continue 120mL Ensure Enlive 4x daily with medpass Discharge Plan Admission Admit Date/Time: 07/25/22 14:33 Primary Reason for Your Visit: Fall, nondisplaced fibular and anterior tibial tubercle Attending Provider: Ava Overton Primary Care Provider: Jeffrey Zhou Chi Consulting Providers: Maverick Oliveira ; Alexander Gutierrez Instructions Additional Instructions / Restrictions: Partial weightbearing full extension for 6 week in the knee immobilizer for now to try to avoid displacing the fracture, and repeat x rays in 1 week to examine the fracture. Changes were made to her medications in this hospital stay: Her doxepin was held on account of lethargy. Her metoprolol was decreased for relative hypotension. Her Entresto and Lasix was discontinued on account of acute kidney injury Consider resuming metoprolol and Entresto if renal function and blood pressures are improved Fluid restriction to 1500 mls/day Discharge Orders/Prescriptions Prescriptions: New albuterol sulfate 2.5 mg /3 mL (0.083 %) Solution For Nebulization 2.5 mg inhalation Q2H PRN PRN (Reason: DYSPNEA) Qty: 0 0RF ferrous sulfate [FeroSul] 325 mg (65 mg iron) Tablet 325 mg PO 1200,1700 Qty: 0 0RF metoprolol succinate 25 mg Tablet Extended Release 24 Hr 12.5 mg PO DAILY Qty: 0 0RF oxycodone 5 mg Tablet 10 mg PO Q4H PRN PRN (Reason: Pain Score 4-5) 3 Days Qty: 20 0RF Ensure Plus High Protein 0.08 gram-1.5 kcal/mL Liquid 120 ml PO 4X/DAY Qty: 0 0RF Continued levothyroxine 75 MCG tablet 75 mcg PO DAILY rosuvastatin 10 MG tablet 10 mg PO DAILY febuxostat [Uloric] 40 MG tablet 40 mg PO DAILY mirtazapine 15 mg tablet 15 mg PO QHS ipratropium bromide 42 mcg (0.06 %) spray,non-aerosol 1 spray INTRANASAL BID levocetirizine 5 mg tablet 5 mg PO DAILY acetaminophen 500 mg Tablet 1,000 mg PO Q6H PRN PRN (Reason: Pain Score 1-10) Qty: 0 0RF gabapentin 100 mg capsule 100 mg PO QHS isosorbide mononitrate 30 mg tablet extended release 24 hr 30 mg PO DAILY trazodone 100 mg tablet 150 mg PO QHS Xarelto 10 mg tablet 10 mg PO DINNER Discontinued Entresto 97-103 mg tablet 1 tab PO BID doxepin 25 mg capsule 25 mg PO QHS furosemide 40 mg tablet 40 mg PO DAILY metoprolol succinate 25 mg tablet extended release 24 hr 25 mg PO DAILY Referrals / Follow Up: Alexander Gutierrez MD [Med Staff - Active Staff] - Within 1 Week Jeffrey Zhou Chi, MD [Primary Care Provider] - Martina Vora MD [Med Staff - Consulting] - In 1 Week Disposition Disposition (needs filled in before D/C Order can be placed): Residential Facility
--- NOTE | 2022-07-26 11:38 | DS.PCM_ITS ---
Providers Date of Admission: 07/25/22 Date of Discharge: 07/26/22 Primary Care Physician: Dr. Jeffrey Zhou MD Consultations 07/24/22 12:27 Consult: Orthopedics Routine Consulting Provider: Alexander Gutierrez Reason for Consult: Fibula fracture EMERGENT Consult: No MD Notified: Yes Date Notified: 07/24/22 Time Notified: 12:27 Method of Notification: Verbal Reason For Visit: FALL, TIB FIB FRACTURES, UNABLE TO AMBULATE Diagnosis Discharge Diagnosis (1) Closed fibular fracture: Status: Acute Code(s): S82.409A - Unspecified fracture of shaft of unspecified fibula, initial encounter for closed fracture Plan 1. Acute right nondisplaced avulsion fracture of the anterior tibial tubercle/nondisplaced fracture of the proximal fibular neck Status post fall, traumatic 2. TANA on CKD stage III 3. Heart failure with reduced EF, EF 20%/severe pulmonary hypertension, chronic 4. Anemia,iron deficiency 5. Hypotension 6. Hyponatremia, acute on chronic 7. Hypertension 8. Hyperlipidemia 9. BAILEY 10. History of PE/DVT 11. Hypothyroidism 12. Morbid obesity Medications at Discharge Home Medications febuxostat 40 mg tablet (Uloric) 40 mg PO DAILY Gout 10/06/17 levothyroxine 75 mcg tablet 75 mcg PO DAILY Thyroid 10/06/17 rosuvastatin 10 mg tablet 10 mg PO DAILY Cholesterol 10/06/17 ipratropium bromide 42 mcg (0.06 %) nasal spray 1 spray intranasal BID SINUS 03/11/22 levocetirizine 5 mg tablet 5 mg PO DAILY ALLERGIES 03/11/22 mirtazapine 15 mg tablet 15 mg PO QHS SLEEP 03/11/22 acetaminophen 500 mg tablet 1,000 mg PO Q6H PRN PRN Pain Score 1-10 #0 tabs 03/25/22 gabapentin 100 mg capsule 100 mg PO QHS nerve pain 06/10/22 isosorbide mononitrate 30 mg tablet,extended release 24 hr 30 mg PO DAILY heart 07/23/22 rivaroxaban 10 mg tablet (Xarelto) 10 mg PO DINNER blood thinner 07/23/22 trazodone 100 mg tablet 150 mg PO QHS mood 07/23/22 albuterol sulfate 2.5 mg/3 mL (0.083 %) solution for nebulization 2.5 mg (3 mL) inhalation Q2H PRN PRN DYSPNEA #0 mL 07/26/22 ferrous sulfate 325 mg (65 mg iron) tablet (FeroSul) 325 mg PO 1200,1700 #0 tabs 07/26/22 food supplemt, lactose-reduced 0.08 gram-1.5 kcal/mL oral liquid (Ensure Plus High Protein) 120 ml PO 4X/DAY #0 mL 07/26/22 metoprolol succinate 25 mg tablet,extended release 24 hr 12.5 mg PO DAILY #0 tabs 07/26/22 oxycodone 5 mg tablet 10 mg PO Q4H PRN PRN Pain Score 4-5 3 days #20 tabs 07/26/22 Hospital Course Operations None Procedures None Summary of Care Provided Minutes Spent on Discharge: 40 Hospital Course: 86-year-old with multiple comorbidities who was recently discharged from [facility] presented after a fall was ambulating with her walker. Patient was found to have acute right nondisplaced avulsion fracture of the anterior tibial tubercle/nondisplaced fracture of the proximal fibular neck. [facility], her pain was controlled. Patient had relative hypotension with changes in her medication. She also had acute kidney injury, changes were made to her Lasix and Entresto. Patient generally appeared very lethargic, not eager to participate in therapy. She was also noted to have anemia and iron studies showed iron deficiency. Stool for occult blood was still pending at time of discharge. Patient received IV Venofer. She was discharged on oral iron. She was also noted to have hyponatremia with -->128. Patient was accepted to halfway facility. She was put on fluid restriction. She will follow-up with nephrology within 1 week with repeat blood work within 3 days. Physical Exam Narrative Physical exam: General: Alert, Oriented x3, Cooperative, morbidly obese, on 2L oxygen, HEENT: Atraumatic Oral: Moist Mucosa Neck: Supple Lungs:Diminished to auscultation Cardiovascular: HS I+II, regular, no murmurs Abdomen: Bowel Sounds Present, Soft, Non Tender Extremities: Trace edema, right lower extremity in knee immobilizer Skin: No rashes, No breakdown Neurological: Grossly intact Psych/Mental Status: Appropriate Weight / BMI Weight Weight: 119.6 kg Body Mass Index (BMI) 45.0 ABG / Lab / Microbiology Data Result Diagrams: 07/26/22 07:10 07/26/22 11:42 Laboratory: Laboratory Results - last 24 hr 07/25/22 12:38: Hgb 7.9 L, Hct 24.8 L 07/26/22 07:10: WBC 7.2, RBC 2.56 L, Hgb 8.2 L, Hct 25.7 L, MCV 100.4 H, MCH 32.0, MCHC 31.9 L, RDW Std Deviation 48.9 H, RDW Coeff of Mey 13.2, Plt Count 179, MPV 9.7, Immature Gran % (Auto) 0.400, Neut % (Auto) 56.2, Lymph % (Auto) 27.4, [place] % (Auto) 10.7 H, Eos % (Auto) 5.0, Baso % (Auto) 0.3, Absolute Neuts (auto) 4.0, Absolute Lymphs (auto) 1.97, Nucleated RBC % 0 07/26/22 07:10: Sodium 128 L, Potassium 4.5, Chloride 96 L, Carbon Dioxide 26.0, Anion Gap 6, BUN 44 H, Creatinine 1.74 H, Estim Creat Clear Calc 20.78, Est GFR (MDRD) Af Amer 36 L, Est GFR (MDRD) Non-Af 30 L, BUN/Creatinine Ratio 25.3 H, Glucose 116 H, Calcium 8.1 L, Total Bilirubin 0.20, AST 12 L, ALT 10 L, Alkaline Phosphatase 50, Total Protein 6.3 L, Albumin 2.2 L, Globulin 4.1, Albumin/Globulin Ratio 0.5 L D/C Instructions Discharge Diet: Low fat / Low cholesterol and 2000 mg Sodium Diet Discharge Activity: Return to Normal Activity Meaningful Use Info Meaningful Use Diagnoses (Choose all that apply): None applicable Discharge Plan Admission Admit Date/Time: 07/25/22 14:33 Primary Reason for Your Visit: Fall, nondisplaced fibular and anterior tibial tubercle Attending Provider: Ava Overton Primary Care Provider: Jeffrey Zhou Chi Consulting Providers: Maverick Oliveira ; Alexander Gutierrez Instructions Additional Instructions / Restrictions: Partial weightbearing full extension for 6 week in the knee immobilizer for now to try to avoid displacing the fracture, and repeat x rays in 1 week to examine the fracture. Changes were made to her medications in this hospital stay: Her doxepin was held on account of lethargy. Her metoprolol was decreased for relative hypotension. Her Entresto and Lasix was discontinued on account of acute kidney injury Consider resuming metoprolol and Entresto if renal function and blood pressures are improved Fluid restriction to 1500 mls/day Discharge Orders/Prescriptions Prescriptions: New albuterol sulfate 2.5 mg /3 mL (0.083 %) Solution For Nebulization 2.5 mg inhalation Q2H PRN PRN (Reason: DYSPNEA) Qty: 0 0RF ferrous sulfate [FeroSul] 325 mg (65 mg iron) Tablet 325 mg PO 1200,1700 Qty: 0 0RF metoprolol succinate 25 mg Tablet Extended Release 24 Hr 12.5 mg PO DAILY Qty: 0 0RF oxycodone 5 mg Tablet 10 mg PO Q4H PRN PRN (Reason: Pain Score 4-5) 3 Days Qty: 20 0RF Ensure Plus High Protein 0.08 gram-1.5 kcal/mL Liquid 120 ml PO 4X/DAY Qty: 0 0RF Continued levothyroxine 75 MCG tablet 75 mcg PO DAILY rosuvastatin 10 MG tablet 10 mg PO DAILY febuxostat [Uloric] 40 MG tablet 40 mg PO DAILY mirtazapine 15 mg tablet 15 mg PO QHS ipratropium bromide 42 mcg (0.06 %) spray,non-aerosol 1 spray INTRANASAL BID levocetirizine 5 mg tablet 5 mg PO DAILY acetaminophen 500 mg Tablet 1,000 mg PO Q6H PRN PRN (Reason: Pain Score 1-10) Qty: 0 0RF gabapentin 100 mg capsule 100 mg PO QHS isosorbide mononitrate 30 mg tablet extended release 24 hr 30 mg PO DAILY trazodone 100 mg tablet 150 mg PO QHS Xarelto 10 mg tablet 10 mg PO DINNER Discontinued Entresto 97-103 mg tablet 1 tab PO BID doxepin 25 mg capsule 25 mg PO QHS furosemide 40 mg tablet 40 mg PO DAILY metoprolol succinate 25 mg tablet extended release 24 hr 25 mg PO DAILY Referrals / Follow Up: Martina Vora MD [Med Staff - Consulting] - In 1 Week Alexander Gutierrez MD [Med Staff - Active Staff] - Within 1 Week Jeffrey Zhou Chi, MD [Primary Care Provider] - Disposition Disposition (needs filled in before D/C Order can be placed): [facility] Charges/Coding Visit Charges Inpatient E&M: 79098 Disch Hosp
[2022-07-26 12:34] LABS: Anion Gap 7 (5-15); BUN 44 mg/dL (7-18); BUN/Creat Ratio 26.8 RATIO (10-20); Chloride 95 mmol/L (98-107); Creatinine, Serum 1.64 mg/dL (0.55-1.02); EST Glomerular Filtration Rate 32 mL/min (>60); Est Glom Filt Rate - Afr Amer 38 mL/min (>60); Estimated Creatinine Clearance 22.05 ml/min; Glucose 125 mg/dL (74-106); Potassium 4.5 mmol/L (3.5-5.1); Sodium Level 127 mmol/L (136-145)
[2022-07-26 13:47] LABS: Thyroid Stim Hormone (TSH) 0.65 uIU/mL (0.358-3.74)
[2022-07-26 14:28] VITALS: BP 92/54; PULSE 77; RESP 16; TEMP 36.9; O2SAT 93
--- NOTE | 2022-07-26 15:09 | NURSING ---
Called Eber Toribio twice to give a report about the patient. First Nurse answered and hung up on this nurse, Second call got a machine and left my name and number to call me back.
== END 2022-07-26 15:15 | DRG 563 ==
LOC: ED 15:55 → MS3 16:36
PROVIDERS: Nurse Practitioner Family; Admitting Provider Internal Medicine; Emergency Provider Emergency Medicine; PCP Family Medicine Geriatric Medicine; Visit Provider Internal Medicine
DX: S82.154A Nondisplaced fracture of right tibial tuberosity, initial encounter for closed fracture (principal); I13.0 Hypertensive heart and chronic kidney disease with heart failure and stage 1 through stage 4 chronic kidney disease, or unspecified chronic kidney disease; E87.1 Hypo-osmolality and hyponatremia; N17.9 Acute kidney failure, unspecified; I50.22 Chronic systolic (congestive) heart failure; Z68.42 Body mass index [BMI] 45.0-49.9, adult; I27.20 Pulmonary hypertension, unspecified; E11.22 Type 2 diabetes mellitus with diabetic chronic kidney disease; D50.9 Iron deficiency anemia, unspecified; E66.01 Morbid (severe) obesity due to excess calories; N18.31 Chronic kidney disease, stage 3a; J44.9 Chronic obstructive pulmonary disease, unspecified; G47.33 Obstructive sleep apnea (adult) (pediatric); E78.00 Pure hypercholesterolemia, unspecified; K21.9 Gastro-esophageal reflux disease without esophagitis; E03.9 Hypothyroidism, unspecified; W18.39XA Other fall on same level, initial encounter; S82.831D Other fracture of upper and lower end of right fibula, subsequent encounter for closed fracture with routine healing; Z79.01 Long term (current) use of anticoagulants; Z79.899 Other long term (current) drug therapy; Z79.890 Hormone replacement therapy; Y93.01 Activity, walking, marching and hiking; Y92.89 Other specified places as the place of occurrence of the external cause; Z86.711 Personal history of pulmonary embolism; Z86.718 Personal history of other venous thrombosis and embolism
CPT/HCPCS: 36415; 70450; 71045; 73552; 73560; 73590; 73700; 80048; 80053; 82728; 83540; 83550; 84443; 85014; 85018; 85025; 87811; 97110; 97162; 97166; 97530; 97535; 97802; 99285; J7050; J7120; A4216; J2916

== ENCOUNTER → 2022-07-29 | Outpatient (REF) | payer MEDICARE, MEDICAID, OTHER, SELFPAY ==
[2022-07-29 11:02] LABS: Hematocrit 25.2 % (37-47); Hemoglobin 7.9 g/dL (12.0-15.0); Mean Corp Hgb Conc 31.3 g/dL (32-36); Mean Corpuscular Hgb 31.5 pg (27.0-32.0); Mean Corpuscular Volume 100.4 fL (81-99); Mean Platelet Vol. 9.9 fl (6.2-12.0); Platelet Count 302 K/mm3 (150-450); RBC Distribution Width CV 14.6 % (11.6-14.6); RBC Distribution Width SD 53.4 fl (35.1-43.9); Red Blood Count 2.51 M/mm3 (4.2-5.4); White Blood Count 8.5 K/mm3 (4.4-11.0)
[2022-07-29 11:32] LABS: Anion Gap 7 (5-15); BUN 36 mg/dL (7-18); BUN/Creat Ratio 27.5 RATIO (10-20); Calcium,Total 9.6 mg/dL (8.5-10.1); Chloride 97 mmol/L (98-107); Creatinine, Serum 1.31 mg/dL (0.55-1.02); EST Glomerular Filtration Rate 41 mL/min (>60); Est Glom Filt Rate - Afr Amer 50 mL/min (>60); Glucose 124 mg/dL (74-106); Potassium 5.1 mmol/L (3.5-5.1); Sodium Level 131 mmol/L (136-145)
== END ==
LOC: OLS.WHLEAS 05:00
PROVIDERS: PCP Family Medicine Geriatric Medicine; Visit Provider Family Medicine
DX: S82.454D Nondisplaced comminuted fracture of shaft of right fibula, subsequent encounter for closed fracture with routine healing (principal); S82.154D Nondisplaced fracture of right tibial tuberosity, subsequent encounter for closed fracture with routine healing; I10 Essential (primary) hypertension
CPT/HCPCS: 36415; 80048; 85027

== ENCOUNTER → 2022-08-11 | Outpatient (REF) | payer MEDICARE, OTHER, MEDICAID, SELFPAY ==
[2022-08-11 09:45] LABS: Hematocrit 25.3 % (37-47); Mean Corp Hgb Conc 31.6 g/dL (32-36); Mean Corpuscular Hgb 32.1 pg (27.0-32.0); Mean Corpuscular Volume 101.6 fL (81-99); Mean Platelet Vol. 9.8 fl (6.2-12.0); Platelet Count 355 K/mm3 (150-450); RBC Distribution Width CV 14.1 % (11.6-14.6); RBC Distribution Width SD 52.2 fl (35.1-43.9); Red Blood Count 2.49 M/mm3 (4.2-5.4); White Blood Count 8.8 K/mm3 (4.4-11.0)
[2022-08-11 09:57] LABS: Anion Gap 7 (5-15); BUN 49 mg/dL (7-18); BUN/Creat Ratio 34.3 RATIO (10-20); Calcium,Total 8.7 mg/dL (8.5-10.1); Chloride 97 mmol/L (98-107); Creatinine, Serum 1.43 mg/dL (0.55-1.02); EST Glomerular Filtration Rate 37 mL/min (>60); Est Glom Filt Rate - Afr Amer 45 mL/min (>60); Glucose 122 mg/dL (74-106); Potassium 4.9 mmol/L (3.5-5.1); Sodium Level 131 mmol/L (136-145)
== END ==
LOC: OLS.WHLEAS 08:00
PROVIDERS: PCP Family Medicine Geriatric Medicine; Visit Provider Family Medicine
DX: M77.31 Calcaneal spur, right foot (principal); S82.454D Nondisplaced comminuted fracture of shaft of right fibula, subsequent encounter for closed fracture with routine healing; S82.154D Nondisplaced fracture of right tibial tuberosity, subsequent encounter for closed fracture with routine healing; Z79.899 Other long term (current) drug therapy
CPT/HCPCS: 36415; 80048; 85027

== ENCOUNTER → 2022-08-13 | Outpatient (REF) | payer MEDICARE, OTHER, MEDICAID, SELFPAY ==
[2022-08-13 08:31] LABS: Absolute Lymphocyte Count 2.15 X10^3/uL (0.83-4.51); Absolute Neutrophil Count 5.9 X10^3/uL (2.0-7.7); Basophil# 0.05 X10^3/uL; Basophil% 0.5 % (0-1); Eosinophil# 0.09 X10^3/uL; Hematocrit 25.7 % (37-47); Hemoglobin 8.1 g/dL (12.0-15.0); Lymphocyte # 2.15 X10^3/ul (0.83-4.51); Lymphocyte % 23.3 % (19-41); Mean Corp Hgb Conc 31.5 g/dL (32-36); Mean Corpuscular Hgb 31.8 pg (27.0-32.0); Mean Corpuscular Volume 100.8 fL (81-99); Mean Platelet Vol. 9.9 fl (6.2-12.0); Monocyte# 1.02 X10^3/uL; NRBC Flagged by Analyzer 0 % (0-5); Neutrophil # 5.89 X10^3/uL (2.7-7.7); Neutrophil % 63.8 % (47-70); Platelet Count 362 K/mm3 (150-450); RBC Distribution Width CV 13.8 % (11.6-14.6); RBC Distribution Width SD 51.5 fl (35.1-43.9); Red Blood Count 2.55 M/mm3 (4.2-5.4); White Blood Count 9.2 K/mm3 (4.4-11.0)
[2022-08-13 08:43] LABS: ALB/GLOB Ratio 0.5 RATIO (0.9-2.4); AST(SGOT) 19 U/L (15-37); Alanine Aminotransfer ALT/SGPT 21 U/L (13-56); Albumin, Serum 2.5 g/dL (3.2-5.0); Alkaline Phosphatase 87 U/L (45-117); Anion Gap 8 (5-15); BUN 56 mg/dL (7-18); BUN/Creat Ratio 34.8 RATIO (10-20); Calcium,Total 8.9 mg/dL (8.5-10.1); Chloride 96 mmol/L (98-107); Creatinine, Serum 1.61 mg/dL (0.55-1.02); EST Glomerular Filtration Rate 32 mL/min (>60); Est Glom Filt Rate - Afr Amer 39 mL/min (>60); Globulin 4.8 g/dL (2.2-4.2); Glucose 103 mg/dL (74-106); Potassium 4.8 mmol/L (3.5-5.1); Protein, Total 7.3 g/dL (6.4-8.2); Sodium Level 132 mmol/L (136-145)
== END ==
LOC: OLS.WHLEAS 04:00
PROVIDERS: PCP Family Medicine Geriatric Medicine; Referring Provider Family Medicine; Visit Provider Family Medicine
DX: S82.454D Nondisplaced comminuted fracture of shaft of right fibula, subsequent encounter for closed fracture with routine healing (principal); S82.154D Nondisplaced fracture of right tibial tuberosity, subsequent encounter for closed fracture with routine healing; R10.12 Left upper quadrant pain
CPT/HCPCS: 36415; 80053; 85025

== ENCOUNTER → 2022-08-23 | Outpatient (REF) | payer MEDICARE, OTHER, MEDICAID, SELFPAY ==
[2022-08-23 17:14] LABS: Absolute Lymphocyte Count 2.18 X10^3/uL (0.83-4.51); Absolute Neutrophil Count 6.3 X10^3/uL (2.0-7.7); Basophil# 0.03 X10^3/uL; Basophil% 0.3 % (0-1); Eosinophil# 0.17 X10^3/uL; Eosinophils% 1.7 % (0-5); Hematocrit 27.2 % (37-47); Hemoglobin 8.2 g/dL (12.0-15.0); Lymphocyte # 2.18 X10^3/ul (0.83-4.51); Lymphocyte % 21.9 % (19-41); Mean Corp Hgb Conc 30.1 g/dL (32-36); Mean Corpuscular Hgb 29.8 pg (27.0-32.0); Mean Corpuscular Volume 98.9 fL (81-99); Mean Platelet Vol. 9.4 fl (6.2-12.0); Monocyte# 1.19 X10^3/uL; NRBC Flagged by Analyzer 0 % (0-5); Neutrophil # 6.32 X10^3/uL (2.7-7.7); Neutrophil % 63.5 % (47-70); Platelet Count 426 K/mm3 (150-450); RBC Distribution Width CV 14.3 % (11.6-14.6); RBC Distribution Width SD 51.5 fl (35.1-43.9); Red Blood Count 2.75 M/mm3 (4.2-5.4)
[2022-08-23 17:36] LABS: Anion Gap 7 (5-15); BUN 44 mg/dL (7-18); BUN/Creat Ratio 32.8 RATIO (10-20); Calcium,Total 8.6 mg/dL (8.5-10.1); Chloride 101 mmol/L (98-107); Creatinine, Serum 1.34 mg/dL (0.55-1.02); EST Glomerular Filtration Rate 40 mL/min (>60); Est Glom Filt Rate - Afr Amer 48 mL/min (>60); Glucose 142 mg/dL (74-106); Potassium 4.4 mmol/L (3.5-5.1); Sodium Level 134 mmol/L (136-145)
== END ==
LOC: OLS.WHLEAS 16:20
PROVIDERS: PCP Family Medicine Geriatric Medicine; Visit Provider Family Medicine
DX: S82.454D Nondisplaced comminuted fracture of shaft of right fibula, subsequent encounter for closed fracture with routine healing (principal); S82.154D Nondisplaced fracture of right tibial tuberosity, subsequent encounter for closed fracture with routine healing; N18.31 Chronic kidney disease, stage 3a; D64.9 Anemia, unspecified; N39.0 Urinary tract infection, site not specified
CPT/HCPCS: 36415; 80048; 84443; 85025; 87077; 87086; 87088; 87186

== ENCOUNTER → 2022-09-09 | Outpatient (REF) | payer MEDICARE, OTHER, MEDICAID, SELFPAY ==
[2022-09-09 09:19] LABS: Hematocrit 27.6 % (37-47); Hemoglobin 8.3 g/dL (12.0-15.0); Mean Corp Hgb Conc 30.1 g/dL (32-36); Mean Corpuscular Hgb 30.5 pg (27.0-32.0); Mean Corpuscular Volume 101.5 fL (81-99); Mean Platelet Vol. 9.7 fl (6.2-12.0); Platelet Count 332 K/mm3 (150-450); RBC Distribution Width CV 15.8 % (11.6-14.6); Red Blood Count 2.72 M/mm3 (4.2-5.4); White Blood Count 8.2 K/mm3 (4.4-11.0)
[2022-09-09 09:33] LABS: Anion Gap 5 (5-15); BUN 34 mg/dL (7-18); BUN/Creat Ratio 25.4 RATIO (10-20); Calcium,Total 8.9 mg/dL (8.5-10.1); Chloride 100 mmol/L (98-107); Creatinine, Serum 1.34 mg/dL (0.55-1.02); EST Glomerular Filtration Rate 40 mL/min (>60); Est Glom Filt Rate - Afr Amer 48 mL/min (>60); Glucose 111 mg/dL (74-106); Potassium 4.6 mmol/L (3.5-5.1); Sodium Level 134 mmol/L (136-145)
== END ==
LOC: OLS.WHLEAS 05:00
PROVIDERS: PCP Family Medicine; Visit Provider Family Medicine
DX: S82.454D Nondisplaced comminuted fracture of shaft of right fibula, subsequent encounter for closed fracture with routine healing (principal); S82.154D Nondisplaced fracture of right tibial tuberosity, subsequent encounter for closed fracture with routine healing; I27.0 Primary pulmonary hypertension
CPT/HCPCS: 36415; 80048; 85027

== ENCOUNTER → 2022-10-07 | Outpatient (REF) | payer MEDICARE, OTHER, MEDICAID, SELFPAY ==
[2022-10-07 09:26] LABS: Hematocrit 30.5 % (37-47); Hemoglobin 9.1 g/dL (12.0-15.0); Mean Corp Hgb Conc 29.8 g/dL (32-36); Mean Corpuscular Hgb 29.4 pg (27.0-32.0); Mean Corpuscular Volume 98.4 fL (81-99); Mean Platelet Vol. 10.1 fl (6.2-12.0); Platelet Count 258 K/mm3 (150-450); RBC Distribution Width CV 15.9 % (11.6-14.6); RBC Distribution Width SD 56.8 fl (35.1-43.9); White Blood Count 6.7 K/mm3 (4.4-11.0)
[2022-10-07 09:34] LABS: Anion Gap 6 (5-15); BUN 18 mg/dL (7-18); BUN/Creat Ratio 17.6 RATIO (10-20); Calcium,Total 8.7 mg/dL (8.5-10.1); Chloride 97 mmol/L (98-107); Creatinine, Serum 1.02 mg/dL (0.55-1.02); EST Glomerular Filtration Rate 55 mL/min (>60); Est Glom Filt Rate - Afr Amer 66 mL/min (>60); Glucose 109 mg/dL (74-106); Potassium 4.3 mmol/L (3.5-5.1); Sodium Level 132 mmol/L (136-145)
== END ==
LOC: OLS.WHLEAS 05:00
PROVIDERS: PCP Family Medicine; Visit Provider Family Medicine
DX: I27.0 Primary pulmonary hypertension (principal); S82.454D Nondisplaced comminuted fracture of shaft of right fibula, subsequent encounter for closed fracture with routine healing; S82.145D Nondisplaced bicondylar fracture of left tibia, subsequent encounter for closed fracture with routine healing
CPT/HCPCS: 36415; 80048; 85027

== ENCOUNTER → 2022-11-11 | Outpatient (REF) | payer MEDICARE, OTHER, MEDICAID, SELFPAY ==
[2022-11-11 09:31] LABS: Hematocrit 39.2 % (37-47); Hemoglobin 11.7 g/dL (12.0-15.0); Mean Corp Hgb Conc 29.8 g/dL (32-36); Mean Corpuscular Hgb 29.8 pg (27.0-32.0); Mean Corpuscular Volume 99.7 fL (81-99); Mean Platelet Vol. 10.5 fl (6.2-12.0); Platelet Count 254 K/mm3 (150-450); RBC Distribution Width CV 15.9 % (11.6-14.6); RBC Distribution Width SD 58.7 fl (35.1-43.9); Red Blood Count 3.93 M/mm3 (4.2-5.4)
[2022-11-11 09:35] LABS: Anion Gap 4 (5-15); BUN 13 mg/dL (7-18); BUN/Creat Ratio 12.9 RATIO (10-20); Calcium,Total 9.3 mg/dL (8.5-10.1); Chloride 104 mmol/L (98-107); Creatinine, Serum 1.01 mg/dL (0.55-1.02); EST Glomerular Filtration Rate 55 mL/min (>60); Est Glom Filt Rate - Afr Amer 67 mL/min (>60); Glucose 95 mg/dL (74-106); Potassium 4.1 mmol/L (3.5-5.1); Sodium Level 136 mmol/L (136-145)
== END ==
LOC: OLS.WHLEAS 05:00
PROVIDERS: PCP Family Medicine; Visit Provider Internal Medicine
DX: I27.0 Primary pulmonary hypertension (principal); S82.454D Nondisplaced comminuted fracture of shaft of right fibula, subsequent encounter for closed fracture with routine healing; S82.154D Nondisplaced fracture of right tibial tuberosity, subsequent encounter for closed fracture with routine healing
CPT/HCPCS: 36415; 80048; 85027

== ENCOUNTER → 2022-12-02 | Outpatient (REF) | payer MEDICARE, OTHER, MEDICAID, SELFPAY ==
[2022-12-02 10:10] LABS: Anion Gap 7 (5-15); BUN 17 mg/dL (7-18); BUN/Creat Ratio 13.8 RATIO (10-20); Calcium,Total 8.8 mg/dL (8.5-10.1); Chloride 102 mmol/L (98-107); Creatinine, Serum 1.23 mg/dL (0.55-1.02); EST Glomerular Filtration Rate 44 mL/min (>60); Est Glom Filt Rate - Afr Amer 53 mL/min (>60); Glucose 83 mg/dL (74-106); Potassium 3.6 mmol/L (3.5-5.1); Sodium Level 136 mmol/L (136-145)
== END ==
LOC: OLS.WHLEAS 05:30
PROVIDERS: PCP Family Medicine; Visit Provider Internal Medicine
DX: J44.9 Chronic obstructive pulmonary disease, unspecified (principal); S82.454D Nondisplaced comminuted fracture of shaft of right fibula, subsequent encounter for closed fracture with routine healing; S82.154D Nondisplaced fracture of right tibial tuberosity, subsequent encounter for closed fracture with routine healing
CPT/HCPCS: 36415; 80048

== ENCOUNTER → 2022-12-09 | Outpatient (REF) | payer MEDICARE, OTHER, MEDICAID, SELFPAY ==
[2022-12-09 08:16] LABS: Hemoglobin 11.9 g/dL (12.0-15.0); Mean Corp Hgb Conc 30.5 g/dL (32-36); Mean Corpuscular Hgb 29.6 pg (27.0-32.0); Mean Platelet Vol. 10.4 fl (6.2-12.0); Platelet Count 210 K/mm3 (150-450); RBC Distribution Width SD 57.3 fl (35.1-43.9); Red Blood Count 4.02 M/mm3 (4.2-5.4); White Blood Count 6.6 K/mm3 (4.4-11.0)
[2022-12-09 08:32] LABS: BUN 20 mg/dL (7-18); Creatinine, Serum 1.29 mg/dL (0.55-1.02); Glucose 80 mg/dL (74-106)
[2022-12-09 08:33] LABS: Anion Gap 6 (5-15); BUN/Creat Ratio 15.5 RATIO (10-20); Calcium,Total 8.6 mg/dL (8.5-10.1); Chloride 103 mmol/L (98-107); EST Glomerular Filtration Rate 42 mL/min (>60); Est Glom Filt Rate - Afr Amer 51 mL/min (>60); Sodium Level 135 mmol/L (136-145)
== END ==
LOC: OLS.WHLEAS 05:25
PROVIDERS: PCP Family Medicine; Visit Provider Internal Medicine
DX: I27.0 Primary pulmonary hypertension (principal); S82.454D Nondisplaced comminuted fracture of shaft of right fibula, subsequent encounter for closed fracture with routine healing; S82.154D Nondisplaced fracture of right tibial tuberosity, subsequent encounter for closed fracture with routine healing
CPT/HCPCS: 36415; 80048; 85027

== ENCOUNTER → 2023-01-02 | Outpatient (REF) | payer MEDICARE, OTHER, MEDICAID, SELFPAY ==
[2023-01-02 08:08] LABS: Anion Gap 5 (5-15); BUN 25 mg/dL (7-18); BUN/Creat Ratio 15.5 RATIO (10-20); Calcium,Total 8.7 mg/dL (8.5-10.1); Chloride 103 mmol/L (98-107); Creatinine, Serum 1.61 mg/dL (0.55-1.02); EST Glomerular Filtration Rate 32 mL/min (>60); Est Glom Filt Rate - Afr Amer 39 mL/min (>60); Glucose 86 mg/dL (74-106); Potassium 3.9 mmol/L (3.5-5.1); Sodium Level 134 mmol/L (136-145)
== END ==
LOC: OLS.WHLEAS 05:00
PROVIDERS: PCP Family Medicine; Visit Provider Internal Medicine
DX: R60.9 Edema, unspecified (principal); J44.9 Chronic obstructive pulmonary disease, unspecified; I27.0 Primary pulmonary hypertension; E11.22 Type 2 diabetes mellitus with diabetic chronic kidney disease; N18.31 Chronic kidney disease, stage 3a; I50.22 Chronic systolic (congestive) heart failure
CPT/HCPCS: 36415; 80048; 83880

== ENCOUNTER → 2023-01-02 | Outpatient (CLI) | payer MEDICARE, OTHER, MEDICAID, SELFPAY ==
--- NOTE | 2023-01-02 08:59 | EKG12_ITS ---
Test Reason : PREPROC Blood Pressure : / mmHG Vent. Rate : 071 BPM Atrial Rate : 131 BPM P-R Int : 000 ms QRS Dur : 130 ms QT Int : 428 ms P-R-T Axes : 000 255 064 degrees QTc Int : 465 ms Atrial fibrillation Non-specific intra-ventricular conduction block Abnormal ECG Confirmed by JAZMYNE VAUGHN, TU ([id number]), digital editor RICHARD GODOY ([id number]) on 01/05/2023 11:37:41 AM Referred By: MORGAN Confirmed By:TU SAMANO MD
== END | disposition home or self-care (01) ==
LOC: PSN 08:58
PROVIDERS: PCP Internal Medicine; Visit Provider Surgery
DX: I48.91 Unspecified atrial fibrillation (principal); I10 Essential (primary) hypertension
CPT/HCPCS: 93005

== ENCOUNTER → 2023-01-13 | Outpatient (REF) | payer MEDICARE, OTHER, MEDICAID, SELFPAY ==
[2023-01-13 10:06] LABS: Hematocrit 40.1 % (37-47); Hemoglobin 12.4 g/dL (12.0-15.0); Mean Corp Hgb Conc 30.9 g/dL (32-36); Mean Corpuscular Hgb 30.2 pg (27.0-32.0); Mean Corpuscular Volume 97.8 fL (81-99); Mean Platelet Vol. 10.1 fl (6.2-12.0); Platelet Count 236 K/mm3 (150-450); RBC Distribution Width CV 17.6 % (11.6-14.6); RBC Distribution Width SD 63.1 fl (35.1-43.9); White Blood Count 6.7 K/mm3 (4.4-11.0)
[2023-01-13 10:47] LABS: Anion Gap 11 (5-15); BUN 27 mg/dL (7-18); Chloride 103 mmol/L (98-107); EST Glomerular Filtration Rate 28 mL/min (>60); Est Glom Filt Rate - Afr Amer 34 mL/min (>60); Glucose 71 mg/dL (74-106); Potassium 4.2 mmol/L (3.5-5.1); Sodium Level 135 mmol/L (136-145)
== END ==
LOC: OLS.WHLEAS 05:00
PROVIDERS: PCP Internal Medicine; Visit Provider Internal Medicine
DX: I27.0 Primary pulmonary hypertension (principal); S82.454D Nondisplaced comminuted fracture of shaft of right fibula, subsequent encounter for closed fracture with routine healing; S82.154D Nondisplaced fracture of right tibial tuberosity, subsequent encounter for closed fracture with routine healing
CPT/HCPCS: 36415; 80048; 85027